=== PATIENT | male | born 1980 | race Caucasian/White ===

== ENCOUNTER 2022-10-05 15:06 | Emergency (ER) | payer BC, SELFPAY ==
[2022-10-05 15:09] VITALS: BP 141/101; PULSE 104; RESP 17; TEMP 36.3; O2SAT 99; BMI 30.4
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
[2022-10-05] MEDS: LORazepam 1 MG Tablet PO (15:47)
[2022-10-05 16:28] LABS: Absolute Lymphocyte Count 1.39 X10^3/uL (0.83-4.51); Absolute Neutrophil Count 4.6 X10^3/uL (2.0-7.7); Basophil# 0.03 X10^3/uL; Basophil% 0.5 % (0-1); Eosinophil# 0.07 X10^3/uL; Eosinophils% 1.1 % (0-5); Hematocrit 44.4 % (40-54); Lymphocyte # 1.39 X10^3/ul (0.83-4.51); Lymphocyte % 21.3 % (19-41); Mean Corpuscular Hgb 31.4 pg (27.0-32.0); Mean Corpuscular Volume 87.2 fL (80-94); Mean Platelet Vol. 9.2 fl (6.2-12.0); Monocyte# 0.44 X10^3/uL; Monocyte% 6.7 % (0-10); NRBC Flagged by Analyzer 0 % (0-5); Neutrophil # 4.59 X10^3/uL (2.7-7.7); Neutrophil % 70.1 % (47-70); Platelet Count 222 K/mm3 (150-450); RBC Distribution Width SD 38.5 fl (35.1-43.9); Red Blood Count 5.09 M/mm3 (4.6-6.2); White Blood Count 6.5 K/mm3 (4.4-11.0)
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
[2022-10-05 16:35] LABS: Anion Gap 5 (5-15); BUN 6 mg/dL (7-18); BUN/Creat Ratio 5.9 RATIO (10-20); Calcium,Total 9.5 mg/dL (8.5-10.1); Chloride 106 mmol/L (98-107); Creatinine, Serum 1.01 mg/dL (0.70-1.30); EST Glomerular Filtration Rate 85 mL/min (>60); Est Glom Filt Rate - Afr Amer 103 mL/min (>60); Estimated Creatinine Clearance 105.48 ml/min; Glucose 107 mg/dL (74-106); Potassium 3.6 mmol/L (3.5-5.1); Sodium Level 137 mmol/L (136-145)
[2022-10-05 16:59] LABS: Alcohol, Blood (Medical)-Serum < 3.0 mg/dL
[2022-10-05 17:00] LABS: Amphetamine Urine VISTA NEGATIVE (<1000 ng/mL); Barbiturate Urine VISTA NEGATIVE (< 200 ng/mL); Benzodiazepine Urine VISTA NEGATIVE (< 200 ng/mL); Cocaine Urine VISTA NEGATIVE (< 300 ng/mL); Ecstacy Urine VISTA NEGATIVE (< 500 ng/mL); Methadone Urine VISTA NEGATIVE (< 300 ng/mL); PCP Urine VISTA NEGATIVE (< 25 ng/mL); THC Urine VISTA NEGATIVE (< 50 ng/mL); Vista UDS pH Range 5
[2022-10-05] MEDS: Pantoprazole Sodium 20 MG Tablet PO (17:11)
[2022-10-05] MEDS: hydrOXYzine PAM 25 MG Capsule 50 MG PO (17:11)
[2022-10-05 17:12] LABS: Valproic Acid (Depakene) Level 21 ug/mL (50-100)
--- NOTE | 2022-10-05 18:54 | CASEMGMT ---
Addendum entered by Jill Garza 10/05/22 19:32: Patient was accepted at [facility] with [facility] [employer] Carito Marte/ MD Madison, room Coin, N2N [id number] SW updated MD Soto of acceptance as well as loading unit operator powder charging who coordinated transportation, ETA 3 HRS. SW met with patient and updated him regarding admission to [facility] as well as transportation ETA of 3 hrs. Patient voiced understanding and has no questions or concerns. SW remains available if needs arise. Plan: [facility]. BERTHA Cameron Original Note: SW Note SW contacted [facility] to inquire about bed availability, DARRIUS informed beds are available. DARRIUS contacted [facility] to inquire about beds, DARRIUS informed beds are available. DARRIUS sent referrals to [facility] and [facility]. Admissions staff with [facility] contacted DARRIUS with clarifying questions and requesting EKG. SW informed MD Soto EKG is needed, to order. Plan: referrals pending at [facility] and [facility] BERTHA Cameron
--- NOTE | 2022-10-05 19:00 | NURSING ---
[facility] CALLED STATING THAT THEY WILL TAKE THE PT AND ARE REQUESTING THAT I SEND THE PINK SLIP AND THEY WILL CALL WITH MORE DETAILS.
[2022-10-05 20:00] VITALS: BP 121/67; PULSE 97; RESP 17; O2SAT 96
--- NOTE | 2022-10-05 21:36 | ED.RN ---
Report given to Lisa MAR at [facility].
[2022-10-05 21:47] VITALS: BP 145/97; PULSE 94; RESP 19; O2SAT 97
== END 2022-10-05 22:46 | disposition short-term general hospital (02) ==
PROVIDERS: Emergency Provider Student in an Organized Health Care Education/Training Program; PCP Internal Medicine; Visit Provider Student in an Organized Health Care Education/Training Program
DX: R45.851 Suicidal ideations (principal); F32.A Depression, unspecified; F41.9 Anxiety disorder, unspecified
CPT/HCPCS: 80048; 80164; 80307; 82077; 85025; 87811; 99285

== ENCOUNTER 2025-01-31 12:43 | Observation (INO) | payer OTHER, SELFPAY ==
[2025-01-31] VITALS (8 sets, daily range): BP systolic 140–170; BP diastolic 68–115; PULSE 110–125; RESP 12–22; TEMP 36.1–37.3; O2SAT 95–100; BMI 29.5; BMI 29.2
[2025-01-31 13:02] LABS: Hematocrit 50.6 % (40-54); Hemoglobin 18.7 g/dL (13.0-16.5); Immature Granulocytes Count 0.090 X10^3/uL (0.0-0.0); Mean Corp Hgb Conc 37.0 g/dL (32-36); Mean Corpuscular Volume 88.2 fL (80-94); Mean Platelet Vol. 8.3 fl (6.2-12.0); NRBC Flagged by Analyzer 0 % (0-5); Platelet Count 319 K/mm3 (150-450); RBC Distribution Width CV 13.1 % (11.6-14.6); RBC Distribution Width SD 42.3 fl (35.1-43.9); Red Blood Count 5.74 M/mm3 (4.6-6.2); White Blood Count 13.6 K/mm3 (4.4-11.0)
--- NOTE | 2025-01-31 13:10 | EDS_ITS ---
HPI History of Present Illness Chief Complaint: ETOH Intox Narrative Narrative: Patient 44-year-old male past medical history anxiety, depression, hypertension, GERD who presents to the emergency department for alcohol detox. Patient states that he needs assistance and get help with alcohol. He states that he has gone through detox in the past has never had seizures. He states that he drinks approximately 4 beat boxes daily and states that this is wine. Patient has no other complaints at this point time states his last drink was around 5 AM. [facility] Medical History (Updated 01/31/25 @ 14:[address] Yossi Amaya, ) Hypertension GERD (gastroesophageal reflux disease) Depression Anxiety Home Medications ?Medication ?Instructions ?Recorded ?Last Taken ?Type allopurinol 300 mg tablet 300 mg PO DAILY 10/05/22 Unk nown History amlodipine 5 mg tablet 5 mg PO DAILY 10/05/22 Unkno wn History omeprazole 20 mg capsule,delayed 20 mg PO BID 10/05/22 Unknown History release albuterol sulfate 90 mcg/actuation 2 puff inhalation Q 6H PRN PRN 01/31/25 Unknown History aerosol inhaler wheezing fluoxetine 20 mg capsule 20 mg PO DAILY 01/31/25 Unkn own History lamotrigine 100 mg tablet 100 mg PO DAILY 01/31/25 Unk nown History losartan 50 mg tablet 50 mg PO DAILY 01/31/25 Unkn own History trazodone 50 mg tablet 50 mg PO QHS PRN PRN insomni a 01/31/25 Unknown History Allergy/AdvReac Type Severity Reaction Status Date / Time No Known Allergies Allergy Verified 01/31/25 12:44 Social History Smoking Status: Never smoker ROS ROS ED ROS Narrative Constitutional: Denies fevers, chills, headaches Eyes: Denies double vision change in vision Cardiovascular: Denies chest pain Abdomen: Denies nausea vomit diarrhea Neurological: Denies numbness, weakness, tingling Musculoskeletal: Denies back pain Skin: Denies rashes or lesions EXAM Physical Exam Narrative Exam Narrative: General: Patient lying in bed rest comfortably did not appear to be in acute distress Head: Atraumatic, normocephalic Eyes: PERRL bilaterally, EOMI bilateral, no conjunctival injection noted Neck: Soft, supple, trachea midline Cardiovascular: Patient tachycardic with a regular rhythm Respiratory: Clear to auscultation bilaterally Abdomen: Soft, nondistended, nontender to palpation Extremities: +5/5 strength noted in the bilateral upper and lower extremities, radial pulses +2/4 in the bilateral extremities, no pedal edema exam Neurological: Patient follow commands knew that he was at [facility] year is 2024 Skin: Warm, dry, intact Const Vital Signs: 01/31/25 12:44 01/31/25 13:12 01/31/25 13:44 Temperature 97 F L Temperature Source Temporal Pulse Rate 125 H 112 H 110 H Respiratory Rate 14 12 14 Blood Pressure 140/115 H 154/98 H 145/71 H Blood Pressure Mean 123 116 95 Blood Pressure Source Monitor Blood Pressure Position Semi-Fowlers Blood Pressure Location Right Arm Pulse Ox 97 98 98 Oxygen Delivery Method Room Air Room Air Room Air 01/31/25 14:22 Temperature 98.7 F Temperature Source Pulse Rate 119 H Respiratory Rate 22 H Blood Pressure 157/110 H Blood Pressure Mean 125 Blood Pressure Source Blood Pressure Position Blood Pressure Location Pulse Ox 100 Oxygen Delivery Method MDM MDM MDM Narrative Medical decision making narrative: Patient is a 44-year-old male who presents to the emergency department with a chief complaint of wanting alcohol detox. Patient will be medically cleared and discussed case with hospitalist for admission. Patient placed on CIWA protocol Patient CBC reviewed showed a white blood count of 13,000, hemoglobin 18.7, plate count of 319. Patient sodium normal 136, potassium normal at 3.4, creatinine normal at 1.04. Patient's drug screen presumptive positive for cannabis, alcohol level 95. Patient feeling anxious he was given 1 mg of oral Ativan. At this point time will discuss case with hospitalist for admission for alcohol detox. Discussed case with hospitalist Dr. Piper who accept the patient for admission. Patient notified is agreeable spinal cord concerns answered. Lab Data Labs: Laboratory Results - last 24 hr 01/31/25 01/31/25 12:53 14:02 WBC 13.6 H RBC 5.74 Hgb 18.7 H* Hct 50.6 MCV 88.2 MCH 32.6 H MCHC 37.0 H RDW Std Deviation 42.3 RDW Coeff of Anson 13.1 Plt Count 319 MPV 8.3 Immature Gran % (Auto) 0.700 Neut % (Auto) 70.7 H Lymph % (Auto) 18.7 L Montour % (Auto) 9.3 Eos % (Auto) 0.2 Baso % (Auto) 0.4 Absolute Neuts (auto) 9.6 H Absolute Lymphs (auto) 2.53 Nucleated RBC % 0 Sodium 136 Potassium 3.4 Chloride 96 L Carbon Dioxide 21.5 Anion Gap 19 H BUN 9 Creatinine 1.04 Estim Creat Clear Calc 111.05 Est GFR (MDRD) Non-Af 90 BUN/Creatinine Ratio 8.3 L Glucose 103 H Calcium 9.5 Urine Opiates Screen NEGATIVE U Buprenorphine Qual NEGATIVE Ur Oxycodone Screen NEGATIVE Urine Methadone Screen NEGATIVE Urine Fentanyl Screen NEGATIVE Ur Barbiturates Screen NEGATIVE Ur Phencyclidine Scrn NEGATIVE Ur Amphetamines Screen NEGATIVE U Benzodiazepines Scrn NEGATIVE Urine Cocaine Screen NEGATIVE U Cannabinoids Screen PRESUMPTIVE POSITIVE Ethyl Alcohol 95.1 H Discharge Plan Triage Chief Complaint: ETOH Intox ED Provider: Yossi Amaya Dx/Rx/DC Orders Clinical Impression: Alcohol abuse, Anxiety, Depression, Hypertension Prescriptions: No Action amlodipine 5 mg Tablet 5 mg PO DAILY omeprazole 20 mg Capsule,Delayed Release(Dr/Ec) 20 mg PO BID allopurinol 300 mg Tablet 300 mg PO DAILY losartan 50 mg tablet 50 mg PO DAILY albuterol sulfate 90 mcg/actuation HFA aerosol inhaler 2 puff inhalation Q6H PRN PRN (Reason: wheezing) fluoxetine 20 mg capsule 20 mg PO DAILY lamotrigine 100 mg tablet 100 mg PO DAILY trazodone 50 mg tablet 50 mg PO QHS PRN PRN (Reason: insomnia) Primary Care Provider: Yandel Figueroa Referrals: Octavia Bolden MD [Med Staff - Distribution District Supervisor] - Print Language: Indonesian Disposition Disposition: Acute Care Hospital [facility]
--- OUTSIDE RECORDS SUMMARY | 2025-01-31 13:40 | XMS RPT_ITS | CCD ---
Author Organization [facility] Inform ion Partnership [facility] Care Team Providers Care Social Scientist Name Role Phone Jaquelin Nayak MD Primary Care Provider Tom Soto Attending Unavailable Jaquelin Nayak Primary Care Unavailable Yuan MANN, Jaquelin Primary Care Provider [phone] Jaquelin Nayak MD Primary Care Provider [phone] Unavailable Primary Care Provider Unavailabl e Stentz PA-C, Yandel Primary Care Provider Stentz PA-C, Yandel Primary Care Provider MARVEL DUBOSE Attending Unavailab le BULLOCKMARVEL ANDERSON Consulting Unavailab le MARVEL DUBOSE Admitting Unavailab le STENTZ, YANDEL Primary Care Unavailable STENTZ, YANDEL Attending Unavailable STENTZ, YANDEL Attending Unavailable STENTZ, YANDEL Primary Care Unavailable Older NUCLEAR WEAPONS CUSTODIAN.ETHYLENE OXIDE PANELBOARD OPERATOR, Celsa Unavailable Stentz PA-C, Yandel Primary Care Provider STENTZ, YANDEL Primary Care Unavailable ARIEL PETTY Attending Unavailable Medications Current Medications Medication Drug Class(es) Dates Sig (Normalized) Sig (Original) allopurinol 300 mg oral tablet (13 sources) Xanthine Oxidase Inhibitor Start: 05-14-2021 End: 11-12-2024 take 1 tablet by mouth once daily allopurinol (ZYLOPRIM) 300 mg tablet Indications: Idiopathic chronic gout of multiple sites without tophus Take 1 tablet by mouth once daily. 90 tablet 3 10/26/2022 Active Comment on above: Take 1 tablet by john th once daily. amLODIPine 5 mg oral tablet (11 sources) Dihydropyridine Calcium Channel Vahe Start: 10-26-2022 End: 11-02-2023 take 1 tablet by mouth once daily amLODIPine (NORVASC) 5 mg tablet Indications: Primary hypertension Take 1 tablet by mouth once daily. 90 tablet 3 11/02/2023 Active Start: 10-05-2022 take 5 mg by mouth once daily Amlodipine Active 5 MG PO DAILY October 05, 2022 12:00am Start: 10-20-2021 take 1 tablet by john th once daily amLODIPine (NORVASC) 5 mg tablet Indications: Primary hypertension Take 1 tablet by mouth once daily. 90 tablet 3 10/20/2021 Active Comment on above: Take 1 tablet by john th once daily. ARIPiprazole 10 mg oral tablet (3 sources) Atypical Antipsychotic Start: 05-21-20 take 1 tablet by mouth in the morning ARIPiprazole (Abilify) 10 mg tablet Take 1 tablet (10 mg) by mouth early in the morning.. 05/21/2024 Active Start: 10-05-2022 take 1 tablet by john th once daily Aripiprazole (Abilify) 10 mg Tablet Active 10 MG PO DAILY October 05, 2022 12:00am Start: 03-13-2021 take 1 tablet by john th once daily ARIPiprazole (ABILIFY) 5 mg tablet Take 5 mg by mouth once daily. 0 03/13/2021 Active Comment on above: Take 5 mg by mouth o nce daily. blood pressure test kit-large kit (2 sources) Start: 4 blood pressure test kit-large kit Indications: Primary hypertension Check BP daily. 1 each 05/30/2024 Active buPROPion hydrochloride 100 mg oral tablet (1 source) Aminoketone Start: 3 take 1 tablet by mouth once daily Bupropion Hcl (Wellbutrin) 100 mg Tablet Active 100 MG PO DAILY October 05, 2022 12:00am busPIRone hydrochloride 15 mg oral tablet (2 sources) Start: 4 take 1 tablet by mouth twice daily busPIRone (Buspar) 15 mg tablet Take 1 tablet (15 mg) by mouth 2 times a day. 05/21/2024 Active Start: 09-29-2021 take 1 tablet by john th three times daily busPIRone (BUSPAR) 15 mg tablet Take 1 tablet by mouth three times daily. 90 tablet 3 09/29/2021 Active Comment on above: Take 1 tablet by john th three times daily. doxepin 3 mg oral tablet (1 source) Tricyclic Antidepressant Start: 08-26-19 End: 11-13-19 take 1 tablet by mouth once daily doxepin 3 mg tablet Indications: Insomnia due to other mental disorder Take 1 tablet (3 mg) by mouth once daily. 30 tablet 1 08/26/2024 11/12/2024 Discontinued (Med List Cleanup) FLUoxetine 20 mg oral capsule (4 sources) Serotonin Reuptake Inhibitor Start: 11-20-19 End: 03-04-20 FLUoxetine (PROZAC) 20 mg capsule Take 20 mg by mouth. 11/23/2024 2025 Active lamoTRIgine 100 mg oral tablet (6 sources) Mood Stabilizer, Anti-epileptic Agent Start: 10-23-19 End: 12-23-19 take 1 tablet by mouth once daily lamoTRIgine (LAMICTAL) 100 MG tablet Take 1 (one) tablet (100 mg total) by mouth daily . 30 tablet 11/22/2024 12/22/2024 Active Start: 08-26-2024 End: 11-12-2024 lamoTRIgine (LaMICtal) 25 mg tablet Indications: Anxiety , Depression, unspecified depression type Take 25mg daily for 7 days, then increase to 50mg daily. 60 tablet 1 08/26/2024 11/12/2024 Discontinued (Med List Cleanup) losartan potassium 50 mg oral tablet (8 sources) Angiotensin 2 Receptor Vahe Start: 05-30-2024 End: 11-12-2025 losartan (COZAAR) 50 mg tablet Take 50 mg by mouth. 11/12/2024 11/12/2025 Active meloxicam 15 mg oral tablet (4 sources) Nonsteroidal Anti-inflammatory Drug Start: 05-18-2023 take 1 tablet by mouth once daily meloxicam (MOBIC) 15 mg tablet Take 1 tablet by mouth once daily. 30 tablet 1 05/18/2023 Active Comment on above: Take 1 tablet by john th once daily. metoprolol tartrate 25 mg oral tablet (10 sources) beta-Adrenergic Vahe Start: 10-26-2022 End: 10-29-2023 take 0.5 tablet by mouth twice daily metoprolol tartrate, short acting, (LOPRESSOR) 25 mg tablet Take 0.5 tablets by mouth twice daily. 90 tablet 3 10/28/2022 Active Comment on above: Take 0.5 tablets by mouth twice daily. multivitamin tablet (9 sources) Start: 10-26-2022 take 1 tablet by mouth once daily multivitamin tablet Take 1 tablet by mouth once daily. 10/26/2022 Active Start: 10-26-2022 take 1 tablet by [facility] once daily multivitamin tablet Take 1 tablet by mouth once daily. 0 10/26/2022 Active Comment on above: Take 1 tablet by john once daily. ofloxacin 3 mg/ml otic solution (1 source) Quinolone Antimicrobial Start: 01-12-20 End: 01-19-20 ofloxacin (FLOXIN) 0.3 % otic solution Use 10 drops in the left ear once daily for 7 days. 5 mL 01/11/2025 01/18/2025 Active omeprazole 20 mg delayed release oral capsule (15 sources) Proton Pump Inhibitor Start: 12-17-19 End: 05-11-20 take 1 capsule by mouth twice daily before mealtime omeprazole (PRILOSEC) 20 mg capsule Take 1 capsule by mouth two times a day. 1/2 hr before meal. 180 capsule 1 11/02/2023 Active Comment on above: Take [address] [facility] twice daily. 1/2 hr before meal. Take [address] [facility] two times a day. 1/2 hr before meal. pantoprazole 20 mg delayed release oral tablet (4 sources) Proton Pump Inhibitor Start: 11-20-19 End: 12-23-19 take 1 tablet by mouth twice daily pantoprazole (PROTONIX) 20 MG tablet Take 1 (one) tablet (20 mg total) by mouth 2 (two) times a day . 60 tablet 11/22/2024 12/22/2024 Active Start: 11-18-2024 End: 11-19-2024 take 20 mg by mouth once daily 20 mg, Oral, Daily, Fir st dose (after last modification) on 11/18/24 at 2220, DO NOT CRUSH OR CHEW. traZODone hydrochloride 50 mg oral tablet (4 sources) Serotonin Reuptake Inhibitor Start: 11-18-2024 End: 12-22-2024 take 1 tablet by mouth once daily as needed for sleep traZODone (DESYREL) 50 MG tablet Take 1 (one) tablet (50 mg total) by mouth nightly as needed for sleep . 30 tablet 11/22/2024 12/22/2024 Active Start: 04-23-2024 traZODone (Chuy yrel) 100 mg tablet Take 1 tablet (100 mg) by mouth as needed at bedtime. 04/23/2024 Active divalproex sodium 125 mg delayed release oral capsule (20 sources) Mood Stabilizer, Anti-epileptic Agent Start: 10-26-2022 take 1 capsule by mouth twice daily divalproex sprinkle (DEPAKOTE SPRINKLES) 125 mg capsule Take 1 capsule by mouth twice daily. 10/26/2022 Active Start: 10-05-2022 take 1 tablet by john th three times daily Divalproex (Depakote) 125 mg Tablet,Delayed Release (Dr/Ec) Active 125 MG PO THREE TIMES A DAY October 05, 2022 12:00am take 1 tablet by john th once daily divalproex DR (DEPAKOTE) 250 mg EC tablet Take 250 mg by mouth once daily. Active take 1 tablet by john th once daily divalproex DR (DEPAKOTE) 500 mg EC tablet Take 500 mg by mouth once daily. Active Comment on above: Take 1 capsule by [facility] twice daily. Take 250 mg by mouth once daily. Take 500 mg by mouth once daily. Completed/Discontinued Medications Medication Drug Class(es) Dates Sig (Normalized) Sig (Original) acetaminophen 325 mg oral tablet (1 source) Start: 11-18-2024 End: 11-22-2024 take 1 tablet by mouth every four hours as needed for pain 650 mg, Oral, Every 4 hours PRN, mild pain, Starting on 11/18/24 at 2355 [id number] actuat albuterol 0.09 mg/actuat metered dose inhaler (1 source) beta2-Adrenergic Agonist End: 11-22-2024 take 2 puff(s) by inhalation every six hours as needed for wheezing albuterol 90 mcg/actuation inhaler Inhale 2 (two) puffs every 6 (six) hours as needed for wheezing . 11/22/2024 Discontinued (Stop Taking at Discharge) aluminum hydroxide 40 mg/ml / magnesium hydroxide 40 mg/ml / simethicone 4 mg/ml oral suspension (1 source) Start: 11-18-2024 End: 11-22-2024 take 30 mL by mouth every four hours as needed 30 mL, Oral, Every 4 hours PRN, indigestion, Starting on Mon11/18/24 at 2355 2 ml benztropine mesylate 1 mg/ml injection (1 source) Anticholinergic, Antihistamine Start: 11-18-2024 End: 11-22-2024 inject 2 mg by intramuscular injection every twenty-four hours as needed 2 mg, Intramuscular, Once as needed, acute dystonia, Starting on Mon11/18/24 at 2355, For 1 dose, [] and notify the physician. Haloperidol (1 source) Typical Antipsychotic Start: 11-18-2024 End: 11-22-2024 take 1 tablet by mouth every four hours as needed haloperidoL (HALDOL) tablet 5 mg hydrOXYzine hydrochloride 50 mg oral tablet (4 sources) Antihistamine Start: 11-19-2024 End: 11-22-2024 take 1 tablet by mouth every six hours as needed for anxiety 50 mg, Oral, Every 6 hours PRN, anxiety, Starting on Mon11/19/24 at 0016 Start: 05-30-2024 End: 06-09-2024 take 1 tablet by mouth four times daily hydrOXYzine HCL (Atarax) 10 mg tablet Indications: Anxiety Take 1 tablet (10 mg) by mouth 4 times a day for 10 days. 40 tablet 05/30/2024 06/09/2024 Active Start: 12-17-2021 hydrOXYzine HC l (ATARAX) 25 mg tablet Take 1-2 tablets at bedtime as needed for anxiety 90 tablet 2 12/17/2021 Active Start: 10-20-2021 End: 12-15-2021 hydrOXYzine HCl (ATARAX) 25 mg tablet Take 1-2 tablets at bedtime as needed for anxiety 90 tablet 2 10/20/2021 12/15/2021 Discontinued Comment on above: Take 1-2 tablets at bedtime as needed for anxiety magnesium hydroxide 80 mg/ml oral suspension (1 source) Start: 2024 End: 2024 take 2400 mg by mouth once daily as needed for constipation 2,400 mg (30 mL), Oral, Daily PRN, constipation, constipation, Starting on Mon11/18/24 at 2355 OLANZapine (ZyPREXA) injection 5 mg (1 source) Start: 2024 End: 2024 inject 5 mg by intramuscular injection every four hours as needed 5 mg, Intramuscular, Every 4 hours PRN, agitation, SECOND LINE agent for agitation, Starting on Mon11/18/24 at 2354, May give 30 minutes after first line agent if needed for agitation management. Contact provider if additional agitation management is necessary. Do not give IM olanzapine within 2 hours of IM lorazepam. Maximum 30 mg of IM olanzapine total per 24 hours. May cause QT interval prolongation. If not already reconstituted, reconstitute 10 mg vial with 2.1 mL sterile water inj. Final concentration = 5 mg/mL. FOR IM USE ONLY. Use within 1 hr. QUEtiapine 50 mg oral tablet (4 sources) Atypical Antipsychotic Start: 2022 End: 2022 take 1 tablet by mouth once daily at bedtime QUEtiapine (SEROQUEL) 50 mg tablet Take 1 tablet by mouth daily at bedtime. 0 10/26/2022 05/03/2023 Discontinued Comment on above: Take 1 tablet by john th daily at bedtime. sertraline 100 mg oral tablet (1 source) Serotonin Reuptake Inhibitor Start: 2021 sertraline (ZOLOFT) 100 mg tablet 2 tablets once daily 60 tablet 4 10/20/2021 Active Comment on above: 2 tablets once daily sildenafil 50 mg oral tablet (4 sources) Phosphodiesterase 5 Inhibitor Start: 2022 End: 2022 sildenafil (VIAGRA) 50 mg tablet Please take 1 to 2 pills as needed an hour before activity. 30 tablet 0 10/26/2022 05/03/2023 Discontinued Comment on above: Please take 1 to 2 p ills as needed an hour before activity. Problems Active Problems Problem Classification Problem Date Documented Date Episodic/Chronic Alcohol-related disorders (2 sources) Alcohol abuse; Translations: [Alcohol abuse, uncomplicated] Onset: 11-18-2024 11-18-2024 Chronic Alcohol-related disorders (3 sources) Alcohol intoxication; Translations: [Alcohol use, unspecified with intoxication, uncomplicated] Onset: 11-18-2024 11-18-2024 Episodic Anxiety disorders (17 sources) Anxiety state; Translations: [Generalized anxiety disorder] Onset: 05-30-2024 04-27-2018 Chronic Esophageal disorders (17 sources) Gastroesophageal reflux disease; Translations: [Gastro-esophageal reflux disease without esophagitis] Onset: 12-05-2011 07-26-2021 Chronic Essential hypertension (17 sources) Essential hypertension; Translations: [Essential (primary) hypertension] Onset: 10-20-2021 10-20-2021 Chronic Gout and other crystal arthropathies (13 sources) Gout; Translations: [Gout, unspecified] Onset: 05-25-2013 05-25-2013 Chronic Miscellaneous mental health disorders (3 sources) Insomnia disorder related to another mental disorder; Translations: [Insomnia due to other mental disorder] Onset: 05-30-2024 05-30-2024 Chronic Mood disorders (20 sources) Depressive disorder; Translations: [Depressive disorder] Onset: 05-30-2024 Resolved: 11-19-2024 07-26-2021 Chronic Mood disorders (2 sources) Mood disorders; Translations: [Depression, unspecified] Onset: 05-30-2024 Nutritional deficiencies (1 source) Vitamin D deficiency; Translations: [Vitamin D deficiency, unspecified] Onset: 09-05-2024 09-05-2024 Chronic Other connective tissue disease (1 source) Dupuytren contracture of right palm; Translations: [Palmar fascial fibromatosis [Dupuytren]] Episodic Other connective tissue disease (1 source) Dupuytren's disease of palm; Translations: [Palmar fascial fibromatosis [Dupuytren]] 02-28-2023 Episodic Other connective tissue disease (1 source) Pain in right hand; Translations: [Pain in right hand] 05-18-2023 Episodic Other connective tissue disease (1 source) Dupuytren's contracture; Translations: [Palmar fascial fibromatosis [Dupuytren]] 06-14-2023 Episodic Other ear and sense organ disorders (1 source) Acute otitis externa of left ear; Translations: [Unspecified acute noninfective otitis externa, left ear] 01-11-2025 Episodic Other ear and sense organ disorders (1 source) Unspecified acute noninfective otitis externa, left ear; Translations: [Acute otitis externa of left ear, unspecified type] Onset: 01-11-2025 Episodic Other eye disorders (10 sources) Bilateral vitreous floaters; Translations: [Other vitreous opacities, bilateral] Onset: 07-05-2019 07-05-2019 Chronic Other non-traumatic joint disorders (1 source) Arthropathy; Translations: [Other specified joint disorders, unspecified joint] 05-11-2023 Episodic Residual codes; unclassified (1 source) Pain; Translations: [Pain, unspecified] 12-29-2022 Episodic Suicide and intentional self-inflicted injury (1 source) Suicidal ideations; Translations: [Suicidal ideations] Onset: 10-31-2022 Episodic Past or Other Problems Problem Classification Problem Date Documented Da te Episodic/Chronic Blindness and vision defects (10 sources) Amblyopia of right eye; Translations: [Unspecified amblyopia, right eye] Onset: 10-04-2019 10-04-2019 Episodic Diseases of mouth; excluding dental (3 sources) Aphthous ulcer of mouth; Translations: [Recurrent oral aphthae] Resolved: 01-20-2015 01-20-2015 Episodic Inflammation; infection of eye (except that caused by tuberculosis or sexually transmitteddisease) (10 sources) Internal hordeolum of left upper eyelid; Translations: [Hordeolum internum left upper eyelid] Onset: 07-05-2019 07-05-2019 Episodic Other gastrointestinal disorders (3 sources) Heartburn; Translations: [Heartburn] Resolved: 01-20-2015 01-20-2015 Episodic Other nutritional; endocrine; and metabolic disorders (10 sources) Hyperuricemia; Translations: [Hyperuricemia without signs of inflammatory arthritis and tophaceous disease] Onset: 12-05-2011 12-05-2011 Episodic Unclassified (2 sources) Onset: 05-30-2024 Resolved: 11-12-2024 05-30-2024 Results Test Name Value Interpretation Reference Range Facility Mattie 01-11-2025 [facility] [place] ([facility] ) -------- COREY MORRISON ([id number]) 1980 M Date Time Provider Department 01/11/25 8:15 AM ARIEL PETTY [facility] During your visit today, we recorded the following information about you: Temperature Pulse Respiration Blood pressure 97 degrees 98/minute 16/minute 124/72 Weight 103.4 kg Ariel Petty, MARIA DE JESUS 01/11/2025 8:36 AM Signed [facility] Subjective Corey Morrison is a 44 year old male. Patient presents with: Ear Pain: left x this am HPI Left Otalgia: - Onset: Noticed pain during the night when waking to use the bathroom. - No recent URI symptoms: Denies cough, rhinorrhea, or fever. - No recent swimming. - Suspects possible trauma from using a jose to remove ear hair. - Denies otorrhea; fiancee applied ear drops this morning. - Questions if well water could be a contributing factor. PAST MEDICAL HISTORY Diagnosis Date Amblyopia of right eye patching as a child Anxiety state, unspecified Depressive disorder, not elsewhere classified Diaphragmatic hernia without mention of obstruction or gangrene Encounter for long-term (current) use of medications 05/25/2013 Esophagitis, unspecified Heartburn Hyperlipidemia 03/05/2015 Oral aphthae yael with stress, Abreva helps, lately worse Umbilical hernia PAST SURGICAL HISTORY Procedure Laterality Date EGD TRANSORAL BIOPSY SINGLE/MULTIPLE 10/27/11 ALLERGIES Patient has no known allergies. MEDICATIONS FLUoxetine (PROZAC) 20 mg capsule Take 20 mg by mouth. losartan (COZAAR) 50 mg tablet Take 50 mg by mouth. omeprazole (PRILOSEC) 20 mg capsule Take 1 capsule by mouth two times a day. 1/2 hr before meal. allopurinol (ZYLOPRIM) 300 mg tablet Take 1 tablet by mouth once daily. ofloxacin (FLOXIN) 0.3 % otic solution Use 10 drops in the left ear once daily for 7 days. amLODIPine (NORVASC) 5 mg tablet Take 1 tablet by mouth once daily. (Patient not taking: Reported on 01/11/2025) meloxicam (MOBIC) 15 mg tablet Take 1 tablet by mouth once daily. (Patient not taking: Reported on 01/11/2025) divalproex DR (DEPAKOTE) 250 mg EC tablet Take 250 mg by mouth once daily. (Patient not taking: Reported on 01/11/2025) divalproex DR (DEPAKOTE) 500 mg EC tablet Take 500 mg by mouth once daily. (Patient not taking: Reported on 01/11/2025) metoprolol tartrate, short acting, (LOPRESSOR) 25 mg tablet Take 0.5 tablets by mouth twice daily. (Patient not taking: Reported on 01/11/2025) divalproex sprinkle (DEPAKOTE SPRINKLES) 125 mg capsule Take 1 capsule by mouth twice daily. multivitamin tablet Take 1 tablet by mouth once daily. FAMILY HISTORY Problem Relation Age of Onset Hypertension Mother Smoker, HTN,, excess Mt Dew Diabetes Mother Psychiatry Mother Depression/Anxiety Colon Cancer Mother COPD Mother Diabetes Father Psychiatry Father Depression/Anxiety Psychiatry Sister bi-polar Social History Tobacco Use Smoking status: Never Smokeless tobacco: Never Vaping Use Vaping status: Never Used Substance Use Topics Alcohol use: No Drug use: No Review of Systems Constitutional: (-) fever Ears/Nose/Mouth/Throat: (+) left ear pain, (-) ear drainage, (-) rhinorrhea Respiratory: (-) cough Objective BP 124/72 Pulse 98 Temp 36.1 ?C (97 ?F) Resp 16 Wt 103.4 kg (227 lb 15.3 oz) SpO2 96% BMI 30.08 kg/m? Physical Exam Vitals reviewed. Constitutional: General: He is not in acute distress. Appearance: Normal appearance. He is not toxic-appearing. HENT: Right Ear: Tympanic membrane and ear canal normal. Left Ear: Tympanic membrane normal. Swelling and tenderness present. Tympanic membrane is not erythematous. Mouth/Throat: Mouth: Mucous membranes are moist. Cardiovascular: Rate and Rhythm: Normal rate and regular rhythm. Pulmonary: Effort: Pulmonary effort is normal. Breath sounds: Normal breath sounds. Skin: General: Skin is warm and dry. Neurological: Mental Status: He is alert. General: No acute distress. HEENT: Left ear canal erythematous and edematous, tympanic membrane normal. Resp: Clear to auscultation bilaterally. {1. Acute otitis externa of left ear, unspecified type (H60.502) - Onset today; no recent illness or swimming. Possible irritation from ear hair trimming. - Examination reveals erythema and edema of the left ear canal; tympanic membrane intact. - Prescribed antibiotic ear drops; sent prescription to [facility] pharmacy. and Recording using [employer] software for draft documentation of the visit was discussed with the patient/authorized patient accounting representative; all questions welcomed and answered. Patient/authorized patient accounting representative agreed to proceed Differential Diagnoses - otitis externa is more likely for the following reason(s): suggested by HANDP - otitis media is less likely for the following reason(s): HANDP not suggestive Disposition (more content not included)... Normal [facility] Lipid 1996 panelon Cholesterol [Mass/Vol] 201 mg/dL High 100 - 199 mg/dL [facility] Cholesterol in HDL [Mass/Vol] 50 mg/dL 40 - 59 mg/dL [facility] Cholesterol in LDL [Mass/Vol] 114 mg/dL 10 - 130 mg/dL [facility] Comment on above: National Cholesterol Education Program Guidelines: LDL Cholesterol Optimal: <100 mg/dL Near Optimal/above Optimal: 100-129 mg/dL Borderline High: 130-159 mg/dL High: 160-189 mg/dL Very High: greater than or equal to 190 mg/dL Cholesterol non HDL [Mass/Vol] 151 mg/dL [facility] Comment on above: National Cholesterol Education Program Guidelines: NON HDL Cholesterol Desirable: <130 mg/dL Borderline High: 130-159 mg/dL High: 160-189 mg/dL Very High: > or = 190 mg/dL Cholesterol.total/Cho lesterol in HDL [Mass ratio] 4 {ratio} ratio [facility] Comment on above: Males Cholesterol/HD L Ratio: Average risk: 5.0 1/2 average risk: 3.4 2 x average risk: 9.6 Interpretation and review of laboratory results Abnormal [facility] Triglyceride [Mass/Vol] 184 mg/dL High 30 - 150 mg/dL [facility] No Panel Informationon 11-19 [facility] TSH DL <= 0.005 mIU/L Qnon 0 11-19-2024 Interpretation and review of laboratory results Normal [facility] TSH Qn 0.53 m[IU]/L [facility] URINALYSISon 11-19-2024 BACTERIA, URINE None Seen Normal None Seen [facility] Comment on above: Order Comment: Micro scopic examination is performed on all urinalysis samples and only positive findings are reported. The test for blood on the chemical analytic portion of urinalysis may also be positive due to hemoglobinuria and myoglobinuria and if red blood cells are present they are quantified by microscopic examination. Performed By: #### [id number] #### LAB [address] [address] Arnold Bishop M.D. [id number] BILIRUBIN, URINE Negative Normal Negative [facility] Comment on above: Order Comment: Micro scopic examination is performed on all urinalysis samples and only positive findings are reported. The test for blood on the chemical analytic portion of urinalysis may also be positive due to hemoglobinuria and myoglobinuria and if red blood cells are present they are quantified by microscopic examination. Performed By: #### [id number] #### LAB [address] [address] Arnold Bishop M.D. [id number] BLOOD, URINE Small Abnormal Negative [facility] Comment on above: Order Comment: Micro scopic examination is performed on all urinalysis samples and only positive findings are reported. The test for blood on the chemical analytic portion of urinalysis may also be positive due to hemoglobinuria and myoglobinuria and if red blood cells are present they are quantified by microscopic examination. Performed By: #### [id number] #### LAB [address] [address] Arnold Bishop M.D. [id number] Clarity (U) Clear Normal Clear [facility] [facility] Comment on above: Order Comment: Micro scopic examination is performed on all urinalysis samples and only positive findings are reported. The test for blood on the chemical analytic portion of urinalysis may also be positive due to hemoglobinuria and myoglobinuria and if red blood cells are present they are quantified by microscopic examination. Performed By: #### 4 6625 #### LAB [address] [address] Arnold Bishop M.D. [id number] Color (U) Colorless Normal Colorless, Yellow [facility] Comment on above: Order Comment: Micro scopic examination is performed on all urinalysis samples and only positive findings are reported. The test for blood on the chemical analytic portion of urinalysis may also be positive due to hemoglobinuria and myoglobinuria and if red blood cells are present they are quantified by microscopic examination. Performed By: #### 4 6625 #### LAB [address] [address] Arnold Bishop M.D. [id number] Glucose Ql (U) Negative Normal Negative [facility] Comment on above: Order Comment: Micro scopic examination is performed on all urinalysis samples and only positive findings are reported. The test for blood on the chemical analytic portion of urinalysis may also be positive due to hemoglobinuria and myoglobinuria and if red blood cells are present they are quantified by microscopic examination. Performed By: #### 4 6625 #### LAB [address] [place] [address] Arnold Bishop M.D. [id number] Ketones Ql (U) Negative Normal Negative [facility] Comment on above: Order Comment: Micro scopic examination is performed on all urinalysis samples and only positive findings are reported. The test for blood on the chemical analytic portion of urinalysis may also be positive due to hemoglobinuria and myoglobinuria and if red blood cells are present they are quantified by microscopic examination. Performed By: #### 4 6625 #### LAB [address] [place] [address] Arnold Bishop M.D. [id number] Leukocyte esterase Test strip Ql (U) Negative Normal Negative [facility] Comment on above: Order Comment: Micro scopic examination is performed on all urinalysis samples and only positive findings are reported. The test for blood on the chemical analytic portion of urinalysis may also be positive due to hemoglobinuria and myoglobinuria and if red blood cells are present they are quantified by microscopic examination. Performed By: #### 4 6625 #### LAB [address] [address] Arnold Bishop M.D. [id number] NITRITE, URINE Negative Normal [facility] Comment on above: Order Comment: Micro scopic examination is performed on all urinalysis samples and only positive findings are reported. The test for blood on the chemical analytic portion of urinalysis may also be positive due to hemoglobinuria and myoglobinuria and if red blood cells are present they are quantified by microscopic examination. Performed By: #### 4 6625 #### LAB [address] [id number] Arnold Bishop M.D. [id number] pH (U) 7.0 [pH] Normal 5.0-7.0 [facility] Comment on above: Order Comment: Micro scopic examination is performed on all urinalysis samples and only positive findings are reported. The test for blood on the chemical analytic portion of urinalysis may also be positive due to hemoglobinuria and myoglobinuria and if red blood cells are present they are quantified by microscopic examination. Performed By: #### 4 6625 #### LAB [address] [place] [address] Arnold Bishop M.D. [id number] PROTEIN, URINE Negative Normal Negative [facility] Comment on above: Order Comment: Micro scopic examination is performed on all urinalysis samples and only positive findings are reported. The test for blood on the chemical analytic portion of urinalysis may also be positive due to hemoglobinuria and myoglobinuria and if red blood cells are present they are quantified by microscopic examination. Performed By: #### 4 6625 #### LAB [address] [address] Arnold Bishop M.D. [id number] Specific gravity (U) [Rel density] 1.006 Normal 1.005-1.025 [facility] Comment on above: Order Comment: Micro scopic examination is performed on all urinalysis samples and only positive findings are reported. The test for blood on the chemical analytic portion of urinalysis may also be positive due to hemoglobinuria and myoglobinuria and if red blood cells are present they are quantified by microscopic examination. Performed By: #### 4 6625 #### LAB [address] [address] Arnold Bishop M.D. [id number] UROBILINOGEN, URINE <2.0 Normal <2.0 [facility] Comment on above: Order Comment: Micro scopic examination is performed on all urinalysis samples and only positive findings are reported. The test for blood on the chemical analytic portion of urinalysis may also be positive due to hemoglobinuria and myoglobinuria and if red blood cells are present they are quantified by microscopic examination. Performed By: #### 4 6625 #### LAB [address] [place], [place] [address] Arnold Bishop M.D. [id number] UrinalysisOrdered By: Tory Díaz on 11-19-2024 Bacteria Auto Ql (U) None Seen None Se en /hpf [facility] Bilirubin Ql (U) Negative Negative [facility] th Clarity Refractometry automated (U) Clear Clear [facility] Color (U) Colorless Colorless, Yellow [facility] Glucose Auto test strip (U) [Mass/Vol] Negative Negative mg/dL [facility] Hemoglobin Auto test strip Ql (U) Small Abnormal Negative [facility] Interpretation and review of laboratory results Abnormal [facility] Ketones (U) [Mass/Vol] Negative Negative mg/dL [facility] Leukocyte esterase Auto test strip Ql (U) Negative Negative [facility] Nitrite Auto test strip Ql (U) Negative Negative [facility] pH (U) 7 [pH] 5.0 - 7.0 [facility] Protein (U) [Mass/Vol] Negative Negative mg/dL [facility] Specific gravity (U) [Rel density] 1.006 1.005 - 1.025 [facility] Urobilinogen (U) [Mass/Vol] mg/dL NINF - 2.0 mg/dL [facility] Microscopic examinat ion is performed on all urinalysis samples and only positive findings are reported. The test for blood on the chemical analytic portion of urinalysis may also be positive due to hemoglobinuria and myoglobinuria and if red blood cells are present they are quantified by microscopic examination. [facility] ALCOHOL, MEDICALon 5 ALCOHOL MEDICAL 39.8 mg/dL High <10.0 [facility] Comment on above: Performed By: #### 4 5033 #### LAB [address] [place], [place] [address] Arnold Bishop M.D. [id number] ALCOHOL MEDICAL 172.0 mg/dL High <10.0 [facility] Comment on above: Performed By: #### 4 5033 #### [facility] LAB [address] [place], [place] [address] Arnold Bishop M.D. [id number] Alcohol Levelon 11-18-2024 Ethanol [Mass/Vol] 39.8 mg/dL High NINF - 10 .0 mg/dL [facility] Alcohol, Medicalon Ethanol [Mass/Vol] 172 mg/dL High NINF - 10 .0 mg/dL [facility] CBC Auto Differentialon 10-30 Basophils (Bld) [#/Vol] 0.04 10*3/uL [facility] Basophils/100 WBC (Bld) 0.6 % [facility] Eosinophils (Bld) [#/Vol] 0.05 10*3/uL [facility] Eosinophils/100 WBC (Bld) 0.7 % [facility] Erythrocyte distribution width (RBC) [Entitic vol] 12.8 % 11.6 - 14.8 % [facility] Hematocrit (Bld) [Volume fraction] 45.9 % 41.0 - 53.0 % [facility] Hemoglobin (Bld) [Mass/Vol] 16.2 g/dL 13.5 - 17.5 g/dL [facility] Immature granulocytes (Bld) [#/Vol] 0.06 10*3/uL [facility] Immature granulocytes/100 WBC (Bld) 0.9 % [facility] Comment on above: The IG parameter is the percentage of metamyelocytes, myelocytes and promyelocytes. An immature granulocyte count (IG) of 1% or more suggests the possibility of infection, an IG count of 3% is very likely related to an infection. Interpretation and review of laboratory results Abnormal [facility] Lymphocytes (Bld) [#/Vol] 1.74 10*3/uL [facility] Lymphocytes/100 WBC (Bld) 25.3 % [facility] MCH (RBC) [Entitic mass] 32.5 pg 26.0 - 34.0 pg [facility] MCHC (RBC) [Mass/Vol] 35.3 g/dL 31.0 - 37.0 g/dL [facility] MCV (RBC) [Entitic vol] 92 fL 80.0 - 100.0 fL [facility] Monocytes (Bld) [#/Vol] 0.34 10*3/uL [facility] Monocytes/100 WBC (Bld) 4.9 % [facility] Neutrophils (Bld) [#/Vol] 4.65 10*3/uL [facility] Neutrophils/100 WBC (Bld) 67.6 % [facility] Nucleated RBC (Bld) [#/Vol] 0 10*3/uL [facility] Nucleated RBC/100 WBC (Bld) [Ratio] 0 % [facility] Platelet mean volume (Bld) [Entitic vol] 9 fL Low 9.4 - 12.4 fL [facility] Platelets (Bld) [#/Vol] 209 10*3/uL [facility] RBC (Bld) [#/Vol] 4.99 10*6/uL [facility] WBC (Bld) [#/Vol] 6.88 10*3/uL [facility] CBC WITH AUTO DIFFERENTIALon 11-18-2024 AUTO NRBC 0.0 % [place] Comment on above: Performed By: #### L [id number] #### LAB [address] [place] [address] Arnold Bishop M.D. [id number] AUTO NRBC ABS COUNT 0.00 K/mcL Normal 0.00-0.00 [facility] Comment on above: Performed By: #### L [id number] #### LAB [address] [place] [address] Arnold Bishop M.D. [id number] BASOPHILS ABSOLUTE COUNT 0.04 K/mcL Normal 0.00-0.30 [facility] Comment on above: Performed By: #### L [id number] #### LAB [address] [place] [address] Arnold Bishop M.D. [id number] Basophils/100 WBC (Bld) 0.6 % Normal [facility] Comment on above: Performed By: #### L [id number] #### LAB [address] [place] [address] Arnold Bishop M.D. [id number] Eosinophils (Bld) [#/Vol] 0.05 10*3/uL Normal 0.00-0.50 [facility] Comment on above: Performed By: #### L [id number] #### LAB [address] [place], [place] [id number] Arnold Bishop M.D. [id number] Eosinophils/100 WBC (Bld) 0.7 % Normal [facility] Comment on above: Performed By: #### L [id number] #### LAB [address] [address] Arnold Bishop M.D. [id number] Erythrocyte distribution width (RBC) [Ratio] 12.8 % Normal 11.6-14.8 [facility] Comment on above: Performed By: #### L [id number] #### LAB [address] [address] Arnold Bishop M.D. [id number] Hematocrit (Bld) [Volume fraction] 45.9 % Normal 41.0-53.0 [facility] Comment on above: Performed By: #### L [id number] #### LAB [address] [address] Arnold Bishop M.D. [id number] Hemoglobin (Bld) [Mass/Vol] 16.2 g/dL Normal 13.5-17.5 [facility] Comment on above: Performed By: #### L [id number] #### LAB [address] [address] Arnold Bishop M.D. [id number] IG ABSOLUTE 0.06 K/mcL Normal 0.00-0.30 [facility] Comment on above: Performed By: #### L [id number] #### LAB [address] [address] Arnold Bishop M.D. [id number] IG PERCENT 0.90 % Normal [facility] Comment on above: Result Comment: The IG parameter is the percentage of metamyelocytes, myelocytes and promyelocytes. An immature granulocyte count (IG) of 1% or more suggests the possibility of infection, an IG count of 3% is very likely related to an infection. Performed By: #### L [id number] #### LAB [address] [address] Arnold Bishop M.D. [id number] Lymphocytes (Bld) [#/Vol] 1.74 10*3/uL Normal 0.90-4.00 [facility] Comment on above: Performed By: #### L [id number] #### LAB [address] [address] Arnold Bishop M.D. [id number] Lymphocytes/100 WBC (Bld) 25.3 % Normal [facility] Comment on above: Performed By: #### L [id number] #### LAB [address] [address] Arnold Bishop M.D. [id number] MCH (RBC) [Entitic mass] 32.5 pg Normal 26.0-34.0 [facility] Comment on above: Performed By: #### L [id number] #### LAB [address] [address] Arnold Bishop M.D. [id number] MCV (RBC) [Entitic vol] 92.0 fL Normal 80.0-100.0 [facility] Comment on above: Performed By: #### L [id number] #### LAB [address] [place] [address] Arnold Bishop M.D. [id number] MEAN CORPUSCULAR HEMOGLOBIN CONC 35.3 g/dL Normal 31.0-37.0 [facility] Comment on above: Performed By: #### L [id number] #### LAB [address] [place] [address] Arnold Bishop M.D. [id number] Monocytes (Bld) [#/Vol] 0.34 10*3/uL Normal 0.30-0.90 [facility] Comment on above: Performed By: #### L [id number] #### LAB [address] [place] [address] Arnold Bishop M.D. [id number] Monocytes/100 WBC (Bld) 4.9 % Normal [facility] Comment on above: Performed By: #### L [id number] #### LAB [address] [place] [address] Arnold Bishop M.D. [id number] NEUTROPHILS ABSOLUTE COUNT 4.65 K/mcL Normal 1.70-7.00 [facility] Comment on above: Performed By: #### L [id number] #### [facility] LAB [address] [address] Arnold Bishop M.D. [id number] Neutrophils/100 WBC (Bld) 67.6 % Normal [facility] Comment on above: Performed By: #### L [id number] #### [facility] LAB [address] [address] Arnold Bishop M.D. [id number] Platelet mean volume (Bld) [Entitic vol] 9.0 fL Low 9.4-12.4 [facility] Comment on above: Performed By: #### L [id number] #### [facility] LAB [address] [address] Arnold Bishop M.D. [id number] Platelets (Bld) [#/Vol] 209 10*3/uL Normal 150-400 [facility] Comment on above: Performed By: #### L [id number] #### [facility] LAB [address] [address] Arnold Bishop M.D. [id number] RBC (Bld) [#/Vol] 4.99 10*6/uL Normal 4.50-5.90 [facility] Comment on above: Performed By: #### L [id number] #### [facility] LAB [address] [address] Arnold Bishop M.D. [id number] WBC (Bld) [#/Vol] 6.88 10*3/uL Normal 4.50-11.00 [facility] Comment on above: Performed By: #### L [id number] #### [facility] LAB [address] [address] Arnold Bishop M.D. [id number] COMPREHENSIVE METABOLIC PANE Ismael 11-18-2024 Albumin [Mass/Vol] 4.7 g/dL Normal 3.2-5.2 [facility] Comment on above: Order Comment: [facility] has implemented the eGFR calculation approach that does not have a coefficient for race that conforms to the NKF-ASN Task Force Recommendations. Performed By: #### 4 6126 #### LAB [address] [address] Arnold Bishop M.D. [id number] ALP [Catalytic activity/Vol] 92 U/L Normal 40-150 [facility] Comment on above: Order Comment: [facility] has implemented the eGFR calculation approach that does not have a coefficient for race that conforms to the NKF-ASN Task Force Recommendations. Performed By: #### 4 6126 #### LAB [address] [address] Arnold Bishop M.D. [id number] ALT [Catalytic activity/Vol] 52 U/L High 0-50 U/L [facility] Comment on above: Order Comment: [facility] has implemented the eGFR calculation approach that does not have a coefficient for race that conforms to the NKF-ASN Task Force Recommendations. Performed By: #### 4 6126 #### LAB [address] [address] Arnold Bishop M.D. [id number] Anion gap [Moles/Vol] 18 mmol/L Normal 10-20 [facility] Comment on above: Order Comment: [facility] has implemented the eGFR calculation approach that does not have a coefficient for race that conforms to the NKF-ASN Task Force Recommendations. Performed By: #### 4 6126 #### LAB [address] [address] Arnold Bishop M.D. [id number] AST [Catalytic activity/Vol] 30 U/L Normal 0-50 U/L [facility] Comment on above: Order Comment: [facility] has implemented the eGFR calculation approach that does not have a coefficient for race that conforms to the NKF-ASN Task Force Recommendations. Performed By: #### 4 6126 #### LAB [address] [address] Arnold Bishop M.D. [id number] Bilirubin [Mass/Vol] 0.4 mg/dL Normal 0.0-1.3 [facility] Comment on above: Order Comment: [facility] has implemented the eGFR calculation approach that does not have a coefficient for race that conforms to the NKF-ASN Task Force Recommendations. Performed By: #### 4 6126 #### LAB [address] [address] Arnold Bishop M.D. [id number] Calcium [Mass/Vol] 9.3 mg/dL Normal 8.4-10.2 [facility] Comment on above: Order Comment: [facility] has implemented the eGFR calculation approach that does not have a coefficient for race that conforms to the NKF-ASN Task Force Recommendations. Performed By: #### 4 6126 #### LAB [address] [address] Arnold Bishop M.D. [id number] Chloride [Moles/Vol] 104 mmol/L Normal 98-108 [facility] Comment on above: Order Comment: [facility] has implemented the eGFR calculation approach that does not have a coefficient for race that conforms to the NKF-ASN Task Force Recommendations. Performed By: #### 4 6126 #### LAB [address] [address] Arnold Bishop M.D. [id number] Creatinine [Mass/Vol] 1.02 mg/dL Normal 0.50-1.30 [facility] Comment on above: Order Comment: [facility] has implemented the eGFR calculation approach that does not have a coefficient for race that conforms to the NKF-ASN Task Force Recommendations. Performed By: #### 4 6133 #### LAB [address] [address] Arnold Bishop M.D. [id number] EGFR 92 mL/min/1.73 m2 Normal >=60 [facility] Comment on above: Order Comment: [facility] has implemented the eGFR calculation approach that does not have a coefficient for race that conforms to the NKF-ASN Task Force Recommendations. Result Comment: Nehal mated GFR was calculated using the 2020 CKD-EPI creatinine equation. Performed By: #### 4 6126 #### LAB [address] [address] Arnold Bishop M.D. [id number] Glucose [Mass/Vol] 101 mg/dL High 65-99 [facility] Comment on above: Order Comment: [facility] has implemented the eGFR calculation approach that does not have a coefficient for race that conforms to the NKF-ASN Task Force Recommendations. Performed By: #### 4 6126 #### LAB [address] [address] Arnold Bishop M.D. [id number] HCO3 (Bld) [Moles/Vol] 23 mmol/L Normal 21-32 [facility] Comment on above: Order Comment: [facility] has implemented the eGFR calculation approach that does not have a coefficient for race that conforms to the NKF-ASN Task Force Recommendations. Performed By: #### 4 6126 #### LAB [address] [address] Arnold Bishop M.D. [id number] Potassium [Moles/Vol] 3.8 mmol/L Normal 3.5-5.1 [facility] Comment on above: Order Comment: [facility] has implemented the eGFR calculation approach that does not have a coefficient for race that conforms to the NKF-ASN Task Force Recommendations. Performed By: #### 4 6126 #### LAB [address] [address] Arnold Bishop M.D. [id number] Protein [Mass/Vol] 7.1 g/dL Normal 6.0-8.0 [facility] Comment on above: Order Comment: [facility] has implemented the eGFR calculation approach that does not have a coefficient for race that conforms to the NKF-ASN Task Force Recommendations. Performed By: #### 4 6126 #### LAB [address] [address] Arnold Bishop M.D. [id number] Sodium [Moles/Vol] 141 mmol/L Normal 135-145 [facility] Comment on above: Order Comment: [facility] has implemented the eGFR calculation approach that does not have a coefficient for race that conforms to the NKF-ASN Task Force Recommendations. Performed By: #### 4 6126 #### LAB [address] [place], [place] [address] Arnold Bishop M.D. [id number] Urea nitrogen [Mass/Vol] 10 mg/dL Normal 8-25 [facility] Comment on above: Order Comment: [facility] has implemented the eGFR calculation approach that does not have a coefficient for race that conforms to the NKF-ASN Task Force Recommendations. Performed By: #### 4 6126 #### LAB [address] [place], [place] [address] Arnold Bishop M.D. [id number] Urea nitrogen/Creatinine [Mass ratio] 9.8 mg/mg Low 10.0-20.0 [facility] Comment on above: Order Comment: [facility] has implemented the eGFR calculation approach that does not have a coefficient for race that conforms to the NKF-ASN Task Force Recommendations. Performed By: #### 4 6126 #### LAB [address] [place], [place] [address] Arnold Bishop M.D. [id number] Comprehensive metabolic 2000 panelon 11-18-2024 Albumin [Mass/Vol] 4.7 g/dL 3.2 - 5.2 g/dL [facility] ALP [Catalytic activity/Vol] 92 U/L 40 - 150 U/L [facility] ALT [Catalytic activity/Vol] 52 U/L High 0 - 50 U/L [facility] Anion gap [Moles/Vol] 18 mmol/L 10 - 2 0 mmol/L [facility] AST [Catalytic activity/Vol] 30 U/L 0 - 50 U/L [facility] Bilirubin [Mass/Vol] 0.4 mg/dL 0.0 - 1 .3 mg/dL [facility] Calcium [Mass/Vol] 9.3 mg/dL 8.4 - 10. 2 mg/dL [facility] Chloride [Moles/Vol] 104 mmol/L 98 - 10 8 mmol/L [facility] Creatinine [Mass/Vol] 1.02 mg/dL 0.50 - 1.30 mg/dL [facility] GFR/1.73 sq M.predicted CKD-EPI (S/P/Bld) [Vol rate/Area] 92 - PINF [facility] Comment on above: Estimated GFR was ca lculated using the 2020 CKD-EPI creatinine equation. Glucose [Mass/Vol] 101 mg/dL High 65 - 99 mg/dL [facility] HCO3 [Moles/Vol] 23 mmol/L 21 - 32 mmol/L [facility] Potassium [Moles/Vol] 3.8 mmol/L 3.5 - 5.1 mmol/L [facility] Protein [Mass/Vol] 7.1 g/dL 6.0 - 8.0 g/dL [facility] Sodium [Moles/Vol] 141 mmol/L 135 - 145 mmol/L [facility] Urea nitrogen [Mass/Vol] 10 mg/dL 8 - 25 mg/dL [facility] Urea nitrogen/Creatinine [Mass ratio] 9.8 mg/mg Low 10.0 - 20.0 [facility] has implemented the eGFR calculation approach that does not have a coefficient for race that conforms to the NKF-ASN Task Force Recommendations. [facility] DRUGS OF ABUSE SCREEN, URINE on 11-18-2024 AMPHETAMINE SCREEN, URINE Not detected Normal None Detected [facility] Comment on above: Order Comment: Scree n results should be used for treatment purposes only.Specimen will be kept for 2 weeks, if the sample is adequate. Confirmation testing can be initiated by calling the lab within 2 weeks. Result Comment: Urin e Amphetamine Cutoff: < 1000 ng/mL = None Detected Performed By: #### 4 6965 #### LAB [address] [address] Arnold Bishop M.D. [id number] BARBITURATE SCREEN URINE Not detected Normal None Detected [facility] Comment on above: Order Comment: Scree n results should be used for treatment purposes only.Specimen will be kept for 2 weeks, if the sample is adequate. Confirmation testing can be initiated by calling the lab within 2 weeks. Result Comment: Urin e Barbiturates Cutoff: < 200 ng/mL = None Detected Performed By: #### 4 6965 #### LAB [address] [address] Arnold Bishop M.D. [id number] BENZODIAZEPINE SCREEN, URINE Not detected Normal None Detected [facility] Comment on above: Order Comment: Scree n results should be used for treatment purposes only.Specimen will be kept for 2 weeks, if the sample is adequate. Confirmation testing can be initiated by calling the lab within 2 weeks. Result Comment: Urin e Benzodiazepine Cutoff: < 200 ng/mL = None Detected Performed By: #### 4 6965 ####[facility] LAB [address] [address] Arnold Bishop M.D. [id number] BUPRENORPHINE, URINE Not detected Normal None Detected [facility] Comment on above: Order Comment: Scree n results should be used for treatment purposes only.Specimen will be kept for 2 weeks, if the sample is adequate. Confirmation testing can be initiated by calling the lab within 2 weeks. Result Comment: Urin e Buprenorphine Cutoff: < 5 ng/mL = None Detected Performed By: #### 4 6965 ####[facility] LAB [address] [address] Arnold Bishop M.D. [id number] CANNABINOID SCREEN URINE Positive Abnormal None Detected [facility] Comment on above: Order Comment: Scree n results should be used for treatment purposes only.Specimen will be kept for 2 weeks, if the sample is adequate. Confirmation testing can be initiated by calling the lab within 2 weeks. Result Comment: Urin e Cannabinoids Cutoff: < 50 ng/mL = None Detected Performed By: #### 4 6965 ####[facility] [address] [address] Arnold Bishop M.D. [id number] COCAINE, SCREEN URINE Not detected Normal None Detected [facility] Comment on above: Order Comment: Scree n results should be used for treatment purposes only.Specimen will be kept for 2 weeks, if the sample is adequate. Confirmation testing can be initiated by calling the lab within 2 weeks. Result Comment: Urin e Cocaine Cutoff: < 300 ng/mL = None Detected Performed By: #### 4 6965 ####[facility] [address] [address] Arnold Bishop M.D. [id number] FENTANYL, URINE Not detected Normal None Detected [facility] Comment on above: Order Comment: Scree n results should be used for treatment purposes only.Specimen will be kept for 2 weeks, if the sample is adequate. Confirmation testing can be initiated by calling the lab within 2 weeks. Result Comment: Urin e Fentanyl Cutoff: < 1 ng/mL = None Detected Performed By: #### 4 6965 ####[facility] [address] [address] Arnold Bishop M.D. [id number] METHADONE SCREEN, URINE Not detected Normal None Detected [facility] Comment on above: Order Comment: Scree n results should be used for treatment purposes only.Specimen will be kept for 2 weeks, if the sample is adequate. Confirmation testing can be initiated by calling the lab within 2 weeks. Result Comment: Urin e Methadone Cutoff: < 300 ng/mL = None Detected Performed By: #### 4 6965 ####[facility] [address] [address] Arnold Bishop M.D. [id number] OPIATE SCREEN URINE Not detected Normal None Detected [facility] Comment on above: Order Comment: Scree n results should be used for treatment purposes only.Specimen will be kept for 2 weeks, if the sample is adequate. Confirmation testing can be initiated by calling the lab within 2 weeks. Result Comment: Urin e Opiates Cutoff: < 300 ng/mL = None Detected Performed By: #### 4 6965 ####[facility] [address] [address] Arnold Bsihop M.D. [id number] OXYCODONE SCREEN, URINE Not detected Normal None Detected [facility] Comment on above: Order Comment: Scree n results should be used for treatment purposes only.Specimen will be kept for 2 weeks, if the sample is adequate. Confirmation testing can be initiated by calling the lab within 2 weeks. Result Comment: Urin e Oxycodone Cutoff: < 100 ng/mL = None Detected Performed By: #### 4 6965 ####[facility] [address] [address] Arnold Bishop M.D. [id number] Drugs of Abuse Screen, Urine Ordered By: Estelle Brown on 11-18-2024 Amphetamines Ql (U) Not detected None Detected [facility] Comment on above: Urine Amphetamine Cu toff: < 1000 ng/mL = None Detected Barbiturates Screen Ql (U) Not detected None Detected [facility] Comment on above: Urine Barbiturates C utoff: < 200 ng/mL = None Detected Benzodiazepines Ql (U) Not detected None Detected [facility] Comment on above: Urine Benzodiazepine Cutoff: < 200 ng/mL = None Detected Buprenorphine Ql (U) Not detected None Detected [facility] Comment on above: Urine Buprenorphine Cutoff: < 5 ng/mL = None Detected Cannabinoids Screen Ql (U) Positive Abnormal None Detected [facility] Comment on above: Urine Cannabinoids C utoff: < 50 ng/mL = None Detected Cocaine Ql (U) Not detected None Detected [facility] Comment on above: Urine Cocaine Cutoff : < 300 ng/mL = None Detected fentaNYL+Norfentanyl Screen Ql (U) Not detected None Detected [facility] Comment on above: Urine Fentanyl Cutof f: < 1 ng/mL = None Detected Interpretation and review of laboratory results Abnormal [facility] Methadone Screen Ql (U) Not detected None Detected [facility] Comment on above: Urine Methadone Cuto ff: < 300 ng/mL = None Detected Opiates Screen Ql (U) Not detected None Detected [facility] Comment on above: Urine Opiates Cutoff : < 300 ng/mL = None Detected oxyCODONE Ql (U) Not detected None Detected [facility] Comment on above: Urine Oxycodone Cuto ff: < 100 ng/mL = None Detected Screen results shoul d be used for treatment purposes only. Specimen will be kept for 2 weeks, if the sample is adequate. Confirmation testing can be initiated by calling the lab within [address] [facility] ED Prov Noteon 11-18-2024 ED Prov Note [facility] - Emergency Medicine Attending Note: NAME: Corey Morrison 44 y.o. CSN: [id number] PCP: Yandel Hinojosa PA-C History: Chief Complaint: Alcohol Intoxication and Suicidal HPI: The history was obtained from the patient and friend. Corey is a 44 y.o. male who presents with a chief complaint of Alcohol Intoxication and Suicidal. Alcohol Intoxication 44-year-old male, presenting today for evaluation after he made some suicidal threats at work. Patient does admit to drinking today. Reportedly, at 1 point he left work to get more alcohol to drink. Upon arrival, patient is denying that he is having thoughts of hurting himself. The patient is unfortunately not very forthcoming or very cooperative. He is relatively withdrawn. ROS: Review of Systems Unable to perform ROS: Psychiatric disorder Positives and pertinent negatives as per HPI. All other systems were reviewed and are negative. Physical Exam: Patient Vitals for the past 24 hrs: BP Temp Temp src Pulse Resp SpO2 11/19/24 1634 (!) 164/99 -- -- 89 15 96 % 11/19/24 1139 (!) 164/101 98.4 degrees F (36.9 degrees C) Oral 95 14 97 % 11/19/24 0740 (!) 159/98 97.9 degrees F (36.6 degrees C) Oral (!) 103 14 95 % Physical Exam Constitutional: General: He is not in acute distress. Appearance: He is ill-appearing (Chronically ill-appearing, but in no acute distress.). He is not diaphoretic. HENT: Head: Normocephalic and atraumatic. Right Ear: External ear normal. Left Ear: External ear normal. Eyes: General: No scleral icterus. Neck: Vascular: No JVD. Trachea: No tracheal deviation. Cardiovascular: Rate and Rhythm: Normal rate and regular rhythm. Pulses: Normal pulses. Heart sounds: Normal heart sounds. No murmur heard. No friction rub. No gallop. Pulmonary: Effort: Pulmonary effort is normal. No respiratory distress. Breath sounds: Normal breath sounds. No wheezing or rales. Chest: Chest wall: No tenderness. Abdominal: General: There is no distension. Palpations: Abdomen is soft. There is no mass. Tenderness: There is no abdominal tenderness. There is no rebound. Musculoskeletal: General: No deformity. Skin: General: Skin is warm and dry. Neurological: General: No focal deficit present. Mental Status: He is alert and oriented to person, place, and time. Psychiatric: Behavior: Behavior normal. Thought Content: Thought content includes suicidal ideation. Comments: Remainder of psychiatric examination deferred to behavioral health team. Laboratory & Radiological Imaging (if done): Labs Reviewed DRUGS OF ABUSE SCREEN, URINE - Abnormal; Notable for the following components: Result Value Cannabinoid Screen, Urine Presumptive Positive (*) All other components within normal limits Narrative: Screen results should be used for treatment purposes only. Specimen will be kept for 2 weeks, if the sample is adequate. Confirmation testing can be initiated by calling the lab within 2 weeks. ALCOHOL, MEDICAL - Abnormal; Notable for the following components: Alcohol (Medical) 172.0 (*) All other components within normal limits COMPREHENSIVE METABOLIC PANEL - Abnormal; Notable for the following components: Glucose 101 (*) BUN/Creatinine Ratio 9.8 (*) ALT 52 (*) All other components within normal limits Narrative: [facility] has implemented the eGFR calculation approach that does not have a coefficient for race that conforms to the NKF-ASN Task Force Recommendations. ALCOHOL, MEDICAL - Abnormal; Notable for the following components: Alcohol (Medical) 39.8 (*) All other components within normal limits URINALYSIS - Abnormal; Notable for the following components: Blood, Urine Small (*) All other components within normal limits Narrative: Microscopic examination is performed on all urinalysis samples and only positive findings are reported. The test for blood on the chemical analytic portion of urinalysis may also be positive due to hemoglobinuria and myoglobinuria and if red blood cells are present they are quantified by microscopic examination. LIPID PANEL - Abnormal; Notable for the following components: Cholesterol 201 (*) Triglycerides 184 (*) All other components within normal limits CBC WITH AUTO DIFFERENTIAL - Abnormal; Notable for the following components: MPV 9.0 (*) All other components within normal limits TSH WITH REFLEX FREE T4 - Normal CBC AND DIFFERENTIAL Narrative: The following orders were created for panel order CBC w/ Diff. Procedure Abnormality Status --------- ------ CBC Auto Differential[[id number]] Abnormal Final result Please view results for these tests on the individual orders. No orders to display Procedures: Procedures ED Course / Medical Decision Making: Patient was seen today and evaluated for both medical and psychiatric illnesses. After (more content not included)... Normal [facility] Ethanol [Mass/Vol]on 025 Interpretation and review of laboratory results Abnormal [facility] LIPID PANELon 11-18-2024 Cholesterol [Mass/Vol] 201 mg/dL High 100-199 [facility] Comment on above: Performed By: #### 4 2076 #### LAB [address] [place], [place] [address] Arnold Bishop M.D. [id number] Cholesterol in HDL [Mass/Vol] 50 mg/dL Normal 40-59 [facility] Comment on above: Performed By: #### 4 6087 #### [facility] [address] [place], [place] [address] Arnold Bishop M.D. [id number] Cholesterol.total/Cho lesterol in HDL [Mass ratio] 4.0 {ratio} Normal [facility] Comment on above: Result Comment: Male s Cholesterol/HDL Ratio: Average risk: 5.0 1/2 average risk: 3.4 2 x average risk: 9.6 Performed By: #### 4 6087 #### [facility] [address] [address] Arnold Bishop M.D. [id number] LDL CHOLESTEROL CALCULATED 114 mg/dL Normal 10-130 [facility] Comment on above: Result Comment: [facility] Cholesterol Education Program Guidelines: LDL Cholesterol Optimal: <100 mg/dL Near Optimal/above Optimal: 100-129 mg/dL Borderline High: 130-159 mg/dL High: 160-189 mg/dL Very High: greater than or equal to 190 mg/dL Performed By: #### 4 6087 #### [facility] [address] [address] Arnold Bishop M.D. [id number] NON HDL CHOL 151 mg/dL Normal [facility] Comment on above: Result Comment: [facility] onal Cholesterol Education Program Guidelines: NON HDL Cholesterol Desirable: <130 mg/dL Borderline High: 130-159 mg/dL High: 160-189 mg/dL Very High: > or = 190 mg/dL Performed By: #### 4 6087 #### LAB [address] [place], [place] [address] Arnold Bishop M.D. [id number] Triglyceride [Mass/Vol] 184 mg/dL High 30-150 [facility] Comment on above: Performed By: #### 4 6087 #### [facility] [address] [address] Arnold Bishop M.D. [id number] No Panel Informationon 11-18 Interpretation and review of laboratory results Abnormal [facility] TSH WITH REFLEX FREE T4on TSH Qn 0.53 m[IU]/L Normal 0.27-4.20 [facility] Comment on above: Performed By: #### 4 6612 #### LAB [address] [place], [place] [address] Arnold Bishop M.D. [id number] CBC (H/H, RBC, INDICES, WBC, PLT)on 08-28-2024 HEMATOCRIT Normal [facility] Comment on above: Performed By: #### 1 7306, 64239, 7600, 97280, 18482, 1759 #### [facility] [address] [place] [address] [place] , [address] [place] [address] Animal Sitter: Jona Kaufman MD HEMOGLOBIN Normal [facility] Comment on above: Performed By: #### 1 7306, 59362, 7600, 84391, 39595, 1759 #### [facility] [place] [address] [place] [address] Animal Sitter: Jona Kaufman MD [facility] Normal [facility] Comment on above: Performed By: #### 1 7306, 54074, 7600, 58931, 56519, 1759 #### [facility] [place] [address] [place] [address] Animal Sitter: Jona Kaufman MD [facility] Normal [facility] Comment on above: Performed By: #### 1 7306, 97446, 7600, 95914, 08399, 1759 #### [facility] [place] [address] [place] [address] Animal Sitter: Jona Kaufman MD MCV Normal [facility] Comment on above: Performed By: #### 1 7306, 01025, 7600, 32185, 54200, 1759 #### [facility] [place] [address] [place] [address] Animal Sitter: Jona Kaufman MD MPV Normal [facility] Comment on above: Performed By: #### 1 7306, 21964, 7600, 17967, 20093, 1759 #### [facility] of [address], [address] [place] [address] Animal Sitter: Jona Kaufman MD PLATELET COUNT Normal [facility] Comment on above: Performed By: #### 1 7306, 64142, 7600, 61474, 05693, 1759 #### [facility] of [address], [address] [place] [address] Animal Sitter: Jona Kaufman MD RDW Normal [facility] Comment on above: Performed By: #### 1 7306, 54437, 7600, 69602, 13506, 175 #### [facility] of [place] [address] Animal Sitter: Jona Kaufman MD RED BLOOD CELL COUNT [facility] Comment on above: Performed By: #### 1 7306, 88271, 7600, 87357, 22558, 175 #### [facility] [place] [address] Animal Sitter: Jona Kaufman MD WHITE BLOOD CELL COUNT Normal [facility] Comment on above: Performed By: #### 1 7306, 60734, 7600, 55305, 64132, 175 #### [facility] [place] [address] Animal Sitter: Jona Kaufman MD COMPREHENSIVE METABOLIC PANE L W/ANION GAPon 08-28-2024 Albumin [Mass/Vol] 4.3 g/dL Normal 3.6-5.1 [facility] Comment on above: Performed By: #### 1 7306, 55169, 7600, 71437, 30698, 1759 #### [facility] [place] [address] Animal Sitter: Jona Kaufman MD ALP [Catalytic activity/Vol] 74 U/L Normal 36-130 [facility] Comment on above: Performed By: #### 1 7306, 05869, 7600, 44788, 99984, 1759 #### [facility] of [place] [address] Animal Sitter: Jona Kaufman MD ALT [Catalytic activity/Vol] 21 U/L Normal 9-46 [facility] Comment on above: Performed By: #### 1 7306, 23927, 7600, 55896, , 175 #### [facility] [place] [address] Animal Sitter: Jona Kaufman MD AST [Catalytic activity/Vol] 16 U/L Normal 10-40 [facility] Comment on above: Performed By: #### 1 7306, 43195, 7600, 00682, , 175 #### [facility] of [place] [address] Animal Sitter: Jona Kaufman MD Bilirubin [Mass/Vol] 0.8 mg/dL Normal 0.2-1.2 [facility] Comment on above: Performed By: #### 1 7306, 25366, 7600, 46182, , 175 #### [facility] [place] [address] Animal Sitter: Jona Kaufman MD Calcium [Mass/Vol] 9.3 mg/dL Normal 8.6-10.3 [facility] Comment on above: Performed By: #### 1 7306, 17252, 7600, 06692, , 175 #### [facility] [place] [address] Animal Sitter: Jona Kaufman MD Chloride [Moles/Vol] 104 mmol/L Normal 98-110 [facility] Comment on above: Performed By: #### 1 7306, 44485, 7600, 25840, , 175 #### [facility] [place] [address] Animal Sitter: Jona Kaufman MD CO2 [Moles/Vol] 27 mmol/L Normal 20-32 [facility] Comment on above: Performed By: #### 1 7306, 81707, 7600, 18208, , 175 #### [facility] [place] [address] Animal Sitter: Jona Kaufman MD Creatinine [Mass/Vol] 1.06 mg/dL Normal 0.60-1.[address] [facility] Comment on above: Performed By: #### 1 7306, 84805, 7600, 88708, , 175 #### [facility] [address], [address] [place] [address] Animal Sitter: Jona Kaufman MD ELECTROLYTE BALANCE 8 mmol/L (calc) Normal 7-17 [facility] Comment on above: Performed By: #### 1 7306, 33564, 7600, 22368, , 175 #### [facility] [place] [address] Animal Sitter: Jona Kaufman MD GFR/1.73 sq M.predicted among non-blacks MDRD (S/P/Bld) [Vol rate/Area] 88 mL/min/{1.73_m2} Normal > OR = 60 [facility] Comment on above: Performed By: #### 1 7306, 70533, 7600, 39956, , 175 #### [facility] [place] [address] Animal Sitter: Jona Kaufman MD Glucose [Mass/Vol] 99 mg/dL Normal 65-99 [facility] Comment on above: Result Comment: Fasting reference interval Performed By: #### 1 7306, 22965, 7600, 95896, , 175 #### [facility] [place] [address] Animal Sitter: Jona Kaufman MD Potassium [Moles/Vol] 4.4 mmol/L Normal 3.5-5.[address] [facility] Comment on above: Performed By: #### 1 7306, 12365, 7600, 16738, , 175 #### [facility] of [address], [address] [place] [address] Animal Sitter: Jona Kaufman MD Protein [Mass/Vol] 6.8 g/dL Normal 6.1-8.1 [facility] Comment on above: Performed By: #### 1 7306, 14877, 7600, 57177, 41077, 1759 #### [facility] of [address], [address] [place] [address] Animal Sitter: Jona Kaufman MD Sodium [Moles/Vol] 139 mmol/L Normal 135-146 [facility] Comment on above: Performed By: #### 1 7306, 58637, 7600, 91752, 54914, 1759 #### [facility] of [address], [address] [place] [address] Animal Sitter: Jona Kaufman MD Urea nitrogen [Mass/Vol] 9 mg/dL Normal 7-25 [facility] Comment on above: Performed By: #### 1 7306, 65097, 7600, 57463, 57238, 1759 #### [facility] of [address], [address] [place] [address] Animal Sitter: Jona Kaufman MD HEMOGLOBIN A1c WITH eAGon eAG (mg/dL) Normal [facility] Comment on above: Performed By: #### 1 7306, 96788, 7600, 77098, 54382, 1759 #### [facility] of [address], [address] [place] [address] Animal Sitter: Jona Kaufman MD eAG (mmol/L) Normal [facility] Comment on above: Performed By: #### 1 7306, 39766, 7600, 16410, 52700, 1759 #### [facility] [place] [address] Animal Sitter: Jona Kaufman MD HEMOGLOBIN A1c Normal [facility] Comment on above: Performed By: #### 1 7306, 35921, 7600, 00018, 33382, 1759 #### [facility] of [address], [address] [place], [place] [id number] Animal Sitter: Jona Kaufman MD LIPID PANEL, [facility] 08-01 Cholesterol [Mass/Vol] 153 mg/dL Normal <200 [facility] Comment on above: Order Comment: FASTI NG:YES FASTING: YES Performed By: #### 1 7306, 07871, 7600, 47512, 00009, 1759 #### [facility] [address], [address] [place] [address] Animal Sitter: Jona Kaufman MD Cholesterol in HDL [Mass/Vol] 40 mg/dL Normal > OR = 40 [facility] Comment on above: Order Comment: FASTI NG:YES FASTING: YES Performed By: #### 1 7306, 54112, 7600, 26152, 44658, 1759 #### [facility] [address], [address] [place] [address] Animal Sitter: Jona Kaufman MD Cholesterol in LDL [Mass/Vol] 92 mg/dL Normal [facility] Comment on above: Order Comment: FASTI NG:YES FASTING: YES Result Comment: Refe rence range: <100 Desirable range <100 mg/dL for primary prevention; <70 mg/dL for patients with CHD or diabetic patients with > or = 2 CHD risk factors. LDL-C is now calculated using the Julio C-Diego calculation, which is a validated novel method providing better accuracy than the Friedewald equation in the estimation of LDL-C. Julio C ASH et al. OPAL. 2013;310(19): 7077-0712 (http://education.[employer]/faq/EPL560) Performed By: #### 1 7306, 64794, 7600, 64470, 99603, 1759 #### [facility] [address], [address] [place], [place] [address] Animal Sitter: Jona Kaufman MD Cholesterol.total/Cho lesterol in HDL [Mass ratio] 3.8 {ratio} Normal <5.0 [facility] Comment on above: Order Comment: FASTI NG:YES FASTING: YES Performed By: #### 1 7306, 45936, 7600, 62452, , 175 #### [facility] [address], [address] [place] [address] Animal Sitter: Jona Kaufman MD NON HDL CHOLESTEROL 113 mg/dL (calc) Normal <130 [facility] Comment on above: Order Comment: FASTI NG:YES FASTING: YES Result Comment: For patients with diabetes plus 1 major ASCVD risk factor, treating to a non-HDL-C goal of <100 mg/dL (LDL-C of <70 mg/dL) is considered a therapeutic option. Performed By: #### 1 7306, 92388, 7600, 21138, , 175 #### [facility] [place] [address] Animal Sitter: Jona Kaufman MD Triglyceride [Mass/Vol] 112 mg/dL Normal <150 [facility] Comment on above: Order Comment: FASTI NG:YES FASTING: YES Performed By: #### 1 7306, 84868, 7600, 79339, , 175 #### [facility] [address], [address] [place] [address] Animal Sitter: Jona Kaufman MD TSH W/REFLEX TO FT4on 2024 TSH W/REFLEX TO FT4 Normal [facility] Comment on above: Performed By: #### 1 7306, 28120, 7600, 46607, , 175 #### [facility] [place] [address] Animal Sitter: Jona Kaufman MD VITAMIN D,25-OH,TOTAL,IAon 0 08-28-2024 VITAMIN D,25-OH,TOTAL,IA Normal [facility] Comment on above: Performed By: #### 1 7306, 70465, 7600, 46549, , 175 #### [facility] [address], [address] [place] [address] Animal Sitter: Jona Kaufman MD XR Toes - right 3 Viewson IMPRESSION: Degenera 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 Underlay Stitcher: BETTY Transcribe Date/Time: May 16 2023 9:54A Dictated by : ENRIQUETA REYNOLDS MD This examination was interpreted and the report reviewed and electronically signed by: ENRIQUETA REYNOLDS MD on May 16 2023 9:57AM [facility] DIVISION OF RADIOLOGY * * *Final Report* * * DATE OF EXAM: May 11 2023 4:48PM WOX 5269 - XR TOE 3V AP/LAT/OBL RT / PROCEDURE REASON: Joint mass * * * * Physician Interpretation * * * * EXAM TITLE: XR TOE 3V AP/LAT/OBL RT EXAM DATE/TIME: 05/11/2023 4:48 PM COMPARISON: None CLINICAL INDICATION/HISTORY: Joint mass. TECHNIQUE: AP, lateral and oblique views of the first digit of the right foot are presented. FINDINGS: No acute fractures or subluxations are noted. There is first metatarsophalangeal joint space narrowing, with associated osteophyte formation. No abnormal new bone formation or destruction. The mineralization of the bones is normal. There is no significant soft tissue swelling. DIVISION OF RADIOLOGY Provider, [facility] - 05/16/2023 * * *Final Report* * * DATE OF EXAM: May 11 2023 4:48PM WOX 5269 - XR TOE 3V AP/LAT/OBL RT / PROCEDURE REASON: Joint mass * * * * Physician Interpretation * * * * EXAM TITLE: XR TOE 3V AP/LAT/OBL RT EXAM DATE/TIME: 05/11/2023 4:48 PM COMPARISON: None CLINICAL INDICATION/HISTORY: Joint mass. TECHNIQUE: AP, lateral and oblique views of the first digit of the right foot are presented. FINDINGS: No acute fractures or subluxations are noted. There is first metatarsophalangeal joint space narrowing, with associated osteophyte formation. No abnormal new bone formation or destruction. The mineralization of the bones is normal. There is no significant soft tissue swelling. IMPRESSION IMPRESSION: Degenera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 Underlay Stitcher: BETTY Transcribe Date/Time: May 16 2023 9:54A Dictated by : ENRIQUETA REYNOLDS MD This examination was interpreted and the report reviewed and electronically signed by: ENRIQUETA REYNOLDS MD on May 16 2023 9:57AM EST [facility] XR Toes - right 3 ViewsOrder ed By: [facility] Provider on 05-16-2023 [facility] XR Toes - right 3 Viewson Radiology Study observation (narrative) [facility] XR HAND GENERAL 3V PA/LAT/OB L RIGHTon 12-29-2022 [facility] Absolute lymphocyte countOrd ered By: Dr. Soto on 10-05-2022 Lymphocytes Auto (Unsp spec) [#/Vol] 1.39 10*3/uL 0.83-4.51 [facility] Alcohol, Blood (Medical)-Ser umon 10-05-2022 SERUM ETOH < 3.0 Normal [facility] Comment on above: Result Comment: The serum:whole blood ethanol ratio is approximately 1.14 and varies slightly with hematocrit. Medical Alcohol reference interval and critical value in non-tolerant individuals; 50 - 100 Impairment 100 Intoxication 100 - 250 Severe Poisoning 250 - 400 Deep/possible fatal coma Performed By: #### L 505.5000, L501.9100, L500.2500, L100.0100 #### [facility] [address] [place], [address] Basic Metabolic Profile (BMP )on 10-05-2022 BUN/CRE 5.9 RATIO Low 10-20 [facility] Comment on above: Performed By: #### L 505.5000, L501.9100, L500.2500, L100.0100 #### [facility] [address] [place], [address] CA,Total 9.5 mg/dL Normal 8.5-10.1 [facility] Comment on above: Performed By: #### L 505.5000, L501.9100, L500.2500, L100.0100 #### [facility] [address] [place], [address] Chloride [Moles/Vol] 106 mmol/L Normal 98-107 [facility] Comment on above: Performed By: #### L 505.5000, L501.9100, L500.2500, L100.0100 #### [facility] [address] [place], [address] CO2 [Moles/Vol] 26.0 mmol/L Normal 21.0-32.0 [facility] Comment on above: Performed By: #### L 505.5000, L501.9100, L500.2500, L100.0100 #### [facility] [address] [place], [address] Creatinine [Mass/Vol] 1.01 mg/dL Normal 0.70-1.30 [facility] Comment on above: Result Comment: The validity of the calculated GFR GFRAA in patients over 70 years has not been determined. Clinical correlation is essential. Performed By: #### L 505.5000, L501.9100, L500.2500, L100.0100 #### [facility] [address] [place], [address] ECRCL 105.48 ml/min Normal [facility] Comment on above: Performed By: #### L 505.5000, L501.9100, L500.2500, L100.0100 #### [facility] [address] [place], [address] EST GFR - AA 103 mL/min Normal >60 [facility] Comment on above: Result Comment: Afri can Singaporean GFR Calc Performed By: #### L 505.5000, L501.9100, L500.2500, L100.0100 #### [facility] [address] [place], [address] GAP 5 Normal 5-15 [facility] Comment on above: Performed By: #### L 505.5000, L501.9100, L500.2500, L100.0100 #### [facility] [address] [place], [address] GFR/1.73 sq M.predicted among non-blacks MDRD (S/P/Bld) [Vol rate/Area] 85 mL/min/{1.73_m2} Normal >60 [facility] Comment on above: Result Comment: Non- GFR Calc Performed By: #### L 505.5000, L501.9100, L500.2500, L100.0100 #### [facility] [address] [place], [address] Glucose [Mass/Vol] 107 mg/dL High 74-106 [facility] Comment on above: Result Comment: Fast ing Glucose result from 100 to 125 mg/dL suggests IMPAIRED HOMEOSTASIS per A.D.A. criteria. Performed By: #### L 505.5000, L501.9100, L500.2500, L100.0100 #### [facility] [address] [place], [address] Potassium [Moles/Vol] 3.6 mmol/L Normal 3.5-5.1 [facility] Comment on above: Performed By: #### L 505.5000, L501.9100, L500.2500, L100.0100 #### [facility] [address] [place], [address] Sodium [Moles/Vol] 137 mmol/L Normal 136-145 [facility] Comment on above: Performed By: #### L 505.5000, L501.9100, L500.2500, L100.0100 #### [facility] [address] [place], [address] Urea nitrogen [Mass/Vol] 6 mg/dL Low 7-18 [facility] Comment on above: Performed By: #### L 505.5000, L501.9100, L500.2500, L100.0100 #### [facility] [address] [place], [address] Basophil percentageOrdered B y: Dr. Soto on 10-05-2022 Basophils/100 WBC (Bld) 0.5 % 0-1 [facility] Chloride [Moles/Vol] 106 mmol/L 98-107 [facility] Eosinophils/100 WBC (Bld) 1.1 % 0-5 [facility] Glucose [Mass/Vol] 107 mg/dL 74-106 [facility] Comment on above: Fasting Glucose resu lt from 100 to 125 mg/dL suggests IMPAIRED HOMEOSTASIS per A.D.A. criteria. Neutrophils (Bld) [#/Vol] 4.6 10*3/uL 2.0-7.7 [facility] Neutrophils/100 WBC (Bld) 70.1 % 47-70 [facility] Potassium [Moles/Vol] 3.6 mmol/L 3.5-5.1 [facility] Sodium [Moles/Vol] 137 mmol/L 136-145 [facility] WBC (Bld) [#/Vol] 6.5 10*3/uL 4.4-11.0 [facility] Blood erythrocytes count (nu mber/volume)Ordered By: Dr. Soto on 10-05-2022 RBC (Bld) [#/Vol] 5.09 10*6/uL 4.6-6.2 [facility] Blood hemoglobin measurement (mass/volume)Ordered By: Dr. Soto on 10-05-2022 Hemoglobin (Bld) [Mass/Vol] 16.0 g/dL 13.0-16.5 [facility] Blood lymphocytes/100 leukoc ytesOrdered By: Dr. Soto on 10-05-2022 Lymphocytes/100 WBC (Bld) 21.3 % 19-41 [facility] Blood monocytes/100 leukocyt esOrdered By: Dr. Soto on 10-05-2022 Monocytes/100 WBC (Bld) 6.7 % 0-10 [facility] Blood platelet mean volumeOr dered By: Dr. Soto on 10-05-2022 Platelet mean volume (Bld) [Entitic vol] 9.2 fL 6.2-12.0 [facility] CBC W/Diff, Automatedon Absolute Lymph 1.39 X10 3/uL Normal 0.83-4.51 [facility] Comment on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 01-11-2025 08:23-0400 SaO2% (BldA) [Mass fraction] 96 % Krislyn Aberegg PA Work Phone: [facility] 01-11-2025 08:23-0400 Systolic blood pressure 124 mm[Hg] Krislyn Aberegg PA Work Phone: [facility] 11-22-2024 07:35-0400 Body temperature 98.71 [degF] Marvel Miller MD Work Phone: [facility] 11-22-2024 07:35-0400 Diastolic blood pressure 88 mm[Hg] Marvel Miller MD Work Phone: [facility] 11-22-2024 07:35-0400 Heart rate 105 /min Marvel Miller MD Work Phone: [facility] 11-22-2024 07:35-0400 Respiratory rate 12 /min Marvel Miller MD Work Phone: [facility] 11-22-2024 07:35-0400 SaO2% (BldA) [Mass fraction] 95 % Marvel Miller MD Work Phone: [facility] 11-22-2024 07:35-0400 Systolic blood pressure 125 mm[Hg] Marvel Miller MD Work Phone: [facility] 11-19-2024 00:45-0400 Body height 185.4 cm Marvel Miller MD Work Phone: [facility] 11-19-2024 00:45-0400 Body mass index (BMI) [Ratio] 29.84 kg/m2 Marvel Miller MD Work Phone: [facility] 11-19-2024 00:45-0400 Body weight 102.6 kg Marvel Miller MD Work Phone: [facility] 11-12-2024 07:36-0400 Body height 186.7 cm Yandel Stentz PA-C Work Phone: [facility] 11-12-2024 07:36-0400 Body mass index (BMI) [Ratio] 30.97 kg/m2 Yandel Stentz PA-C Work Phone: [facility] 11-12-2024 07:36-0400 Body weight 107.96 kg Yandel Stentz PA-C Work Phone: [facility] 11-12-2024 07:36-0400 Diastolic blood pressure 80 mm[Hg] Yandel Stentz PA-C Work Phone: [facility] 11-12-2024 07:36-0400 Heart rate 94 /min Yandel Stentz PA-C Work Phone: [facility] 11-12-2024 07:36-0400 SaO2% (BldA) [Mass fraction] 95 % Yandel Stentz PA-C Work Phone: [facility] 11-12-2024 07:36-0400 Systolic blood pressure 128 mm[Hg] Yandel Stentz PA-C Work Phone: [facility] 05-30-2024 15:24-0400 Body height 186.7 cm Yandel Stentz PA-C Work Phone: [facility] 05-30-2024 15:24-0400 Body mass index (BMI) [Ratio] 30.97 kg/m2 Yandel Stentz PA-C Work Phone: [facility] 05-30-2024 15:24-0400 Body weight 107.96 kg Yandel Stentz PA-C Work Phone: [facility] 05-30-2024 15:24-0400 Diastolic blood pressure 112 mm[Hg] Yandel Stentz PA-C Work Phone: [facility] 05-30-2024 15:24-0400 Heart rate 93 /min Yandel Stentz PA-C Work Phone: [facility] 05-30-2024 15:24-0400 SaO2% (BldA) [Mass fraction] 96 % Yandel Stentz PA-C Work Phone: [facility] 05-30-2024 15:24-0400 Systolic blood pressure 153 mm[Hg] Yandel Stentz PA-C Work Phone: [facility] 11-02-2023 09:29-0400 Body weight 100.7 kg Celsa Older NUCLEAR WEAPONS CUSTODIAN.ETHYLENE OXIDE PANELBOARD OPERATOR Work Phone: [facility] 11-02-2023 09:29-0400 Diastolic blood pressure 90 mm[Hg] Celsa Older NUCLEAR WEAPONS CUSTODIAN.ETHYLENE OXIDE PANELBOARD OPERATOR Work Phone: [facility] 11-02-2023 09:29-0400 Heart rate 84 /min Celsa Older NUCLEAR WEAPONS CUSTODIAN.ETHYLENE OXIDE PANELBOARD OPERATOR Work Phone: [facility] 11-02-2023 09:29-0400 Respiratory rate 16 /min Celsa Older NUCLEAR WEAPONS CUSTODIAN.ETHYLENE OXIDE PANELBOARD OPERATOR Work Phone: [facility] 11-02-2023 09:29-0400 SaO2% (BldA) [Mass fraction] 99 % Celsa Older NUCLEAR WEAPONS CUSTODIAN.ETHYLENE OXIDE PANELBOARD OPERATOR Work Phone: [facility] 11-02-2023 09:29-0400 Systolic blood pressure 160 mm[Hg] Celsa Older NUCLEAR WEAPONS CUSTODIAN.ETHYLENE OXIDE PANELBOARD OPERATOR Work Phone: [facility] 12-29-2022 10:15-0400 Body height 185.4 cm Suha Camargo DO Work Phone: [facility] 12-29-2022 10:15-0400 Body weight 104.78 kg Suha Camargo Work Phone: [facility] 10-05-2022 21:47-0500 Diastolic blood pressure 97 mm[Hg] [facility] 10-05-2022 21:47-0500 Heart rate 94 /min [facility] 10-05-2022 21:47-0500 Respiratory rate 19 /min [facility] 10-05-2022 21:47-0500 SaO2% (BldA) [Mass fraction] 97 % [facility] 10-05-2022 21:47-0500 Systolic blood pressure 145 mm[Hg] [facility] 10-05-2022 15:09-0500 Body height 185.42 cm [facility] 10-05-2022 15:09-0500 Body mass index (BMI) [Ratio] 30.4 kg/m2 [facility] 10-05-2022 15:09-0500 Body temperature 97.3 [degF] [facility] 10-05-2022 15:09-0500 Body weight 104.77 kg [facility] Encounters Encounter Date Encounter Type Care Provider Facility Start: 01-11-2025 End: 01-11-2025 Patient encounter procedure Ariel PRETTY Work Phone: [facility] Comment on above: Acute otitis externa of left ear, unspecified type (Primary Dx) Start: 01-11-2025 End: 01-11-2025 ambulatory YANDEL HINOJOSA Facility:[facility] Start: 11-18-2024 End: 11-22-2024 Evaluation and management of inpatient Vern Garibay MD Work Phone: [facility] Start: 11-12-2024 End: 11-12-2024 Office outpatient visit 25 minutes Yandel Hinojosa PA-C Work Phone: [facility] Comment on above: Anxiety; Depression, unspecified depression type; Primary hypertension; Gastroesophageal reflux disease without esophagitis Start: 11-12-2024 End: 11-12-[address] [facility] Start: 05-30-2024 End: 05-30-2024 Office outpatient new 30 minutes Yandel Henry PACliff Work Phone: [facility] Comment on above: Primary hypertension (Primary Dx); Anxiety; Depression, unspecified depression type; Chronic gout without tophus, unspecified cause, unspecified site; Gastroesophageal reflux disease without esophagitis; Insomnia due to other mental disorder Start: 05-30-2024 End: 05-30-[address] [facility] Start: 11-23-2023 ambulatory Celsa LiuETHYLENE OXIDE PANELBOARD OPERATOR Work Phone: [facility] [place] Comment on above: Cancellation Start: 11-02-2023 End: 11-02-2023 Patient encounter procedure Celsa Bellamy APRN.ETHYLENE OXIDE PANELBOARD OPERATOR Work Phone: [facility] Comment on above: Depressive disorder (Primary Dx); Anxiety state; Primary hypertension; Gastroesophageal reflux disease without esophagitis Start: 05-18-2023 End: 05-18-2023 Patient encounter procedure Olivier Harvey MD Work Phone: Orthopaedics Comment on above: Pain of right hand ( Primary Dx); Dupuytren's contracture Start: 05-11-2023 End: 05-11-2023 Subsequent hospital visit by physician Esther [facility] [place] Work Phone: Radiology Comment on above: Joint mass [M25.80] Start: 02-02-2023 End: 02-02-2023 Patient encounter procedure Olivier Harvey MD Work Phone: Orthopaedics Comment on above: Dupuytren's disease of palm (Primary Dx) Start: 12-29-2022 End: 12-29-2022 Patient encounter procedure Suha Camargo DO Work Phone: Orthopaedics Comment on above: Dupuytren's contract ure of right hand Start: 12-29-2022 End: 12-29-2022 Subsequent hospital visit by physician Esther [facility] [place] Powell Work Phone: Radiology Comment on above: Pain [R52] Start: 10-27-2022 Refgage Tamayo Work Phone: [facility] [place] Comment on above: Refill Request Start: 10-05-2022 End: 10-06-2022 Emergency department patient visit Tom Soto Facility:[facility] Start: 10-05-2022 End: 10-05-2022 Emergency department patient visit [facility] Start: 12-15-2021 Refill Celsa Bellamy NUCLEAR WEAPONS CUSTODIAN .ETHYLENE OXIDE PANELBOARD OPERATOR Work Phone: [facility] [place] Comment on above: Refill Request Procedures Date Procedure Procedure Detail Performing Clinician Start: 11-19-2024 Urnls dip stick/tabl et reagent auto microscopy Marvel Miller MD Work Phone: Start: 11-18-2024 Assay of thyroid stimulating hormone tsh Marvel Miller MD Work Phone: Start: 11-18-2024 Blood ethanol measurement Mauriadin Figueroa Mccloud DO Work Phone: Start: 11-18-2024 Lipid panel Marvel Miller MD Work Phone: Start: 11-18-2024 Blood ethanol measurement Vern Garibay MD Work Phone: Start: 11-18-2024 Comprehensive metabo lic panel Vern Garibay MD Work Phone: Start: 11-18-2024 Drug tst prsmv instr mnt chem analyzers pr date Vern Garibay MD Work Phone: Start: 11-18-2024 Lipid 1996 panel - S ezequiel or Plasma Ariel Petty PA Work Phone: Start: 08-27-2024 Lipid 1996 panel - S ezequiel or Plasma Yandel Hinojosa PACliff Work Phone: Start: 05-11-2023 Radex toe minimum 2 views Celsa Older NUCLEAR WEAPONS CUSTODIAN.ETHYLENE OXIDE PANELBOARD OPERATOR Work Phone: Start: 12-29-2022 Radex hand minimum 3 views Suha Camargo DO Work Phone: Start: 10-29-2022 Lipid 1996 panel - S ezequiel or Plasma Xr Mob Work Phone: Viral antigen assay Plan of Treatment Date Care Activity Detail Author Start: 01-04-2030 DTaP/Tdap/Td Vaccine s (3 - Td or Tdap) DTaP/Tdap/Td Vaccines (3 - Td or Tdap) [facility] Start: 01-04-2030 Urine microalbumin profile [facility] Start: 11-18-2029 Lipid panel Lipid Screening [facility] Start: 08-27-2029 Lipid panel Lipid Panel [facility] Start: 2028 Zoster Vaccines (1 of 2) Zoste r Vaccines (1 of 2) [facility] Start: 11-19-2027 Diabetes Screening Diabetes Screenin g [facility] Start: 10-30-2027 Lipid 1996 panel - S ezequiel or Plasma Lipid Screening [facility] Start: 10-30-2027 Lipid panel Lipid Screening [facility] Start: 10-30-2027 LIPID SCREEN LIPID SCREEN [facility] Start: 05-11-2026 Diabetes Screening Diabetes Screenin g [facility] Start: 03-31-2025 Influenza vaccination Influenz a Vaccine (Season Ended) [facility] Start: 11-01-2024 Annual PCP Team Wholesale Buyer marcela Disease Visit Annual PCP Team Chronic Disease Visit [facility] Start: 10-03-2024 End: 10-03-2024 Patient encounter procedure 10/03/2024 10:00 AM EST Office Visit [facility] [address] [facility] [address] [place] [id number] Yandel Hinojosa PA-C [address] [facility] [place] [address] [facility] Start: 09-21-2024 LIPID SCREEN LIPID SCREEN [facility] Start: 07-31-2024 Screening for malign ant neoplasm of colon Colorectal Cancer Screening [facility] Comment on above: Postponed from 03/04 (Patient Refused) Start: 05-03-2024 Annual PCP Team Wholesale Buyer marcela Disease Visit Annual PCP Team Chronic Disease Visit [facility] Start: 05-03-2024 Colorectal Cancer Screening Colorectal Cancer Screening [facility] Comment on above: Postponed from 03/04 (Declined at this time) Start: 05-03-2024 Covid-19 Vaccine ( season) Covid-19 Vaccine ( season) [facility] Comment on above: Postponed from 03/31 (Declined at this time) Start: 05-03-2024 Hepatitis B Vaccine (1 of 3 - 19+ 3-dose series) Hepatitis B Vaccine (1 of 3 - 19+ 3-dose series) [facility] Comment on above: Postponed from 03/04 (Declined at this time) Start: 05-03-2024 Hepatitis B Vaccine (1 of 3 - 3-dose series) Hepatitis B Vaccine (1 of 3 - 3-dose series) [facility] Comment on above: Postponed from 03/04 (Declined at this time) Start: 05-03-2024 Screening for malign ant neoplasm of colon Colorectal Cancer Screening [facility] Comment on above: Postponed from 03/04 (Declined at this time) Start: 03-31-2024 COVID-19 Vaccine ( season) COVID-19 Vaccine ( season) [facility] Start: 03-31-2024 Covid-19 Vaccine ( season) Covid-19 Vaccine ( season) [facility] Start: 03-31-2024 COVID-19 Vaccine ( season) COVID-19 Vaccine ( season) [facility] Start: 03-31-2024 Influenza vaccination Influenza Vacc ine (#1) [facility] Start: 10-27-2023 ANNUAL PCP TEAM TUCK POINTER MARCELA DISEASE VISIT ANNUAL PCP TEAM CHRONIC DISEASE VISIT [facility] Start: 10-27-2023 BP CONTROLLED (<130/80) BP CONTROLLE D (<130/80) [facility] Start: 03-31-2023 Influenza vaccination C [facility] Start: 2023 Cologuard (FIT-DNA) Cologuard (FIT-D NA) [facility] Start: 2023 Colonoscopy Colonoscopy [facility] Start: [address] Colonography [facility] Start: 2023 Fecal Occult Blood Fecal Occult Bloo d [facility] Start: 2023 Screening for malign ant neoplasm of colon [facility] Start: 2023 Sigmoidoscopy Sigmoidoscopy [facility] Start: 10-20-2022 ANNUAL PCP TEAM TUCK POINTER MARCELA DISEASE VISIT ANNUAL PCP TEAM CHRONIC DISEASE VISIT [facility] Start: 10-05-2022 Suicide precautions [facility] Start: 03-31-2022 Influenza vaccination INFLUENZA (#1) [facility] Start: 09-11-2021 COVID-19 VACCINE (4 - Booster for Moderna series) COVID-19 VACCINE (4 - Booster for Moderna series) [facility] Start: 09-11-2021 COVID-19 VACCINE (4 - Moderna series) COVID-19 VACCINE (4 - Moderna series) [facility] Start: 1997 Hepatitis B Vaccine (1 of 3 - 19+ 3-dose series) Hepatitis B Vaccine (1 of 3 - 19+ 3-dose series) [facility] Start: 1997 Hepatitis B Vaccines (1 of 3 - 19+ 3-dose series) Hepatitis B Vaccines (1 of 3 - 19+ 3-dose series) [facility] Start: 1996 BP CONTROLLED (<130/80) BP CONTROLLE D (<130/80) [facility] Start: 1996 HEPATITIS C SCREENING HEPATITIS C [facility] Start: 1996 Hepatitis C screening Hepatitis C [facility] Start: 1996 HIV SCREENING HIV SCREENING [facility] Start: 1979 MMR Vaccines (1 of 1 - Standard series) MMR Vaccines (1 of 1 - Standard series) [facility] Start: 1978 HEPATITIS B (1 of 3 - 3-dose series) HEPATITIS B (1 of 3 - 3-dose series) [facility] Start: 1978 HIV screening HIV Screening [facility] Start: 1978 Lipid panel Lipid Panel [facility] Start: 1978 Screening for malign ant neoplasm of colon [facility] Start: 1978 Yearly Adult Physical Yearly Adult P hysical [facility] End: 11-18-2024 12 lead ECG Electrocardiogram, 12-lead ECG Routine Once for 1 Occurrences starting 11/18/2024 until 11/18/2024 [facility] Work Phone: Comment on above: Once for 1 Occurrenc es starting 11/18/2024 until 11/18/2024 [facility] Work Phone: [facility] Immunizations Immunization Date Immunization Notes Care Provider Fa noa 05-03-2023 influenza, injectabl e, quadrivalent, contains preservative Olivier Harvey MD Work Phone: [facility] 05-03-2023 influenza virus vaccine, unspecified formulation Xr [place] Work Phone: [facility] 05-11-2021 influenza, injectabl e, quadrivalent, contains preservative Celsa Older NUCLEAR WEAPONS CUSTODIAN.ETHYLENE OXIDE PANELBOARD OPERATOR Work Phone: [facility] Work Phone: 12-05-2020 COVID-19 vaccine, fu ll dose (MODERNA) Celsa Older NUCLEAR WEAPONS CUSTODIAN.ETHYLENE OXIDE PANELBOARD OPERATOR Work Phone: [facility] 11-07-2020 COVID-19 vaccine, fu ll dose (MODERNA) Celsa Older NUCLEAR WEAPONS CUSTODIAN.ETHYLENE OXIDE PANELBOARD OPERATOR Work Phone: [facility] 05-01-2020 influenza, injectabl e, quadrivalent, preservative free Celsa Older NUCLEAR WEAPONS CUSTODIAN.ETHYLENE OXIDE PANELBOARD OPERATOR Work Phone: [facility] Work Phone: 01-05-2020 tetanus toxoid, redu laure diphtheria toxoid, and acellular pertussis vaccine, adsorbed Celsa Older NUCLEAR WEAPONS CUSTODIAN.ETHYLENE OXIDE PANELBOARD OPERATOR Work Phone: [facility] 05-18-2019 Influenza, injectabl e, Madin Inga Canine Kidney, preservative free, quadrivalent Celsa Older NUCLEAR WEAPONS CUSTODIAN.ETHYLENE OXIDE PANELBOARD OPERATOR Work Phone: [facility] Work Phone: 04-27-2018 influenza, injectabl e, quadrivalent, contains preservative Celsa Older NUCLEAR WEAPONS CUSTODIAN.ETHYLENE OXIDE PANELBOARD OPERATOR Work Phone: [facility] 05-25-2017 influenza, injectabl e, quadrivalent, contains preservative Celsa Older NUCLEAR WEAPONS CUSTODIAN.ETHYLENE OXIDE PANELBOARD OPERATOR Work Phone: [facility] 05-26-2016 influenza, injectabl e, quadrivalent, contains preservative Celsa Older NUCLEAR WEAPONS CUSTODIAN.ETHYLENE OXIDE PANELBOARD OPERATOR Work Phone: [facility] Work Phone: 05-21-2014 influenza, seasonal, injectable Celsa Older NUCLEAR WEAPONS CUSTODIAN.ETHYLENE OXIDE PANELBOARD OPERATOR Work Phone: [facility] Work Phone: 09-01-2011 tetanus toxoid, redu laure diphtheria toxoid, and acellular pertussis vaccine, adsorbed Celsa Older NUCLEAR WEAPONS CUSTODIAN.ETHYLENE OXIDE PANELBOARD OPERATOR Work Phone: [facility] Payers Date Payer Category Payer Managed Care POS (unspecified) [employer] CHOICE POS/POSII/PREMIER CARE/PREMIER CARE PLUS [id number] 2024 Managed Care (Private) [employer] [facility] [id number] 2024 Private Health Insurance [id number] 2023 Private Health Insurance [id number] 2023 Unknown [id number] 2022 Self-pay 2022 Unknown [id number] 2022 Unknown [id number] 2019 Private Health Insurance [facility] CHOICE PLUS [id number] 2019-Present [phone] [address] [place] [address] O [id number] 1980 Unknown [id number] 1980 Unknown [id number] 1980 Unknown [id number] Unknown [id number] Unknown [id number] Social History Date Type Detail Facility Start: 10-26-2022 End: 11-19-2024 Tobacco smoking status RIIS Never smoked tobacco [facility] Start: 10-14-2021 End: 05-18-2023 Alcohol intake Current non-drinker of alcohol (finding) [facility] Start: 1980 Sex Assigned At Not on file [facility] Start: 10-05-2022 Tobacco smoking status RIIS Unknown if ever smoked [facility] Start: 1980 Sex Assigned At Male W [facility] Start: 10-26-2022 End: 11-19-2024 Tobacco use and exposure Smokeless tobacco non-user [facility] Work Phone: Start: 12-29-2022 End: 02-28-2023 History of Social function [facility] Work Phone: Start: 12-29-2022 End: 02-28-2023 Tobacco use panel [facility] Work Phone: National Score (1-100), lower number is lower risk 72 [facility] Work Phone: Start: 05-20-2024 End: 11-12-2024 Exposure to SARS-CoV-2 (event) Not sure [facility] Start: 11-19-2024 Alcoholic beverage intake Current drinker of alcohol (finding) [facility] Has the [employer], gas, oil, or water [employer] threatened to shut off services in your home in past 12Mo No [facility] (I/We) worried whether (my/our) food would run out before (I/we) got money to buy more. Never true [facility] Start: 11-19-2024 Alcohol Comment States hasn't drank in past month or two until today. [facility] Start: 11-19-2024 Gender identity Identifies as male gender (finding) [facility] NEGATED: Highlighted rowStart: NINF History of tobacco use Passive smoker [facility] Functional Status Date Assessment Result Facility 02-02-2015 Are you deaf, or do you have serious difficulty hearing No 02/02/2015 8:31 AM Bryan Coto APRN.ETHYLENE OXIDE PANELBOARD OPERATOR No [facility] Work Phone: 02-02-2015 Are you blind, or do you have serious difficulty seeing, even when wearing glasses No 02/02/2015 8:31 AM Bryan Coto APRN.TOMAS No [facility] 02-02-2015 Do you have serious difficulty walking or climbing stairs No 02/02/2015 8:31 AM Bryan Coto APRN.TOMAS No [facility] 02-02-2015 Do you have difficul ty dressing or bathing No 02/02/2015 8:31 AM EDT Bryan Zavaleta APRN.ETHYLENE OXIDE PANELBOARD OPERATOR No [facility] 02-02-2015 Because of a physica l, mental, or emotional condition, do you have difficulty doing errands alone such as visiting a physician's office or shopping No 02/02/2015 8:31 AM EDT Bryan Zavaleta APRN.TOMAS No [facility] Mental Status Date Assessment Result Facility 02-02-2015 Because of a physica l, mental, or emotional condition, do you have serious difficulty concentrating, remembering, or making decisions No 02/02/2015 8:31 AM EDT Bryan Zavaleta APRN.ETHYLENE OXIDE PANELBOARD OPERATOR No [facility] Clinical Notes 01-20-2015 to 01-11-2025 Ariel Petty PA - 01/11/2025 8:35 AM EDMarvel Jauregui MD - 11/22/2024 12:44 PM Jeevan Rodriguez LPN - 11/22/2024 9:45 AM EDBetina Nguyen - 11/22/2024 9:15 AM EDT Note Date & Type Note Facility 01-11-2025 Note HNO ID: [id number] Author: ARIEL PETTY PA Service: ? Author Type: Physician Financial Services Associate Type: Progress Notes Filed: 01/11/2025 08:36 Note Text: [facility] Subjective Corey Morrison is a 44 year old male. Patient presents with: Ear Pain: left x this am HPI Left Otalgia: - Onset: Noticed pain during the night when waking to use the bathroom. - No recent URI symptoms: Denies cough, rhinorrhea, or fever. - No recent swimming. - Suspects possible trauma from using a jose to remove ear hair. - Denies otorrhea; fiancee applied ear drops this morning. - Questions if well water could be a contributing factor. PAST MEDICAL HISTORY Diagnosis Date Amblyopia of right eye patching as a child Anxiety state, unspecified Depressive disorder, not elsewhere classified Diaphragmatic hernia without mention of obstruction or gangrene Encounter for long-term (current) use of medications 05/25/2013 Esophagitis, unspecified Heartburn Hyperlipidemia 03/05/2015 Oral aphthae yael with stress, Abreva helps, lately worse Umbilical hernia PAST SURGICAL HISTORY Procedure Laterality Date EGD TRANSORAL BIOPSY SINGLE/MULTIPLE 10/27/11 ALLERGIES Patient has no known allergies. MEDICATIONS FLUoxetine (PROZAC) 20 mg capsule Take 20 mg by mouth. losartan (COZAAR) 50 mg tablet Take 50 mg by mouth. omeprazole (PRILOSEC) 20 mg capsule Take 1 capsule by mouth two times a day. 1/2 hr before meal. allopurinol (ZYLOPRIM) 300 mg tablet Take 1 tablet by mouth once daily. ofloxacin (FLOXIN) 0.3 % otic solution Use 10 drops in the left ear once daily for 7 days. amLODIPine (NORVASC) 5 mg tablet Take 1 tablet by mouth once daily. (Patient not taking: Reported on 01/11/2025) meloxicam (MOBIC) 15 mg tablet Take 1 tablet by mouth once daily. (Patient not taking: Reported on 01/11/2025) divalproex DR (DEPAKOTE) 250 mg EC tablet Take 250 mg by mouth once daily. (Patient not taking: Reported on 01/11/2025) divalproex DR (DEPAKOTE) 500 mg EC tablet Take 500 mg by mouth once daily. (Patient not taking: Reported on 01/11/2025) metoprolol tartrate, short acting, (LOPRESSOR) 25 mg tablet Take 0.5 tablets by mouth twice daily. (Patient not taking: Reported on 01/11/2025) divalproex sprinkle (DEPAKOTE SPRINKLES) 125 mg capsule Take 1 capsule by mouth twice daily. multivitamin tablet Take 1 tablet by mouth once daily. FAMILY HISTORY Problem Relation Age of Onset Hypertension Mother Smoker, HTN,, excess Mt Dew Diabetes Mother Psychiatry Mother Depression/Anxiety Colon Cancer Mother COPD Mother Diabetes Father Psychiatry Father Depression/Anxiety Psychiatry Sister bi-polar Social History Tobacco Use Smoking status: Never Smokeless tobacco: Never Vaping Use Vaping status: Never Used Substance Use Topics Alcohol use: No Drug use: No Review of Systems Constitutional: (-) fever Ears/Nose/Mouth/Throat: (+) left ear pain, (-) ear drainage, (-) rhinorrhea Respiratory: (-) cough Objective BP 124/72 Pulse 98 Temp 36.1 ?C (97 ?F) Resp 16 Wt 103.4 kg (227 lb 15.3 oz) SpO2 96% BMI 30.08 kg/m? Physical Exam Vitals reviewed. Constitutional: General: He is not in acute distress. Appearance: Normal appearance. He is not toxic-appearing. HENT: Right Ear: Tympanic membrane and ear canal normal. Left Ear: Tympanic membrane normal. Swelling and tenderness present. Tympanic membrane is not erythematous. Mouth/Throat: Mouth: Mucous membranes are moist. Cardiovascular: Rate and Rhythm: Normal rate and regular rhythm. Pulmonary: Effort: Pulmonary effort is normal. Breath sounds: Normal breath sounds. Skin: General: Skin is warm and dry. Neurological: Mental Status: He is alert. General: No acute distress. HEENT: Left ear canal erythematous and edematous, tympanic membrane normal. Resp: Clear to auscultation bilaterally. {1. Acute otitis externa of left ear, unspecified type (H60.502) - Onset today; no recent illness or swimming. Possible irritation from ear hair trimming. - Examination reveals erythema and edema of the left ear canal; tympanic membrane intact. - Prescribed antibiotic ear drops; sent prescription to [facility] pharmacy. and Recording using [employer] software for draft documentation of the visit was discussed with the patient/authorized patient accounting representative; all questions welcomed and answered. Patient/authorized patient accounting representative agreed to proceed Differential Diagnoses - otitis externa is more likely for the following reason(s): suggested by HANDP - otitis media is less likely for the following reason(s): HANDP not suggestive Disposition The patient was discharged. Procedures [facility] 01-11-2025 History of Present illness Narrative [facility] Subjective Corey Morrison is a 44 year old male. Patient presents with: Ear Pain: left x this am HPI Left Otalgia: - Onset: Noticed pain during the night when waking to use the bathroom. - No recent URI symptoms: Denies cough, rhinorrhea, or fever. - No recent swimming. - Suspects possible trauma from using a jose to remove ear hair. - Denies otorrhea; fianc e applied ear drops this morning. - Questions if well water could be a contributing factor. PAST MEDICAL HISTORY Diagnosis Date Amblyopia of right eye patching as a child Anxiety state, unspecified Depressive disorder, not elsewhere classified Diaphragmatic hernia without mention of obstruction or gangrene Encounter for long-term (current) use of medications 05/25/2013 Esophagitis, unspecified Heartburn Hyperlipidemia 03/05/2015 Oral aphthae yael with stress, Abreva helps, lately worse Umbilical hernia PAST SURGICAL HISTORY Procedure Laterality Date EGD TRANSORAL BIOPSY SINGLE/MULTIPLE 10/27/11 ALLERGIES Patient has no known allergies. MEDICATIONS FLUoxetine (PROZAC) 20 mg capsule Take 20 mg by mouth. losartan (COZAAR) 50 mg tablet Take 50 mg by mouth. omeprazole (PRILOSEC) 20 mg capsule Take 1 capsule by mouth two times a day. 1/2 hr before meal. allopurinol (ZYLOPRIM) 300 mg tablet Take 1 tablet by mouth once daily. ofloxacin (FLOXIN) 0.3 % otic solution Use 10 drops in the left ear once daily for 7 days. amLODIPine (NORVASC) 5 mg tablet Take 1 tablet by mouth once daily. (Patient not taking: Reported on 01/11/2025) meloxicam (MOBIC) 15 mg tablet Take 1 tablet by mouth once daily. (Patient not taking: Reported on 01/11/2025) divalproex DR (DEPAKOTE) 250 mg EC tablet Take 250 mg by mouth once daily. (Patient not taking: Reported on 01/11/2025) divalproex DR (DEPAKOTE) 500 mg EC tablet Take 500 mg by mouth once daily. (Patient not taking: Reported on 01/11/2025) metoprolol tartrate, short acting, (LOPRESSOR) 25 mg tablet Take 0.5 tablets by mouth twice daily. (Patient not taking: Reported on 01/11/2025) divalproex sprinkle (DEPAKOTE SPRINKLES) 125 mg capsule Take 1 capsule by mouth twice daily. multivitamin tablet Take 1 tablet by mouth once daily. FAMILY HISTORY Problem Relation Age of Onset Hypertension Mother Smoker, HTN,, excess Mt Dew Diabetes Mother Psychiatry Mother Depression/Anxiety Colon Cancer Mother COPD Mother Diabetes Father Psychiatry Father Depression/Anxiety Psychiatry Sister bi-polar Social History Tobacco Use Smoking status: Never Smokeless tobacco: Never Vaping Use Vaping status: Never Used Substance Use Topics Alcohol use: No Drug use: No Review of Systems Constitutional: (-) fever Ears/Nose/Mouth/Throat: (+) left ear pain, (-) ear drainage, (-) rhinorrhea Respiratory: (-) cough Objective BP 124/72 Pulse 98 Temp 36.1 C (97 F) Resp 16 Wt 103.4 kg (227 lb 15.3 oz) SpO2 96% BMI 30.08 kg/m Physical Exam Vitals reviewed. Constitutional: General: He is not in acute distress. Appearance: Normal appearance. He is not toxic-appearing. HENT: Right Ear: Tympanic membrane and ear canal normal. Left Ear: Tympanic membrane normal. Swelling and tenderness present. Tympanic membrane is not erythematous. Mouth/Throat: Mouth: Mucous membranes are moist. Cardiovascular: Rate and Rhythm: Normal rate and regular rhythm. Pulmonary: Effort: Pulmonary effort is normal. Breath sounds: Normal breath sounds. Skin: General: Skin is warm and dry. Neurological: Mental Status: He is alert. General: No acute distress. HEENT: Left ear canal erythematous and edematous, tympanic membrane normal. Resp: Clear to auscultation bilaterally. {1. Acute otitis externa of left ear, unspecified type (H60.502) - Onset today; no recent illness or swimming. Possible irritation from ear hair trimming. - Examination reveals erythema and edema of the left ear canal; tympanic membrane intact. - Prescribed antibiotic ear drops; sent prescription to [facility] pharmacy. and Recording using [employer] software for draft documentation of the visit was discussed with the patient/authorized patient accounting representative; all questions welcomed and answered. Patient/authorized patient accounting representative agreed to proceed Differential Diagnoses - otitis externa is more likely for the following reason(s): suggested by H&P - otitis media is less likely for the following reason(s): H&P not suggestive Disposition The patient was discharged. Procedures documented in this encounter [facility] 12-17-2024 Note HNO ID: [id number] Author: ?, ?, ? Service: ? Author Type: ? Type: Progress Notes Filed: 12/17/2024 14:29 Note Text: Spoke to patient, he is no longer a patient of [facility]. Updated PCP [facility] 12-16-2024 Note Patient Outreach ( [facility]) TAMIKOCOREY PATTON ([id number]) 1980 M Date Time Provider Department 12/16/24 JAQUELIN NAYAK During your visit today, we recorded the following information about you: Mari Baird 12/17/2024 2:29 PM Signed Spoke to patient, he is no longer a patient of [facility]. Updated PCP Allergies As of Date: 12/16/2024 (No Known Allergies) Date Reviewed: 11/02/2023 Reviewed by: Devorah Giordano MA - Fully Assessed Reason for Visit: Outpatient Colonoscopy [482] Cmt: Patient is overdue for colorectal cancer screening. (Has never done). Patient will need consult with Catracho Ham CNP prior to colorectal cancer screening. Primary Visit Diagnosis:Screening for colorectal cancer [Z12.11, Z12.12] Prescriptions as of 12/17/2024 - amLODIPine (NORVASC) 5 mg tablet Take 1 tablet by mouth once daily. - omeprazole (PRILOSEC) 20 mg capsule Take 1 capsule by mouth two times a day. 1/2 hr before meal. - meloxicam (MOBIC) 15 mg tablet Take 1 tablet by mouth once daily. - divalproex DR (DEPAKOTE) 250 mg EC tablet Take 250 mg by mouth once daily. - divalproex DR (DEPAKOTE) 500 mg EC tablet Take 500 mg by mouth once daily. - metoprolol tartrate, short acting, (LOPRESSOR) 25 mg tablet Take 0.5 tablets by mouth twice daily. - allopurinol (ZYLOPRIM) 300 mg tablet Take 1 tablet by mouth once daily. - divalproex sprinkle (DEPAKOTE SPRINKLES) 125 mg capsule Take 1 capsule by mouth twice daily. - multivitamin tablet Take 1 tablet by mouth once daily. Problem List As Of Date 12/16/2024 Noted Resolved Depressive disorder [F32.A] Anxiety state [F41.1] Heartburn [R12] 01/20/2015 Oral aphthae [K12.0] 01/20/2015 GERD (gastroesophageal reflux disease) [K21.9] 12/05/2011 Hyperuricemia [E79.0] 12/05/2011 Gout [M10.9] 05/25/2013 Hordeolum internum of left upper eyelid [H00.02*07/05/2019 Vitreous floaters of both eyes [H43.393] 07/05/2019 Amblyopia, right eye [H53.001] 10/04/2019 Primary hypertension [I10] 10/20/2021 Encounter Status:Closed by MARI BAIRD on 12/17/24 [facility] 11-22-2024 Note Inpatient Psychiatry Discharge Summary Patient Name: Corey Morrison MR #: [id number] : 1980 Admit Date: 536708 Discharge Date/Time: 11/22/2024 1:09 PM Clinical Summary Reason for Hospitalization: For safety and stabilization Discharge Diagnoses and Associated Hospital Course: * Severe recurrent major depression without psychotic features (HCC) Assessment & Plan Corey Morrison, a 44-year-old male, presents with acute exacerbation of psychiatric symptoms, including alcohol intoxication and suicidal ideation, necessitating inpatient admission for safety and stabilization. His clinical presentation is complicated by a history of psychiatric hospitalization, recent alcohol use disorder, and significant psychosocial stressors, including his mother's critical illness, his sister's homelessness and substance abuse, and financial strain. Despite Mr. Morrison's denial of current suicidal ideation, collateral reports from his environmental department manager and juno amato indicate recurrent suicidal statements and behaviors, such as self-hitting, consistent with increased risk for self-harm. His current treatment regimen, including Lamictal, managed by his primary care physician, and monthly therapy, may require reassessment for efficacy and adherence. Given these factors, hospitalization is necessary to mitigate self-harm risk and to provide a comprehensive evaluation and adjustment of his treatment plan. Physical examination Lab testing as appropriate Precautions -suicide PRN medications for agitation Collateral history from family/friends/providers Request/review prior records developmental services worker assessment/linkage/care coordination Group participation/[place] Supportive psychotherapy/structured supportive care Continue Lamotrigine 100 mg by mouth daily for now Start Fluoxetine 20 mg by mouth daily Aftercare planning once stable Reason for Admission: Corey Morrison, a 44-year-old male, was admitted to the inpatient psychiatric unit due to safety concerns associated with an increased risk of self-harm. He was brought to the [facility] by his environmental department manager following an incident involving alcohol intoxication and verbalized suicidal ideation at work. History and Hospital Course: Upon admission, Mr. Morrison presented with labile mood, flat affect, and tangential speech. He admitted to alcohol consumption both before and during work hours, citing several significant stressors including his mother's critical health status, his sister's homelessness and substance abuse, and financial strain due to supporting his juno amato and her children. Collateral information from his environmental department manager and juno amato indicated a history of psychiatric hospitalization for suicidal ideation post-divorce and recent increased anxiety and suicidal statements at work. During his hospitalization, Mr. Morrison became more cooperative and engaged in his treatment plan. He expressed a strong motivation to improve his life and abstain from alcohol, acknowledging its negative impact on his life. He actively participated in group therapy sessions and individual therapy, focusing on coping skills, motivation, and goal setting. His mood stabilized, and his thought processes became logical and goal-directed. He reported significant improvement in sleep quality with the use of Hydroxyzine and Trazodone. Mr. Morrison's juno e, Braeden, provided strong support and expressed her commitment to his recovery, which served as a protective factor. He denied any suicidal ideation, intentions, or plans, and showed no signs of agitation or substance withdrawal during his stay. Discharge Diagnosis: Major Depressive Disorder, recurrent, severe, without psychotic features Alcohol Use Disorder, moderate Psychosocial Stressors: family health issues, financial strain, relational stress Discharge Plan: Mr. Morrison has shown significant improvement and is ready for discharge with the following plan: Psychiatric Follow-Up: Continue outpatient psychiatric care with regular follow-up appointments. Therapy: Engage in individual and group therapy sessions focusing on coping skills, motivation, and goal setting. Substance Use Counseling: Participate in counseling to maintain sobriety and address alcohol use disorder. Robotics Specialist: Involve social service liaison to address financial concerns and explore available support resources. Support System: Continue to involve his juno amato in his recovery process as a critical support system. Instructions to Patient: Abstain from alcohol and follow the prescribed medication regimen. Attend all scheduled therapy and counseling sessions. Utilize coping strategies learned during hospitalization. Contact emergency services or the crisis hotline if experiencing any thoughts of self-harm or suicidal ideation. Consults placed Procedures Emergency Department consult to Psych - Robotics Specialist [facility] (more content not included)... [facility] 11-22-2024 Hospital course Narrative Inpatient Psychiatry Discharge Summary Patient Name: Corey Morrison MR #: [id number] : 1980 Admit Date: [id number] Discharge Date/Time: 11/22/2024 1:09 PM Clinical Summary Reason for Hospitalization: For safety and stabilization Discharge Diagnoses and Associated Hospital Course: * Severe recurrent major depression without psychotic features (HCC) Assessment & Plan Corey Morrison, a 44-year-old male, presents with acute exacerbation of psychiatric symptoms, including alcohol intoxication and suicidal ideation, necessitating inpatient admission for safety and stabilization. His clinical presentation is complicated by a history of psychiatric hospitalization, recent alcohol use disorder, and significant psychosocial stressors, including his mother's critical illness, his sister's homelessness and substance abuse, and financial strain. Despite Mr. Morrison's denial of current suicidal ideation, collateral reports from his environmental department manager and juno amato indicate recurrent suicidal statements and behaviors, such as self-hitting, consistent with increased risk for self-harm. His current treatment regimen, including Lamictal, managed by his primary care physician, and monthly therapy, may require reassessment for efficacy and adherence. Given these factors, hospitalization is necessary to mitigate self-harm risk and to provide a comprehensive evaluation and adjustment of his treatment plan. Physical examination Lab testing as appropriate Precautions -suicide PRN medications for agitation Collateral history from family/friends/providers Request/review prior records developmental services worker assessment/linkage/care coordination [facility] participation/[facility] Supportive psychotherapy/structured supportive care Continue Lamotrigine 100 mg by mouth daily for now Start Fluoxetine 20 mg by mouth daily Aftercare planning once stable Reason for Admission: Corey Morrison, a 44-year-old male, was admitted to the inpatient psychiatric unit due to safety concerns associated with an increased risk of self-harm. He was brought to the [facility] ER by his environmental department manager following an incident involving alcohol intoxication and verbalized suicidal ideation at work. History and Hospital Course: Upon admission, Mr. Morrison presented with labile mood, flat affect, and tangential speech. He admitted to alcohol consumption both before and during work hours, citing several significant stressors including his mother's critical health status, his sister's homelessness and substance abuse, and financial strain due to supporting his juno amato and her children. Collateral information from his environmental department manager and juno amato indicated a history of psychiatric hospitalization for suicidal ideation post-divorce and recent increased anxiety and suicidal statements at work. During his hospitalization, Mr. Morrison became more cooperative and engaged in his treatment plan. He expressed a strong motivation to improve his life and abstain from alcohol, acknowledging its negative impact on his life. He actively participated in group therapy sessions and individual therapy, focusing on coping skills, motivation, and goal setting. His mood stabilized, and his thought processes became logical and goal-directed. He reported significant improvement in sleep quality with the use of Hydroxyzine and Trazodone. Mr. Morrison's juno amato, Braeden, provided strong support and expressed her commitment to his recovery, which served as a protective factor. He denied any suicidal ideation, intentions, or plans, and showed no signs of agitation or substance withdrawal during his stay. Discharge Diagnosis: Major Depressive Disorder, recurrent, severe, without psychotic features Alcohol Use Disorder, moderate Psychosocial Stressors: family health issues, financial strain, relational stress Discharge Plan: Mr. Morrison has shown significant improvement and is ready for discharge with the following plan: Psychiatric Follow-Up: Continue outpatient psychiatric care with regular follow-up appointments. Therapy: Engage in individual and group therapy sessions focusing on coping skills, motivation, and goal setting. Substance Use Counseling: Participate in counseling to maintain sobriety and address alcohol use disorder. Robotics Specialist: Involve social service liaison to address financial concerns and explore available support resources. Support System: Continue to involve his juno amato in his recovery process as a critical support system. Instructions to Patient: Abstain from alcohol and follow the prescribed medication regimen. Attend all scheduled therapy and counseling sessions. Utilize coping strategies learned during hospitalization. Contact emergency services or the crisis hotline if experiencing any thoughts of self-harm or suicidal ideation. Consults placed Procedures Emergency Department consult to Psych - Robotics Specialist Inpatient Consult to Substance Use Navigator Inpatient consult to Hospitalist Allergies Patient has no known allergies. Procedures performed No orders of the defined types were placed in this encounter. Other tests No orders of the defined types were placed in this encounter. Studies pending at discharge None Laboratory Results: Results from last 7 days Lab Units 11/18/24 1526 SODIUM mmol/L 141 POTASSIUM mmol/L 3.8 CHLORIDE mmol/L 104 BUN mg/dL 10 CREATININE mg/dL 1.02 ALT U/L 52* AST U/L 30 ALK PHOS U/L 92 TOTAL PROTEIN g/dL 7.1 GLUCOSE mg/dL 101* CALCIUM mg/dL 9.3 Results from last 7 days Lab Units 11/18/24 1526 WBC K/mcL 6.88 HGB g/dL 16.2 HCT % 45.9 PLT K/mcL 209 Lab Results Component Value Date CHOL 201 (H) 11/18/2024 HDL 50 11/18/2024 LDLCALC 114 11/18/2024 TRIG 184 (H) 11/18/2024 No results found for: HGBA1C Lab Results Component Value Date TSH 0.53 11/18/2024 Review of Systems: Constitutional:No fever, no weight loss Eyes:No diplopia ENT:No sinus drainage CV:No chest pain. No ankle swelling Resp:No dyspnea. No wheezing GI:No abdominal pain.No abdominal distention :No dysuria Neuro:No headache Integumentary:No skin rash MuscSkel:No arthralgias Endo:No polyuria Heme/lymphatic:No apparent lymphadenopathy Allergic/Immunologic:No hives Mental Status Evaluation: General Appearance & Behavior: age appropriate, pleasant, cooperative, good eye contact Grooming & Hygiene: neat and clean Psychomotor Activity: no psychomotor abnormalities or muscle atrophy noted Gait & Station stable gait and ability to rise from bed/chair without assistance Speech: normal rate, rhythym, volume, and spontaneity Flow of Thought: linear and goal directed Thought Associations: Intact Content of Thought: No evidence of suicidal ideations/homicidal ideations/psychosis Mood: much better Affect: euthymic Insight: fair Judgment: fair Orientation: alert and oriented to person, place, time, and circumstances Memory: intact recent and remote Attention: intact Concentration: intact Language: fluent Fund of Knowledge: estimated average intelligence Discharge Information PRINCIPAL DIAGNOSIS at Discharge: Severe recurrent major depression without psychotic features (HCC) Discharge Medications: Medication List START taking these medications FLUoxetine 20 MG capsule Commonly known as: PROZAC Take 1 (one) capsule (20 mg total) by mouth daily Start: 11/23/24. Start taking on: November 23, 2024 pantoprazole 20 MG tablet Commonly known as: PROTONIX Take 1 (one) tablet (20 mg total) by mouth 2 (two) times a day . traZODone 50 MG tablet Commonly known as: DESYREL Take 1 (one) tablet (50 mg total) by mouth nightly as needed for sleep . CONTINUE taking these medications lamoTRIgine 100 MG tablet Commonly known as: LAMICTAL Take 1 (one) tablet (100 mg total) by mouth daily . losartan 50 MG tablet Commonly known as: COZAAR Take 1 (one) tablet (50 mg total) by mouth daily . STOP taking these medications albuterol 90 mcg/actuation inhaler omeprazole 20 MG capsule Commonly known as: PRILOSEC Where to Get Your Medications These medications were sent to [id number] - [place], [place] - [address] [facility] [address] [facility] [id number] FLUoxetine 20 MG capsule lamoTRIgine 100 MG tablet losartan 50 MG tablet pantoprazole 20 MG tablet traZODone 50 MG tablet This patient is not being discharged on an antipsychotic. Tobacco cessation medication not indicated; Patient is only a someday tobacco user or doesn't use currently. Disposition: Home Follow Up: [facility] [address] Go on 11/28/2024 Appt: 11/28/24 at 10:00 am with Emmanuel Merida, Psychiatric [employer] PANELBOARD OPERATOR, for medication management *Autumn Carrera [employer] PANELBOARD OPERATOR is on maternity leave* PLEASE CALL TO RESCHEDULE IF UNABLE TO MAKE APPT Marvel Dubose MD [address] [facility] [phone] Schedule an appointment as soon as possible for a visit If symptoms worsen Discharge Diet: Resume home diet Additional Information: n/a Provider(s): Primary Care: Yandel Hinojosa PA-C Address: [address] [place] [address] / [facility] [address] To contact Marvel Miller MD or high school admissions representative physician, call [phone] (Kinta) for 24 hour/7 day for emergencies related to inpatient stay or to obtain results of studies pending at discharge. Patient instructions, including activity, were given to the patient/family at discharge. Please see the After Visit Summary in the medical record for details. Time spent on discharge: > 30 minutes Completed by: Marvel Miller MD on 11/22/24, 4:00 PM documented in this encounter [facility] 11-22-2024 History of Present illness Narrative 0715 Pt in his room at start of shift. 0735 Vitals obtained by nursing students; all WNL. 0848 Pt received scheduled AM meds; mouth check completed. Pt describes mood as really good; I get to go home today. Pt denies having any depression or anxiety this morning; denies having any thoughts to harm self or others. Pt reports sleep and appetite are good. Denies having any other concerns. 0920 Pt attending group. 1125 Pt eating lunch in the dining room. 1309 AVS reviewed with patient and patient signed AVS. Patient verbalized understanding of discharge instructions, medications, and follow-up appointments. Patient denies any suicidal thoughts. Copy of AVS given to patient. Goal Group [id number] Pt found sitting in lounge reading. He is dressed casually in his own clothing, neat and clean. His affect is calm and pleasant. They report they slept like a log and laughs reporting he feels well rested. Pt goal from yesterday was I completed all of my groups Was the goal met was A word to describe how they are feeling today is great because I'm hopefully going home today The Pt goal for today is go home The steps and behaviors they will take to accomplish goal: work on myself, make sure to take my mediation, complete my groups The Pt feel this goal is important to them because I want to be a better person Life Skills Discussion offered on how we are always working on wellness and the importance of recognizing the hardships worked through in the past to help motivate through future hardships. Pt then completes Work in Progress worksheet as follows: Something I'm working on: my mental health, my career, my family A step to take towards this: being here and accepting help Something I'm Learning about myself: I'm actually worth something. Hardships do not define me as a person Something I have achieved: having a custom built house, awards from work, my family Something I like about myself: I'm a caring person and I'm skilled Something I am learning to accept: Life is not going to be perfect Something that makes me smile: braeden!! Dogs, step-kids, race cars, [employer], mowing the lawn, [employer] Discussed with patients the benefits of giving credit to self for hard work in the past and current things they are working on to motivate towards future successes. Dr. Bullock to discharge patient home today. Follow-up with [facility] - [facility] faxed. Safety Plan already completed. He denies any SI, HI, psychosis, or further discharge needs. Coworker to provide transport to a safe environment. Case closed. 1957 Patient is friendly and upbeat. Patient denies any depression or anxiety. Patient's affect is full. Patient's eye contact is good. Patient denies any suicidal ideations. Patient denies any pain. Patient given a snack and drink 2044 Patient is socially appropriate reading in dining area. 2129 Patient given Trazodone 50 mg per patient request 224 Patient resting quietly in bed, eyes closed, respirations normal 0058 Patient resting quietly in bed, eyes closed, respirations normal 0310 Patient resting quietly in bed, eyes closed, respirations normal 0520 Patient resting quietly in bed, eyes closed, respirations normal 0630 Patient slept 7.75 hrs uninterrupted Recreation [id number] Pt found ambulatory in hallway, dressed casually, with bright and pleasant affect. Pt escorted to b3 for group. Pt participated in playing the game Say Anything involving patients to answer questions with their own opinions and thoughts with no wrong answers to silly questions. Peers judged answers and shared thoughts if they agreed or disagreed. Pts demonstrated basic addition of small numbers to keep track of points. Pt participated with much laughter and socialization with peers. Pt returned to [facility] without incident. 1355: Pt transferred to unit B room 3331. Pt escorted by ISABELA Hayes. Pt cooperative with transfer. Report received. 1515: Pt attending group. 1615: Pt eating dinner in room. Calm and controlled. 1830: Pt resting in bed with eyes closed. Respirations even and unlabored. 1300 Pt in agreement to attend AKILA group with Cristina to learn about community resources. Psychiatry Progress Note Patient Name: Corey Morrison Admit Date: 4200904 MR #: [id number] : 1980 Perpetual Assessment Corey Morrison is a 44 y.o. male is admitted for inpatient psychiatric care due to increased risk of self-harm, exacerbated by alcohol intoxication and significant psychosocial stressors, including familial issues and financial strain. Collateral reports indicate recurrent suicidal statements, necessitating hospitalization for safety, stabilization, and reassessment of his treatment regimen Diagnosis & Plan/Recommendations PRINCIPAL DIAGNOSIS: Severe recurrent major depression without psychotic features (HCC) * Severe recurrent major depression without psychotic features (HCC) Assessment & Plan Corey Morrison, a 44-year-old male, presents with acute exacerbation of psychiatric symptoms, including alcohol intoxication and suicidal ideation, necessitating inpatient admission for safety and stabilization. His clinical presentation is complicated by a history of psychiatric hospitalization, recent alcohol use disorder, and significant psychosocial stressors, including his mother's critical illness, his sister's homelessness and substance abuse, and financial strain. Despite Mr. Morrison's denial of current suicidal ideation, collateral reports from his environmental department manager and juno amato indicate recurrent suicidal statements and behaviors, such as self-hitting, consistent with increased risk for self-harm. His current treatment regimen, including Lamictal, managed by his primary care physician, and monthly therapy, may require reassessment for efficacy and adherence. Given these factors, hospitalization is necessary to mitigate self-harm risk and to provide a comprehensive evaluation and adjustment of his treatment plan. Physical examination Lab testing as appropriate Precautions -suicide PRN medications for agitation Collateral history from family/friends/providers Request/review prior records developmental services worker assessment/linkage/care coordination [facility] Supportive psychotherapy/structured supportive care Continue Lamotrigine 100 mg by mouth daily for now Start Fluoxetine 20 mg by mouth daily Aftercare planning once stable Comorbid issues impacting my care plan include substance use. Following for suicidal behavior Interval History: Today, I met with Mr. Morrison in his hospital room. He was awake and alert, presenting no signs of distress or response to internal stimuli. Throughout our interaction, Mr. Morrison was pleasant and polite, eagerly sharing his personal notes on his plans and improvements. He articulated a strong recognition of the negative impact of alcohol on his life and expressed a firm resolve to abstain from alcohol permanently. Mr. Morrison reported feeling better and described his hospitalization as a positive experience. He conveyed motivation to organize his life and strengthen his relationship with his girlfriend, who visited yesterday. In a follow-up conversation with the patient's manager social responsibility, it was noted that his girlfriend observed improvements in Mr. Morrison and expressed her support for his recovery. She agreed with the medical team's judgment, emphasizing this as a critical opportunity for Mr. Morrison to make lasting changes. She is committed to supporting him, stating that this is his last chance to fix things. Mr. Morrison denied experiencing any suicidal ideations, intentions, or plans, and also denied any thoughts of harming himself or others. He has not shown signs of agitation or substance withdrawal. He has been actively participating in group therapy sessions and socializing with others, expressing a desire to spend more time with family post-discharge. Objectively, Mr. Morrison appeared calm and cooperative, with a stable mood. His thought processes were logical and goal-directed, and he demonstrated good insight and judgment. He reported improved sleep quality, having slept more than 10 hours with the aid of Hydroxyzine and Trazodone. In summary, Mr. Morrison continues to show improvement in mood stability and motivation for recovery. His insight into the consequences of alcohol use is strong, and he remains committed to abstinence. The supportive relationship with his girlfriend may serve as a protective factor in his ongoing recovery. He is engaging well in treatment and therapeutic activities. The plan is to continue his current psychiatric medications, encourage ongoing participation in group and individual therapy focusing on coping skills, motivation, and goal setting, and monitor his mood and engagement in therapeutic activities. We will prepare a comprehensive outpatient follow-up plan, including substance use counseling and continued therapy, and discuss potential discharge plans with Mr. Morrison and his support system, taking into account his girlfriend s input. Review of Systems: Constitutional:No fever, no weight loss Eyes:No diplopia ENT:No sinus drainage CV:No chest pain. No ankle swelling Resp:No dyspnea. No wheezing GI:No abdominal pain.No abdominal distention :No dysuria Neuro:No headache Integumentary:No skin rash MuscSkel:No arthralgias Endo:No polyuria Heme/lymphatic:No apparent lymphadenopathy Allergic/Immunologic:No hives Physical Examination: Vital Signs: BP (!) 143/93 Pulse 97 Temp 98.1 F (36.7 C) (Oral) Resp 16 Ht 6' 1 Wt 102.6 kg (226 lb 3.2 oz) SpO2 97% BMI 29.84 kg/m Mental Status Evaluation: General Appearance & Behavior: age appropiate Grooming & Hygiene: street clothes Psychomotor Activity: no psychomotor abnormalities or muscle atrophy noted Gait & Station gait and station not observed as patient laying in bed Speech: hyperverbal Flow of Thought: linear and goal directed Thought Associations: Intact Content of Thought: Preoccupations Mood: better Affect: brighter Insight: improved Judgment: improved Orientation: alert and oriented to person, place, time, and circumstances Memory: intact recent and remote Attention: intact Concentration: intact Language: fluent Fund of Knowledge: estimated average intelligence Laboratory and Additional Data Reviewed: Laboratory 11/21/24 12:51 PM Medications 11/21/24 12:51 PM Treatment options and alternatives reviewed with patient. Risks, benefits, side effects of all psychiatric medications discussed with patient and informed consent obtained. All questions were answered. Marvel Miller MD 11/21/2024 12:51 PM Goal Group [id number] Pt found ambulatory in his doorway. He is dressed casually, neat and clean. His affect is calm and pleasant. They report they slept good and denies any issues. Pt goal from yesterday was have fun and meet people Was the goal met we played a fun game together A word to describe how they are feeling today is great because I finally got some good sleep The Pt goal for today is go to all of my sessions The steps and behaviors they will take to accomplish goal: give up alcohol, get finances in order, spend more time with family, and D. Find a hobby The Pt feel this goal is important to them because I need to be better for my family Pt participated in I Can... worksheet. Discussed the importance of focusing on the positives and the things one can do during stress/crisis rather than dwelling on negativity and focusing on the things one cannot do. Pt was encouraged to explore things to can think, supports , places to go for help, recreation/relaxation, things to do for mind, body and spirit. Pt identifies positive thinking thinking and goal setting, I can call the crisis helplines, I can go to my therapist's office, chilling outside or in the garage, I can go to the gym, stretching and deep breathing, I can talk with my family, friends and co-workers, for my mind I can practice positive thoughts, deep breathing, I can express myself with music and I can continue going to tenriism. For those who love me I can stop drinking and take care of myself Met with patient for daily rounds. Reports he slept well and is feeling better than ever today. Reports his visit with andrew went well and we're ready to get out and conquer the world. Informed him myself or doctor will make contact with Braeden to see how she thinks patient is doing. We reviewed follow-up appts and he was appreciative. developmental services worker to follow. 10:30: Called andrew Pa, to ask how visit went. She reports it went well and she is seeing improvement. When I discussed potential discharge of Monday, she thinks this will upset patient, but is in agreement with whatever the doctor thinks. She does think he is safe to come home whenever the physician sees fit to discharge him. Updated her on follow-up appts and recommendations. She states this is the last chance for us. He fixes things, or he doesn't, but I will support him this last time as best as I can. developmental services worker to follow. 13:30: Discussed with physician. If no issues overnight, patient to discharge home tomorrow. Updated patient who was elated at this news. A coworker will transport him home. developmental services worker to follow. 0730 Patient care taken over from government program manager. Patient sitting in the dining room eating breakfast. 0810 Pt dressed appropriately in street clothes. Patient is alert and oriented x 3. Affect is flat, pt maintains good eye contact. Speech is appropriate. Pt is able to perform ADLs independently. Pt reports denies depression and anxiety. Pt denies any SI/HI/AH/VH and agrees to come to staff if any of these occur. Pt denies any thoughts of self harm. Pt denies pain. Patient reports they slept fair and has good appetite. Patient has been clam, cooperative, appropriate, so far this shift. No medications noted in mouth upon medication administration. 0910 Patient is calm and composed in his room. Patient denies needs at this time. 1020 Patient in conference room in group. 1135 Patient sitting in the dining room, eating lunch with peers. 1325 Patient calm and composed, sitting in room. 1355 Patient moved over to B unit, from C unit. 1929 Release of information (GILDARDO ) signed for mom Diamond Morrison , placed on chart r n made aware 1929- Client sitting in lounge watching television with peers. Introduced self to client. Client dressed casually in [employer] jumpsuit. Client appears clean with no body odor noted. Client makes appropriate eye contact and responds appropriately in conversation. Client is social with peers and spends time outside of room. Client is independent with ADLs and has a good appetite. Client interacts appropriately with staff and peers. Client denies any further needs at this time. Client left sitting in lounge with peers. 1999- Client at nurse's station asking for snack. Snack and drink given and client is thankful. 2046- Knocked on client's door. Client awake and laying in bed. Identified client by name, , and wristband. Administered medication as per physician order. Client tolerated medication with a cup of water. No medication noted upon inspection of oral cavity. Client denies anxiety and depression. Client denies SI/AVH/SIB and hesitates, but denies HI. Client verbalizes ability to keep self safe on the unit and tell staff if that changes. Client states he gets to work early in the morning so he's an early riser and goes to bed early, that's why he's in bed so soon. Client states that he had trouble sleeping yesterday and had trazodone but felt that made him too tired and groggy so he will hold off on taking it tonight unless he absolutely needs to. Client denies any further needs at this time. Client left resting comfortably with adequate linen. 2100- Client resting comfortably with deep and even respirations. 2200- Client resting comfortably with deep and even respirations. 0000- Client resting comfortably with deep and even respirations. 0200- Client resting comfortably with deep and even respirations. 0400- Client resting comfortably with deep and even respirations. 0600- Client resting comfortably with deep and even respirations. Leisure Education: Pt was provided the worksheet called 'The Leisure Link' to complete. Pt went through a list of leisure activities and responding to each of the activities if it is something that is of interest to him, can he afford this and what is needed before beginning this activity (place, cost, equipment, people that will share this interest). Each group participant selected 3 out to share and we discussed possible barriers they might have & ways to overcome those barriers, discussed resources within the community to engage in selected activity. Pt voiced finances are a barrier for him and we discussed activities that are free or low cost. Pt shares he enjoys going to [place] and buying antiques, auto racing, and volunteering at [employer] with Thanksgiving meals. Psychiatry Progress Note Patient Name: Corey Morrison Admit Date: 4200904 MR #: [id number] : 1980 Perpetual Assessment Corey Morrison is a 44 y.o. male is admitted for inpatient psychiatric care due to increased risk of self-harm, exacerbated by alcohol intoxication and significant psychosocial stressors, including familial issues and financial strain. Collateral reports indicate recurrent suicidal statements, necessitating hospitalization for safety, stabilization, and reassessment of his treatment regimen Diagnosis & Plan/Recommendations PRINCIPAL DIAGNOSIS: Severe recurrent major depression without psychotic features (HCC) * Severe recurrent major depression without psychotic features (HCC) Assessment & Plan Corey Morrison, a 44-year-old male, presents with acute exacerbation of psychiatric symptoms, including alcohol intoxication and suicidal ideation, necessitating inpatient admission for safety and stabilization. His clinical presentation is complicated by a history of psychiatric hospitalization, recent alcohol use disorder, and significant psychosocial stressors, including his mother's critical illness, his sister's homelessness and substance abuse, and financial strain. Despite Mr. Morrison's denial of current suicidal ideation, collateral reports from his environmental department manager and juno amato indicate recurrent suicidal statements and behaviors, such as self-hitting, consistent with increased risk for self-harm. His current treatment regimen, including Lamictal, managed by his primary care physician, and monthly therapy, may require reassessment for efficacy and adherence. Given these factors, hospitalization is necessary to mitigate self-harm risk and to provide a comprehensive evaluation and adjustment of his treatment plan. Physical examination Lab testing as appropriate Precautions -suicide PRN medications for agitation Collateral history from family/friends/providers Request/review prior records developmental services worker assessment/linkage/care coordination [facility] Supportive psychotherapy/structured supportive care Continue Lamotrigine 100 mg by mouth daily for now Start Fluoxetine 20 mg by mouth daily Aftercare planning once stable Comorbid issues impacting my care plan include substance use. Following for suicidal behavior Interval History: Mr. Morrison was found lying down on his hospital bed this morning, appearing calm and cooperative. During our conversation, he was pleasant and polite, showing no signs of distress or responding to internal stimuli. He expressed a strong motivation to improve his life and emphasized his desire to abstain from alcohol, acknowledging its negative impact. Mr. Morrison shared a personal insight that even while intoxicated, he recognized he was turning into what he hates the most. He continues to express concern about his financial situation, which remains a significant stressor. His mood appears more stable, and he is actively engaging in treatment, including attending group therapy sessions. He reported sleeping more than 10 hours last night after taking Hydroxyzine and Trazodone, which suggests an improvement in sleep quality. His thought process is logical and goal-directed, and he demonstrates good insight and judgment regarding his condition and the consequences of alcohol use. The plan is to continue his current psychiatric medications, encourage ongoing participation in group and individual therapy focusing on coping skills, motivation, and goal setting, and monitor his mood and engagement in therapeutic activities. Addressing his financial concerns in therapy, potentially involving social service liaison for additional support, will be important. A comprehensive outpatient follow-up plan, including substance use counseling and continued therapy, will be arranged for discharge. Review of Systems: Constitutional:No fever, no weight loss Eyes:No diplopia ENT:No sinus drainage CV:No chest pain. No ankle swelling Resp:No dyspnea. No wheezing GI:No abdominal pain.No abdominal distention :No dysuria Neuro:No headache Integumentary:No skin rash MuscSkel:No arthralgias Endo:No polyuria Heme/lymphatic:No apparent lymphadenopathy Allergic/Immunologic:No hives Physical Examination: Vital Signs: BP (!) 164/91 Pulse 96 Temp 98.5 F (36.9 C) (Oral) Resp 16 Ht 6' 1 Wt 102.6 kg (226 lb 3.2 oz) SpO2 95% BMI 29.84 kg/m Mental Status Evaluation: General Appearance & Behavior: age appropiate Grooming & Hygiene: street clothes Psychomotor Activity: no psychomotor abnormalities or muscle atrophy noted Gait & Station gait and station not observed as patient laying in bed Speech: hyperverbal Flow of Thought: linear and goal directed Thought Associations: Intact Content of Thought: Preoccupations Mood: anxious Affect: restricted Insight: limited Judgment: limited Orientation: alert and oriented to person, place, time, and circumstances Memory: intact recent and remote Attention: intact Concentration: intact Language: fluent Fund of Knowledge: estimated average intelligence Laboratory and Additional Data Reviewed: Laboratory 11/20/24 2:54 PM Medications 11/20/24 2:54 PM Treatment options and alternatives reviewed with patient. Risks, benefits, side effects of all psychiatric medications discussed with patient and informed consent obtained. All questions were answered. Marvel Miller MD 11/20/2024 2:45 PM Exercise: Pt participated in riding the stationary bike and engaged in playing ping pone with peer. He appeared motivated and was cordial towards his peers. Discussed the benefits that exercise has. Met with patient for daily rounds. He reports he slept much better last night. He continues to minimize his overall reasons for admission, his drinking, and his high risk factors. Reports feeling safe and much better. We reviewed and signed initial tx plan as created by Dr. Bullock but patient did express some disappointment regarding [facility]. Update due: 11/22/24. He reports fiance plans to visit [facility]. I did discuss FMLA with patient who did not know what that was. Educated him on purpose of FMLA and encouraged him to call his HR department to inquire. Also explained all follow-up options. He requests at this time to stick with [facility] for all psychiatric management. Called [facility] and follow-up appt set for: 11/28/24 at 10:00 am with Emmanuel Merida CNP, for med management as Autumn Deandre MARIN is on maternity leave currently. Noted in [facility]S. developmental services worker to follow. Goal Group: Pt shares his goal from yesterday was met because I had fun and met people. We played a fun game. Pt feeling great because I finally got some good sleep. His goal for today is to go to all of my sessions. Steps include give up alcohol, get finances in order, spend more time with my family, find a hobby. Goal is important I need to be better for my family. Life Skills: Facilitated a group discussion using the cards from the deck called Managing a Mental Illness. Explored coping skills which include medication management, benefits of exercise, relation between food & mood, healing andrews of journaling/poetry, marixa & spirituality, community resources, personal support, motivational strategies, dealing with the frustrations of a mental illness, & working through problem solving scenerios. Pt shared freely and was very talkative. He was receptive to feedback. He voiced continued worries/anxiety about finances though motivated to stop his drinking. 0730: 0820: VS obtained. Pt is alert and oriented awake in bed. Calm and cooperative. Maintains good eye contact. Full affect. Pt is dressed in street clothes. Pt denies SI/HI/AH/VH. Pt agrees to use coping skills and alert staff if SI/HI occurs. No delusions observed. Pt rates anxiety and depression both very little today. Pt states he slept well and has a good appetite. Pt received scheduled medication and took without difficulty. No medication noted upon oral cavity inspection. Pt verbalizes name and use of medications. Encouraged pt to express needs to staff. 1030: Pt attending group. 1120: Pt eating lunch in dining room. Calm and controlled. 1315: Pt attending group. 1430: Pt resting in bed with eyes closed. Respirations even and unlabored. 1530: Pt attending group. 1615: Pt eating dinner in dining room with peers. Calm and controlled. 1715: Pt visiting with fiance in dining room. Socially appropriate. 1830: Pt walking in hallway. Calm and controlled. Denies any needs at this time. 1930: Pt resting quietly in bed with even and unlabored respirations. 2200: Pt resting in bed with eyes closed. Pt responds to name being said lightly. Pt casual, pleasant, controlled, cooperative, and makes appropriate eye contact. Let pt know that fiance called and pt asks for phone to call back. Pt states I've been sleeping great!. 2240: Pt asked about changing visitor to [facility] since other person has not yet visited. Pt states she will visit tomorrow. Pt unsure if will be able to fall back asleep. Pt agreeable to try medications that took the night before. PRN Atarax and PRN Trazodone administered. Mouth check complete. Pt reports mood as good today. Pt denies SI/HI and verbalizes understanding and intent to come to staff if these occur. Pt rates anxiety 3/10 and depression 2/10. Pt asks about getting scheduled medication for GERD. Protonix ordered for daily and pt states takes BID. Messaged high school admissions representative hospitalist and received order to make BID. Pt thankful. Medication given. Pt denies pain and further needs after interaction. 2330: Pt resting quietly in bed with even and unlabored respirations. 0630: Pt continues to rest quietly in bed with even and unlabored respirations. Pt has slept approx 9 hours interrupted. [id number] Recreation Therapy: PT ended call and brought self to group without prompting. Pt dressed appropriately in street clothes, neat and clean. Affect bright(overly at times) but pleasant. BEH controlled and cooperative, but pressured with speech at times, sharing about stressors in his life but lacking insight into the need to set boundaries with others in regards to money that he gives and the time that he gives of self. PT and peers were educated to the focus and purpose of group and to new leisure skill of dice and board game Sequence Dice, to work on focus/concentration, decision making, strategy/problem solving, acceptance, frustration tolerance and positive leisure skills. Focus for activity appropriate. PT caught onto game in timely manner, able to play independently with average play choices made, and accepting of the outcomes. Pt able to use strategy at times. 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 Patient Substance Abuse Treatment History: Denies Significant Childhood Events (Positive and Negative Events): Denies ABUSE: Abuse Child/Adult/Neglect Issues: Denies CURRENT STRESSORS: Current Stressors Current Stressors: Illness of parent, Family conflict, Conflict with boss STRENGTHS AND LIMITATIONS: Strengths and Limitations Patient Strengths: Basic self-care skills, Employment, Family/friends, Financial stability, Housing, Intellectual abilities, Insight, Mental health services, Motivation to change, Physical health, Resourcefulness Patient Limitations: Low self esteem, No/Few hobbies or interests SUPPORT SYSTEMS: Support Systems Support Systems: Partner, Family, Co-workers Collateral Contacts: andrew Pa Name and Contact of Collateral Provider: andrew Pa, # on FS PATIENT GOALS FOR TREATMENT: Patient stated goals for treatment are: elimination of SI CLINICAL SUMMARY: Patient (Pt) brought in by coworker and environmental department manager due to showing up to work intoxicated and expressing SI. Per collateral, Pt has mentioned wanting to kill self numerous times over last several weeks. Primary stressors is his mother is in hospital and potentially won't make it, sister is an addict and homeless and he tries to help her financially. He lives with andrew and her two teenage children, is 1x year ago. Was hospitalized at that time for hanging attempt. Outpt with PCP & counselor at [facility]. See H&P for further information. Met with the patient in his room after breakfast. Patient is calm and composed laying in bed with eyes closed. Patient appears to be well groomed. Patient reports anxiety level of 3/10 mostly due to being here and depression 3/10. Patient reports utilizing coping mechanisms of listening to music and finding things to work on in his shop. Patient does not report audio, visual, or tactile hallucinations. Patient denies thoughts of harming self for others. Patient states appetite is fair; states he is hungry but the food isn't that great. Patient states sleep is fair but that it is the same way when he's at home. Patient reports goal for today is to work with doctors to get medications figured out so he can get better. Interaction ends when patient closes eyes and goes back to sleep. Cosigned by Annelise Nickerson RN at 11/19/2024 11:07 AM EDT Problem: Falls, Risk of Goal: Absence of falls Outcome: Met Goal: Absence of physical injury Outcome: Met Problem: Actual or potential alteration in health Goal: Absence of healthcare acquired conditions Outcome: Met Goal: Knowledge of Enviroment Outcome: Met Problem: Health Maintenance - Impaired Goal: Nutrition intake to meet estimated needs Outcome: Met Problem: Mood - Altered Goal: Mood stable Outcome: Met Problem: Violence, Self/Other-Directed, Risk of Goal: Absence of violence Outcome: Met Goal: Absence of self-harm Outcome: Met Problem: Actual or potential alteration in health Goal: Knowledge of Interdisciplinary Plan of Care Outcome: Partially Met Problem: Health Maintenance - Impaired Goal: Improvement or maintenance of mental/physical health, relationships, and responsibilities Outcome: Partially Met Goal: Able to sleep without medication for appropriate length of time Outcome: Partially Met Problem: Mood - Altered Goal: Knowledge of medication management Outcome: Partially Met Problem: Self-esteem - Low Goal: Improved self-esteem Outcome: Partially Met Problem: Thought Process - Altered Goal: Demonstration of organized thought processes Outcome: Partially Met Problem: Transition Readiness Goal: Able to safely transition to next level of care Outcome: Partially Met Goal: Knowledge of care transition plan Outcome: Partially Met Goal: Knowledge of medication management Outcome: Partially Met Goal: Knowledge of need for follow-up care Outcome: Partially Met Goal: Participation in care planning Outcome: Partially Met Behavioral Health Pre Admission Screening Tool Date: 11/18/2024 Time: 11:15 PM Patient Name: Corey Morrison Date of : 1980 Sex: Male Involuntary signed by ED provider 11/18/24 Prescreener Caller Information: Cassie Hartman Referral Source: [facility] Central Diagnosis: MDD Presenting Problem/Chief Complaint: suicidal Medical Status: Stable Functional Status: Independent Medication Compliant: Yes Insurance Information/Precertification Completed: Yes Case Reveiwed With: Other Other Physician: Dr. Bullock Accepted for Admission: Yes Admitting Physician: Other Other Admitting Physician: Dr. Bullock Number For RN To RN Communication: [phone] Risk Factors Recent Psychological Experiences: Loss (Comment), Divorce, Conflict (Comment) (Pt.'s mother is in a usp,sister is homeless,stress with fiance) Current Suicidal Ideation: Yes Describe Current Suicidal Ideation : Pt. voicing suicidal thoughts at work but denies in the ER Previous Suicidal Ideation: Yes Describe Previous Suicidal Ideation: per friend,pt. voicing suicidal thoughts over family conflict and loss Current Suicide Attempt: No Previous Suicide Attempt: Yes Describe Previous Suicide Attempt: per andrew,pt. attempted to hang self after divorce of his first Current Self Harm Behavior: Yes Describe Current Self Harm Behaviors: drank alcohol at work, then drove to the store from work and purchased more beat boxes of alcohol Previous Self Harm Behavior: Yes Describe Previous Self Harm: tried to hang self Current Plans to Harm Another: No Previous Plans to Harm Another: No History of Attempts to Harm Another: No Access to Weapons: No Violent Episode: No Previous Violent Episode: Information not available Family History of Suicide: Yes Describe Family History of Suicide : sister from a drug overdose Family History of Mental Illness: Yes Describe Family History of Mental Illness: sisters have mental illness Family History of Substance Abuse: Yes Describe Family History of Substance Abuse Text: father was an alcoholic,sister a drug addict Elopement: No risk Methods to Calm Down: Quiet time in room Restraint Risk Factors: None Suicidal ideation and threats. Collateral reports concerns. Past admissions. documented in this encounter [facility] 11-21-2024 Plan of care note Problem: Falls, Risk of Goal: Absence of falls Outcome: Met Goal: Absence of physical injury Outcome: Met Problem: Violence, Self/Other-Directed, Risk of Goal: Absence of violence Outcome: Met Goal: Absence of self-harm Outcome: Met Problem: Actual or potential alteration in health Goal: Knowledge of Interdisciplinary Plan of Care Outcome: Partially Met Problem: Health Maintenance - Impaired Goal: Improvement or maintenance of mental/physical health, relationships, and responsibilities Outcome: Partially Met Goal: Able to sleep without medication for appropriate length of time Outcome: Partially Met Problem: Mood - Altered Goal: Mood stable Outcome: Partially Met Goal: Knowledge of medication management Outcome: Partially Met Problem: Self-esteem - Low Goal: Improved self-esteem Outcome: Partially Met Problem: Thought Process - Altered Goal: Demonstration of organized thought processes Outcome: Partially Met Problem: Transition Readiness Goal: Able to safely transition to next level of care Outcome: Partially Met Goal: Knowledge of care transition plan Outcome: Partially Met Goal: Knowledge of medication management Outcome: Partially Met Goal: Knowledge of need for follow-up care Outcome: Partially Met Goal: Participation in care planning Outcome: Partially Met [facility] 11-21-2024 Note Psychiatry Progress Note Patient Name: Corey Morrison Admit Date: [id number] MR #: [id number] : 1980 Perpetual Assessment Corey Morrison is a 44 y.o. male is admitted for inpatient psychiatric care due to increased risk of self-harm, exacerbated by alcohol intoxication and significant psychosocial stressors, including familial issues and financial strain. Collateral reports indicate recurrent suicidal statements, necessitating hospitalization for safety, stabilization, and reassessment of his treatment regimen Diagnosis & Plan/Recommendations PRINCIPAL DIAGNOSIS: Severe recurrent major depression without psychotic features (HCC) * Severe recurrent major depression without psychotic features (HCC) Assessment & Plan Corey Morrison, a 44-year-old male, presents with acute exacerbation of psychiatric symptoms, including alcohol intoxication and suicidal ideation, necessitating inpatient admission for safety and stabilization. His clinical presentation is complicated by a history of psychiatric hospitalization, recent alcohol use disorder, and significant psychosocial stressors, including his mother's critical illness, his sister's homelessness and substance abuse, and financial strain. Despite Mr. Morrison's denial of current suicidal ideation, collateral reports from his environmental department manager and juno amato indicate recurrent suicidal statements and behaviors, such as self-hitting, consistent with increased risk for self-harm. His current treatment regimen, including Lamictal, managed by his primary care physician, and monthly therapy, may require reassessment for efficacy and adherence. Given these factors, hospitalization is necessary to mitigate self-harm risk and to provide a comprehensive evaluation and adjustment of his treatment plan. Physical examination Lab testing as appropriate Precautions -suicide PRN medications for agitation Collateral history from family/friends/providers Request/review prior records developmental services worker assessment/linkage/care coordination [facility] Supportive psychotherapy/structured supportive care Continue Lamotrigine 100 mg by mouth daily for now Start Fluoxetine 20 mg by mouth daily Aftercare planning once stable Comorbid issues impacting my care plan include substance use. Following for suicidal behavior Interval History: Today, I met with Mr. Morrison in his hospital room. He was awake and alert, presenting no signs of distress or response to internal stimuli. Throughout our interaction, Mr. Morrison was pleasant and polite, eagerly sharing his personal notes on his plans and improvements. He articulated a strong recognition of the negative impact of alcohol on his life and expressed a firm resolve to abstain from alcohol permanently. Mr. Morrison reported feeling better and described his hospitalization as a positive experience. He conveyed motivation to organize his life and strengthen his relationship with his girlfriend, who visited yesterday. In a follow-up conversation with the patient's manager social responsibility, it was noted that his girlfriend observed improvements in Mr. Morrison and expressed her support for his recovery. She agreed with the medical team's judgment, emphasizing this as a critical opportunity for Mr. Morrison to make lasting changes. She is committed to supporting him, stating that this is his last chance to fix things. Mr. Morrison denied experiencing any suicidal ideations, intentions, or plans, and also denied any thoughts of harming himself or others. He has not shown signs of agitation or substance withdrawal. He has been actively participating in group therapy sessions and socializing with others, expressing a desire to spend more time with family post-discharge. Objectively, Mr. Morrison appeared calm and cooperative, with a stable mood. His thought processes were logical and goal-directed, and he demonstrated good insight and judgment. He reported improved sleep quality, having slept more than 10 hours with the aid of Hydroxyzine and Trazodone. In summary, Mr. Morrison continues to show improvement in mood stability and motivation for recovery. His insight into the consequences of alcohol use is strong, and he remains committed to abstinence. The supportive relationship with his girlfriend may serve as a protective factor in his ongoing recovery. He is engaging well in treatment and therapeutic activities. The plan is to continue his current psychiatric medications, encourage ongoing participation in group and individual therapy focusing on coping skills, motivation, and goal setting, and monitor his mood and engagement in therapeutic activities. We will prepare a comprehensive outpatient follow-up plan, including substance use counseling and continued therapy, and discuss potential discharge plans with Mr. Morrison and his support system, taking into account his girlfriend's input. Re (more content not included)... [facility] 11-20-2024 Plan of care note Problem: Falls, Risk of Goal: Absence of falls Outcome: Met Goal: Absence of physical injury Outcome: Met Problem: Violence, Self/Other-Directed, Risk of Goal: Absence of violence Outcome: Met Goal: Absence of self-harm Outcome: Met Problem: Actual or potential alteration in health Goal: Knowledge of Interdisciplinary Plan of Care Outcome: Partially Met Problem: Health Maintenance - Impaired Goal: Improvement or maintenance of mental/physical health, relationships, and responsibilities Outcome: Partially Met Goal: Able to sleep without medication for appropriate length of time Outcome: Partially Met Problem: Mood - Altered Goal: Mood stable Outcome: Partially Met Goal: Knowledge of medication management Outcome: Partially Met Problem: Self-esteem - Low Goal: Improved self-esteem Outcome: Partially Met Problem: Thought Process - Altered Goal: Demonstration of organized thought processes Outcome: Partially Met Problem: Transition Readiness Goal: Able to safely transition to next level of care Outcome: Partially Met Goal: Knowledge of care transition plan Outcome: Partially Met Goal: Knowledge of medication management Outcome: Partially Met Goal: Knowledge of need for follow-up care Outcome: Partially Met Goal: Participation in care planning Outcome: Partially Met Problem: Actual or potential alteration in health Goal: Knowledge of Enviroment Outcome: Completed Problem: Health Maintenance - Impaired Goal: Nutrition intake to meet estimated needs Outcome: Completed [facility] 11-20-2024 Plan of care note Problem: Falls, Risk of Goal: Absence of falls Outcome: Met Goal: Absence of physical injury Outcome: Met Problem: Actual or potential alteration in health Goal: Knowledge of Enviroment Outcome: Met Problem: Violence, Self/Other-Directed, Risk of Goal: Absence of violence Outcome: Met Goal: Absence of self-harm Outcome: Met Problem: Actual or potential alteration in health Goal: Knowledge of Interdisciplinary Plan of Care Outcome: Partially Met Problem: Health Maintenance - Impaired Goal: Improvement or maintenance of mental/physical health, relationships, and responsibilities Outcome: Partially Met Goal: Able to sleep without medication for appropriate length of time Outcome: Partially Met Goal: Nutrition intake to meet estimated needs Outcome: Partially Met Problem: Mood - Altered Goal: Mood stable Outcome: Partially Met Goal: Knowledge of medication management Outcome: Partially Met Problem: Self-esteem - Low Goal: Improved self-esteem Outcome: Partially Met Problem: Thought Process - Altered Goal: Demonstration of organized thought processes Outcome: Partially Met Problem: Transition Readiness Goal: Able to safely transition to next level of care Outcome: Partially Met Goal: Knowledge of care transition plan Outcome: Partially Met Goal: Knowledge of medication management Outcome: Partially Met Goal: Knowledge of need for follow-up care Outcome: Partially Met Goal: Participation in care planning Outcome: Partially Met [facility] 11-20-2024 Note Psychiatry Progress Note Patient Name: Corey Morrison Admit Date: 4200904 MR #: [id number] : 1980 Perpetual Assessment Corey Morrison is a 44 y.o. male is admitted for inpatient psychiatric care due to increased risk of self-harm, exacerbated by alcohol intoxication and significant psychosocial stressors, including familial issues and financial strain. Collateral reports indicate recurrent suicidal statements, necessitating hospitalization for safety, stabilization, and reassessment of his treatment regimen Diagnosis & Plan/Recommendations PRINCIPAL DIAGNOSIS: Severe recurrent major depression without psychotic features (HCC) * Severe recurrent major depression without psychotic features ([facility]) Assessment & Plan Corey Morrison, a 44-year-old male, presents with acute exacerbation of psychiatric symptoms, including alcohol intoxication and suicidal ideation, necessitating inpatient admission for safety and stabilization. His clinical presentation is complicated by a history of psychiatric hospitalization, recent alcohol use disorder, and significant psychosocial stressors, including his mother's critical illness, his sister's homelessness and substance abuse, and financial strain. Despite Mr. Morrison's denial of current suicidal ideation, collateral reports from his environmental department manager and juno amato indicate recurrent suicidal statements and behaviors, such as self-hitting, consistent with increased risk for self-harm. His current treatment regimen, including Lamictal, managed by his primary care physician, and monthly therapy, may require reassessment for efficacy and adherence. Given these factors, hospitalization is necessary to mitigate self-harm risk and to provide a comprehensive evaluation and adjustment of his treatment plan. Physical examination Lab testing as appropriate Precautions -suicide PRN medications for agitation Collateral history from family/friends/providers Request/review prior records developmental services worker assessment/linkage/care coordination [facility] Supportive psychotherapy/structured supportive care Continue Lamotrigine 100 mg by mouth daily for now Start Fluoxetine 20 mg by mouth daily Aftercare planning once stable Comorbid issues impacting my care plan include substance use. Following for suicidal behavior Interval History: Mr. Morrison was found lying down on his hospital bed this morning, appearing calm and cooperative. During our conversation, he was pleasant and polite, showing no signs of distress or responding to internal stimuli. He expressed a strong motivation to improve his life and emphasized his desire to abstain from alcohol, acknowledging its negative impact. Mr. Morrison shared a personal insight that even while intoxicated, he recognized he was turning into what he hates the most. He continues to express concern about his financial situation, which remains a significant stressor. His mood appears more stable, and he is actively engaging in treatment, including attending group therapy sessions. He reported sleeping more than 10 hours last night after taking Hydroxyzine and Trazodone, which suggests an improvement in sleep quality. His thought process is logical and goal-directed, and he demonstrates good insight and judgment regarding his condition and the consequences of alcohol use. The plan is to continue his current psychiatric medications, encourage ongoing participation in group and individual therapy focusing on coping skills, motivation, and goal setting, and monitor his mood and engagement in therapeutic activities. Addressing his financial concerns in therapy, potentially involving social service liaison for additional support, will be important. A comprehensive outpatient follow-up plan, including substance use counseling and continued therapy, will be arranged for discharge. Review of Systems: Constitutional:No fever, no weight loss Eyes:No diplopia ENT:No sinus drainage CV:No chest pain. No ankle swelling Resp:No dyspnea. No wheezing GI:No abdominal pain.No abdominal distention :No dysuria Neuro:No headache Integumentary:No skin rash MuscSkel:No arthralgias Endo:No polyuria Heme/lymphatic:No apparent lymphadenopathy Allergic/Immunologic:No hives Physical Examination: Vital Signs: BP (!) 164/91 Pulse 96 Temp 98.5 degrees F (36.9 degrees C) (Oral) Resp 16 Ht 6' 1 Wt 102.6 kg (226 lb 3.2 oz) SpO2 95% BMI 29.84 kg/m Mental Status Evaluation: General Appearance & Behavior: age appropiate Grooming & Hygiene: street clothes Psychomotor Activity: no psychomotor abnormalities or muscle atrophy noted Gait & Station gait and station not observed as patient laying in bed Speech: hyperverbal Flow of Thought: linear and goal directed Thought Associations: Intact Content of Thought: Preoccupations Mood: anxious Affect: restricted Insight: limi (more content not included)... [facility] 11-20-2024 Plan of care note Problem: Falls, Risk of Goal: Absence of falls Outcome: Met Goal: Absence of physical injury Outcome: Met Problem: Actual or potential alteration in health Goal: Absence of healthcare acquired conditions Outcome: Met Problem: Thought Process - Altered Goal: Demonstration of organized thought processes Outcome: Met Problem: Violence, Self/Other-Directed, Risk of Goal: Absence of violence Outcome: Met Goal: Absence of self-harm Outcome: Met Problem: Actual or potential alteration in health Goal: Knowledge of Interdisciplinary Plan of Care Outcome: Partially Met Goal: Knowledge of Enviroment Outcome: Partially Met Problem: Health Maintenance - Impaired Goal: Improvement or maintenance of mental/physical health, relationships, and responsibilities Outcome: Partially Met Goal: Able to sleep without medication for appropriate length of time Outcome: Partially Met Goal: Nutrition intake to meet estimated needs Outcome: Partially Met Problem: Mood - Altered Goal: Mood stable Outcome: Partially Met Goal: Knowledge of medication management Outcome: Partially Met Problem: Self-esteem - Low Goal: Improved self-esteem Outcome: Partially Met Problem: Transition Readiness Goal: Able to safely transition to next level of care Outcome: Partially Met Goal: Knowledge of care transition plan Outcome: Partially Met Goal: Knowledge of medication management Outcome: Partially Met Goal: Knowledge of need for follow-up care Outcome: Partially Met Goal: Participation in care planning Outcome: Partially Met [facility] 11-19-2024 Evaluation + Plan note Associated Problem(s): Severe recurrent major depression without psychotic features (HCC) Corey Morrison, a 44-year-old male, presents with acute exacerbation of psychiatric symptoms, including alcohol intoxication and suicidal ideation, necessitating inpatient admission for safety and stabilization. His clinical presentation is complicated by a history of psychiatric hospitalization, recent alcohol use disorder, and significant psychosocial stressors, including his mother's critical illness, his sister's homelessness and substance abuse, and financial strain. Despite Mr. Morrison's denial of current suicidal ideation, collateral reports from his environmental department manager and juno amato indicate recurrent suicidal statements and behaviors, such as self-hitting, consistent with increased risk for self-harm. His current treatment regimen, including Lamictal, managed by his primary care physician, and monthly therapy, may require reassessment for efficacy and adherence. Given these factors, hospitalization is necessary to mitigate self-harm risk and to provide a comprehensive evaluation and adjustment of his treatment plan. Physical examination Lab testing as appropriate Precautions -suicide PRN medications for agitation Collateral history from family/friends/providers Request/review prior records developmental services worker assessment/linkage/care coordination Group participation/[facility] Supportive psychotherapy/structured supportive care Continue Lamotrigine 100 mg by mouth daily for now Start Fluoxetine 20 mg by mouth daily Aftercare planning once stable [facility] 11-19-2024 Plan of care note Behavioral Health Initial Treatment Plan Date: 11/19/2024 Time: 8:18 PM Patient Name: Corey Morrison Date of : 1980 Sex: Male Admit Date/Time: 11/18/2024 2:29 PM Patient Active Problem List Diagnosis Date Noted Severe recurrent major depression without psychotic features ([facility]) 11/19/2024 Alcohol abuse 11/18/2024 Unspecified mood (affective) disorder ([facility]) 11/18/2024 Diagnosis [place] I: Major Depression, Rec [place] II: Deferred [place] III: Patient Active Problem List Diagnosis Date Noted Severe recurrent major depression without psychotic features ([facility])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 vision, double vision ENT: Denies nasal congestion, sore throat Neurological: Denies headache, photophobia, weakness, numbness CVS: Denies chest pain or palpitations Respiratory: Denies dyspnea or cough Musculoskeletal: Denies joint pain or muscle aches GI: Denies nausea, vomiting, constipation, or diarrhea : Denies urinary urgency, frequency, or burning Integumentary: Denies itching or rash Endocrine: Denies heat/cold intolerance or weight loss/weight gain Physical Examination: Vital Signs: BP (!) 164/99 Pulse 89 Temp 98.4 F (36.9 C) (Oral) Resp 15 Ht 6' 1 Wt 102.6 kg (226 lb 3.2 oz) SpO2 96% BMI 29.84 kg/m Mental Status Evaluation: General Appearance & Behavior: age appropiate Grooming & Hygiene: street clothes Psychomotor Activity: no psychomotor abnormalities or muscle atrophy noted Gait & Station gait and station not observed as patient laying in bed Speech: soft spoken Flow of Thought: concrete Thought Associations: Intact Content of Thought: Preoccupations Mood: okay Affect: restricted Insight: limited Judgment: limited Orientation: alert and oriented to person, place, time, and circumstances Memory: intact recent and remote Attention: intact Concentration: intact Language: fluent Fund of Knowledge: estimated average intelligence Laboratory and Additional Data Reviewed: Laboratory 11/19/24 8:33 PM Radiology 11/19/24 8:33 PM Cardiology 11/19/24 8:33 PM Medications 11/19/24 8:33 PM Transcriptions 11/19/24 8:33 PM Treatment options and alternatives reviewed with patient. Risks, benefits, side effects of all psychiatric medications discussed with patient and informed consent obtained. All questions were answered. Marvel Miller MD 11/19/2024 8:33 PM [1] Social History Socioeconomic History Marital status: Single Tobacco Use Smoking status: Never Passive exposure: Never Smokeless tobacco: Never Vaping Use Vaping status: Never Used Substance and Sexual Activity Alcohol use: Yes Comment: States hasn't drank in past month or two until today. Drug use: Not Currently Comment: cbd gummies weekends thc gummies Sexual activity: Yes Partners: Female control/protection: None Social Drivers of Health Food Insecurity: No Food Insecurity (11/19/2024) Hunger Vital Sign Worried About Running Out of Food in the Last Year: Never true Ran Out of Food in the Last Year: Never true Transportation Needs: No Transportation Needs (11/19/2024) PRAPARE - Transportation Lack of Transportation (Medical): No Lack of Transportation (Non-Medical): No Housing Stability: Low Risk (11/19/2024) Housing Stability Vital Sign Unable to Pay for Housing in the Last Year: No Number of Times Moved in the Last Year: 0 Homeless in the Last Year: No documented in this encounter [facility] 11-19-2024 Plan of care note Problem: Falls, Risk of Goal: Absence of falls Outcome: Met Goal: Absence of physical injury Outcome: Met Problem: Actual or potential alteration in health Goal: Absence of healthcare acquired conditions Outcome: Met Goal: Knowledge of Enviroment Outcome: Met Problem: Health Maintenance - Impaired Goal: Nutrition intake to meet estimated needs Outcome: Met Problem: Violence, Self/Other-Directed, Risk of Goal: Absence of violence Outcome: Met Goal: Absence of self-harm Outcome: Met Problem: Actual or potential alteration in health Goal: Knowledge of Interdisciplinary Plan of Care Outcome: Partially Met Problem: Health Maintenance - Impaired Goal: Improvement or maintenance of mental/physical health, relationships, and responsibilities Outcome: Partially Met Goal: Able to sleep without medication for appropriate length of time Outcome: Partially Met Problem: Mood - Altered Goal: Mood stable Outcome: Partially Met Goal: Knowledge of medication management Outcome: Partially Met Problem: Self-esteem - Low Goal: Improved self-esteem Outcome: Partially Met Problem: Thought Process - Altered Goal: Demonstration of organized thought processes Outcome: Partially Met Problem: Transition Readiness Goal: Knowledge of medication management Outcome: Partially Met Goal: Knowledge of need for follow-up care Outcome: Partially Met Goal: Participation in care planning Outcome: Partially Met Problem: Transition Readiness Goal: Able to safely transition to next level of care Outcome: Not Addressed Goal: Knowledge of care transition plan Outcome: Not Addressed [facility] 11-19-2024 Consult note Associated Order (s): IP CONSULT TO HOSPITALIST [facility] CONSULTATION NOTE Patient Name: Corey Morrison : 1980 MR #: [id number] Admit Date: 11/18/2024 Physicians: Yandel Hinojosa PA-C (Family); No ref. provider found (Referring) Corey Morrison is a 44 y.o. male patient of Yandel Hinojosa PA-C with history of depression, HTN, ETOH abuse, GERD presented on 11/18/2024 with suicidal ideation. [facility] consulted by Marvel Dubose, * for medical managment. Suicidal ideation Alcohol abuse with intoxication Recurrent major depression To be managed by attending Only reports occasional ETOH use HTN Oontinue with losartan GERD Prilosec Denies being a smoker and denies illegal drugs Will sign off this case Chief Complaint Psychiatric disorder History of Present Illness The history was obtained from the patient and friend. Corey is a 44 y.o. male who presents with a chief complaint of Alcohol Intoxication and Suicidal. Past Medical History History reviewed. No pertinent past medical history. Past Surgical History History reviewed. No pertinent surgical history. Family History Family History Problem Relation Age of Onset Cancer Mother Cancer Father Diabetes Paternal Grandmother Social History Tobacco Use History[1] Social History Substance and Sexual Activity Alcohol Use Yes Comment: States hasn't drank in past month or two until today. Social History Substance and Sexual Activity Drug Use Not Currently Comment: cbd gummies weekends thc gummies Allergy Information I have reviewed the patient's allergies. Patient has no known allergies. Home Medications Home medications were reviewed. Review Of Systems All relevant systems have been reviewed and are negative except as noted in HPI or below Physical Examination BP (!) 164/101 Pulse 95 Temp 98.4 F (36.9 C) (Oral) Resp 14 Ht 6' 1 Wt 102.6 kg (226 lb 3.2 oz) SpO2 97% BMI 29.84 kg/m Physical Examination General Appearance: alert; well appearing; in no acute distress HEENT: Head- normocephalic; Eyes- EOMI, sclera anicteric; Throat- mucous membranes moist Cardiovascular: regular rate and rhythm; normal S1, S2; no murmurs, rubs, clicks or gallops; peripheral edema absent Respiratory: lungs clear to auscultation; without wheezes, rales or rhonchi; on room air Abdomen: soft, non-tender, non-distended Neurological: oriented x 3; normal speech; no focal findings or movement disorder noted Cranial Nerves: II: visual brown full. III, IV, : extraocular range intact. V: sensation intact. VII: facial symmetric with 5/5 strength. VIII: hearing intact to voice and finger rub. IX, X: palate elevates symmetrically. XI: shrugs shoulders 5/5 strength bilaterally. XII: tongue protrudes in midline. Sensation -grossly symmetrical. Motor strength 5/5 all over. DTR 2+ in the UE and LE bilaterally. Musculoskeletal: no significant deformity or tenderness to palpation Skin: normal coloration Psych: normal mood and affect [1] Social History Tobacco Use Smoking Status Never Passive exposure: Never Smokeless Tobacco Never Cosigned by Alejo Pascual MD at 11/20/2024 9:59 AM EDT [employer] Work Phone: 11-19-2024 Note [facility] CONSULTATION NOT E Patient Name: Corey Morrison : 1980 MR #: [id number] Admit Date: 11/18/2024 Physicians: Yandel Hinojosa PA-C (Family); No ref. provider found (Referring) Corey Morrison is a 44 y.o. male patient of Yandel Hinojosa PA-C with history of depression, HTN, ETOH abuse, GERD presented on 11/18/2024 with suicidal ideation. [facility] consulted by Marvel Dubose, * for medical managment. Suicidal ideation Alcohol abuse with intoxication Recurrent major depression To be managed by attending Only reports occasional ETOH use HTN Oontinue with losartan GERD Prilosec Denies being a smoker and denies illegal drugs Will sign off this case Chief Complaint Psychiatric disorder History of Present Illness The history was obtained from the patient and friend. Corey is a 44 y.o. male who presents with a chief complaint of Alcohol Intoxication and Suicidal. Past Medical History History reviewed. No pertinent past medical history. Past Surgical History History reviewed. No pertinent surgical history. Family History Family History Problem Relation Age of Onset Cancer Mother Cancer Father Diabetes Paternal Grandmother Social History Tobacco Use History[1] Social History Substance and Sexual Activity Alcohol Use Yes Comment: States hasn't drank in past month or two until today. Social History Substance and Sexual Activity Drug Use Not Currently Comment: cbd gummies weekends thc gummies Allergy Information I have reviewed the patient's allergies. Patient has no known allergies. Home Medications Home medications were reviewed. Review Of Systems All relevant systems have been reviewed and are negative except as noted in HPI or below Physical Examination BP (!) 164/101 Pulse 95 Temp 98.4 degrees F (36.9 degrees C) (Oral) Resp 14 Ht 6' 1 Wt 102.6 kg (226 lb 3.2 oz) SpO2 97% BMI 29.84 kg/m Physical Examination General Appearance: alert; well appearing; in no acute distress HEENT: Head- normocephalic; Eyes- EOMI, sclera anicteric; Throat- mucous membranes moist Cardiovascular: regular rate and rhythm; normal S1, S2; no murmurs, rubs, clicks or gallops; peripheral edema absent Respiratory: lungs clear to auscultation; without wheezes, rales or rhonchi; on room air Abdomen: soft, non-tender, non-distended Neurological: oriented x 3; normal speech; no focal findings or movement disorder noted Cranial Nerves: II: visual brown full. III, IV, : extraocular range intact. V: sensation intact. VII: facial symmetric with 5/5 strength. VIII: hearing intact to voice and finger rub. IX, X: palate elevates symmetrically. XI: shrugs shoulders 5/5 strength bilaterally. XII: tongue protrudes in midline. Sensation -grossly symmetrical. Motor strength 5/5 all over. DTR 2+ in the UE and LE bilaterally. Musculoskeletal: no significant deformity or tenderness to palpation Skin: normal coloration Psych: normal mood and affect [1] Social History Tobacco Use Smoking Status Never Passive exposure: Never Smokeless Tobacco Never AUTHENTICATED BY LUPILLO WHITT, ON 11/19/2024 12:10:09 [facility] 11-19-2024 Consult note Associated Order (s): IP CONSULT TO HOSPITALIST [facility] CONSULTATION NOTE Patient Name: Corey Morrison : 1980 MR #: [id number] Admit Date: 11/18/2024 Physicians: Yandel Hinojosa PA-C (Family); No ref. provider found (Referring) Corey Morrison is a 44 y.o. male patient of Yandel Hinojosa PA-C with history of depression, HTN, ETOH abuse, GERD presented on 11/18/2024 with suicidal ideation. [facility] consulted by Marvel Dubose, * for medical managment. Suicidal ideation Alcohol abuse with intoxication Recurrent major depression To be managed by attending Only reports occasional ETOH use HTN Oontinue with losartan GERD Prilosec Denies being a smoker and denies illegal drugs Will sign off this case Chief Complaint Psychiatric disorder History of Present Illness The history was obtained from the patient and friend. Corey is a 44 y.o. male who presents with a chief complaint of Alcohol Intoxication and Suicidal. Past Medical History History reviewed. No pertinent past medical history. Past Surgical History History reviewed. No pertinent surgical history. Family History Family History Problem Relation Age of Onset Cancer Mother Cancer Father Diabetes Paternal Grandmother Social History Tobacco Use History[1] Social History Substance and Sexual Activity Alcohol Use Yes Comment: States hasn't drank in past month or two until today. Social History Substance and Sexual Activity Drug Use Not Currently Comment: cbd gummies weekends thc gummies Allergy Information I have reviewed the patient's allergies. Patient has no known allergies. Home Medications Home medications were reviewed. Review Of Systems All relevant systems have been reviewed and are negative except as noted in HPI or below Physical Examination BP (!) 164/101 Pulse 95 Temp 98.4 F (36.9 C) (Oral) Resp 14 Ht 6' 1 Wt 102.6 kg (226 lb 3.2 oz) SpO2 97% BMI 29.84 kg/m Physical Examination General Appearance: alert; well appearing; in no acute distress HEENT: Head- normocephalic; Eyes- EOMI, sclera anicteric; Throat- mucous membranes moist Cardiovascular: regular rate and rhythm; normal S1, S2; no murmurs, rubs, clicks or gallops; peripheral edema absent Respiratory: lungs clear to auscultation; without wheezes, rales or rhonchi; on room air Abdomen: soft, non-tender, non-distended Neurological: oriented x 3; normal speech; no focal findings or movement disorder noted Cranial Nerves: II: visual brown full. III, IV, : extraocular range intact. V: sensation intact. VII: facial symmetric with 5/5 strength. VIII: hearing intact to voice and finger rub. IX, X: palate elevates symmetrically. XI: shrugs shoulders 5/5 strength bilaterally. XII: tongue protrudes in midline. Sensation -grossly symmetrical. Motor strength 5/5 all over. DTR 2+ in the UE and LE bilaterally. Musculoskeletal: no significant deformity or tenderness to palpation Skin: normal coloration Psych: normal mood and affect [1] Social History Tobacco Use Smoking Status Never Passive exposure: Never Smokeless Tobacco Never Cosigned by Alejo Pascual MD at 11/20/2024 9:59 AM EDT Associated Order(s): IP CONSULT TO SUBSTANCE ABUSE NAVIGATOR Addiction Medicine Consult Note (Substance Use Navigator) Patient Name: Corey Morrison Admit Date: 11/18/24 : 76 Physicians: (Family); Yandel Hinojosa PA-C (referring) Vern Garibay MD Addiction Medicine was consulted to provide treatment services to the patient Reason for Consult: Linkage to outpatient treatment Linkage to inpatient residential treatment Linkage to follow up treatment Linkage to wrap around services Assessment and Plan: Spoke to patient in ER room # 29 about drugs of choice, frequency, duration and patient said I've done some of the marijuana edibles and I drink alcohol sometimes. I've only tried edibles and its not regular use. I drink alcohol but I don't believe I have a problem. I don't even drink that often and when I do I drink these things called beat boxes because I can't stand the taste of alcohol and they have more of a fruity taste. 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 Patient was asked about prior CATY treatment and said no, I have never had CATY treatment. Patient was asked if he wanted CATY treatment currently and patient said no, I am not interested in treatment and I feel most of my issues are mental. Patient was asked about his current living situation and said I live in a house with my fichandler and her 3 kids. Patient was asked about historical or current legal involvement and said I have no legal issues. Patient was asked about current stressors that are contributing to substance use and said just a lot of things going on at once man. Money and financial issues are a big part of my problem right now but I got myself into this situation. Patient was asked about current support system and said my main support system is my andrew Augustin. Presenting Problems:CATY Alcohol, Marijuana Patient reports use of following substances: Alcohol and Marijuana IV use: No Patient reports following triggers for recurrent use: stress and financial instability Patient reports following legal issues: no current legal issues Current living situation: in a house, with significant other and children Other social factors: Patient reports consistent employment , Patient reports stable home environment , Patient reports consistent financial stress , and Patient reports HX of past trauma Plan: At this time there is no plan due to patient refusing CATY treatment. Patient refused all addiction medicine recovery services Recovery support services provided: No Patient referred to the following clinical and support services: Not applicable Resources (If any): Patient was given my work contact information for support and guidance if needing CATY treatment in the future. Disposition: Patient refused linkage to follow up treatment Length of Session: - : I personally spent 30 minutes on this encounter today. 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 chart friend ,andrew Patient Support System: family, friends Current Living Arrangements: Pt. lives with his andrew Pa and her two teen age children Type of Residence: Private residence Name and Contact of Collateral Provider: Audrey Carrasquillo, and andrew Jeffrey,[phone] LEGAL STATUS Medical Hold Date Signed 11/18/24 Time Signed 345p Completed By ED Provider DIAGNOSIS/ACTIVE PROBLEM LIST Medical Problems Hospital Problem List Codes Alcohol abuse ICD-10-CM: F10.10 ICD-9-CM: 305.00 Unspecified mood (affective) disorder (HCC) ICD-10-CM: F39 ICD-9-CM: 296.90 CHIEF COMPLAINT/HISTORY OF PRESENT ILLNESS Chief Complaint/History Present Illness Chief Complaint: [facility] for alcohol intoxication and voicing suicidal thoughts Current Symptoms: Anxiety, Depression, Substance abuse, Suicidal Problems Related to: Economic, Primary support History of Present Illness: Pt. 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 He reportedly admitted to drinking alcohol prior to coming to work and leaving work to buy more alcohol today. Stating to his manger he wanted to kill himself. The pt. was seen via: telehealth . Upon assessment, the patient was sitting up in the bed dressed in a blue gown. His mood was labile,flat affect and poor eye contact. Speech was tangential at times with appropriate rate and rhythm. Pt. was cooperative during the assessment and at times made anxious remarks that he was okay and ready to leave and go home. Pt. Reports multiple stressors in his life causing him to drink. He reports his mother is in the hospital and does not have much linger to live,He reports he has a sister who is a drug addict and is homeless. Pt. Tries to help her out financially when he can,and he has a fiance with two teen age children that needs things. Pt. Feels like he does not make enough money. He admits to drinking alcohol today at work but would not provide a pattern off alcohol use. He reports not drinking alcohol until a year ago . He stated he never drank because his father was an alcoholic and his other sister from a drug overdose. Pt. Reports he began to drink alcohol and use gummies because his fiance said a little would be fine. Pt. Reports he thinks it helps with his anxiety. He reports a psychiatric history ,was hospitalized one time over a year ago because of a divorce with his first . He could not recall the hospital somewhere near [place]. He reports he does see a therapist monthly named, Autumn Soto. Pt. manages his medication with his Primary Care Physician. Pt. reports he takes Lamictal but was unable to provide details. Pt. Denies suicidal or homicidal thoughts or plans ever. Pt. was asked about the suicide statements he made at work but he denies it ,and stated he does not recall ever making suicidal statements. Pt. was asked about prior hospitalizations and he admits to being sad and was hospitalized ,but gave no details. . Pt. denies audio or visual hallucinations and does not appear to be attending to internal stimuli. Pt. denies a change in sleep or eating patterns. Pt. Commented,I just want to go home. Collateral: Pt. Gave verbal permission to speak with his manger and his fiance. This clinician spoke to his manger Audrey by phone. She reports once she stepped out of the room,pt, began to hit himself in the head. and the nurse was notified. She reports knowing the pt. for over two years and the pt. 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 She reports pt.was from his first when he met his fiance over a year ago. She reports that was the first time he tried alcohol and began to use gummies . She stated he told her all of his life he never used and substances because his family were addicts. Pt. was hospitalized last year over stress about his mother going into a usp and his sister being homeless and on drugs.She reports back then she encouraged him to go to the hospital because he was making suicidal statements back then that he wanted to . She said once he return to work he was much better for a time. She reports now he is getting anxious again and she does not know if he is taking his medication. She states now for the past several weeks he has been making suicidal statements of wanting to end his life while he is at work. . She states today she did not know he had been drinking ,but again made suicidal statements at work and texted her from the gas station when he left work to get more alcohol. She reports when he came back he was a mess. They encouraged him to come to the hospital. She reports the intermodal owner operator truck driver is his best friend, is concerned for his safety. She reports his fiance also had talked to him about breaking up if he does not stop drinking. Audrey thinks he may have a drinking problem now as well.She reports he talks about feeling hopeless over his relationships and his mother and sister. He told her he does not know if the therapy is helping anymore. Spoke with fiance by phone Braeden reports she did not know pt. had been drinking again and that he was not to drink anymore or she would leave him She said he us stressed out about his mother and now his sister who has been asking him for money to stay at hotels because she is homeless. She reports pt. had told her he had a psychiatric history and tried to hang himself after his him. . She reports she does not know what is true because she did not know him until later,after he was . She supports him getting the help he needs because he can't come home if he is drinking. PAST PSYCHIATRIC HISTORY Past Psychiatric History Previous Psychiatric Diagnosis: Major Depressive disorder Previous Psychiatric Medications: Anti-depressants, Anti-psychotics Previous Psychiatric Hospitalizations: [facility] Current Psychiatric Medications: see medical chart,per pt. Lamictal ALCOHOL/DRUG ABUSE HISTORY Alcohol/Drug Abuse History Current Alcohol Use (Frequency): Frequent Amount of Alcohol Consumed: multiple drinks per week Pattern of Alcohol Use: Episodic binge Date Last Used: 11/18/24 Withdrawal Symptoms/History of Withdrawal: no Current Drug Use: Yes Drug Type: cannibus,gummies Frequency of Drug Use: daily History/Current Alcohol/Drug Treatment: none MENTAL STATUS EVALUATION Mental Status Evaluation General Appearance: Equal to stated age Orientation: Oriented to person, place, and time Level of Consciousness: Alert, Restless Mood/Affect: Anxious, Depressed, Hopelessness, Irritable Behavior: Agitated, Cooperative, Guarded, Defensive Remote Memory: WDL Language and Speech Content: Circumstantial/tangential Preoccupations: External stressors, Internal stressors, Suicide Impulse Control: Shows poor frustration tolerance, Seeks immediate gratification of urges Insight: Partial awareness Judgment: Poor PATIENT STRENGTHS Patient Strengths Patient Strengths: Employment, Basic self-care skills, Family/friends, Housing, Mental health services, Motivation to change, Spiritual beliefs RISK ASSESSMENT Risk Factors Recent Psychological Experiences: Loss (Comment), Divorce, Conflict (Comment) (Pt.'s mother is in a usp,sister is homeless,stress with fiance) Current Suicidal Ideation: Yes Describe Current Suicidal Ideation : Pt. voicing suicidal thoughts at work but denies in the ER Previous Suicidal Ideation: Yes Describe Previous Suicidal Ideation: per friend,pt. voicing suicidal thoughts over family conflict and loss Current Suicide Attempt: No Previous Suicide Attempt: Yes Describe Previous Suicide Attempt: per andrew,pt. attempted to hang self after divorce of his first Current Self Harm Behavior: Yes Describe Current Self Harm Behaviors: drank alcohol at work, then drove to the store from work and purchased more beat boxes of alcohol Previous Self Harm Behavior: Yes Describe Previous Self Harm: tried to hang self Current Plans to Harm Another: No Previous Plans to Harm Another: No History of Attempts to Harm Another: No Access to Weapons: No Violent Episode: No Previous Violent Episode: Information not available Family History of Suicide: Yes Describe Family History of Suicide : sister from a drug overdose Family History of Mental Illness: Yes Describe Family History of Mental Illness: sisters have mental illness Family History of Substance Abuse: Yes Describe Family History of Substance Abuse Text: father was an alcoholic,sister a drug addict Elopement: No risk Methods to Calm Down: Quiet time in room Restraint Risk Factors: None PROTECTIVE FACTORS Protective Factors Family and Community Support (Connectedness): Yes Ongoing Medical and Mental Health Services (Community Support): Yes Skills In Problem Solving and Conflict Resolution (Coping Skills): Yes Cultural and Bahai Beliefs: Yes Access to Weapons: No TREATMENT RECOMMENDATIONS AND CLINICAL SUMMARY Treatment Recommendations and Clinical Summary Current Recommendations: Psychiatric hospitalization, Hold over for reassessment The ptAlexa Morrison will most likely need psychiatric admission once sober . RATIONALE/PLAN FOR TREATMENT: The pt. Corey Morrison is a 44 year old male presenting to the ER for alcohol intoxication while at work and making suicidal statements to end his life. The pt. Corey Morrison has the following static risk factors for suicidal ideation ,history of mood,anxiety or psychosis and history of psychiatric hospitalizations for depression/attempt,making suicidal statements while sober and intoxicated per his employer, The pt. Corey Morrison has the following dynamic risk factors for suicidal ideation, Social stressors from family, limited support,substance abuse,denies making suicidal statements or past attempts, Corey Morrison has the following protective factors, out pt. linkage ,limited access to lethal means,no access to guns,employer support,fiance support,health insurance and employment Collateral At this time Collateral from Employer and fiance are concerned for for pt. Safety. The most influential risk factors is Corey Morrison care appears to be voicing suicidal threats, admission for recent suicidal threats/attempts related to loss,acute or anticipated alcohol or drug use and decompensated mental health Corey Risk factors would best be modified by in pt. hospitalization for crises stabilization at this time taking into consideration all of the available information. 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 Father was an alcoholic. 2 sisters - one is from drug OD and the other struggles with addiction and is homeless and Pt tries to help her LIVING ARRANGEMENTS: Living Arrangements Current Living Arrangements: Pt. lives with his andrew Pa and her two teen age children EDUCATION: Education Highest Level of Education : High school Learning Difficulties/Known Educational Disabilities: None reported EMPLOYMENT: Employment Current Employment: Full-time Employer: [employer] Source Of Income: Employed Are There Any Financial Concerns?: No Desire For Vocational or Eduational Training?: No SERVICE: Service Service: No LEGAL HISTORY: Legal History Legal History: None FAITH/SPIRITUAL BELIEFS: Islam/Spiritual Beliefs Islam/Spiritual Beliefs: No ETHNIC/RACE: Ethnic/Race Ethnic/Race: FAMILY HISTORY: Family History Family Psychiatric History: Yes Family Psychiatric History: Sisters - mental illness, dx unknown Family History Of Substance Abuse: Yes Family History of Substance Abuse: Dad - alcoholic, both sisters - addiction PATIENT HISTORY: Patient History Patient Psychiatric History: 1 prior admission, outpt with PCP and therapist at [facility]. Unsure of med compliance. Hx of SI. 1 prior attempt via hanging Patient Psychiatric Treatment: See above ^ Patient Substance Abuse History: THC +, drinking alcohol for past year Brief Intervention Done: No Why Brief Intervention Not Done?: (Does not qualify) Patient Substance Abuse Treatment History: Denies Significant Childhood Events (Positive and Negative Events): Denies ABUSE: Abuse Child/Adult/Neglect Issues: Denies CURRENT STRESSORS: Current Stressors Current Stressors: Illness of parent, Family conflict, Conflict with boss STRENGTHS AND LIMITATIONS: Strengths and Limitations Patient Strengths: Basic self-care skills, Employment, Family/friends, Financial stability, Housing, Intellectual abilities, Insight, Mental health services, Motivation to change, Physical health, Resourcefulness Patient Limitations: Low self esteem, No/Few hobbies or interests SUPPORT SYSTEMS: Support Systems Support Systems: Partner, Family, Co-workers Collateral Contacts: andrew Pa Name and Contact of Collateral Provider: andrew Pa, # on FS PATIENT GOALS FOR TREATMENT: Patient stated goals for treatment are: elimination of SI CLINICAL SUMMARY: Patient (Pt) brought in by coworker and environmental department manager due to showing up to work intoxicated and expressing SI. Per collateral, Pt has mentioned wanting to kill self numerous times over last several weeks. Primary stressors is his mother is in hospital and potentially won't make it, sister is an addict and homeless and he tries to help her financially. He lives with andrew and her two teenage children, is 1x year ago. Was hospitalized at that time for hanging attempt. Outpt with PCP & counselor at [facility]. See H&P for further information. [facility] 11-19-2024 Progress note Formatting of t his note might be different from the original. Met with the patient in his room after breakfast. Patient is calm and composed laying in bed with eyes closed. Patient appears to be well groomed. Patient reports anxiety level of 3/10 mostly due to being here and depression 3/10. Patient reports utilizing coping mechanisms of listening to music and finding things to work on in his shop. Patient does not report audio, visual, or tactile hallucinations. Patient denies thoughts of harming self for others. Patient states appetite is fair; states he is hungry but the food isn't that great. Patient states sleep is fair but that it is the same way when he's at home. Patient reports goal for today is to work with doctors to get medications figured out so he can get better. Interaction ends when patient closes eyes and goes back to sleep. Cosigned by Annelise Nickerson RN at 11/19/2024 11:07 AM EDT [facility] 11-19-2024 Hospital Discharge instructions Anup Angie BERTHA Benavides - 11/19/2024 8:08 AM EDT Images from the original note were not included. CRISIS HOTLINE: [phone] [facility]: [phone] [facility]: [phone] If you would like to obtain records from this hospitalization, please go to the second floor of the hospital in medical records and registration, and request records from your dates of admission. Phone number for medical records is: [phone]. Financial Department for [facility]: [phone] For questions about local resources near you, please dial 2-- If you are wanting to find any local social resources or supports please call and check out the following places: -[facility] -[place] etotnTheFormTool [facility] -[facility] -Dial 08-31- and ask about local community events for the day [employer] [facility]: [phone] [employer] [facility]: [phone] National Hotlines: National Suicide Prevention Hotline Call: Rape, Abuse and Incest National Network: 564.214.2701 Veterans Crisis Hotline: 999.274.8154 press 1 Veterans Crisis Text Line: Text 084190 National Domestic Violence Hotline: 356.745.8398 National Domestic Violence Text Line: Text Keyword START to 9032 National AKILA HelpLine can be reached at: , Monday through Monday, 10 a.m. - 10 p.m., ET. National Youth Crisis Hotline: 965.123.7314 Maternal Mental Health Hotline: Addiction Hotline: 790.770.5019 Local/State Hotlines & Helplines: [facility] [employer] Crisis Helpline: 867.402.7421 [facility] [employer] Warmline (Non-Crisis Supportive Talk Line): 974.677.9144 [facility] Domestic Violence Assisted Hotline: 982.777.2825 [facility] Adult Protective Services Reporting Line: 289.188.7912 [facility] Child Abuse & Neglect Hotline: 837.103.8397 [facility] Suicide Prevention Coalition: 182.514.4853 [facility] NetCare Crisis Link: 984.770.2878 [facility] Youth Psychiatric Crisis Line: 396.974.3268 [facility] Crisis Now Hotline: 616.239.5261 [facility] Crisis Hotline: 106.973.7018 [facility] Crisis & Information Hotline for [place]: 969.468.7919 [facility], [place], [place], [place], [facility] Crisis Hotline: 564.609.5949 Community Counseling Crisis Hotline of [facility] (Business Hour Line): 581.537.8989 Community Counseling Crisis Hotline of [facility] (After Business Hours, Holidays, & Weekend Line): 286.424.7429 HelpLine Crisis Line of [place], [place], [place], [facility], [place], [facility], [place] & [facility]: Call or text helpline to 417219 [facility], & [facility] Crisis Hotline: 249.214.3673 [facility] Crisis Hotline: [facility], [place], [facility] Crisis Hotline: [facility] Crisis Hotline: [place], [place], [place], [place], [facility], [place] and [facility] Crisis Hotline: [facility] Crisis Hotline: 743.827.9448 Crisis Hotline of [place] [facility]: [phone] Crisis Hotline of [facility]: 964.296.9861 [place] Crisis Text Line: Text Keyword 4HOPE to 171 921 Sexual Assault Response Network of [facility] 24-Hour Rape Helpline: 171.129.4821 [place] Sexual Violence Helpline: 149.797.6111 [place] CareLine: 667.619.8847 [facility] Helpline/Admissions Line: 745.259.7835 [employer]: [phone] [place] Medicaid Consumer Hotline: 919.129.5045 [place] Department of Disabilities: Behavioral Healthcare Providers [facility]: [address] [place] [address] Offers early crisis intervention services for those age 12 and up. MONDAY 8:30 AM - 6:00 PM If Possible, Bring with You: 1. Valid ID 2. Medicaid or Insurance Card 3. Proof of Income This will make the process easier and assure you access to the maximum amount of benefits. MONDAY 8:30 AM - 6:00 PM MONDAY 8:30 AM - 6:00 PM MONDAY 8:30 AM - 6:00 PM MONDAY 8:30 AM - 6:00 PM [facility] at [address] [place] [address] Offers intake assessments during the following days and times to establish mental health services. First come, first serve basis. MONDAY 9:30 AM - 12:30 PM If Possible, Bring with You: 1. Valid ID 2. Medicaid or Insurance Card 3. Proof of Income This will make the process easier and assure you access to the maximum amount of benefits. MONDAY 9:30 AM - 12:30 PM MONDAY 11:30 AM - 2:30 PM MONDAY 9:30 AM - 12:30 PM MONDAY 9:30 AM - 12:30 PM [facility] Open [facility] Youth [place]: [address] [place] [address] / [phone] Adult [place]: [address] [place] [address] / [phone] Offers intake assessments during the following days and times to establish mental health services. First come, first serve basis. MONDAY 9:30 AM - 11:30 AM How Open Access Works: 1. Pack your ID, insurance information, W2 or recent pay stub, and any custody paperwork if applicable. You can also get a head start on your paperwork by scanning the code below. 2. Come to our office during specified hours and visit the front office medical assistant. 3. During your visit, you'll meet with a licensed guide and complete your assessment. This may feel more like an interview than a counseling session, but it's an important part of making sure that you get all the right services at the right time to support you. 4. Together, you and the clinician will determine what is the next best step for you in your recovery journey. 5. Before you leave, you'll meet with our enrollment staff to set up your next appointment(s). MONDAY 2:30 PM - 3:30 PM MONDAY 9:30 AM - 11:30 AM MONDAY 2:30 PM - 3:30 PM MONDAY 9:30 AM - 11:30 AM documented in this encounter [facility] 11-19-2024 Plan of care note Problem: Falls, Risk of Goal: Absence of falls Outcome: Met Goal: Absence of physical injury Outcome: Met Problem: Actual or potential alteration in health Goal: Absence of healthcare acquired conditions Outcome: Met Goal: Knowledge of Enviroment Outcome: Met Problem: Health Maintenance - Impaired Goal: Nutrition intake to meet estimated needs Outcome: Met Problem: Mood - Altered Goal: Mood stable Outcome: Met Problem: Violence, Self/Other-Directed, Risk of Goal: Absence of violence Outcome: Met Goal: Absence of self-harm Outcome: Met Problem: Actual or potential alteration in health Goal: Knowledge of Interdisciplinary Plan of Care Outcome: Partially Met Problem: Health Maintenance - Impaired Goal: Improvement or maintenance of mental/physical health, relationships, and responsibilities Outcome: Partially Met Goal: Able to sleep without medication for appropriate length of time Outcome: Partially Met Problem: Mood - Altered Goal: Knowledge of medication management Outcome: Partially Met Problem: Self-esteem - Low Goal: Improved self-esteem Outcome: Partially Met Problem: Thought Process - Altered Goal: Demonstration of organized thought processes Outcome: Partially Met Problem: Transition Readiness Goal: Able to safely transition to next level of care Outcome: Partially Met Goal: Knowledge of care transition plan Outcome: Partially Met Goal: Knowledge of medication management Outcome: Partially Met Goal: Knowledge of need for follow-up care Outcome: Partially Met Goal: Participation in care planning Outcome: Partially Met [facility] 11-18-2024 Plan of care note Behavioral Health Pre Admission Screening Tool Date: 11/18/2024 Time: 11:15 PM Patient Name: Corey Morrison Date of : 1980 Sex: Male Involuntary signed by ED provider 11/18/24 Prescreener Caller Information: Cassie Hartman Referral Source: [facility] Diagnosis: MDD Presenting Problem/Chief Complaint: suicidal Medical Status: Stable Functional Status: Independent Medication Compliant: Yes Insurance Information/Precertification Completed: Yes Case Reveiwed With: Other Other Physician: Dr. Bullock Accepted for Admission: Yes Admitting Physician: Other Other Admitting Physician: Dr. Bullock Number For RN To RN Communication: [phone] Risk Factors Recent Psychological Experiences: Loss (Comment), Divorce, Conflict (Comment) (Pt.'s mother is in a usp,sister is homeless,stress with fiance) Current Suicidal Ideation: Yes Describe Current Suicidal Ideation : Pt. voicing suicidal thoughts at work but denies in the ER Previous Suicidal Ideation: Yes Describe Previous Suicidal Ideation: per friend,pt. voicing suicidal thoughts over family conflict and loss Current Suicide Attempt: No Previous Suicide Attempt: Yes Describe Previous Suicide Attempt: per andrew,pt. attempted to hang self after divorce of his first Current Self Harm Behavior: Yes Describe Current Self Harm Behaviors: drank alcohol at work, then drove to the store from work and purchased more beat boxes of alcohol Previous Self Harm Behavior: Yes Describe Previous Self Harm: tried to hang self Current Plans to Harm Another: No Previous Plans to Harm Another: No History of Attempts to Harm Another: No Access to Weapons: No Violent Episode: No Previous Violent Episode: Information not available Family History of Suicide: Yes Describe Family History of Suicide : sister from a drug overdose Family History of Mental Illness: Yes Describe Family History of Mental Illness: sisters have mental illness Family History of Substance Abuse: Yes Describe Family History of Substance Abuse Text: father was an alcoholic,sister a drug addict Elopement: No risk Methods to Calm Down: Quiet time in room Restraint Risk Factors: None Suicidal ideation and threats. Collateral reports concerns. Past admissions. [facility] 11-18-2024 Emergency department Note Rounding: ABCs intact, no c/o. ACTIVITY: Pt resting quietly on cart; patent airway. Spontaneous breathing w/ regular respirations. NEEDS/CONCERNS- none voiced, SAFETY: cart in low position, call light within reach. Pt remains in blue gown with continuous video/sitter monitoring in place for pt safety. No HI/SI attempts, nonviolent at present. [facility] 11-18-2024 Emergency department Note Rounding: ABCs intact, no c/o. ACTIVITY: Pt resting quietly on cart; patent airway. Spontaneous breathing w/ regular respirations. NEEDS/CONCERNS- none voiced, SAFETY: cart in low position, call light within reach. Pt remains in blue gown with continuous video/sitter monitoring in place for pt safety. No HI/SI attempts, nonviolent at present. Rounding: ABCs intact, no c/o. ACTIVITY: Pt resting quietly on cart; patent airway. Spontaneous breathing w/ regular respirations. NEEDS/CONCERNS- none voiced, SAFETY: cart in low position, call light within reach. Pt remains in blue gown with continuous video/sitter monitoring in place for pt safety. No HI/SI attempts, nonviolent at present. PSS spoke with pt. Via telehealth Pt. continues to deny suicidal thoughts or plans. He reports he does not recall saying anything and he just wants to go home Pt. Is unable to make a plan to keep himself safe at this time. Case discussed with Dr. Bullock for admission Spoke to RN with update Rounding: ABCs intact, no c/o. ACTIVITY: Pt resting quietly on cart; patent airway. Spontaneous breathing w/ regular respirations. NEEDS/CONCERNS- none voiced, SAFETY: cart in low position, call light within reach. Pt remains in blue gown with continuous video/sitter monitoring in place for pt safety. No HI/SI attempts, nonviolent at present. Rounding: ABCs intact, no c/o. ACTIVITY: Pt resting quietly on cart; patent airway. Spontaneous breathing w/ regular respirations. NEEDS/CONCERNS- none voiced, SAFETY: cart in low position, call light within reach. Pt remains in blue gown with continuous video/sitter monitoring in place for pt safety. No HI/SI attempts, nonviolent at present. PT came out to use the phone, this PSA asked pt to go back to room due to ISABEAL Garza on phone about another pt. Pt cooperative. Pt brought in by environmental department manager for intoxication and SI ideation. Pt admits to drinking beat boxes before work and leaving work to buy more beat boxes. Finisher Accordion at bedside states he sat in my chair today and stated he wanted to kill himself. [facility] - Emergency Medicine Attending Note: NAME: Corey Morrison 44 y.o. CSN: [id number] PCP: Yandel Hinojosa PA-C History: Chief Complaint: Alcohol Intoxication and Suicidal HPI: The history was obtained from the patient and friend. Corey is a 44 y.o. male who presents with a chief complaint of Alcohol Intoxication and Suicidal. Alcohol Intoxication 44-year-old male, presenting today for evaluation after he made some suicidal threats at work. Patient does admit to drinking today. Reportedly, at 1 point he left work to get more alcohol to drink. Upon arrival, patient is denying that he is having thoughts of hurting himself. The patient is unfortunately not very forthcoming or very cooperative. He is relatively withdrawn. ROS: Review of Systems Unable to perform ROS: Psychiatric disorder Positives and pertinent negatives as per HPI. All other systems were reviewed and are negative. Physical Exam: Patient Vitals for the past 24 hrs: BP Temp Temp src Pulse Resp SpO2 11/19/24 1634 (!) 164/99 -- -- 89 15 96 % 11/19/24 1139 (!) 164/101 98.4 F (36.9 C) Oral 95 14 97 % 11/19/24 0740 (!) 159/98 97.9 F (36.6 C) Oral (!) 103 14 95 % Physical Exam Constitutional: General: He is not in acute distress. Appearance: He is ill-appearing (Chronically ill-appearing, but in no acute distress.). He is not diaphoretic. HENT: Head: Normocephalic and atraumatic. Right Ear: External ear normal. Left Ear: External ear normal. Eyes: General: No scleral icterus. Neck: Vascular: No JVD. Trachea: No tracheal deviation. Cardiovascular: Rate and Rhythm: Normal rate and regular rhythm. Pulses: Normal pulses. Heart sounds: Normal heart sounds. No murmur heard. No friction rub. No gallop. Pulmonary: Effort: Pulmonary effort is normal. No respiratory distress. Breath sounds: Normal breath sounds. No wheezing or rales. Chest: Chest wall: No tenderness. Abdominal: General: There is no distension. Palpations: Abdomen is soft. There is no mass. Tenderness: There is no abdominal tenderness. There is no rebound. Musculoskeletal: General: No deformity. Skin: General: Skin is warm and dry. Neurological: General: No focal deficit present. Mental Status: He is alert and oriented to person, place, and time. Psychiatric: Behavior: Behavior normal. Thought Content: Thought content includes suicidal ideation. Comments: Remainder of psychiatric examination deferred to behavioral health team. Laboratory & Radiological Imaging (if done): Labs Reviewed DRUGS OF ABUSE SCREEN, URINE - Abnormal; Notable for the following components: Result Value Cannabinoid Screen, Urine Presumptive Positive (*) All other components within normal limits Narrative: Screen results should be used for treatment purposes only. Specimen will be kept for 2 weeks, if the sample is adequate. Confirmation testing can be initiated by calling the lab within 2 weeks. ALCOHOL, MEDICAL - Abnormal; Notable for the following components: Alcohol (Medical) 172.0 (*) All other components within normal limits COMPREHENSIVE METABOLIC PANEL - Abnormal; Notable for the following components: Glucose 101 (*) BUN/Creatinine Ratio 9.8 (*) ALT 52 (*) All other components within normal limits Narrative: [facility] has implemented the eGFR calculation approach that does not have a coefficient for race that conforms to the NKF-ASN Task Force Recommendations. ALCOHOL, MEDICAL - Abnormal; Notable for the following components: Alcohol (Medical) 39.8 (*) All other components within normal limits URINALYSIS - Abnormal; Notable for the following components: Blood, Urine Small (*) All other components within normal limits Narrative: Microscopic examination is performed on all urinalysis samples and only positive findings are reported. The test for blood on the chemical analytic portion of urinalysis may also be positive due to hemoglobinuria and myoglobinuria and if red blood cells are present they are quantified by microscopic examination. LIPID PANEL - Abnormal; Notable for the following components: Cholesterol 201 (*) Triglycerides 184 (*) All other components within normal limits CBC WITH AUTO DIFFERENTIAL - Abnormal; Notable for the following components: MPV 9.0 (*) All other components within normal limits TSH WITH REFLEX FREE T4 - Normal CBC AND DIFFERENTIAL Narrative: The following orders were created for panel order CBC w/ Diff. Procedure Abnormality Status --------- ------ CBC Auto Differential[[id number]] Abnormal Final result Please view results for these tests on the individual orders. No orders to display Procedures: Procedures ED Course / Medical Decision Making: Patient was seen today and evaluated for both medical and psychiatric illnesses. After evaluating this patient, it is my conclusion that the patient is cleared medically and that today's concern will be appropriately managed from a psychosocial perspective. Yoli was the manager social responsibility with whom I discussed this case and he/she also evaluated the patient. Please see their note. The patient will be admitted to the Mental Health Unit. We discussed the results of the work up in the emergency department. I provided verbal discharge instructions regarding the emergency department diagnosis. Prognosis, expected clinical course, and return precautions were reviewed. I answered her questions and re-iterated the importance of returning to the emergency department immediately for any new or worsening symptoms. The patient expressed understanding of the instructions and reported that all of her questions had been answered. Coding Elements: Medical Decision Making Clinical Impression: 1. Severe episode of recurrent major depressive disorder, without psychotic features (HCC) 2. Alcoholic intoxication without complication (HCC) Disposition: hospitalize to Mental Health Unit - medically cleared for admission New Prescriptions This print group is not available in inpatient encounters. Please contact a electronic imaging system operator. Vern Garibay M.D. Attending Physician [facility] 11/20/2024 Portions of this note may have been dictated utilizing voice recognition software. Unfortunately this leads to occasional typographical errors. If questions arise please do not hesitate to contact my office for clarification. Data from EMR: PMHx: History reviewed. No pertinent past medical history. PMSx: History reviewed. No pertinent surgical history. FAM. Hx: Family History Problem Relation Age of Onset Cancer Mother Cancer Father Diabetes Paternal Grandmother SOC. Hx: Social History [1] MEDs: Previous Medications Medication Sig albuterol 90 mcg/actuation inhaler Inhale 2 (two) puffs every 6 (six) hours as needed for wheezing . lamoTRIgine (LAMICTAL) 100 MG tablet Take 1 (one) tablet (100 mg total) by mouth daily . losartan (COZAAR) 50 MG tablet Take 1 (one) tablet (50 mg total) by mouth daily . omeprazole (PRILOSEC) 20 MG capsule Take 1 (one) capsule (20 mg total) by mouth 2 (two) times a day . ALL: Allergies[2] ED MIPS (if empty, not applicable): ED Scoring Tools from EMR (if empty, no data entered): (Please note that portions of this note have been completed with a voice recognition software. Efforts were made to correct any errors, but occasionally words are mis-transcribed.) [1] Social History Socioeconomic History Marital status: Single Tobacco Use Smoking status: Never Passive exposure: Never Smokeless tobacco: Never Vaping Use Vaping status: Never Used Substance and Sexual Activity Alcohol use: Yes Comment: States hasn't drank in past month or two until today. Drug use: Not Currently Comment: cbd gummies weekends thc gummies Sexual activity: Yes Partners: Female control/protection: None Social Drivers of Health Food Insecurity: No Food Insecurity (11/19/2024) Hunger Vital Sign Worried About Running Out of Food in the Last Year: Never true Ran Out of Food in the Last Year: Never true Transportation Needs: No Transportation Needs (11/19/2024) PRAPARE - Transportation Lack of Transportation (Medical): No Lack of Transportation (Non-Medical): No Housing Stability: Low Risk (11/19/2024) Housing Stability Vital Sign Unable to Pay for Housing in the Last Year: No Number of Times Moved in the Last Year: 0 Homeless in the Last Year: No [2] No Known Allergies Vern Garibay MD 11/20/24 0719 documented in this encounter [facility] 11-18-2024 Emergency department Note Rounding: ABCs intact, no c/o. ACTIVITY: Pt resting quietly on cart; patent airway. Spontaneous breathing w/ regular respirations. NEEDS/CONCERNS- none voiced, SAFETY: cart in low position, call light within reach. Pt remains in blue gown with continuous video/sitter monitoring in place for pt safety. No HI/SI attempts, nonviolent at present. [facility] 11-18-2024 Emergency department Note PSS spoke with pt. Via telehealth Pt. continues to deny suicidal thoughts or plans. He reports he does not recall saying anything and he just wants to go home Pt. Is unable to make a plan to keep himself safe at this time. Case discussed with Dr. Bullock for admission Spoke to RN with update [facility] 11-18-2024 Emergency department Note Rounding: ABCs intact, no c/o. ACTIVITY: Pt resting quietly on cart; patent airway. Spontaneous breathing w/ regular respirations. NEEDS/CONCERNS- none voiced, SAFETY: cart in low position, call light within reach. Pt remains in blue gown with continuous video/sitter monitoring in place for pt safety. No HI/SI attempts, nonviolent at present. [facility] 11-18-2024 Emergency department Note Rounding: ABCs intact, no c/o. ACTIVITY: Pt resting quietly on cart; patent airway. Spontaneous breathing w/ regular respirations. NEEDS/CONCERNS- none voiced, SAFETY: cart in low position, call light within reach. Pt remains in blue gown with continuous video/sitter monitoring in place for pt safety. No HI/SI attempts, nonviolent at present. [facility] 11-18-2024 Emergency department Note PT came out to use the phone, this PSA asked pt to go back to room due to ISABELA Garza on phone about another pt. Pt cooperative. [facility] 11-18-2024 Consult note Associated Order (s): IP CONSULT TO SUBSTANCE ABUSE NAVIGATOR Addiction Medicine Consult Note (Substance Use Navigator) Patient Name: Corey Morrison Admit Date: 11/18/24 : 76 Physicians: (Family); Yandel Hinojosa PA-C (referring) Vern Garibay MD Addiction Medicine was consulted to provide treatment services to the patient Reason for Consult: Linkage to outpatient treatment Linkage to inpatient residential treatment Linkage to follow up treatment Linkage to wrap around services Assessment and Plan: Spoke to patient in ER room # 29 about drugs of choice, frequency, duration and patient said I've done some of the marijuana edibles and I drink alcohol sometimes. I've only tried edibles and its not regular use. I drink alcohol but I don't believe I have a problem. I don't even drink that often and when I do I drink these things called beat boxes because I can't stand the taste of alcohol and they have more of a fruity taste. 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 Patient was asked about prior CATY treatment and said no, I have never had CATY treatment. Patient was asked if he wanted CATY treatment currently and patient said no, I am not interested in treatment and I feel most of my issues are mental. Patient was asked about his current living situation and said I live in a house with my andrew and her 3 kids. Patient was asked about historical or current legal involvement and said I have no legal issues. Patient was asked about current stressors that are contributing to substance use and said just a lot of things going on at once man. Money and financial issues are a big part of my problem right now but I got myself into this situation. Patient was asked about current support system and said my main support system is my andrew Augustin. Presenting Problems:CATY Alcohol, Marijuana Patient reports use of following substances: Alcohol and Marijuana IV use: No Patient reports following triggers for recurrent use: stress and financial instability Patient reports following legal issues: no current legal issues Current living situation: in a house, with significant other and children Other social factors: Patient reports consistent employment , Patient reports stable home environment , Patient reports consistent financial stress , and Patient reports HX of past trauma Plan: At this time there is no plan due to patient refusing CATY treatment. Patient refused all addiction medicine recovery services Recovery support services provided: No Patient referred to the following clinical and support services: Not applicable Resources (If any): Patient was given my work contact information for support and guidance if needing CATY treatment in the future. Disposition: Patient refused linkage to follow up treatment Length of Session: - : I personally spent 30 minutes on this encounter today. Fabricio Rees Addiction Medicine Substance Use Navigator Note was not shared with patient: 42 CFR Part 2 Regulations [facility] 11-18-2024 Consult note Associated Order (s): ED CONSULT TO PSYCH - COLLECTION SPECIALIST ED Trim Machine Adjuster Behavioral Health Initial Assessment Date: 11/18/2024 Time: 5:51 PM Patient Name: Corey Morrison Date of : 1980 Sex: Male Admit Date/Time: 11/18/2024 2:29 PM GENERAL INFORMATION General Information Logistics Solution Manager Needs: Not needed Information Provided By: Pt. chart friend ,fiance Patient Support System: family, friends Current Living Arrangements: Pt. lives with his andrew Pa and her two teen age children Type of Residence: Private residence Name and Contact of Collateral Provider: Audrey Carrasquillo, and andrew Jeffrey,[phone] LEGAL STATUS Medical Hold Date Signed 11/18/24 Time Signed 345p Completed By ED Provider DIAGNOSIS/ACTIVE PROBLEM LIST Medical Problems Hospital Problem List Codes Alcohol abuse ICD-10-CM: F10.10 ICD-9-CM: 305.00 Unspecified mood (affective) disorder (HCC) ICD-10-CM: F39 ICD-9-CM: 296.90 CHIEF COMPLAINT/HISTORY OF PRESENT ILLNESS Chief Complaint/History Present Illness Chief Complaint: [facility] alcohol intoxication and voicing suicidal thoughts Current Symptoms: Anxiety, Depression, Substance abuse, Suicidal Problems Related to: Economic, Primary support History of Present Illness: Pt. 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 He reportedly admitted to drinking alcohol prior to coming to work and leaving work to buy more alcohol today. Stating to his manger he wanted to kill himself. The pt. was seen via: telehealth . Upon assessment, the patient was sitting up in the bed dressed in a blue gown. His mood was labile,flat affect and poor eye contact. Speech was tangential at times with appropriate rate and rhythm. Pt. was cooperative during the assessment and at times made anxious remarks that he was okay and ready to leave and go home. Pt. Reports multiple stressors in his life causing him to drink. He reports his mother is in the hospital and does not have much linger to live,He reports he has a sister who is a drug addict and is homeless. Pt. Tries to help her out financially when he can,and he has a fiance with two teen age children that needs things. Pt. Feels like he does not make enough money. He admits to drinking alcohol today at work but would not provide a pattern off alcohol use. He reports not drinking alcohol until a year ago . He stated he never drank because his father was an alcoholic and his other sister from a drug overdose. Pt. Reports he began to drink alcohol and use gummies because his fiance said a little would be fine. Pt. Reports he thinks it helps with his anxiety. He reports a psychiatric history ,was hospitalized one time over a year ago because of a divorce with his first . He could not recall the hospital somewhere near [place]. He reports he does see a therapist monthly named, Autumn Soto. Pt. manages his medication with his Primary Care Physician. Pt. reports he takes Lamictal but was unable to provide details. Pt. Denies suicidal or homicidal thoughts or plans ever. Pt. was asked about the suicide statements he made at work but he denies it ,and stated he does not recall ever making suicidal statements. Pt. was asked about prior hospitalizations and he admits to being sad and was hospitalized ,but gave no details. . Pt. denies audio or visual hallucinations and does not appear to be attending to internal stimuli. Pt. denies a change in sleep or eating patterns. Pt. Commented,I just want to go home. Collateral: Pt. Gave verbal permission to speak with his manger and his fiance. This clinician spoke to his manger Audrey by phone. She reports once she stepped out of the room,pt, began to hit himself in the head. and the nurse was notified. She reports knowing the pt. for over two years and the pt. 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 She reports pt.was from his first when he met his fiance over a year ago. She reports that was the first time he tried alcohol and began to use gummies . She stated he told her all of his life he never used and substances because his family were addicts. Pt. was hospitalized last year over stress about his mother going into a usp and his sister being homeless and on drugs.She reports back then she encouraged him to go to the hospital because he was making suicidal statements back then that he wanted to . She said once he return to work he was much better for a time. She reports now he is getting anxious again and she does not know if he is taking his medication. She states now for the past several weeks he has been making suicidal statements of wanting to end his life while he is at work. . She states today she did not know he had been drinking ,but again made suicidal statements at work and texted her from the gas station when he left work to get more alcohol. She reports when he came back he was a mess. They encouraged him to come to the hospital. She reports the intermodal owner operator truck driver is his best friend, is concerned for his safety. She reports his fiance also had talked to him about breaking up if he does not stop drinking. Audrey thinks he may have a drinking problem now as well.She reports he talks about feeling hopeless over his relationships and his mother and sister. He told her he does not know if the therapy is helping anymore. Spoke with andrew by phone Braeden reports she did not know pt. had been drinking again and that he was not to drink anymore or she would leave him She said he us stressed out about his mother and now his sister who has been asking him for money to stay at hotels because she is homeless. She reports pt. had told her he had a psychiatric history and tried to hang himself after his him. . She reports she does not know what is true because she did not know him until later,after he was . She supports him getting the help he needs because he can't come home if he is drinking. PAST PSYCHIATRIC HISTORY Past Psychiatric History Previous Psychiatric Diagnosis: Major Depressive disorder Previous Psychiatric Medications: Anti-depressants, Anti-psychotics Previous Psychiatric Hospitalizations: [facility] in [facility] Current Psychiatric Medications: see medical chart,per pt. Lamictal ALCOHOL/DRUG ABUSE HISTORY Alcohol/Drug Abuse History Current Alcohol Use (Frequency): Frequent Amount of Alcohol Consumed: multiple drinks per week Pattern of Alcohol Use: Episodic binge Date Last Used: 11/18/24 Withdrawal Symptoms/History of Withdrawal: no Current Drug Use: Yes Drug Type: cannibus,gummies Frequency of Drug Use: daily History/Current Alcohol/Drug Treatment: none MENTAL STATUS EVALUATION Mental Status Evaluation General Appearance: Equal to stated age Orientation: Oriented to person, place, and time Level of Consciousness: Alert, Restless Mood/Affect: Anxious, Depressed, Hopelessness, Irritable Behavior: Agitated, Cooperative, Guarded, Defensive Remote Memory: WDL Language and Speech Content: Circumstantial/tangential Preoccupations: External stressors, Internal stressors, Suicide Impulse Control: Shows poor frustration tolerance, Seeks immediate gratification of urges Insight: Partial awareness Judgment: Poor PATIENT STRENGTHS Patient Strengths Patient Strengths: Employment, Basic self-care skills, Family/friends, Housing, Mental health services, Motivation to change, Spiritual beliefs RISK ASSESSMENT Risk Factors Recent Psychological Experiences: Loss (Comment), Divorce, Conflict (Comment) (Pt.'s mother is in a usp,sister is homeless,stress with fichandler) Current Suicidal Ideation: Yes Describe Current Suicidal Ideation : Pt. voicing suicidal thoughts at work but denies in the ER Previous Suicidal Ideation: Yes Describe Previous Suicidal Ideation: per friend,pt. voicing suicidal thoughts over family conflict and loss Current Suicide Attempt: No Previous Suicide Attempt: Yes Describe Previous Suicide Attempt: per fichandler,pt. attempted to hang self after divorce of his first Current Self Harm Behavior: Yes Describe Current Self Harm Behaviors: drank alcohol at work, then drove to the store from work and purchased more beat boxes of alcohol Previous Self Harm Behavior: Yes Describe Previous Self Harm: tried to hang self Current Plans to Harm Another: No Previous Plans to Harm Another: No History of Attempts to Harm Another: No Access to Weapons: No Violent Episode: No Previous Violent Episode: Information not available Family History of Suicide: Yes Describe Family History of Suicide : sister from a drug overdose Family History of Mental Illness: Yes Describe Family History of Mental Illness: sisters have mental illness Family History of Substance Abuse: Yes Describe Family History of Substance Abuse Text: father was an alcoholic,sister a drug addict Elopement: No risk Methods to Calm Down: Quiet time in room Restraint Risk Factors: None PROTECTIVE FACTORS Protective Factors Family and Community Support (Connectedness): Yes Ongoing Medical and Mental Health Services (Community Support): Yes Skills In Problem Solving and Conflict Resolution (Coping Skills): Yes Cultural and Bahai Beliefs: Yes Access to Weapons: No TREATMENT RECOMMENDATIONS AND CLINICAL SUMMARY Treatment Recommendations and Clinical Summary Current Recommendations: Psychiatric hospitalization, Hold over for reassessment The pt. Corey Morrison will most likely need psychiatric admission once sober . RATIONALE/PLAN FOR TREATMENT: The pt. Corey Morrison is a 44 year old male presenting to the ER for alcohol intoxication while at work and making suicidal statements to end his life. The pt. Corey Morrison has the following static risk factors for suicidal ideation ,history of mood,anxiety or psychosis and history of psychiatric hospitalizations for depression/attempt,making suicidal statements while sober and intoxicated per his employer, The pt. Corey Morrison has the following dynamic risk factors for suicidal ideation, Social stressors from family, limited support,substance abuse,denies making suicidal statements or past attempts, Corey Morrison has the following protective factors, out pt. linkage ,limited access to lethal means,no access to guns,employer support,fiance support,health insurance and employment Collateral At this time Collateral from Employer and fiance are concerned for for pt. Safety. The most influential risk factors is Corey Morrison care appears to be voicing suicidal threats, admission for recent suicidal threats/attempts related to loss,acute or anticipated alcohol or drug use and decompensated mental health Corey Risk factors would best be modified by in pt. hospitalization for crises stabilization at this time taking into consideration all of the available information. [facility] 11-18-2024 Emergency department Triage note Pt brought in by environmental department manager for intoxication and SI ideation. Pt admits to drinking beat boxes before work and leaving work to buy more beat boxes. Finisher Accordion at bedside states he sat in my chair today and stated he wanted to kill himself. [facility] 11-18-2024 Physician Emergency department Note [facility] - Emergency Medicine Attending Note: NAME: Corey Morrison 44 y.o. CSN: [id number] PCP: Yandel Hinojosa PA-C History: Chief Complaint: Alcohol Intoxication and Suicidal HPI: The history was obtained from the patient and friend. Corey is a 44 y.o. male who presents with a chief complaint of Alcohol Intoxication and Suicidal. Alcohol Intoxication 44-year-old male, presenting today for evaluation after he made some suicidal threats at work. Patient does admit to drinking today. Reportedly, at 1 point he left work to get more alcohol to drink. Upon arrival, patient is denying that he is having thoughts of hurting himself. The patient is unfortunately not very forthcoming or very cooperative. He is relatively withdrawn. ROS: Review of Systems Unable to perform ROS: Psychiatric disorder Positives and pertinent negatives as per HPI. All other systems were reviewed and are negative. Physical Exam: Patient Vitals for the past 24 hrs: BP Temp Temp src Pulse Resp SpO2 11/19/24 1634 (!) 164/99 -- -- 89 15 96 % 11/19/24 1139 (!) 164/101 98.4 F (36.9 C) Oral 95 14 97 % 11/19/24 0740 (!) 159/98 97.9 F (36.6 C) Oral (!) 103 14 95 % Physical Exam Constitutional: General: He is not in acute distress. Appearance: He is ill-appearing (Chronically ill-appearing, but in no acute distress.). He is not diaphoretic. HENT: Head: Normocephalic and atraumatic. Right Ear: External ear normal. Left Ear: External ear normal. Eyes: General: No scleral icterus. Neck: Vascular: No JVD. Trachea: No tracheal deviation. Cardiovascular: Rate and Rhythm: Normal rate and regular rhythm. Pulses: Normal pulses. Heart sounds: Normal heart sounds. No murmur heard. No friction rub. No gallop. Pulmonary: Effort: Pulmonary effort is normal. No respiratory distress. Breath sounds: Normal breath sounds. No wheezing or rales. Chest: Chest wall: No tenderness. Abdominal: General: There is no distension. Palpations: Abdomen is soft. There is no mass. Tenderness: There is no abdominal tenderness. There is no rebound. Musculoskeletal: General: No deformity. Skin: General: Skin is warm and dry. Neurological: General: No focal deficit present. Mental Status: He is alert and oriented to person, place, and time. Psychiatric: Behavior: Behavior normal. Thought Content: Thought content includes suicidal ideation. Comments: Remainder of psychiatric examination deferred to behavioral health team. Laboratory & Radiological Imaging (if done): Labs Reviewed DRUGS OF ABUSE SCREEN, URINE - Abnormal; Notable for the following components: Result Value Cannabinoid Screen, Urine Presumptive Positive (*) All other components within normal limits Narrative: Screen results should be used for treatment purposes only. Specimen will be kept for 2 weeks, if the sample is adequate. Confirmation testing can be initiated by calling the lab within 2 weeks. ALCOHOL, MEDICAL - Abnormal; Notable for the following components: Alcohol (Medical) 172.0 (*) All other components within normal limits COMPREHENSIVE METABOLIC PANEL - Abnormal; Notable for the following components: Glucose 101 (*) BUN/Creatinine Ratio 9.8 (*) ALT 52 (*) All other components within normal limits Narrative: [facility] has implemented the eGFR calculation approach that does not have a coefficient for race that conforms to the NKF-ASN Task Force Recommendations. ALCOHOL, MEDICAL - Abnormal; Notable for the following components: Alcohol (Medical) 39.8 (*) All other components within normal limits URINALYSIS - Abnormal; Notable for the following components: Blood, Urine Small (*) All other components within normal limits Narrative: Microscopic examination is performed on all urinalysis samples and only positive findings are reported. The test for blood on the chemical analytic portion of urinalysis may also be positive due to hemoglobinuria and myoglobinuria and if red blood cells are present they are quantified by microscopic examination. LIPID PANEL - Abnormal; Notable for the following components: Cholesterol 201 (*) Triglycerides 184 (*) All other components within normal limits CBC WITH AUTO DIFFERENTIAL - Abnormal; Notable for the following components: MPV 9.0 (*) All other components within normal limits TSH WITH REFLEX FREE T4 - Normal CBC AND DIFFERENTIAL Narrative: The following orders were created for panel order CBC w/ Diff. Procedure Abnormality Status --------- ------ CBC Auto Differential[[id number]] Abnormal Final result Please view results for these tests on the individual orders. No orders to display Procedures: Procedures ED Course / Medical Decision Making: Patient was seen today and evaluated for both medical and psychiatric illnesses. After evaluating this patient, it is my conclusion that the patient is cleared medically and that today's concern will be appropriately managed from a psychosocial perspective. Yoli was the manager social responsibility with whom I discussed this case and he/she also evaluated the patient. Please see their note. The patient will be admitted to the Mental Health Unit. We discussed the results of the work up in the emergency department. I provided verbal discharge instructions regarding the emergency department diagnosis. Prognosis, expected clinical course, and return precautions were reviewed. I answered her questions and re-iterated the importance of returning to the emergency department immediately for any new or worsening symptoms. The patient expressed understanding of the instructions and reported that all of her questions had been answered. Coding Elements: Medical Decision Making Clinical Impression: 1. Severe episode of recurrent major depressive disorder, without psychotic features (HCC) 2. Alcoholic intoxication without complication (HCC) Disposition: hospitalize to Mental Health Unit - medically cleared for admission New Prescriptions This print group is not available in inpatient encounters. Please contact a electronic imaging system operator. Vern Garibay M.D. Attending Physician [facility] 11/20/2024 Portions of this note may have been dictated utilizing voice recognition software. Unfortunately this leads to occasional typographical errors. If questions arise please do not hesitate to contact my office for clarification. Data from EMR: PMHx: History reviewed. No pertinent past medical history. PMSx: History reviewed. No pertinent surgical history. FAM. Hx: Family History Problem Relation Age of Onset Cancer Mother Cancer Father Diabetes Paternal Grandmother SOC. Hx: Social History [1] MEDs: Previous Medications Medication Sig albuterol 90 mcg/actuation inhaler Inhale 2 (two) puffs every 6 (six) hours as needed for wheezing . lamoTRIgine (LAMICTAL) 100 MG tablet Take 1 (one) tablet (100 mg total) by mouth daily . losartan (COZAAR) 50 MG tablet Take 1 (one) tablet (50 mg total) by mouth daily . omeprazole (PRILOSEC) 20 MG capsule Take 1 (one) capsule (20 mg total) by mouth 2 (two) times a day . ALL: Allergies[2] ED MIPS (if empty, not applicable): ED Scoring Tools from EMR (if empty, no data entered): (Please note that portions of this note have been completed with a voice recognition software. Efforts were made to correct any errors, but occasionally words are mis-transcribed.) [1] Social History Socioeconomic History Marital status: Single Tobacco Use Smoking status: Never Passive exposure: Never Smokeless tobacco: Never Vaping Use Vaping status: Never Used Substance and Sexual Activity Alcohol use: Yes Comment: States hasn't drank in past month or two until today. Drug use: Not Currently Comment: cbd gummies weekends thc gummies Sexual activity: Yes Partners: Female control/protection: None Social Drivers of Health Food Insecurity: No Food Insecurity (11/19/2024) Hunger Vital Sign Worried About Running Out of Food in the Last Year: Never true Ran Out of Food in the Last Year: Never true Transportation Needs: No Transportation Needs (11/19/2024) PRAPARE - Transportation Lack of Transportation (Medical): No Lack of Transportation (Non-Medical): No Housing Stability: Low Risk (11/19/2024) Housing Stability Vital Sign Unable to Pay for Housing in the Last Year: No Number of Times Moved in the Last Year: 0 Homeless in the Last Year: No [2] No Known Allergies Vern Garibay MD 11/20/24 0719 [facility] Work Phone: 11-12-2024 History of Present illness Narrative Subjective Patient ID: Corey Morrison is a 44 y.o. male who presents for pt here for 3 month med check (Pt has a lump on the ride side of neck possible lymph node ). HPI ANXIETY/DEPRESSION: Sees therapist Andrea, has tried many medications for this in the past. Very significant anxiety/depression daily. Current med is lamictal 100mg daily, somewhat helpful. INSOMNIA: Trazodone/doxepin/hydroxyzine not effective. HTN: BP 128/80. Compliant with losartan, no SE. Denies symptoms currently. GERD: Stable on omeprazole. GOUT: Has not had an attack for over a decade. Tart woodson juice. Review of Systems Constitutional: Negative. Respiratory: Negative. Cardiovascular: Negative. Gastrointestinal: Negative. Objective BP 128/80 Pulse 94 Ht 1.867 m (6' 1.5) Wt 108 kg (238 lb) SpO2 95% BMI 30.97 kg/m Physical Exam Constitutional: General: He is not in acute distress. Appearance: Normal appearance. He is not ill-appearing. HENT: Head: Normocephalic and atraumatic. Eyes: Extraocular Movements: Extraocular movements intact. Conjunctiva/sclera: Conjunctivae normal. Cardiovascular: Rate and Rhythm: Normal rate. Pulmonary: Effort: Pulmonary effort is normal. Abdominal: General: There is no distension. Musculoskeletal: General: Normal range of motion. Cervical back: Normal range of motion. Skin: General: Skin is warm and dry. Neurological: General: No focal deficit present. Mental Status: He is alert and oriented to person, place, and time. Psychiatric: Mood and Affect: Mood normal. Behavior: Behavior normal. Thought Content: Thought content normal. Judgment: Judgment normal. Assessment/Plan Lengthy discussion on strategies for improving mental health. No medication changes today. Follow up 3 months or sooner prn. documented in this encounter [facility] Work Phone: 05-30-2024 History of Present illness Narrative Subjective Patient ID: Corey Morrison is a 44 y.o. male who presents for pt here to [facility] (Pt having issues with anxiety and BP ). HPI ANXIETY/DEPRESSION: Sees therapist Andrea, has tried many medications for this in the past. Getting panic attacks multiple times weekly. INSOMNIA: Trazodone currently per his therapist. Trazodone not effective. HTN: BP pretty elevated in office today 153/112. Used to be medicated. Used to drink a lot of energy drinks daily. Quit about a week. GERD: Stable on omeprazole. GOUT: Has not had an attack for over a decade. Review of Systems Constitutional: Negative. Respiratory: Negative. Cardiovascular: Negative. Gastrointestinal: Negative. Objective BP (!) 153/112 Pulse 93 Ht 1.867 m (6' 1.5) Wt 108 kg (238 lb) SpO2 96% BMI 30.97 kg/m Physical Exam Constitutional: General: He is not in acute distress. Appearance: Normal appearance. He is not ill-appearing. HENT: Head: Normocephalic and atraumatic. Eyes: Extraocular Movements: Extraocular movements intact. Conjunctiva/sclera: Conjunctivae normal. Cardiovascular: Rate and Rhythm: Normal rate and regular rhythm. Heart sounds: Normal heart sounds. No murmur heard. Pulmonary: Effort: Pulmonary effort is normal. Breath sounds: Normal breath sounds. No wheezing. Abdominal: General: There is no distension. Musculoskeletal: General: Normal range of motion. Cervical back: Normal range of motion. Skin: General: Skin is warm and dry. Neurological: General: No focal deficit present. Mental Status: He is alert and oriented to person, place, and time. Psychiatric: Mood and Affect: Mood normal. Behavior: Behavior normal. Thought Content: Thought content normal. Judgment: Judgment normal. Assessment/Plan Kit for Genesight given. Rx hydroxyzine prn panic attacks. Rx losartan and BP cuff. Follow up 3 months and will get labs then. documented in this encounter [facility] Work Phone: 05-30-2024 Instructions Yandel Hinojosa PA-C - 05/30/2024 3:15 PM EDT Look into Volteran gel (get generic) for MSK pain. documented in this encounter [facility] Work Phone: 12-21-2023 Telephone encounter Note Patient has been given [facility] phone number and encouraged to to call and speak with them. [facility] 12-21-2023 Miscellaneous Notes Patient has been given [facility] phone number and encouraged to to call and speak with them. See if the patient will consider meeting with financial counselors here Stella Ly APRN.[employer] PANELBOARD OPERATOR documented in this encounter [facility] 11-24-2023 Telephone encounter Note See if the patient will consider meeting with financial counselors here Stella Ly APRN.TOMAS [facility] Work Phone: 11-02-2023 Instructions Celsa Bellamy APRN.TOMAS - 11/02/2023 10:33 AM EDT - Contact office or [id number] after-hours promptly should condition worsen or any new symptoms appear. - Counseling Center [facility] and after hours crisis line documented in this encounter [facility] 11-02-2023 History of Present illness Narrative CC: Patient presents with: Recheck: 6 month follow up HPI Corey Morrison is a 43 year old male who presents today for routine follow up but is very upset and stressed in appointment. Insurance has changed at work and no longer able to see psychiatry or afford his depakote for the past month. 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 States he psychiatrist Patricia Carrera has been trying to get in touch with him. Started drinking large amounts of alcohol and marijuana edibles over the last few months. Has a large amount of rage, anxiety, and is having difficulty sleeping at night. Denies any thoughts of harming himself or others. GERD: Controlled with PPI twice a day but not taking until heartburn is severe because of cost. Has tried 40mg in the past once a day but did not work. HTN: Mr. Morrison indicates that he is feeling well and denies any symptoms referable to elevated blood pressure. Specifically denies headache, chest pain, palpitations, dyspnea, and peripheral edema. Also no longer taking his medications due to cost. Last 3 Encounter BP Readings: Date: BP: 11/02/2023 160/90 05/03/2023 122/82 10/26/2022 122/70 REVIEW OF SYSTEMS See HPI PAST MEDICAL HISTORY Diagnosis Date Amblyopia of right eye patching as a child Anxiety state, unspecified Depressive disorder, not elsewhere classified Diaphragmatic hernia without mention of obstruction or gangrene Encounter for long-term (current) use of medications 05/25/2013 Esophagitis, unspecified Heartburn Hyperlipidemia 03/05/2015 Oral aphthae yael with stress, Abreva helps, lately worse Umbilical hernia PAST SURGICAL HISTORY Procedure Laterality Date EGD TRANSORAL BIOPSY SINGLE/MULTIPLE 10/27/11 ALLERGIES Patient has no known allergies. MEDICATIONS amLODIPine (NORVASC) 5 mg tablet Take 1 tablet by mouth once daily. omeprazole (PRILOSEC) 20 mg capsule Take 1 capsule by mouth two times a day. 1/2 hr before meal. meloxicam (MOBIC) 15 mg tablet Take 1 tablet by mouth once daily. divalproex DR (DEPAKOTE) 250 mg EC tablet Take 250 mg by mouth once daily. divalproex DR (DEPAKOTE) 500 mg EC tablet Take 500 mg by mouth once daily. metoprolol tartrate, short acting, (LOPRESSOR) 25 mg tablet Take 0.5 tablets by mouth twice daily. allopurinol (ZYLOPRIM) 300 mg tablet Take 1 tablet by mouth once daily. divalproex sprinkle (DEPAKOTE SPRINKLES) 125 mg capsule Take 1 capsule by mouth twice daily. multivitamin tablet Take 1 tablet by mouth once daily. FAMILY HISTORY Problem Relation Age of Onset Hypertension Mother Smoker, HTN,, excess Mt Dew Diabetes Mother Psychiatry Mother Depression/Anxiety Colon Cancer Mother COPD Mother Diabetes Father Psychiatry Father Depression/Anxiety Psychiatry Sister bi-polar Social History Tobacco Use Smoking status: Never Smokeless tobacco: Never Vaping Use Vaping Use: Never used Substance Use Topics Alcohol use: No Drug use: No PHYSICAL EXAM BP 160/90 Pulse 84 Resp 16 Wt 100.7 kg (222 lb) SpO2 99% BMI 29.29 kg/m Appearance: well dressed well groomed, cooperative, and pleasant Behavior: good eye contact and agitated and tense Speech: fluent and coherent Mood: angry Affect: very tense with forced smiles Perceptions: none Thought process: goal directed Thought Content: preoccupations with insurance change and unable to afford costs of treatment Intelligence level: normal Insight: good Judgment: fair Lungs: Lungs clear to auscultation. No wheezing, rhonchi, rales. Heart: RRR without murmur, gallop, or rubs. No ectopy ASSESSMENT/PLAN: 1. 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 - spoke with Patricia Carrera, she is going to continue to contact patient and trying to work out a decreased rate for him. States she will decide on new treatment not requiring lab monitoring once she speaks with him. Patient called with no answer so message sent via [employer] explaining to call Patricia back to set up times for decreased rate - Reviewed concept of neurochemical imbalance wth depression/anxiety, treatment options and benefits of counseling in combination with medication. Also reviewed benefits of sleep hygeine, diet and exercise - Instructed patient to contact office or [id number] after-hours promptly should condition worsen or any new symptoms appear. - [facility] and after hours crisis line 2. Anxiety state - ICD9: 300.00, ICD10: F41.1 As above 3. Primary hypertension - ICD9: 401.9, ICD10: I10 - Uncontrolled - restarting amlodipine (went through good rx with patient to identify affordable options for him) - follow up in 2-4 weeks - Recommend home blood pressure monitoring, to bring results to next visit - Encouraged sodium restriction, DASH or Mediterranean diet - Recommend regular aerobic exercise - AMLODIPINE 5 MG TABLET 4. Gastroesophageal reflux disease without esophagitis - ICD9: 530.81, ICD10: K21.9 - Uncontrolled - restarting omeprazole (went through good rx with patient to identify affordable options for him) - follow up in 2-4 weeks - Discussed lifestyle modifications including losing weight, limiting caffeine, no meals three hours before sleep, and head of bed elevation Prescription instructions reviewed with patient as applicable. Potential red flag symptoms discussed with the patient. Reviewed appropriate action plan to take if red flag symptoms occur. Patient agreeable to treatment plan Celsa Bellamy APRN.CNP documented in this encounter [facility] 05-18-2023 History of Present illness Narrative Olivier Harvey MD Department of Orthopaedics Orthopaedics [address] [place] [address] Dept: [phone] Dept May 18, 2023 CHIEF COMPLAINT: Follow Up of the Right Hand and 15 weks post visit Dupuytren's contracture right hand HPI Patient here for follow up dupuytrens contracture right hand. Patient states he feels the pain is getting worse. 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 He is also has a cyst on his right index finger he would like evaluated. Taking no med's for the pain. ASSESSMENT: M79.641 Pain of right hand (primary encounter diagnosis) M72.0 Dupuytren's contracture PLAN: We discussed some of these issues with his hand again. Again, I do not believe the early Dupuytren's is giving him much trouble. He has just in general having some more pain and stiffness in his hands from being a crane mechanic. Working to try an anti-inflammatory just to see if we get things settled a bit. No intervention for his palmar fasciitis yet. OBJECTIVE: Mr. Corey Morrison is a pleasant 43 year old in no apparent distress. Gen:There were no vitals taken for this visit. nl development, non obese, no deformities ENT: Normocephalic, normal hearing, moist mucosa CV: Pulses:Radial= 2+ and symmetric, capillary refill < 2 secs, no peripheral edema/varicosities Skin: no rash, bruising or lesions. Good turgor. Psych: cooperative and appropriate, alert and oriented x 3, good mood and affect. Musculoskeletal: Minor changes again noted in the palm. Some mild tenderness with some nodularity but no A1 jennifer tenderness. Mild stiffness and some of the joints overall without any obvious synovitis. Imaging: Deferred Supporting Subjective Information Below: Past Surgical History: PAST SURGICAL HISTORY Procedure Laterality Date EGD TRANSORAL BIOPSY SINGLE/MULTIPLE 10/27/11 Medications: Current Outpatient Medications Medication Sig omeprazole (PRILOSEC) 20 mg capsule Take 1 capsule by mouth two times a day. 1/2 hr before meal. dival[address] (DEPAKOTE) 250 mg EC tablet Take 250 mg by mouth once daily. divalproex DR (DEPAKOTE) 500 mg EC tablet Take 500 mg by mouth once daily. metoprolol tartrate, short acting, (LOPRESSOR) 25 mg tablet Take 0.5 tablets by mouth twice daily. allopurinol (ZYLOPRIM) 300 mg tablet Take 1 tablet by mouth once daily. amLODIPine (NORVASC) 5 mg tablet Take 1 tablet by mouth once daily. divalproex sprinkle (DEPAKOTE SPRINKLES) 125 mg capsule Take 1 capsule by mouth twice daily. multivitamin tablet Take 1 tablet by mouth once daily. No current facility-administered medications for this visit. Allergies: Patient has no known allergies. ROS: General (negative for fatigue, malaise, weight loss/gain) HEENT (negative for headache, earache, recent vision changes, sinus pain, sore throat) Respiratory (no recent shortness of breath, hemoptysis) CV (negative for chest tightness, palpitations) Musculoskeletal (see HPI) Psych (no depression, anxiety) Olivier Harvey MD documented in this encounter [facility] 02-28-2023 History of Present illness Narrative Olivier Harvey MD Department of Orthopaedics Orthopaed[facility] [address] [facility] [address] Dept: [phone] Dept February 02, 2023 CHIEF COMPLAINT: Consult of the Right Hand (Dupuytren contracture) HPI Patient was seen recently for some Dupuytren's changes in the hands that he was worried about. Really denies any pain but sometimes his hands can be sore as he is a crane mechanic, [id number]. He is mostly concerned about losing the use of his hands. ASSESSMENT: M72.0 Dupuytren's disease of palm (primary encounter diagnosis) PLAN: Patient has very minor and early signs of Dupuytren's. We had a lengthy discussion and I provided him with some information about the natural course and potential treatment options down the line. There is no indications for any intervention at this time. Mr. Corey Morrison was advised as to contrast therapies and/or to take analgesics/anti-inflammatories as needed and all contraindications were reviewed. OBJECTIVE: Mr. Corey Morrison is a pleasant 42 year old in no apparent distress. Gen:There were no vitals taken for this visit. nl development, non obese, no deformities ENT: Normocephalic, normal hearing, moist mucosa CV: Pulses:Radial= 2+ and symmetric, capillary refill < 2 secs, no peripheral edema/varicosities Skin: no rash, bruising or lesions. Good turgor. Psych: cooperative and appropriate, alert and oriented x 3, good mood and affect. Musculoskeletal: In the right hand, he has just some very minor changes, nodularity in the palm without any contractures Supporting Subjective Information Below: Past Surgical History: PAST SURGICAL HISTORY Procedure Laterality Date EGD TRANSORAL BIOPSY SINGLE/MULTIPLE 10/27/11 Medications: Current Outpatient Medications Medication Sig divalproex DR (DEPAKOTE) 250 mg EC tablet Take 250 mg by mouth once daily. divalproex DR (DEPAKOTE) 500 mg EC tablet Take 500 mg by mouth once daily. metoprolol tartrate, short acting, (LOPRESSOR) 25 mg tablet Take 0.5 tablets by mouth twice daily. allopurinol (ZYLOPRIM) 300 mg tablet Take 1 tablet by mouth once daily. omeprazole (PRILOSEC) 20 mg capsule Take 1 capsule by mouth twice daily. 1/2 hr before meal. amLODIPine (NORVASC) 5 mg tablet Take 1 tablet by mouth once daily. divalproex sprinkle (DEPAKOTE SPRINKLES) 125 mg capsule Take 1 capsule by mouth twice daily. multivitamin tablet Take 1 tablet by mouth once daily. QUEtiapine (SEROQUEL) 50 mg tablet Take 1 tablet by mouth daily at bedtime. sildenafil (VIAGRA) 50 mg tablet Please take 1 to 2 pills as needed an hour before activity. (Patient not taking: Reported on 12/29/2022) No current facility-administered medications for this visit. Allergies: Patient has no known allergies. ROS: General (negative for fatigue, malaise, weight loss/gain) HEENT (negative for headache, earache, recent vision changes, sinus pain, sore throat) Respiratory (no recent shortness of breath, hemoptysis) CV (negative for chest tightness, palpitations) Musculoskeletal (see HPI) Psych (no depression, anxiety) Olivier Harvey MD documented in this encounter [facility] 12-29-2022 History of Present illness Narrative Reason for Visit/Chief Complaint Corey Morrison is a 42 year old male who presents today for a new evaluation of following complaint: Patient presents with: Right Hand - New History of Present Illness: PAIN EVALUATION No data found in the last 1 encounters. HPI: Corey Morrison is a 42 year old male presenting today with Dupuytren's contracture right hand. Referred by Dr Nayak. Pain history is noted as above. Patient states he the first nodule started about 2 years ago. He has 2 other nodules that started about 4-5 months ago. Denies any pain today but his hand can be sore at times. Patient is fearful he is going to loose mobility in his hand. 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 Taking no med's for the pain. Previous Treatments: Ice: No Heat: No Brace: No NSAIDs: No Injections: No Surgeries: No Physical Therapy: No Review of Systems: Patient did not have, and does not currently have, any weight loss, malaise, fever, chills, headache, chest pain, chest pressure, palpitations, cough, shortness of breath, orthopnea, paroxsymal nocturnal dyspnea, nausea, vomiting, diarrhea, constipation, melena, hematochezia, urinary difficulties, prolonged bleeding, easily bruising, heat or cold intolerance, new onset joint pain or swelling, new onset extremity weakness or numbness, new onset auditory or visual disturbances, lightheadedness, dizziness, partial loss of consciousness or full loss of consciousness. Current Outpatient Medications on File Prior to Visit Medication Sig metoprolol tartrate, short acting, (LOPRESSOR) 25 mg tablet Take 0.5 tablets by mouth twice daily. allopurinol (ZYLOPRIM) 300 mg tablet Take 1 tablet by mouth once daily. omeprazole (PRILOSEC) 20 mg capsule Take 1 capsule by mouth twice daily. 1/2 hr before meal. amLODIPine (NORVASC) 5 mg tablet Take 1 tablet by mouth once daily. divalproex sprinkle (DEPAKOTE SPRINKLES) 125 mg capsule Take 1 capsule by mouth twice daily. multivitamin tablet Take 1 tablet by mouth once daily. QUEtiapine (SEROQUEL) 50 mg tablet Take 1 tablet by mouth daily at bedtime. sildenafil (VIAGRA) 50 mg tablet Please take 1 to 2 pills as needed an hour before activity. No current facility-administered medications on file prior to visit. ALLERGIES No Known Allergies Physical Exam: Vitals: Ht 6' 1 (1.85m) Wt 231 lb (104.8kg) BMI 30.48 kg/(m^2). Psych: Avoidant personality General Appearance: Well appearing, alert, in no acute distress, well-hydrated, well nourished.. Skin: Skin color, texture, turgor normal, no suspicious rashes or lesions. Peripheral Pulses: Normal. Neurologic: Gait normal. Reflexes normal and symmetric. Sensation grossly intact.. Lymph Nodes: No cervical lymphadenopathy, No supraclavicular lymphadenopathy, No axillary lymphadenopathy., and No inguinal lymphadenopathy.. Respiratory: No recent pulmonary infection, hemoptysis, chronic cough, or shortness of breath at rest Rheumatologic: Joint deformities: Right ring finger palpable nodules Right Hand Exam Right hand exam is normal. Tenderness The patient is experiencing no tenderness. Range of Motion The patient has normal right wrist ROM. Wrist Extension: normal Flexion: normal Pronation: normal Supination: normal Muscle Strength The patient has normal right wrist strength. Tests Phalen s Sign: negative Tinel's sign (median nerve):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 hand Reason Comments Recheck 6 month follow up Specialty Diagnoses / Procedures Referred By Natacha t Referred To Contact Internal Medicine / INTERNAL MEDICINE Diagnoses 6 month follow up Procedures 4C EST Self Older, Celsa, ROLAND.ETHYLENE OXIDE PANELBOARD OPERATOR [address] [place] [address] Referral ID Status Reason Start Date Expiration Date Visits Re quested Visits Authorized [id number] Closed 11/02/2023 07/30/2024 1 1 Reason Comments pt here to est care Pt having issues wit h anxiety and BP Specialty Diagnoses / Procedures Referred By Natacha t Referred To Contact Primary Care Procedures Follow Up In Primary Care - Established Yandel Hinojosa PA-C [address] [facility] [place], [address] [address] Phone: tel: fax: Referral ID Status Reason Start Date Expiration Date V isits Requested Visits Authorized [id number] Authorized 05/30/2024 05/30/2025 1 1 Reason Comments pt here for 3 month med check Pt has a l ump on the ride side of neck possible lymph node Reason Comments Alcohol Intoxication Suicidal Specialty Diagnoses / Procedures Referred By Natacha t Referred To Contact Diagnoses Alcoholic intoxication without complication (HCC) Severe episode of recurrent major depressive disorder, without psychotic features (HCC) Unspecified mood (affective) disorder Referral ID Status Reason Start Date Expiration Date Visits Re quested Visits Authorized [id number] 1 1 Reason Comments Ear Pain left x this am Care Teams (unrecognized sec tion and content) Social Scientist Relationship Specialty Start Date End Date Jaquelin Nayak MD [address] [place] [address] PCP - General Internal Medicine 06/17/16 Team Status: Active Member Role Status Dates Dr. Jaquelin Nayak MD Primary Care Provider Active Team Status: Inactive Member Role Status Dates Dr. Tom Soto DO Emergency Provider Active Dr. Jaquelin Nayak MD Primary Care Provider Active Social Scientist Relationship Specialty Start Date End Date Jaquelin Nayak MD [address] [place] [address] PCP - General Internal Medicine 06/17/16 Social Scientist Relationship Specialty Start Date End Date Jaquelin Nayak MD [address] [place] [address] PCP - General Internal Medicine 06/17/16 Social Scientist Relationship Specialty Start Date End Date Jaquelin Nayak MD [address] [place] [address] PCP - General Internal Medicine 06/17/16 Social Scientist Relationship Specialty Start Date End Date Jaquelin Nayak MD [address] [place] [address] PCP - General Internal Medicine 06/17/16 Social Scientist Relationship Specialty Start Date End Date Jaquelin Nayak MD [address] [place] [address] PCP - General Internal Medicine 06/17/16 Social Scientist Relationship Specialty Start Date End Date Jaquelin Nayak MD [address] [place] [address] PCP - General Internal Medicine 06/17/16 Social Scientist Relationship Specialty Start Date End Date Jaquelin Nayak MD [address] [place], [place] [id number] PCP - General Internal Medicine 06/17/16 Social Scientist Relationship Specialty Start Date End Date Jaquelin Nayak MD [address] [place], [place] [address] PCP - General Internal Medicine 06/17/16 Social Scientist Relationship Specialty Start Date End Date Yandel Hinojosa PA-C [address] [facility], [facility] [address] [place] [address] PCP - General Family Medicine 10/07/24 Social Scientist Relationship Specialty Start Date End Date Yandel Hinojosa PA-C [address] [facility] [address] [place] [id number] PCP - General Family Medicine 11/18/24 Social Scientist Relationship Specialty Start Date End Date Yandel Hinojosa PA-C [address] [facility], [address] [place] [address] PCP - General Family Medicine 12/17/24 Celsa Bellamy APRN.ETHYLENE OXIDE PANELBOARD OPERATOR [address] [place], [place] [address] Hadoop Application Developer Internal Medicine 07/07/24 Goals (unrecognized section and content) Goals may be documented in a n alternate section Scheduled Active and Recently Administ ered Medications (unrecognized section and content) Medication Order 11/20/2024 11/21/2024 11/22/2024 FLUoxetine (PROZAC) capsule 20 mg 20 mg, Oral, Daily, First dose on Mon11/19/24 at 1700 0822 (Given - Provider: Agustina Suarez RN) 0810 (Given - Provider: Amelia Casey LPN) 0848 (Given - Provider: Jeevan Santos LPN) lamoTRIgine (LAMICTAL) tablet 100 mg 100 mg, Oral, Daily, First dose on Mon11/19/24 at 1700 0821 (Given - Provider: Agustina Suarez RN) 0810 (Given - Provider: Amelia Casey LPN) 0848 (Given - Provider: Jeevan Santos LPN) losartan (COZAAR) tablet 50 mg 50 mg, Oral, Daily, First dose on Mon11/19/24 at 1245 0822 (Given - Provider: Agustina Suarez RN) 0810 (Given - Provider: Amelia Casey LPN) 0848 (Given - Provider: Jeevan Santos LPN) pantoprazole (PROTONIX) EC tablet 20 mg 20 mg, Oral, 2 times daily, First dose (after last modification) on Mon11/19/24 at 2345, DO NOT CRUSH OR CHEW. 0822 (Given - Provider: Agustina Suarez RN)7 (Given - Provider: Yoli Gil RN) 0810 (Given - Provider: Amelia Casey LPN)2129 (Given - Provider: Kriss Su, ISABELA) 0848 (Given - Provider: Jeevan Santos LPN) PRN Medication Order 11/20/2024 11/21/2024 11/22/2024 acetaminophen (TYLENOL) tablet 650 mg 650 mg, Oral, Every 4 hours PRN, mild pain, Starting on Mon11/18/24 at 2355 aluminum-magnesium hydroxide-simethicone (MAALOX PLUS) 200-200-20 mg/5 mL suspension 30 mL 30 mL, Oral, Every 4 hours PRN, indigestion, Starting on Mon11/18/24 at 2355 benztropine (COGENTIN) injection 2 mg 2 mg, Intramuscular, Once as needed, acute dystonia, Starting on Mon11/18/24 at 2355, For 1 dose, [] and notify the physician. haloperidoL (HALDOL) tablet 5 mg(Linked Group 1) 5 mg, Oral, Every 4 hours PRN, agitation, ORAL FIRST LINE agent for agitation, Starting on Mon11/18/24 at 2353, If oral route is available, use oral first line agent. Use linked IM agent (IF ordered) if oral route unavailable. If additional agitation medication is necessary within 30 minutes (prior to second line agent-IF ordered), contact provider. May cause QT interval prolongation. haloperidol lactate (HALDOL) injection 5 mg(Linked Group 1) 5 mg, Intramuscular, Every 4 hours PRN, agitation, alternate IM FIRST LINE agent for agitation, Starting on Mon11/18/24 at 2353, If oral route is available, use oral first line agent. Use linked IM agent (IF ordered) if oral route unavailable. If additional agitation medication is necessary within 30 minutes (prior to second line agent-IF ordered), contact provider. May cause QT interval prolongation. hydrOXYzine (ATARAX) tablet 50 mg 50 mg, Oral, Every 6 hours PRN, anxiety, Starting on Mon11/19/24 at 0016 magnesium hydroxide (MOM) 400 mg/5 mL suspension 2,400 mg 2,400 mg (30 mL), Oral, Daily PRN, constipation, constipation, Starting on Mon11/18/24 at 2355 OLANZapine (ZyPREXA) injection 5 mg 5 mg, Intramuscular, Every 4 hours PRN, agitation, SECOND LINE agent for agitation, Starting on Mon11/18/24 at 2354, May give 30 minutes after first line agent if needed for agitation management. Contact provider if additional agitation management is necessary. Do not give IM olanzapine within 2 hours of IM lorazepam. Maximum 30 mg of IM olanzapine total per 24 hours. May cause QT interval prolongation. If not already reconstituted, reconstitute 10 mg vial with 2.1 mL sterile water inj. Final concentration = 5 mg/mL. FOR IM USE ONLY. Use within 1 hr. traZODone (DESYREL) tablet 50 mg 50 mg, Oral, Nightly PRN, sleep, Starting on Mon11/18/24 at 2355, May repeat once after 30 minutes if still awake. 2130 (Given - Provider: Kriss Su RN) Linked Groups Order Group 1: haloperidoL (HALDOL) tablet 5 mgJump to med 5 mg, Oral, Every 4 hours PRN, agitation, ORAL FIRST LINE agent for agitation, Starting on Mon11/18/24 at 2353, If oral route is available, use oral first line agent. Use linked IM agent (IF ordered) if oral route unavailable. If additional agitation medication is necessary within 30 minutes (prior to second line agent- IF ordered), contact provider. May cause QT interval prolongation. Or haloperidol lactate (HALDOL) injection 5 mgJump to med 5 mg, Intramuscular, Every 4 hours PRN, agitation, alternate IM FIRST LINE agent for agitation, Starting on Mon11/18/24 at 2353, If oral route is available, use oral first line agent. Use linked IM agent (IF ordered) if oral route unavailable. If additional agitation medication is necessary within 30 minutes (prior to second line agent-IF ordered), contact provider. May cause QT interval prolongation. FOR RECORDS PERTAINING TO PATIENTS WHO ARE OR HAVE BEEN ENROLLED IN A CHEMICAL DEPENDENCY/SUBSTANCEABUSE PROGRAM, SOME INFORMATION MAY BE OMITTED. This clinical summary was aggregated from multiple sources. Caution should be exercised in using it in the provision of clinical care. This summary normalizes information from multiple sources, and as a consequence, information in this document may materially change the coding, format and clinical context of patient data. In addition, data may be omitted in some cases. CLINICAL DECISIONS SHOULD BE BASED ON THE PRIMARY CLINICAL RECORDS. [employer] provides no warranty or guarantee of the accuracy or completeness of information in this document.
[2025-01-31 13:57] LABS: Alcohol, Blood (Medical)-Serum 95.1 mg/dL (<=10.0); Anion Gap 19 (5-15); BUN 9 mg/dL (4-19); BUN/Creat Ratio 8.3 RATIO (10-20); Calcium,Total 9.5 mg/dL (7.6-11.0); Carbon Dioxide 21.5 mmol/L (21.0-32.0); Chloride 96 mmol/L (98-108); Estimated Creatinine Clearance 111.05 ml/min (50-250); Glucose 103 mg/dL (70-99); Potassium 3.4 mmol/L (3.3-5.1)
[2025-01-31 14:29] LABS: Barbiturate Urine NEGATIVE (< 200 ng/mL); Benzodiazepine Urine NEGATIVE (< 200 ng/mL); PCP Urine NEGATIVE (< 25 ng/mL); THC Urine PRESUMPTIVE POSITIVE (< 50 ng/mL)
--- NOTE | 2025-01-31 14:47 | HP.PCM.HOS_ITS ---
HPI - General General Date of Admission: 01/31/25 Date of Service: 01/31/25 Chief Complaint: Alcohol detox HPI Narrative YOSSI MORRISON, is a 44 M who presented to [facility] ED on 01/31/2025 with alcohol withdrawal and desire for detox. Medical history significant for severe anxiety/depression with suicidal ideation, hypertension, GERD and gout. Per [facility] records, patient was hospitalized at [facility] in late October for inpatient psychiatry for suicidal ideation. Per that discharge summary, patient has prior history of psychiatric hospitalization, alcohol use disorder and significant psychosocial stressors including his mother's critical illness, sister's homelessness and substance abuse and financial strain. Patient did well there and was able to be discharged home after a 4-day hospitalization. He presents today with alcohol withdrawal symptoms and desire for detox. States he has been drinking approximately 4 beat boxes daily which have similar alcohol content to wine. Vitals in the ED notable for hypertension to the 150s over 110s systolic and tachycardia to the 110s. He was given a dose of IV Ativan with some improvement in withdrawal symptoms. Hospitalist was then contacted for admission. I saw the patient at bedside in the ED, family member was present. Patient was sitting comfortably at the edge of the bed but had facial flushing noted and mild tremors noted. Stated that he felt anxious currently but is improved after the dose of Ativan. He denies any other acute pain or discomfort. Will be admitted for further management. [facility] Medical History (Updated 01/31/25 @ 15:[address] Tavon Eric, DO) Hypertension GERD (gastroesophageal reflux disease) Depression Anxiety Home Medications ?Medication ?Instructions ?Recorded ?Last Taken ?Type allopurinol 300 mg tablet 300 mg PO DAILY 10/05/22 Unk nown History amlodipine 5 mg tablet 5 mg PO DAILY 10/05/22 Unkno wn History omeprazole 20 mg capsule,delayed 20 mg PO BID 10/05/22 Unknown History release albuterol sulfate 90 mcg/actuation 2 puff inhalation Q 6H PRN PRN 01/31/25 Unknown History aerosol inhaler wheezing fluoxetine 20 mg capsule 20 mg PO DAILY 01/31/25 Unkn own History lamotrigine 100 mg tablet 100 mg PO DAILY 01/31/25 Unk nown History losartan 50 mg tablet 50 mg PO DAILY 01/31/25 Unkn own History trazodone 50 mg tablet 50 mg PO QHS PRN PRN insomni a 01/31/25 Unknown History Allergy/AdvReac Type Severity Reaction Status Date / Time No Known Allergies Allergy Verified 01/31/25 12:44 Social History Smoking Status: Never smoker ROS Constitutional Constitutional: Denies chills, fatigue, fever(s) or weakness Eyes Eyes: Denies change in vision Cardiovascular Cardiovascular: Denies chest pain Respiratory/Chest Respiratory/Chest: Denies shortness of breath at rest Gastrointestinal Gastrointestinal: Reports nausea; Denies abdominal pain, constipation, diarrhea or vomiting Genitourinary Genitourinary: Denies dysuria Neurologic Neurologic: Denies dizziness, focal weakness or headache(s) Psychiatric Psychiatric: Reports anxiety Vital Signs Vital Signs Vital Signs: 01/31/25 12:44 01/31/25 13:12 01/31/25 13:44 Temperature 97 F L Temperature Source Temporal Pulse Rate 125 H 112 H 110 H Respiratory Rate 14 12 14 Blood Pressure 140/115 H 154/98 H 145/71 H Blood Pressure Mean 123 116 95 Blood Pressure Source Monitor Blood Pressure Position Semi-Fowlers Blood Pressure Location Right Arm Pulse Ox 97 98 98 Oxygen Delivery Method Room Air Room Air Room Air 01/31/25 14:22 Temperature 98.7 F Temperature Source Pulse Rate 119 H Respiratory Rate 22 H Blood Pressure 157/110 H Blood Pressure Mean 125 Blood Pressure Source Blood Pressure Position Blood Pressure Location Pulse Ox 100 Oxygen Delivery Method Weight Weight: 101.3 kg Body Mass Index (BMI) 29.5 Physical Exam Const alert, oriented x3 and average body habitus Constitutional Narrative: Middle-age male, facial flushing noted, anxious appearing, otherwise sitting up at the edge of the bed fairly comfortably, answering questions appropriately, in no acute distress. General Appearance: cooperative HEENT normocephalic, head/scalp atraumatic, hearing grossly normal bilaterally, nasal mucous membranes and turbinates normal and moist oral mucous membranes Eyes PERRL, EOMs intact bilaterally and conjunctivae normal Neck full ROM Chest inspection of chest normal Resp normal respiratory effort, normal air movement, no use of accessory muscles and clear to auscultation bilaterally Cardio no murmurs and peripheral pulses 2+ throughout Cardio Narrative: Tachycardic, regular rhythm.` GI normal to inspection, nondistended, normoactive bowel sounds, soft to palpation, non-tender and non-distended Back/Spine normal ROM Extremity normal to inspection, full ROM and no pedal edema Skin no rashes or lesions noted Psych mental status grossly normal Mood & Affect: anxious Results Lab / Micro Data 01/31/25 12:53 01/31/25 12:53 Labs: Laboratory Results - last 24 hr 01/31/25 12:53: WBC 13.6 H, RBC 5.74, Hgb 18.7 H*, Hct 50.6, MCV 88.2, MCH 32.6 H, MCHC 37.0 H, RDW Std Deviation 42.3, RDW Coeff of [place] 13.1, Plt Count 319, MPV 8.3, Immature Gran % (Auto) 0.700, Neut % (Auto) 70.7 H, Lymph % (Auto) 18.7 L, Harris % (Auto) 9.3, Eos % (Auto) 0.2, Baso % (Auto) 0.4, Absolute Neuts (auto) 9.6 H, Absolute Lymphs (auto) 2.53, Nucleated RBC % 0, Sodium 136, Potassium 3.4, Chloride 96 L, Carbon Dioxide 21.5, Anion Gap 19 H, BUN 9, Creatinine 1.04, Estim Creat Clear Calc 111.05, Est GFR (MDRD) Non-Af 90, BUN/Creatinine Ratio 8.3 L, Glucose 103 H, Calcium 9.5, Ethyl Alcohol 95.1 H 01/31/25 14:02: Urine Opiates Screen NEGATIVE, U Buprenorphine Qual NEGATIVE, Ur Oxycodone Screen NEGATIVE, Urine Methadone Screen NEGATIVE, Urine Fentanyl Screen NEGATIVE, Ur Barbiturates Screen NEGATIVE, Ur Phencyclidine Scrn NEGATIVE, Ur Amphetamines Screen NEGATIVE, U Benzodiazepines Scrn NEGATIVE, Urine Cocaine Screen NEGATIVE, U Cannabinoids Screen PRESUMPTIVE POSITIVE Assessment & Plan Assessment/Plan (1) Alcohol abuse: (2) Desire for detoxification: PLAN: Plan Patient is a 44-year-old male who presented to [facility] ED on 01/31/2025 with alcohol withdrawal and desire for detox. 1. Alcohol abuse with withdrawal and desire for detox ? Admit under inpatient status to [facility]. Case management consulted. Alcohol level 95 on admit. Recently hospitalized for inpatient psych as below but denies prior hospitalizations for alcohol detox specifically. Hypertensive and tachycardic with moderate symptoms noted on admit. Will treat with phenobarbital taper and other as needed medications per alcohol withdrawal order set. Appreciate case management recommendations. 2. Severe anxiety/depression with history of suicidal ideation and psychiatric hospitalizations ? Hospitalized at [facility] in October for severe depression with suicidal ideation. Did well during that hospitalization per discharge summary from [facility], was discharged home after 4-day hospital stay. Continue home fluoxetine and lamotrigine. 3. Mild leukocytosis and erythrocytosis ?WBC count 13, hemoglobin 18.7 on admit. No prior baseline available. Patient reports being a non-smoker. Likely due to some degree of dehydration. Given IV fluid bolus on admit. Follow-up a.m. CBC. Chronic medical conditions: ? Hypertension: Continue home amlodipine and losartan. ? History of gout: Continue home allopurinol. ? GERD: Continue home PPI. DVT prophylaxis: Lovenox CODE STATUS: Full code, unverified Expected disposition: TBD Total clinical time spent by myself addressing the patient's medical issues, reviewing all the data, and collaborating with patient's care team: 55 minutes. Charges/Coding Visit Charges Inpatient E&M: 55629 Init Hosp L2
--- OUTSIDE RECORDS SUMMARY | 2025-01-31 15:45 | XMS RPT_ITS | CCD ---
Author Organization [facility] Inform ion Partnership [facility] Care Team Providers Care Centerless Grinder Name Role Phone Jaquelin Nayak MD Primary Care Provider Tom Soto Attending Unavailable Jaquelin Nayak Primary Care Unavailable Yuan MANN, Jaquelin Primary Care Provider Jaquelin Nayak MD Primary Care Provider [phone] Unavailable Primary Care Provider Unavailabl e Stentz PA-C, Yandel Primary Care Provider Stentz PA-C, Yandel Primary Care Provider MARVEL DUBOSE Attending Unavailab le BULLOCKMARVEL ANDERSON Consulting Unavailab le MARVEL DUBOSE Admitting Unavailab le STENTZ, YANDEL Primary Care Unavailable STENTZ, YANDEL Attending Unavailable STENTZ, YANDEL Attending Unavailable STENTZ, YANDEL Primary Care Unavailable 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 once daily multivitamin tablet Take 1 [...] Comment on above: Take 1 capsule by [facility] twice daily. 1/2 hr before meal. Take 1 capsule by [facility] two times a day. 1/2 hr before [...] on above: Take 1 capsule by [facility] twice daily. Take 250 mg by mouth once daily. Take 500 mg by mouth once daily. Completed/Discontinued Medications Medication Drug Class(es) Dates Sig (Normalized) Sig (Original) acetaminophen 325 mg oral tablet (1 source) Start: 11-18-2024 End: 11-22-2024 take 1 tablet by mouth every four hours as needed for pain 650 mg, Oral, Every 4 hours PRN, mild pain, Starting on 11/18/24 at 2355 [id number] 200 actuat albuterol 0.09 mg/actuat metered dose [...] Value Interpretation Reference Range Facility Mattie 01-11-2025 [facility] Office Visit (UCWSTR ) -------- COREY MORRISON ([id number]) 1980 M Date Time Provider Department 01/11/25 8:15 AM ARIEL PETTY [facility] During your visit today, we recorded [...] Prescribed antibiotic ear drops; sent prescription to [facility] pharmacy. and Recording using [employer] software for draft documentation of the visit was discussed with the patient/authorized field marketing representative; all questions welcomed and answered. Patient/authorized field marketing representative agreed to proceed Differential Diagnoses - otitis externa is more likely for the following reason(s): suggested by HANDP - otitis media is less likely for the following reason(s): HANDP not suggestive Disposition (more content not included)... Normal [facility] Lipid 1996 panelon Cholesterol [Mass/Vol] 201 mg/dL High 100 - 199 mg/dL [facility] Cholesterol in HDL [Mass/Vol] 50 mg/dL 40 - 59 mg/dL [facility] Cholesterol in LDL [Mass/Vol] 114 mg/dL 10 - 130 mg/dL [facility] Comment on above: National Cholesterol Education Program Guidelines: LDL Cholesterol Optimal: <100 mg/dL Near Optimal/above Optimal: 100-129 mg/dL Borderline High: 130-159 mg/dL High: 160-189 mg/dL Very High: greater than or equal to 190 mg/dL Cholesterol non HDL [Mass/Vol] 151 mg/dL [facility] Comment on above: National Cholesterol Education Program Guidelines: NON HDL Cholesterol Desirable: <130 mg/dL Borderline High: 130-159 mg/dL High: 160-189 mg/dL Very High: > or = 190 mg/dL Cholesterol.total/Cho lesterol in HDL [Mass ratio] 4 {ratio} ratio [facility] Comment on above: Males Cholesterol/HD L Ratio: Average risk: 5.0 1/2 average risk: 3.4 2 x average risk: 9.6 Interpretation and review of laboratory results Abnormal [facility] Triglyceride [Mass/Vol] 184 mg/dL High 30 - 150 mg/dL [facility] No Panel Informationon 11-19 [facility] TSH DL <= 0.005 mIU/L Qnon 0 11-19-2024 Interpretation and review of laboratory results Normal [facility] TSH Qn 0.53 m[IU]/L [facility] URINALYSISon 11-19-2024 BACTERIA, URINE None Seen Normal None Seen [facility] Comment on above: Order Comment: Micro scopic examination is performed on all urinalysis samples and only positive findings are reported. The test for blood on the chemical analytic portion of urinalysis may also be positive due to hemoglobinuria and myoglobinuria and if red blood cells are present they are quantified by microscopic examination. Performed By: #### 4 [id number] #### LAB [address] [address] Arnold Bishop M.D. [id number] BILIRUBIN, URINE Negative Normal Negative [facility] Comment on above: Order Comment: Micro scopic examination is performed on all urinalysis samples and only positive findings are reported. The test for blood on the chemical analytic portion of urinalysis may also be positive due to hemoglobinuria and myoglobinuria and if red blood cells are present they are quantified by microscopic examination. Performed By: #### 4 [id number] #### LAB [address] [address] Arnold Bishop M.D. [id number] BLOOD, URINE Small Abnormal Negative [facility] Comment on above: Order Comment: Micro scopic examination is performed on all urinalysis samples and only positive findings are reported. The test for blood on the chemical analytic portion of urinalysis may also be positive due to hemoglobinuria and myoglobinuria and if red blood cells are present they are quantified by microscopic examination. Performed By: #### 4 [id number] #### LAB [address] [address] Arnold Bishop M.D. [id number] Clarity (U) Clear Normal Clear [facility] Comment on above: Order Comment: Micro scopic examination is performed on all urinalysis samples and only positive findings are reported. The test for blood on the chemical analytic portion of urinalysis may also be positive due to hemoglobinuria and myoglobinuria and if red blood cells are present they are quantified by microscopic examination. Performed By: #### 4 [id number] #### LAB [address] [address] Arnold Bishop M.D. [id number] Color (U) Colorless Normal Colorless, Yellow [facility] Comment on above: Order Comment: Micro scopic examination is performed on all urinalysis samples and only positive findings are reported. The test for blood on the chemical analytic portion of urinalysis may also be positive due to hemoglobinuria and myoglobinuria and if red blood cells are present they are quantified by microscopic examination. Performed By: #### 4 [id number] #### LAB [address] [address] Arnold Bishop M.D. [id number] Glucose Ql (U) Negative Normal Negative [facility] Comment on above: Order Comment: Micro scopic examination is performed on all urinalysis samples and only positive findings are reported. The test for blood on the chemical analytic portion of urinalysis may also be positive due to hemoglobinuria and myoglobinuria and if red blood cells are present they are quantified by microscopic examination. Performed By: #### 4 [id number] #### LAB [address] [place] [address] Arnold Bishop M.D. [id number] Ketones Ql (U) Negative Normal Negative [facility] Comment on above: Order Comment: Micro scopic examination is performed on all urinalysis samples and only positive findings are reported. The test for blood on the chemical analytic portion of urinalysis may also be positive due to hemoglobinuria and myoglobinuria and if red blood cells are present they are quantified by microscopic examination. Performed By: #### 4 [id number] #### LAB [address] [place] [address] Arnold Bishop M.D. [id number] Leukocyte esterase Test strip Ql (U) Negative Normal Negative [facility] Comment on above: Order Comment: Micro scopic examination is performed on all urinalysis samples and only positive findings are reported. The test for blood on the chemical analytic portion of urinalysis may also be positive due to hemoglobinuria and myoglobinuria and if red blood cells are present they are quantified by microscopic examination. Performed By: #### 4 6625 #### LAB [address] [address] Arnold Bishop M.D. [id number] NITRITE, URINE Negative Normal [facility] Comment on above: Order Comment: Micro scopic examination is performed on all urinalysis samples and only positive findings are reported. The test for blood on the chemical analytic portion of urinalysis may also be positive due to hemoglobinuria and myoglobinuria and if red blood cells are present they are quantified by microscopic examination. Performed By: #### 4 6625 #### LAB [address] [id number] Arnold Bishop M.D. [id number] pH (U) 7.0 [pH] Normal 5.0-7.0 [facility] Comment on above: Order Comment: Micro scopic examination is performed on all urinalysis samples and only positive findings are reported. The test for blood on the chemical analytic portion of urinalysis may also be positive due to hemoglobinuria and myoglobinuria and if red blood cells are present they are quantified by microscopic examination. Performed By: #### 4 6625 #### LAB [address] [place] [address] Arnold Bishop M.D. [id number] PROTEIN, URINE Negative Normal Negative [facility] Comment on above: Order Comment: Micro scopic examination is performed on all urinalysis samples and only positive findings are reported. The test for blood on the chemical analytic portion of urinalysis may also be positive due to hemoglobinuria and myoglobinuria and if red blood cells are present they are quantified by microscopic examination. Performed By: #### 4 6625 #### LAB [address] [address] Arnold Bishop M.D. [id number] Specific gravity (U) [Rel density] 1.006 Normal 1.005-1.025 [facility] Comment on above: Order Comment: Micro scopic examination is performed on all urinalysis samples and only positive findings are reported. The test for blood on the chemical analytic portion of urinalysis may also be positive due to hemoglobinuria and myoglobinuria and if red blood cells are present they are quantified by microscopic examination. Performed By: #### 4 6625 #### LAB [address] [address] Arnold Bishop M.D. [id number] UROBILINOGEN, URINE <2.0 Normal <2.0 [facility] Comment on above: Order Comment: Micro scopic examination is performed on all urinalysis samples and only positive findings are reported. The test for blood on the chemical analytic portion of urinalysis may also be positive due to hemoglobinuria and myoglobinuria and if red blood cells are present they are quantified by microscopic examination. Performed By: #### 4 6625 #### LAB [address] [place], [place] [address] Arnold Bishop M.D. [id number] UrinalysisOrdered By: Tory Díaz on 11-19-2024 Bacteria Auto Ql (U) None Seen None Se en /hpf [facility] Bilirubin Ql (U) Negative Negative [facility] th Clarity Refractometry automated (U) Clear Clear [facility] Color (U) Colorless Colorless, Yellow [facility] Glucose Auto test strip (U) [Mass/Vol] Negative Negative mg/dL [facility] Hemoglobin Auto test strip Ql (U) Small Abnormal Negative [facility] Interpretation and review of laboratory results Abnormal [facility] Ketones (U) [Mass/Vol] Negative Negative mg/dL [facility] Leukocyte esterase Auto test strip Ql (U) Negative Negative [facility] Nitrite Auto test strip Ql (U) Negative Negative [facility] pH (U) 7 [pH] 5.0 - 7.0 [facility] Protein (U) [Mass/Vol] Negative Negative mg/dL [facility] Specific gravity (U) [Rel density] 1.006 1.005 - 1.025 [facility] Urobilinogen (U) [Mass/Vol] mg/dL NINF - 2.0 mg/dL [facility] Microscopic examinat ion is performed on all urinalysis samples and only positive findings are reported. The test for blood on the chemical analytic portion of urinalysis may also be positive due to hemoglobinuria and myoglobinuria and if red blood cells are present they are quantified by microscopic examination. [facility] ALCOHOL, MEDICALon 5 ALCOHOL MEDICAL 39.8 mg/dL High <10.0 [facility] Comment on above: Performed By: #### 4 [id number] #### LAB [address] [place], [place] [address] Arnold Bishop M.D. [id number] ALCOHOL MEDICAL 172.0 mg/dL High <10.0 [facility] Comment on above: Performed By: #### 4 5033 #### [facility] LAB [address] [place], [place] [address] Arnold Bishop M.D. [id number] Alcohol Levelon 11-18-2024 Ethanol [Mass/Vol] 39.8 mg/dL High NINF - 10 .0 mg/dL [facility] Alcohol, Medicalon Ethanol [Mass/Vol] 172 mg/dL High NINF - 10 .0 mg/dL [facility] CBC Auto Differentialon 10-30 Basophils (Bld) [#/Vol] 0.04 10*3/uL [facility] Basophils/100 WBC (Bld) 0.6 % [facility] Eosinophils (Bld) [#/Vol] 0.05 10*3/uL [facility] Eosinophils/100 WBC (Bld) 0.7 % [facility] Erythrocyte distribution width (RBC) [Entitic vol] 12.8 % 11.6 - 14.8 % [facility] Hematocrit (Bld) [Volume fraction] 45.9 % 41.0 - 53.0 % [facility] Hemoglobin (Bld) [Mass/Vol] 16.2 g/dL 13.5 - 17.5 g/dL [facility] Immature granulocytes (Bld) [#/Vol] 0.06 10*3/uL [facility] Immature granulocytes/100 WBC (Bld) 0.9 % [facility] Comment on above: The IG parameter is the percentage of metamyelocytes, myelocytes and promyelocytes. An immature granulocyte count (IG) of 1% or more suggests the possibility of infection, an IG count of 3% is very likely related to an infection. Interpretation and review of laboratory results Abnormal [facility] Lymphocytes (Bld) [#/Vol] 1.74 10*3/uL [facility] Lymphocytes/100 WBC (Bld) 25.3 % [facility] MCH (RBC) [Entitic mass] 32.5 pg 26.0 - 34.0 pg [facility] MCHC (RBC) [Mass/Vol] 35.3 g/dL 31.0 - 37.0 g/dL [facility] MCV (RBC) [Entitic vol] 92 fL 80.0 - 100.0 fL [facility] Monocytes (Bld) [#/Vol] 0.34 10*3/uL [facility] Monocytes/100 WBC (Bld) 4.9 % [facility] Neutrophils (Bld) [#/Vol] 4.65 10*3/uL [facility] Neutrophils/100 WBC (Bld) 67.6 % [facility] Nucleated RBC (Bld) [#/Vol] 0 10*3/uL [facility] Nucleated RBC/100 WBC (Bld) [Ratio] 0 % [facility] Platelet mean volume (Bld) [Entitic vol] 9 fL Low 9.4 - 12.4 fL [facility] Platelets (Bld) [#/Vol] 209 10*3/uL [facility] RBC (Bld) [#/Vol] 4.99 10*6/uL [facility] WBC (Bld) [#/Vol] 6.88 10*3/uL [facility] CBC WITH AUTO DIFFERENTIALon 11-18-2024 AUTO NRBC 0.0 % [facility] Comment on above: Performed By: #### L [id number] #### LAB [address] [place] [address] Arnold Bishop M.D. [id number] AUTO NRBC ABS COUNT 0.00 K/mcL Normal 0.00-0.00 [facility] Comment on above: Performed By: #### L [id number] #### LAB [address] [place] [address] Arnold Bishop M.D. [id number] BASOPHILS ABSOLUTE COUNT 0.04 K/mcL Normal 0.00-0.30 [facility] Comment on above: Performed By: #### L [id number] #### LAB [address] [place] [address] Arnold Bishop M.D. [id number] Basophils/100 WBC (Bld) 0.6 % Normal [facility] Comment on above: Performed By: #### L [id number] #### LAB [address] [place] [address] Arnold Bishop M.D. [id number] Eosinophils (Bld) [#/Vol] 0.05 10*3/uL Normal 0.00-0.50 [facility] Comment on above: Performed By: #### L [id number] #### LAB [address] [place], [place] [address] Arnold Bishop M.D. [id number] Eosinophils/100 WBC (Bld) 0.7 % Normal [facility] Comment on above: Performed By: #### L [id number] #### LAB [address] [address] Arnold Bishop M.D. [id number] Erythrocyte distribution width (RBC) [Ratio] 12.8 % Normal 11.6-14.8 [facility] Comment on above: Performed By: #### L [id number] #### LAB [address] [address] Arnold Bishop M.D. [id number] Hematocrit (Bld) [Volume fraction] 45.9 % Normal 41.0-53.0 [facility] Comment on above: Performed By: #### L [id number] #### LAB [address] [address] Arnold Bishop M.D. [id number] Hemoglobin (Bld) [Mass/Vol] 16.2 g/dL Normal 13.5-17.5 [facility] Comment on above: Performed By: #### L [id number] #### LAB [address] [address] Arnold Bishop M.D. [id number] IG ABSOLUTE 0.06 K/mcL Normal 0.00-0.30 [facility] Comment on above: Performed By: #### L [id number] #### LAB [address] [address] Arnold Bishop M.D. [id number] IG PERCENT 0.90 % Normal [facility] Comment on above: Result Comment: The IG parameter is the percentage of metamyelocytes, myelocytes and promyelocytes. An immature granulocyte count (IG) of 1% or more suggests the possibility of infection, an IG count of 3% is very likely related to an infection. Performed By: #### L [id number] #### LAB [address] [address] Arnold Bishop M.D. [id number] Lymphocytes (Bld) [#/Vol] 1.74 10*3/uL Normal 0.90-4.00 [facility] Comment on above: Performed By: #### L [id number] #### LAB [address] [address] Arnold Bishop M.D. [id number] Lymphocytes/100 WBC (Bld) 25.3 % Normal [facility] Comment on above: Performed By: #### L [id number] #### LAB [address] [address] Arnold Bishop M.D. [id number] MCH (RBC) [Entitic mass] 32.5 pg Normal 26.0-34.0 [facility] Comment on above: Performed By: #### L [id number] #### LAB [address] [address] Arnold Bishop M.D. [id number] MCV (RBC) [Entitic vol] 92.0 fL Normal 80.0-100.0 [facility] Comment on above: Performed By: #### L [id number] #### LAB [address] [place] [address] Arnold Bishop M.D. [id number] MEAN CORPUSCULAR HEMOGLOBIN CONC 35.3 g/dL Normal 31.0-37.0 [facility] Comment on above: Performed By: #### L [id number] #### LAB [address] [place] [address] Arnold Bishop M.D. [id number] Monocytes (Bld) [#/Vol] 0.34 10*3/uL Normal 0.30-0.90 [facility] Comment on above: Performed By: #### L [id number] #### LAB [address] [place] [address] Arnold Bishop M.D. [id number] Monocytes/100 WBC (Bld) 4.9 % Normal [facility] Comment on above: Performed By: #### L [id number] #### LAB [address] [place] [address] Arnold Bishop M.D. [id number] NEUTROPHILS ABSOLUTE COUNT 4.65 K/mcL Normal 1.70-7.00 [facility] Comment on above: Performed By: #### L [id number] #### [facility] LAB [address] [address] Arnold Bishop M.D. [id number] Neutrophils/100 WBC (Bld) 67.6 % Normal [facility] Comment on above: Performed By: #### L [id number] #### [facility] LAB [address] [address] Arnold Bishop M.D. [id number] Platelet mean volume (Bld) [Entitic vol] 9.0 fL Low 9.4-12.4 [facility] Comment on above: Performed By: #### L [id number] #### [facility] LAB [address] [address] Arnold Bishop M.D. [id number] Platelets (Bld) [#/Vol] 209 10*3/uL Normal 150-400 [facility] Comment on above: Performed By: #### L [id number] #### [facility] LAB [address] [address] Arnold Bishop M.D. [id number] RBC (Bld) [#/Vol] 4.99 10*6/uL Normal 4.50-5.90 [facility] Comment on above: Performed By: #### L [id number] #### [facility] LAB [address] [address] Arnold Bishop M.D. [id number] WBC (Bld) [#/Vol] 6.88 10*3/uL Normal 4.50-11.00 [facility] Comment on above: Performed By: #### L [id number] #### [facility] LAB [address] [address] Arnold Bishop M.D. [id number] COMPREHENSIVE METABOLIC PANE Ismael 11-18-2024 Albumin [Mass/Vol] 4.7 g/dL Normal 3.2-5.2 [facility] Comment on above: Order Comment: [facility] has implemented the eGFR calculation approach that does not have a coefficient for race that conforms to the NKF-ASN Task Force Recommendations. Performed By: #### 4 [id number] #### LAB [address] [address] Arnold Bishop M.D. [id number] ALP [Catalytic activity/Vol] 92 U/L Normal 40-150 [facility] Comment on above: Order Comment: [facility] has implemented the eGFR calculation approach that does not have a coefficient for race that conforms to the NKF-ASN Task Force Recommendations. Performed By: #### 4 6126 #### LAB [address] [address] Arnold Bishop M.D. [id number] ALT [Catalytic activity/Vol] 52 U/L High 0-50 U/L [facility] Comment on above: Order Comment: [facility] has implemented the eGFR calculation approach that does not have a coefficient for race that conforms to the NKF-ASN Task Force Recommendations. Performed By: #### 4 6126 #### LAB [address] [address] Arnold Bishop M.D. [id number] Anion gap [Moles/Vol] 18 mmol/L Normal 10-20 [facility] Comment on above: Order Comment: [facility] has implemented the eGFR calculation approach that does not have a coefficient for race that conforms to the NKF-ASN Task Force Recommendations. Performed By: #### 4 6126 #### LAB [address] [address] Arnold Bishop M.D. [id number] AST [Catalytic activity/Vol] 30 U/L Normal 0-50 U/L [facility] Comment on above: Order Comment: [facility] has implemented the eGFR calculation approach that does not have a coefficient for race that conforms to the NKF-ASN Task Force Recommendations. Performed By: #### 4 6126 #### LAB [address] [address] Arnold Bishop M.D. [id number] Bilirubin [Mass/Vol] 0.4 mg/dL Normal 0.0-1.3 [facility] Comment on above: Order Comment: [facility] has implemented the eGFR calculation approach that does not have a coefficient for race that conforms to the NKF-ASN Task Force Recommendations. Performed By: #### 4 6126 #### LAB [address] [address] Arnold Bishop M.D. [id number] Calcium [Mass/Vol] 9.3 mg/dL Normal 8.4-10.2 [facility] Comment on above: Order Comment: [facility] has implemented the eGFR calculation approach that does not have a coefficient for race that conforms to the NKF-ASN Task Force Recommendations. Performed By: #### 4 6126 #### LAB [address] [address] Arnold Bishop M.D. [id number] Chloride [Moles/Vol] 104 mmol/L Normal 98-108 [facility] Comment on above: Order Comment: [facility] has implemented the eGFR calculation approach that does not have a coefficient for race that conforms to the NKF-ASN Task Force Recommendations. Performed By: #### 4 [id number] #### LAB [address] [address] Arnold Bishop M.D. [id number] Creatinine [Mass/Vol] 1.02 mg/dL Normal 0.50-1.30 [facility] Comment on above: Order Comment: [facility] [place] has implemented the eGFR calculation approach that does not have a coefficient for race that conforms to the NKF-ASN Task Force Recommendations. Performed By: #### 4 6188 #### LAB [address] [place] [address] Arnold Bishop M.D. [id number] EGFR 92 mL/min/1.73 m2 Normal >=60 [facility] Comment on above: Order Comment: [facility] [place] has implemented the eGFR calculation approach that does not have a coefficient for race that conforms to the NKF-ASN Task Force Recommendations. Result Comment: Nehal mated GFR was calculated using the 2020 CKD-EPI creatinine equation. Performed By: #### 4 6126 #### LAB [address] [address] Arnold Bishop M.D. [id number] Glucose [Mass/Vol] 101 mg/dL High 65-99 [facility] Comment on above: Order Comment: [facility] has implemented the eGFR calculation approach that does not have a coefficient for race that conforms to the NKF-ASN Task Force Recommendations. Performed By: #### 4 6126 #### LAB [address] [address] Arnold Bishop M.D. [id number] HCO3 (Bld) [Moles/Vol] 23 mmol/L Normal 21-32 [facility] Comment on above: Order Comment: [facility] has implemented the eGFR calculation approach that does not have a coefficient for race that conforms to the NKF-ASN Task Force Recommendations. Performed By: #### 4 6126 #### LAB [address] [address] Arnold Bishop M.D. [id number] Potassium [Moles/Vol] 3.8 mmol/L Normal 3.5-5.1 [facility] Comment on above: Order Comment: [facility] [place] has implemented the eGFR calculation approach that does not have a coefficient for race that conforms to the NKF-ASN Task Force Recommendations. Performed By: #### 4 6126 #### LAB [address] [address] Arnold Bishop M.D. [id number] Protein [Mass/Vol] 7.1 g/dL Normal 6.0-8.0 [facility] Comment on above: Order Comment: [facility] has implemented the eGFR calculation approach that does not have a coefficient for race that conforms to the NKF-ASN Task Force Recommendations. Performed By: #### 4 6126 #### LAB [address] [address] Arnold Bishop M.D. [id number] Sodium [Moles/Vol] 141 mmol/L Normal 135-145 [facility] Comment on above: Order Comment: [facility] has implemented the eGFR calculation approach that does not have a coefficient for race that conforms to the NKF-ASN Task Force Recommendations. Performed By: #### 4 6126 #### LAB [address] [place], [place] [address] Arnold Bishop M.D. [id number] Urea nitrogen [Mass/Vol] 10 mg/dL Normal 8-25 [facility] Comment on above: Order Comment: [facility] has implemented the eGFR calculation approach that does not have a coefficient for race that conforms to the NKF-ASN Task Force Recommendations. Performed By: #### 4 6126 #### LAB [address] [place], [place] [address] Arnold Bishop M.D. [id number] Urea nitrogen/Creatinine [Mass ratio] 9.8 mg/mg Low 10.0-20.0 [facility] Comment on above: Order Comment: [facility] has implemented the eGFR calculation approach that does not have a coefficient for race that conforms to the NKF-ASN Task Force Recommendations. Performed By: #### 4 6126 #### LAB [address] [place], [place] [address] Arnold Bishop M.D. [id number] Comprehensive metabolic 2000 panelon 11-18-2024 Albumin [Mass/Vol] 4.7 g/dL 3.2 - 5.2 g/dL [facility] ALP [Catalytic activity/Vol] 92 U/L 40 - 150 U/L [facility] ALT [Catalytic activity/Vol] 52 U/L High 0 - 50 U/L [facility] Anion gap [Moles/Vol] 18 mmol/L 10 - 2 0 mmol/L [facility] AST [Catalytic activity/Vol] 30 U/L 0 - 50 U/L [facility] Bilirubin [Mass/Vol] 0.4 mg/dL 0.0 - 1 .3 mg/dL [facility] Calcium [Mass/Vol] 9.3 mg/dL 8.4 - 10. 2 mg/dL [facility] Chloride [Moles/Vol] 104 mmol/L 98 - 10 8 mmol/L [facility] Creatinine [Mass/Vol] 1.02 mg/dL 0.50 - 1.30 mg/dL [facility] GFR/1.73 sq M.predicted CKD-EPI (S/P/Bld) [Vol rate/Area] 92 - PINF [facility] Comment on above: Estimated GFR was ca lculated using the 2020 CKD-EPI creatinine equation. Glucose [Mass/Vol] 101 mg/dL High 65 - 99 mg/dL [facility] HCO3 [Moles/Vol] 23 mmol/L 21 - 32 mmol/L [facility] Potassium [Moles/Vol] 3.8 mmol/L 3.5 - 5.1 mmol/L [facility] Protein [Mass/Vol] 7.1 g/dL 6.0 - 8.0 g/dL [facility] Sodium [Moles/Vol] 141 mmol/L 135 - 145 mmol/L [facility] Urea nitrogen [Mass/Vol] 10 mg/dL 8 - 25 mg/dL [facility] Urea nitrogen/Creatinine [Mass ratio] 9.8 mg/mg Low 10.0 - 20.0 [facility] has implemented the eGFR calculation approach that does not have a coefficient for race that conforms to the NKF-ASN Task Force Recommendations. [facility] DRUGS OF ABUSE SCREEN, URINE on 11-18-2024 AMPHETAMINE SCREEN, URINE Not detected Normal None Detected [facility] Comment on above: Order Comment: Scree n results should be used for treatment purposes only.Specimen will be kept for 2 weeks, if the sample is adequate. Confirmation testing can be initiated by calling the lab within 2 weeks. Result Comment: Urin e Amphetamine Cutoff: < 1000 ng/mL = None Detected Performed By: #### 4 6965 #### LAB [address] [address] Arnold Bishop M.D. [id number] BARBITURATE SCREEN URINE Not detected Normal None Detected [facility] Comment on above: Order Comment: Scree n results should be used for treatment purposes only.Specimen will be kept for 2 weeks, if the sample is adequate. Confirmation testing can be initiated by calling the lab within 2 weeks. Result Comment: Urin e Barbiturates Cutoff: < 200 ng/mL = None Detected Performed By: #### 4 6965 #### LAB [address] [address] Arnold Bishop M.D. [id number] BENZODIAZEPINE SCREEN, URINE Not detected Normal None Detected [facility] Comment on above: Order Comment: Scree n results should be used for treatment purposes only.Specimen will be kept for 2 weeks, if the sample is adequate. Confirmation testing can be initiated by calling the lab within 2 weeks. Result Comment: Urin e Benzodiazepine Cutoff: < 200 ng/mL = None Detected Performed By: #### 4 6965 ####[facility] [address] [address] Arnold Bishop M.D. [id number] BUPRENORPHINE, URINE Not detected Normal None Detected [facility] Comment on above: Order Comment: Scree n results should be used for treatment purposes only.Specimen will be kept for 2 weeks, if the sample is adequate. Confirmation testing can be initiated by calling the lab within 2 weeks. Result Comment: Urin e Buprenorphine Cutoff: < 5 ng/mL = None Detected Performed By: #### 4 6965 ####[facility] [address] [address] Arnold Bishop M.D. [id number] CANNABINOID SCREEN URINE Positive Abnormal None Detected [facility] Comment on above: Order Comment: Scree n results should be used for treatment purposes only.Specimen will be kept for 2 weeks, if the sample is adequate. Confirmation testing can be initiated by calling the lab within 2 weeks. Result Comment: Urin e Cannabinoids Cutoff: < 50 ng/mL = None Detected Performed By: #### 4 6965 ####[facility] [address] [address] Arnold Bishop M.D. [id number] COCAINE, SCREEN URINE Not detected Normal None Detected [facility] Comment on above: Order Comment: Scree n results should be used for treatment purposes only.Specimen will be kept for 2 weeks, if the sample is adequate. Confirmation testing can be initiated by calling the lab within 2 weeks. Result Comment: Urin e Cocaine Cutoff: < 300 ng/mL = None Detected Performed By: #### 4 6965 ####[facility] [address] [address] Arnold Bishop M.D. [id number] FENTANYL, URINE Not detected Normal None Detected [facility] Comment on above: Order Comment: Scree n results should be used for treatment purposes only.Specimen will be kept for 2 weeks, if the sample is adequate. Confirmation testing can be initiated by calling the lab within 2 weeks. Result Comment: Urin e Fentanyl Cutoff: < 1 ng/mL = None Detected Performed By: #### 4 6965 ####[facility] [address] [address] Arnold Bishop M.D. [id number] METHADONE SCREEN, URINE Not detected Normal None Detected [facility] Comment on above: Order Comment: Scree n results should be used for treatment purposes only.Specimen will be kept for 2 weeks, if the sample is adequate. Confirmation testing can be initiated by calling the lab within 2 weeks. Result Comment: Urin e Methadone Cutoff: < 300 ng/mL = None Detected Performed By: #### 4 6965 ####[facility] [address] [address] Arnold Bishop M.D. [id number] OPIATE SCREEN URINE Not detected Normal None Detected [facility] Comment on above: Order Comment: Scree n results should be used for treatment purposes only.Specimen will be kept for 2 weeks, if the sample is adequate. Confirmation testing can be initiated by calling the lab within 2 weeks. Result Comment: Urin e Opiates Cutoff: < 300 ng/mL = None Detected Performed By: #### 4 6965 ####[facility] [address] [address] Arnold Bishop M.D. [id number] OXYCODONE SCREEN, URINE Not detected Normal None Detected [facility] Comment on above: Order Comment: Scree n results should be used for treatment purposes only.Specimen will be kept for 2 weeks, if the sample is adequate. Confirmation testing can be initiated by calling the lab within 2 weeks. Result Comment: Urin e Oxycodone Cutoff: < 100 ng/mL = None Detected Performed By: #### 4 6965 ####[facility] [address] [address] Arnold Bishop M.D. [id number] Drugs of Abuse Screen, Urine Ordered By: Estelle Brown on 11-18-2024 Amphetamines Ql (U) Not detected None Detected [facility] Comment on above: Urine Amphetamine Cu toff: < 1000 ng/mL = None Detected Barbiturates Screen Ql (U) Not detected None Detected [facility] Comment on above: Urine Barbiturates C utoff: < 200 ng/mL = None Detected Benzodiazepines Ql (U) Not detected None Detected [facility] Comment on above: Urine Benzodiazepine Cutoff: < 200 ng/mL = None Detected Buprenorphine Ql (U) Not detected None Detected [facility] Comment on above: Urine Buprenorphine Cutoff: < 5 ng/mL = None Detected Cannabinoids Screen Ql (U) Positive Abnormal None Detected [facility] Comment on above: Urine Cannabinoids C utoff: < 50 ng/mL = None Detected Cocaine Ql (U) Not detected None Detected [facility] Comment on above: Urine Cocaine Cutoff : < 300 ng/mL = None Detected fentaNYL+Norfentanyl Screen Ql (U) Not detected None Detected [facility] Comment on above: Urine Fentanyl Cutof f: < 1 ng/mL = None Detected Interpretation and review of laboratory results Abnormal [facility] Methadone Screen Ql (U) Not detected None Detected [facility] Comment on above: Urine Methadone Cuto ff: < 300 ng/mL = None Detected Opiates Screen Ql (U) Not detected None Detected [facility] Comment on above: Urine Opiates Cutoff : < 300 ng/mL = None Detected oxyCODONE Ql (U) Not detected None Detected [facility] Comment on above: Urine Oxycodone Cuto ff: < 100 ng/mL = None Detected Screen results shoul d be used for treatment purposes only. Specimen will be kept for 2 weeks, if the sample is adequate. Confirmation testing can be initiated by calling the lab within 2 weeks. [facility] ED Prov Noteon 11-18-2024 ED Prov Note [facility] - Emergency Medicine Attending Note: NAME: Corey Morrison 44 y.o. CSN: [id number] PCP: Yandel Hinojosa PA-C History: Chief Complaint: [...] All other components within normal limits Narrative: [facility] has implemented the eGFR calculation [...] Procedure Abnormality Status --------- ------ CBC Auto Differential[[id number]] Abnormal Final result Please view results for these tests on the individual orders. No orders to display Procedures: Procedures ED Course / Medical Decision Making: Patient was seen today and evaluated for both medical and psychiatric illnesses. After (more content not included)... Normal [facility] Ethanol [Mass/Vol]on 025 Interpretation and review of laboratory results Abnormal [facility] LIPID PANELon 11-18-2024 Cholesterol [Mass/Vol] 201 mg/dL High 100-199 [facility] Comment on above: Performed By: #### 4 1857 #### LAB [address] [place], [place] [address] Arnold Bishop M.D. [id number] Cholesterol in HDL [Mass/Vol] 50 mg/dL Normal 40-59 [facility] Comment on above: Performed By: #### 4 6087 #### [facility] [address] [place], [place] [address] Arnold Bishop M.D. [id number] Cholesterol.total/Cho lesterol in HDL [Mass ratio] 4.0 {ratio} Normal [facility] Comment on above: Result Comment: Male s Cholesterol/HDL Ratio: Average risk: 5.0 1/2 average risk: 3.4 2 x average risk: 9.6 Performed By: #### 4 6087 #### [facility] [address] [place] [address] Arnold Bishop M.D. [id number] LDL CHOLESTEROL CALCULATED 114 mg/dL Normal 10-130 [facility] Comment on above: Result Comment: [facility] on[facility] Cholesterol Education Program Guidelines: LDL Cholesterol Optimal: <100 mg/dL Near Optimal/above Optimal: 100-129 mg/dL Borderline High: 130-159 mg/dL High: 160-189 mg/dL Very High: greater than or equal to 190 mg/dL Performed By: #### 4 6087 #### [facility] [address] [place] [address] Arnold Bishop M.D. [id number] NON HDL CHOL 151 mg/dL Normal [facility] Comment on above: Result Comment: [facility] onal Cholesterol Education Program Guidelines: NON HDL Cholesterol Desirable: <130 mg/dL Borderline High: 130-159 mg/dL High: 160-189 mg/dL Very High: > or = 190 mg/dL Performed By: #### 4 6087 #### LAB [address] [place], [place] [address] Arnold Bishop M.D. [id number] Triglyceride [Mass/Vol] 184 mg/dL High 30-150 [facility] Comment on above: Performed By: #### 4 6087 #### [facility] [address] [place] [address] Arnold Bishop M.D. [id number] No Panel Informationon 11-18 Interpretation and review of laboratory results Abnormal [facility] TSH WITH REFLEX FREE T4on TSH Qn 0.53 m[IU]/L Normal 0.27-4.20 [facility] Comment on above: Performed By: #### 4 6612 #### LAB [address] [place], [place] [address] Arnold Bishop M.D. [id number] CBC (H/H, RBC, INDICES, WBC, PLT)on 08-28-2024 HEMATOCRIT Normal [facility] Comment on above: Performed By: #### 1 7306, 75280, 7600, 52946, 81749, 1759 #### [facility] of [place] [address] [address] , [address] [place] [address] Health Lead: Jona Kaufman MD HEMOGLOBIN Normal [facility] Comment on above: Performed By: #### 1 7306, 86249, 7600, 46644, 82837, 1759 #### [facility] [place] [address] [address] [place] [address] Health Lead: Jona Kaufman MD [facility] Normal [facility] Comment on above: Performed By: #### 1 7306, 10477, 7600, 92036, 52818, 1759 #### [facility] of [place] [address] [place] [address] Health Lead: Jona Kaufman MD [facility] Normal [facility] Comment on above: Performed By: #### 1 7306, 13085, 7600, 35968, 01438, 1759 #### [facility] of [place] [address] [place] [address] Health Lead: Jona Kaufman MD MCV Normal [facility] Comment on above: Performed By: #### 1 7306, 61107, 7600, 20631, 71254, 1759 #### [facility] of [place] [address] [place] [address] Health Lead: Jona Kaufman MD MPV Normal [facility] Comment on above: Performed By: #### 1 7306, 54363, 7600, 67081, 05348, 1759 #### [facility] of [address], [address] [place] [address] Health Lead: Jona Kaufman MD PLATELET COUNT Normal [facility] Comment on above: Performed By: #### 1 7306, 93076, 7600, 32585, 73308, 1759 #### [facility] of [address], [address] [place] [address] Health Lead: Jona Kaufman MD RDW Normal [facility] Comment on above: Performed By: #### 1 7306, 49748, 7600, 97410, 98841, 175 #### [facility] of [place] [address] Health Lead: Jona Kaufman MD RED BLOOD CELL COUNT Normal [facility] Comment on above: Performed By: #### 1 7306, 68569, 7600, 85253, 08651, 175 #### [facility] of [place] [address] Health Lead: Jona Kaufman MD WHITE BLOOD CELL COUNT Normal [facility] Comment on above: Performed By: #### 1 7306, 97682, 7600, 08792, 51173, 175 #### [facility] of [place] [address] Health Lead: Jona Kaufman MD COMPREHENSIVE METABOLIC PANE L W/ANION GAPon 08-28-2024 Albumin [Mass/Vol] 4.3 g/dL Normal 3.6-5.1 [facility] Comment on above: Performed By: #### 1 7306, 69265, 7600, 60793, 44954, 1759 #### [facility] of [place] [address] Health Lead: Jona Kaufman MD ALP [Catalytic activity/Vol] 74 U/L Normal 36-130 [facility] Comment on above: Performed By: #### 1 7306, 52388, 7600, 09565, 53190, 1759 #### [facility] of [place] [address] Health Lead: Jona Kaufman MD ALT [Catalytic activity/Vol] 21 U/L Normal 9-46 [facility] Comment on above: Performed By: #### 1 7306, 24732, 7600, 58615, , 175 #### [facility] of [place] [address] Health Lead: Jona Kaufman MD AST [Catalytic activity/Vol] 16 U/L Normal 10-40 [facility] Comment on above: Performed By: #### 1 7306, 73931, 7600, 15583, , 175 #### [facility] of [place] [address] Health Lead: Jona Kaufman MD Bilirubin [Mass/Vol] 0.8 mg/dL Normal 0.2-1.2 [facility] Comment on above: Performed By: #### 1 7306, 88387, 7600, 76670, , 175 #### [facility] of [place] [address] Health Lead: Jona Kaufman MD Calcium [Mass/Vol] 9.3 mg/dL Normal 8.6-10.3 [facility] Comment on above: Performed By: #### 1 7306, 99161, 7600, 53727, , 175 #### [facility] of [place] [address] Health Lead: Jona Kaufman MD Chloride [Moles/Vol] 104 mmol/L Normal 98-110 [facility] Comment on above: Performed By: #### 1 7306, 84979, 7600, 78823, , 175 #### [facility] of [place] [address] Health Lead: Jona Kaufman MD CO2 [Moles/Vol] 27 mmol/L Normal 20-32 [facility] Comment on above: Performed By: #### 1 7306, 38579, 7600, 51760, , 175 #### [facility] [place] [address] Health Lead: Jona Kaufman MD Creatinine [Mass/Vol] 1.06 mg/dL Normal 0.60-1.[address] [facility] Comment on above: Performed By: #### 1 7306, 41510, 7600, 11326, , 175 #### [facility] [address], [address] [place] [address] Health Lead: Jona Kaufman MD ELECTROLYTE BALANCE 8 mmol/L (calc) Normal 7-17 [facility] Comment on above: Performed By: #### 1 7306, 59103, 7600, 14576, , 175 #### [facility] [place] [address] Health Lead: Jona Kaufman MD GFR/1.73 sq M.predicted among non-blacks MDRD (S/P/Bld) [Vol rate/Area] 88 mL/min/{1.73_m2} Normal > OR = 60 [facility] Comment on above: Performed By: #### 1 7306, 95801, 7600, 70166, , 175 #### [facility] [place] [address] Health Lead: Jona Kaufman MD Glucose [Mass/Vol] 99 mg/dL Normal 65-99 [facility] Comment on above: Result Comment: Fasting reference interval Performed By: #### 1 7306, 03557, 7600, 88333, , 175 #### [facility] [place] [address] Health Lead: Jona Kaufman MD Potassium [Moles/Vol] 4.4 mmol/L Normal 3.5-5.[address] [facility] Comment on above: Performed By: #### 1 7306, 36167, 7600, 78719, , 175 #### [facility] of [address], [address] [place] [address] Health Lead: Jona Kaufman MD Protein [Mass/Vol] 6.8 g/dL Normal 6.1-8.1 [facility] Comment on above: Performed By: #### 1 7306, 68192, 7600, 75438, 39367, 1759 #### [facility] of [address], [address] [place] [address] Health Lead: Jona Kaufman MD Sodium [Moles/Vol] 139 mmol/L Normal 135-146 [facility] Comment on above: Performed By: #### 1 7306, 62843, 7600, 08344, 66701, 1759 #### [facility] of [address], [address] [place] [address] Health Lead: Jona Kaufman MD Urea nitrogen [Mass/Vol] 9 mg/dL Normal 7-25 [facility] Comment on above: Performed By: #### 1 7306, 65848, 7600, 12976, 45093, 1759 #### [facility] of [address], [address] [place] [address] Health Lead: Jona Kaufman MD HEMOGLOBIN A1c WITH eAGon eAG (mg/dL) Normal [facility] Comment on above: Performed By: #### 1 7306, 96290, 7600, 71981, 14987, 1759 #### [facility] of [address], [address] [place] [address] Health Lead: Jona Kaufman MD eAG (mmol/L) Normal [facility] Comment on above: Performed By: #### 1 7306, 31208, 7600, 48060, 21478, 1759 #### [facility] of [place] [address] Health Lead: Jona Kaufman MD HEMOGLOBIN A1c Normal [facility] Comment on above: Performed By: #### 1 7306, 19622, 7600, 10144, 56469, 1759 #### [facility] of [address], [address] [place], [place] [id number] Health Lead: Jona Kaufman MD LIPID PANEL, [facility] 08-01 Cholesterol [Mass/Vol] 153 mg/dL Normal <200 [facility] Comment on above: Order Comment: FASTI NG:YES FASTING: YES Performed By: #### 1 7306, 56019, 7600, 57766, 26266, 1759 #### [facility] [address], [address] [place] [address] Health Lead: Jona Kaufman MD Cholesterol in HDL [Mass/Vol] 40 mg/dL Normal > OR = 40 [facility] Comment on above: Order Comment: FASTI NG:YES FASTING: YES Performed By: #### 1 7306, 17064, 7600, 05552, 77658, 1759 #### [facility] [address], [address] [place] [address] Health Lead: Jona Kaufman MD Cholesterol in LDL [Mass/Vol] [...] Julio C ASH et al. OPAL. 2013;310(19): 0835-9773 (http://education.[employer].DBL Acquisition/faq/VIO862) Performed By: #### 1 7306, 23625, 7600, 85414, 67541, 1759 #### [facility] [address], [address] [place], [place] [address] Health Lead: Jona Kaufman MD Cholesterol.total/Cho lesterol in HDL [Mass ratio] 3.8 {ratio} Normal <5.0 [facility] Comment on above: Order Comment: FASTI NG:YES FASTING: YES Performed By: #### 1 7306, 02407, 7600, 86144, , 175 #### [facility] [address], [address] [place] [address] Health Lead: Jona Kaufman MD NON HDL CHOLESTEROL 113 mg/dL (calc) Normal <130 [facility] Comment on above: Order Comment: FASTI NG:YES FASTING: YES Result Comment: For patients with diabetes plus 1 major ASCVD risk factor, treating to a non-HDL-C goal of <100 mg/dL (LDL-C of <70 mg/dL) is considered a therapeutic option. Performed By: #### 1 7306, 20156, 7600, 11293, , 175 #### [facility] [place] [address] Health Lead: Jona Kaufman MD Triglyceride [Mass/Vol] 112 mg/dL Normal <150 [facility] Comment on above: Order Comment: FASTI NG:YES FASTING: YES Performed By: #### 1 7306, 75061, 7600, 50321, , 175 #### [facility] [address], [address] [place] [address] Health Lead: Jona Kaufman MD TSH W/REFLEX TO FT4on 2024 TSH W/REFLEX TO FT4 Normal [facility] Comment on above: Performed By: #### 1 7306, 20956, 7600, 80010, , 175 #### [facility] [place] [address] Health Lead: Jona Kaufman MD VITAMIN D,25-OH,TOTAL,IAon 0 08-28-2024 VITAMIN D,25-OH,TOTAL,IA Normal [facility] Comment on above: Performed By: #### 1 [id number], [id number], 7600, 16369, , 175 #### [facility] [address], [address] [place] [address] Health Lead: Jona Kaufman MD XR Toes - right 3 Viewson IMPRESSION: Degenera 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 Recreation Attendant: BETTY Transcribe Date/Time: May 16 2023 9:54A Dictated by : ENRIQUETA REYNOLDS MD This examination was interpreted and the report reviewed and electronically signed by: ENRIQUETA REYNOLDS MD on May 16 2023 9:57AM [facility] DIVISION OF RADIOLOGY * * *Final Report* [...] soft tissue swelling. DIVISION OF RADIOLOGY Provider, [facility] - 05/16/2023 * * *Final Report* * [...] Degenera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 Recreation Attendant: BETTY Transcribe Date/Time: May 16 2023 9:54A Dictated by : ENRIQUETA REYNOLDS MD This examination was interpreted and the report reviewed and electronically signed by: ENRIQUETA REYNOLDS MD on May 16 2023 9:57AM EST [facility] XR Toes - right 3 ViewsOrder ed By: Ccf Provider on 05-16-2023 [facility] XR Toes - right 3 Viewson Radiology Study observation (narrative) [facility] XR HAND GENERAL 3V PA/LAT/OB L RIGHTon 12-29-2022 [facility] Absolute lymphocyte countOrd ered By: Dr. Soto on 10-05-2022 Lymphocytes Auto (Unsp spec) [#/Vol] 1.39 10*3/uL 0.83-4.51 [facility] Alcohol, Blood (Medical)-Ser umon 10-05-2022 SERUM ETOH < 3.0 Normal [facility] Comment on above: Result Comment: The serum:whole blood ethanol ratio is approximately 1.14 and varies slightly with hematocrit. Medical Alcohol reference interval and critical value in non-tolerant individuals; 50 - 100 Impairment 100 Intoxication 100 - 250 Severe Poisoning 250 - 400 Deep/possible fatal coma Performed By: #### L 505.5000, L501.9100, L500.2500, L100.0100 #### [facility] [address] [place], [address] Basic Metabolic Profile (BMP )on 10-05-2022 BUN/CRE 5.9 RATIO Low 10-20 [facility] Comment on above: Performed By: #### L 505.5000, L501.9100, L500.2500, L100.0100 #### [facility] [address] [place], [address] CA,Total 9.5 mg/dL Normal 8.5-10.1 [facility] Comment on above: Performed By: #### L 505.5000, L501.9100, L500.2500, L100.0100 #### [facility] [address] [place], [address] Chloride [Moles/Vol] 106 mmol/L Normal 98-107 [facility] Comment on above: Performed By: #### L 505.5000, L501.9100, L500.2500, L100.0100 #### [facility] [address] [place], [address] CO2 [Moles/Vol] 26.0 mmol/L Normal 21.0-32.0 [facility] Comment on above: Performed By: #### L 505.5000, L501.9100, L500.2500, L100.0100 #### [facility] [address] [place], [address] Creatinine [Mass/Vol] 1.01 mg/dL Normal 0.70-1.30 [facility] Comment on above: Result Comment: The validity of the calculated GFR GFRAA in patients over 70 years has not been determined. Clinical correlation is essential. Performed By: #### L 505.5000, L501.9100, L500.2500, L100.0100 #### [facility] [address] [place], [address] ECRCL 105.48 ml/min Normal [facility] Comment on above: Performed By: #### L 505.5000, L501.9100, L500.2500, L100.0100 #### [facility] [address] [place], [address] EST GFR - AA 103 mL/min Normal >60 [facility] Comment on above: Result Comment: Afri can Palauan GFR Calc Performed By: #### L 505.5000, L501.9100, L500.2500, L100.0100 #### [facility] [address] [place], [address] GAP 5 Normal 5-15 [facility] Comment on above: Performed By: #### L 505.5000, L501.9100, L500.2500, L100.0100 #### [facility] [address] [place], [address] GFR/1.73 sq M.predicted among non-blacks MDRD (S/P/Bld) [Vol rate/Area] 85 mL/min/{1.73_m2} Normal >60 [facility] Comment on above: Result Comment: Non- GFR Calc Performed By: #### L 505.5000, L501.9100, L500.2500, L100.0100 #### [facility] [address] [place], [address] Glucose [Mass/Vol] 107 mg/dL High 74-106 [facility] Comment on above: Result Comment: Fast ing Glucose result from 100 to 125 mg/dL suggests IMPAIRED HOMEOSTASIS per A.D.A. criteria. Performed By: #### L 505.5000, L501.9100, L500.2500, L100.0100 #### [facility] [address] [place], [address] Potassium [Moles/Vol] 3.6 mmol/L Normal 3.5-5.1 [facility] Comment on above: Performed By: #### L 505.5000, L501.9100, L500.2500, L100.0100 #### [facility] [address] [place], [address] Sodium [Moles/Vol] 137 mmol/L Normal 136-145 [facility] Comment on above: Performed By: #### L 505.5000, L501.9100, L500.2500, L100.0100 #### [facility] [address] [place], [address] Urea nitrogen [Mass/Vol] 6 mg/dL Low 7-18 [facility] Comment on above: Performed By: #### L 505.5000, L501.9100, L500.2500, L100.0100 #### [facility] [address] [place], [address] Basophil percentageOrdered B y: Dr. oSto on 10-05-2022 Basophils/100 WBC (Bld) 0.5 % 0-1 [facility] Chloride [Moles/Vol] 106 mmol/L 98-107 [facility] Eosinophils/100 WBC (Bld) 1.1 % 0-5 [facility] Glucose [Mass/Vol] 107 mg/dL 74-106 [facility] Comment on above: Fasting Glucose resu lt from 100 to 125 mg/dL suggests IMPAIRED HOMEOSTASIS per A.D.A. criteria. Neutrophils (Bld) [#/Vol] 4.6 10*3/uL 2.0-7.7 [facility] Neutrophils/100 WBC (Bld) 70.1 % 47-70 [facility] Potassium [Moles/Vol] 3.6 mmol/L 3.5-5.1 [facility] Sodium [Moles/Vol] 137 mmol/L 136-145 [facility] WBC (Bld) [#/Vol] 6.5 10*3/uL 4.4-11.0 [facility] Blood erythrocytes count (nu mber/volume)Ordered By: Dr. Soto on 10-05-2022 RBC (Bld) [#/Vol] 5.09 10*6/uL 4.6-6.2 [facility] Blood hemoglobin measurement (mass/volume)Ordered By: Dr. Soto on 10-05-2022 Hemoglobin (Bld) [Mass/Vol] 16.0 g/dL 13.0-16.5 [facility] Blood lymphocytes/100 leukoc ytesOrdered By: Dr. Soto on 10-05-2022 Lymphocytes/100 WBC (Bld) 21.3 % 19-41 [facility] Blood monocytes/100 leukocyt esOrdered By: Dr. Soto on 10-05-2022 Monocytes/100 WBC (Bld) 6.7 % 0-10 [facility] Blood platelet mean volumeOr dered By: Dr. Soto on 10-05-2022 Platelet mean volume (Bld) [Entitic vol] 9.2 fL 6.2-12.0 [facility] CBC W/Diff, Automatedon Absolute Lymph 1.39 X10 3/uL Normal 0.83-4.51 [facility] Comment on above: Performed By: #### L 505.5000, L501.9100, L500.2500, L100.0100 #### [facility] [address] [place], [address] Absolute Neut 4.6 X10 3/uL Normal 2.0-7.7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 preservative free, quadrivalent Celsa Older PACKER DENTURE.SERVICE CASHIER Work Phone: [facility] Work Phone: 04-27-2018 influenza, injectabl e, quadrivalent, contains preservative Celsa Older PACKER DENTURE.SERVICE CASHIER Work Phone: [facility] 05-25-2017 influenza, injectabl e, quadrivalent, contains preservative Celsa Older PACKER DENTURE.SERVICE CASHIER Work Phone: [facility] 05-26-2016 influenza, injectabl e, quadrivalent, contains preservative Celsa Older PACKER DENTURE.SERVICE CASHIER Work Phone: [facility] Work Phone: 05-21-2014 influenza, seasonal, injectable Celsa Older PACKER DENTURE.SERVICE CASHIER Work Phone: [facility] Work Phone: 09-01-2011 tetanus toxoid, redu laure diphtheria toxoid, and acellular pertussis vaccine, adsorbed Celsa Older PACKER DENTURE.SERVICE CASHIER Work Phone: [facility] Payers Date Payer Category Payer Managed Care POS (unspecified) [employer] CHOICE POS/POSII/PREMIER CARE/PREMIER CARE PLUS [id number] 2024 Managed Care (Private) [employer] [facility] [id number] 2024 Private Health Insurance [id number] 2023 Private Health Insurance [id number] 2023 Unknown [id number] 2022 Self-pay 2022 Unknown [id number] 2022 Unknown [id number] 2019 Private Health Insurance [facility] CHOICE PLUS [id number] 2019-Present [phone] [address] [place] [address] O [id number] 1978 Unknown [id number] 1978 Unknown [id number] 1978 Unknown [id number] Unknown [id number] Unknown [id number] Social History Date Type Detail Facility Start: 10-26-2022 End: 11-19-2024 Tobacco smoking status KSIS Never smoked tobacco [facility] Start: 10-14-2021 End: 05-18-2023 Alcohol intake Current non-drinker of alcohol (finding) [facility] Start: 1980 Sex Assigned At Not on file [facility] Start: 10-05-2022 Tobacco smoking status KSIS Unknown if ever smoked [facility] Start: 1980 Sex Assigned At Male [facility] Start: 10-26-2022 End: 11-19-2024 Tobacco use and exposure Smokeless tobacco non-user [facility] Work Phone: Start: 12-29-2022 End: 02-28-2023 History of Social function [facility] Work Phone: Start: 12-29-2022 End: 02-28-2023 Tobacco use panel [facility] Work Phone: National Score (1-100), lower number is lower risk 72 [facility] Work Phone: Start: 05-20-2024 End: 11-12-2024 Exposure to SARS-CoV-2 (event) Not sure [facility] Start: 11-19-2024 Alcoholic beverage intake Current drinker of alcohol (finding) [facility] Has the [employer], gas, oil, or water UTILICASE threatened to shut off services in your home in past 12Mo No [facility] (I/We) worried whether (my/our) food would run out before (I/we) got money to buy more. Never true [facility] Start: 11-19-2024 Alcohol Comment States hasn't drank in past month or two until today. [facility] Start: 11-19-2024 Gender identity Identifies as male gender (finding) [facility] NEGATED: Highlighted rowStart: NINF History of tobacco use Passive smoker [facility] Functional Status Date Assessment Result Facility 02-02-2015 Are you deaf, or do you have serious difficulty hearing No 02/02/2015 8:31 AM Bryan Coto APRN.SERVICE CASHIER No [facility] Work Phone: 02-02-2015 Are you blind, or do you have serious difficulty seeing, even when wearing glasses No 02/02/2015 8:31 AM Bryan Coto APRN.TOMSA No [facility] 02-02-2015 Do you have serious difficulty walking or climbing stairs No 02/02/2015 8:31 AM Bryan Coto APRN.TOMAS No [facility] 02-02-2015 Do you have difficul ty dressing or bathing No 02/02/2015 8:31 AM EDT Bryan Zavaleta APRN.SERVICE CASHIER No [facility] 02-02-2015 Because of a physica l, mental, or emotional condition, do you have difficulty doing errands alone such as visiting a physician's office or shopping No 02/02/2015 8:31 AM EDT Bryan Zavaleta APRN.TOMAS No [facility] Mental Status Date Assessment Result Facility 02-02-2015 Because of a physica l, mental, or emotional condition, do you have serious difficulty concentrating, remembering, or making decisions No 02/02/2015 8:31 AM EDT Bryan Zavaleta APRN.SERVICE CASHIER No [facility] Clinical Notes 01-20-2015 to 01-11-2025 Ariel Petty PA - 01/11/2025 8:35 AM EDMarvel Jauregui MD - 11/22/2024 12:44 PM Jeevan Rodriguez LPN - 11/22/2024 9:45 AM EDBetina Nguyen - 11/22/2024 9:15 AM EDT Note Date & Type Note Facility 01-11-2025 Note HNO ID: [id number] Author: ARIEL PETTY PA Service: ? Author Type: Physician Conciliator Type: Progress Notes Filed: 01/11/2025 08:36 Note [...] Prescribed antibiotic ear drops; sent prescription to [facility] pharmacy. and Recording using [employer] software for draft documentation of the visit was discussed with the patient/authorized field marketing representative; all questions welcomed and answered. Patient/authorized field marketing representative agreed to proceed Differential Diagnoses - otitis externa is more likely for the following reason(s): suggested by HANDP - otitis media is less likely for the following reason(s): HANDP not suggestive Disposition The patient was discharged. Procedures [facility] 01-11-2025 History of Present illness Narrative ANDREA [...] Prescribed antibiotic ear drops; sent prescription to [facility] pharmacy. and Recording using [employer] software for draft documentation of the visit was discussed with the patient/authorized field marketing representative; all questions welcomed and answered. Patient/authorized field marketing representative agreed to proceed Differential Diagnoses - otitis externa is more likely for the following reason(s): suggested by H&P - otitis media is less likely for the following reason(s): H&P not suggestive Disposition The patient was discharged. Procedures documented in this encounter [facility] 12-17-2024 Note HNO ID: [id number] Author: ?, ?, ? Service: ? Author Type: ? Type: Progress Notes Filed: 12/17/2024 14:29 Note Text: Spoke to patient, he is no longer a patient of [facility]. Updated PCP [facility] 12-16-2024 Note Patient Outreach ( WSTR) TAMIKOCOREY PATTON ([id number]) 1980 M Date Time Provider Department 12/16/24 JAQUELIN NAYAK During your visit today, we recorded the following information about you: Mari Baird 12/17/2024 2:29 PM Signed Spoke to patient, he is no longer a patient of [facility]. Updated PCP Allergies As of Date: 12/16/2024 [...] Encounter Status:Closed by MARI BAIRD on 12/17/24 [facility] 11-22-2024 Note Inpatient Psychiatry Discharge Summary Patient Name: Corey Morrison MR #: [id number] : 1980 Admit Date: 813243 Discharge Date/Time: 11/22/2024 1:09 PM Clinical Summary [...] current suicidal ideation, collateral reports from his manager transport and juno amato indicate recurrent suicidal statements [...] Collateral history from family/friends/providers Request/review prior records coordinator of library services assessment/linkage/care coordination Group participation/[place] Supportive psychotherapy/structured supportive care Continue Lamotrigine 100 mg by mouth daily for now Start Fluoxetine 20 mg by mouth daily Aftercare planning once stable Reason for Admission: Corey Morrison, a 44-year-old male, was admitted to the inpatient psychiatric unit due to safety concerns associated with an increased risk of self-harm. He was brought to the [place] [facility] by his manager transport following an incident involving alcohol intoxication and [...] and her children. Collateral information from his manager transport and juno amato indicated a history of [...] maintain sobriety and address alcohol use disorder. Bindery Machine Setter/Set Up Operator: Involve social work supervisor to address financial concerns and explore available [...] Procedures Emergency Department consult to Psych - Bindery Machine Setter/Set Up Operator [facility] (more content not included)... [facility] 11-22-2024 Hospital course Narrative Inpatient Psychiatry Discharge Summary Patient Name: Corey Morrison MR #: [id number] : 1980 Admit Date: [id number] Discharge Date/Time: 11/22/2024 1:09 PM Clinical Summary [...] current suicidal ideation, collateral reports from his manager transport and juno amato indicate recurrent suicidal statements [...] Collateral history from family/friends/providers Request/review prior records coordinator of library services assessment/linkage/care coordination [facility] Supportive psychotherapy/structured supportive care Continue Lamotrigine 100 mg by mouth daily for now Start Fluoxetine 20 mg by mouth daily Aftercare planning once stable Reason for Admission: Corey Morrison, a 44-year-old male, was admitted to the inpatient psychiatric unit due to safety concerns associated with an increased risk of self-harm. He was brought to the [place] ER by his manager transport following an incident involving alcohol intoxication and [...] and her children. Collateral information from his manager transport and juno amato indicated a history of [...] maintain sobriety and address alcohol use disorder. Bindery Machine Setter/Set Up Operator: Involve social work supervisor to address financial concerns and explore available [...] Procedures Emergency Department consult to Psych - Bindery Machine Setter/Set Up Operator Inpatient Consult to Substance Use Navigator Inpatient [...] Your Medications These medications were sent to [id number] - [place], [place] - [address] [facility] [address] [facility] [place] [address] FLUoxetine 20 MG capsule lamoTRIgine 100 MG tablet losartan 50 MG tablet pantoprazole 20 MG tablet traZODone 50 MG tablet This patient is not being discharged on an antipsychotic. Tobacco cessation medication not indicated; Patient is only a someday tobacco user or doesn't use currently. Disposition: Home Follow Up: [facility] [place] [address] Go on 11/28/2024 Appt: 11/28/24 at 10:00 am with Emmanuel Merida, Psychiatric SERVICE CASHIER, for medication management *Autumn Carrera SERVICE CASHIER is on maternity leave* PLEASE CALL TO RESCHEDULE IF UNABLE TO MAKE APPT Marvel Dubose MD [address] [facility] [address] Schedule an appointment as soon as possible for a visit If symptoms worsen Discharge Diet: Resume home diet Additional Information: n/a Provider(s): Primary Care: Yandel Hinojosa PA-C Address: [address] [place] [address] / [facility] [address] To contact Marvel Miller MD or acquisition professional physician, call [phone] (Muir) for 24 hour/7 day for emergencies related to inpatient stay or to obtain results of studies pending at discharge. Patient instructions, including activity, were given to the patient/family at discharge. Please see the After Visit Summary in the medical record for details. Time spent on discharge: > 30 minutes Completed by: Marvel Miller MD on 11/22/24, 4:00 PM documented in this encounter [facility] 11-22-2024 History of Present illness Narrative 0715 [...] of AVS given to patient. Goal Group [id number] Pt found sitting in lounge reading. He [...] 0630 Patient slept 7.75 hrs uninterrupted Recreation [id number] Pt found ambulatory in hallway, dressed casually, [...] socialization with peers. Pt returned to [facility] without incident. 1355: Pt transferred to [...] Corey Morrison Admit Date: 4200904 MR #: [id number] : 1980 Perpetual Assessment Corey Morrison is [...] current suicidal ideation, collateral reports from his manager transport and juno amato indicate recurrent suicidal statements [...] Collateral history from family/friends/providers Request/review prior records coordinator of library services assessment/linkage/care coordination [facility] Supportive psychotherapy/structured supportive care Continue Lamotrigine 100 [...] In a follow-up conversation with the patient's social contact worker, it was noted that his girlfriend observed [...] Miller MD 11/21/2024 12:51 PM Goal Group [id number] Pt found ambulatory in his doorway. He [...] music and I can continue going to christianity. For those who love me I can [...] reviewed follow-up appts and he was appreciative. coordinator of library services to follow. 10:30: Called andrew Pa, to [...] last time as best as I can. coordinator of library services to follow. 13:30: Discussed with physician. If no issues overnight, patient to discharge home tomorrow. Updated patient who was elated at this news. A coworker will transport him home. coordinator of library services to follow. 0730 Patient care taken over from intercell connector placer. Patient sitting in the dining room eating [...] self to client. Client dressed casually in [employer] jumpsuit. Client appears clean with no body [...] cost. Pt shares he enjoys going to [employer] and buying antiques, auto racing, and volunteering at [employer] with Thanksgiving meals. Psychiatry Progress Note Patient Name: Corey Morrison Admit Date: 4200904 MR #: [id number] : 1980 Perpetual Assessment Corey Morrison is [...] current suicidal ideation, collateral reports from his manager transport and juno amato indicate recurrent suicidal statements [...] Collateral history from family/friends/providers Request/review prior records coordinator of library services assessment/linkage/care coordination [facility] Supportive psychotherapy/structured supportive care Continue Lamotrigine 100 [...] financial concerns in therapy, potentially involving social work supervisor for additional support, will be important. A [...] 11/22/24. He reports fiance plans to visit [facility]. I did discuss FMLA with patient [...] on maternity leave currently. Noted in AVS. coordinator of library services to follow. Goal Group: Pt shares his [...] 2240: Pt asked about changing visitor to [facility] since other person has not [...] daily and pt states takes BID. Messaged acquisition professional hospitalist and received order to make BID. Pt thankful. Medication given. Pt denies pain and further needs after interaction. 2330: Pt resting quietly in bed with even and unlabored respirations. 0630: Pt continues to rest quietly in bed with even and unlabored respirations. Pt has slept approx 9 hours interrupted. [id number] Recreation Therapy: PT ended call and brought [...] times. Pt interacted more with peer and film writer, displayed appropriate level of patience. PT able to cite benefits of activity, and further ones presented and discussed, along with resources for post DC use. Behavioral Health Therapy Initial Assessment Reason for Admission: Pt states I started drinking yesterday when I should have to cope with stress. Pt reports he was drinking beat boxes. Per chart, he had told his manager transport at work he wanted to kill himself though is denying this. Changes/Stressors: Finances, relationship, kids, work. Daily Routine: Pt lives in the home with his fichandler and her 2 teenage children. 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 States it starts at 9 pm when [...] Soto. Personal Strengths: I am an excellent engineer remote control diesel. Barriers/Limitations: Depression, Alcohol abuse. Pt Goal for [...] Phone Call/Family Meeting: Relationship/Contact with patient: Braeden aCmpos, daily contact Behavior changes/Stressors/Mental Health History: She [...] chart. Safety Plan completed and uploaded to [employer] ([employer]). Patient remains voluntary status at this time [...] immediate discharge needs identified at this time. coordinator of library services to follow. 10:45: Called PCP office in [place], patient has appt scheduled already for: 02/11/25 at 8:20 am with Yandel Hinojosa CNP. Office request that is patient wants PCP to manage his psychiatric medications, that I call hospital discharge appt in closer to discharge time. coordinator of library services to follow. 0730 - at the beginning [...] 5.5 hours uninterrupted. documented in this encounter [facility] 11-22-2024 Plan of care note Problem: Falls, [...] Goal: Participation in care planning Outcome: Completed [facility] 11-22-2024 Miscellaneous Notes Problem: Falls, Risk of [...] current suicidal ideation, collateral reports from his manager transport and juno amato indicate recurrent suicidal statements [...] Collateral history from family/friends/providers Request/review prior records coordinator of library services assessment/linkage/care coordination Group participation/[facility] Supportive psychotherapy/structured supportive [...] Severe recurrent major depression without psychotic features ([facility]) 11/19/2024 Alcohol abuse 11/18/2024 Unspecified mood (affective) disorder ([facility]) 11/18/2024 Diagnosis [place] I: Major Depression, Rec [place] II: Deferred [place] III: Patient Active Problem List Diagnosis Date Noted Severe recurrent major depression without psychotic features ([facility]) 11/19/2024 Alcohol abuse 11/18/2024 Unspecified mood (affective) disorder ([facility]) 11/18/2024 [place] IV: other psychosocial or environmental problems [place] V: 41-50 serious symptoms Reason for Hospitalization [...] plan, Aggressive protocol, Borderline protocol, CIWA (Clinical [place] Withdrawal Assessment), Behavior intervention plan, Alternative to [...] on problems Discharge Needs Anticipated Facility Type: [facility], Substance abuse treatment, [facility], Outpatient clinic, [facility] Criteria For Discharge Criteria For Discharge: Maximum benefit obtained, Goals met Additional Comments: n/a Physician, Registered Nurse, Sommelier, Adjunct Therapist included in treatment team discussion. [...] 11/18/2024 2:29 PM CURRENT HOSPITALIZATION: Current Hospitalization Securities Consultant Needs: Not needed Chief Complaint: SI History [...] reported EMPLOYMENT: Employment Current Employment: Full-time Employer: [employer] Source Of Income: Employed Are There Any Financial Concerns?: No Desire For Vocational or Eduational Training?: No SERVICE: Service Service: No LEGAL HISTORY: Legal History Legal History: None BUDDHIST/SPIRITUAL BELIEFS: Anabaptism/Spiritual Beliefs Anabaptism/Spiritual Beliefs: No ETHNIC/RACE: Ethnic/Race Ethnic/Race: FAMILY HISTORY: [...] Patient (Pt) brought in by coworker and manager transport due to showing up to work intoxicated [...] Prescreener Caller Information: Cassie Hartman Referral Source: [facility] Central Diagnosis: MDD Presenting Problem/Chief Complaint: suicidal Medical Status: Stable Functional Status: Independent Medication Compliant: Yes Insurance Information/Precertification Completed: Yes Case Reveiwed With: Other Other Physician: Dr. Bullock Accepted for Admission: Yes Admitting Physician: Other Other Admitting Physician: Dr. Bullock Number For RN To RN Communication: [phone] Risk Factors Recent Psychological Experiences: Loss (Comment), Divorce, Conflict (Comment) (Pt.'s mother is in a half-way,sister is homeless,stress with fiance) Current Suicidal Ideation: [...] concerns. Past admissions. documented in this encounter [facility] 11-21-2024 Plan of care note Problem: Falls, [...] Participation in care planning Outcome: Partially Met [facility] 11-21-2024 Note Psychiatry Progress Note Patient Name: Corey Morrison Admit Date: 4200904 MR #: [id number] : 1980 Perpetual Assessment Corey Morrison is [...] current suicidal ideation, collateral reports from his manager transport and juno amato indicate recurrent suicidal statements [...] Collateral history from family/friends/providers Request/review prior records coordinator of library services assessment/linkage/care coordination [facility] Supportive psychotherapy/structured supportive care Continue Lamotrigine 100 [...] In a follow-up conversation with the patient's social contact worker, it was noted that his girlfriend observed [...] girlfriend's input. Re (more content not included)... [facility] 11-20-2024 Plan of care note Problem: [...] intake to meet estimated needs Outcome: Completed [facility] 11-20-2024 Plan of care note [...] Participation in care planning Outcome: Partially Met [facility] 11-20-2024 Note Psychiatry Progress Note Patient Name: Corey Morrisno Admit Date: 4200904 MR #: [id number] : 1980 Perpetual Assessment Corey Morrison is [...] Severe recurrent major depression without psychotic features ([facility]) Assessment & Plan Corey Morrison, a 44-year-old [...] current suicidal ideation, collateral reports from his manager transport and juno amato indicate recurrent suicidal statements [...] Collateral history from family/friends/providers Request/review prior records coordinator of library services assessment/linkage/care coordination [facility] Supportive psychotherapy/structured supportive care Continue Lamotrigine 100 [...] financial concerns in therapy, potentially involving social work supervisor for additional support, will be important. A [...] restricted Insight: limi (more content not included)... [facility] 11-20-2024 Plan of care note Problem: [...] Participation in care planning Outcome: Partially Met [facility] 11-19-2024 Evaluation + Plan note Associated Problem(s): [...] current suicidal ideation, collateral reports from his manager transport and juno amato indicate recurrent suicidal statements [...] Collateral history from family/friends/providers Request/review prior records coordinator of library services assessment/linkage/care coordination Group participation/[place] Supportive psychotherapy/structured supportive care Continue Lamotrigine 100 mg by mouth daily for now Start Fluoxetine 20 mg by mouth daily Aftercare planning once stable [facility] 11-19-2024 Plan of care note Behavioral Health Initial Treatment Plan Date: 11/19/2024 Time: 8:18 PM Patient Name: Corey Morrison Date of : 1980 Sex: Male Admit Date/Time: 11/18/2024 2:29 PM Patient Active Problem List Diagnosis Date Noted Severe recurrent major depression without psychotic features ([facility]) 11/19/2024 Alcohol abuse 11/18/2024 Unspecified mood (affective) disorder ([facility]) 11/18/2024 Diagnosis [place] I: Major Depression, Rec [place] II: Deferred [place] III: Patient Active Problem List Diagnosis Date Noted Severe recurrent major depression without psychotic features ([facility]) 11/19/2024 Alcohol abuse 11/18/2024 Unspecified mood (affective) disorder ([facility]) 11/18/2024 [place] IV: other psychosocial or environmental problems [place] V: 41-50 serious symptoms Reason for Hospitalization [...] plan, Aggressive protocol, Borderline protocol, CIWA (Clinical [place] Withdrawal Assessment), Behavior intervention plan, Alternative to [...] information, Substance abuse treatment, Un[facility], Outpatient clinic, [facility] Criteria For Discharge Criteria For Discharge: Maximum benefit obtained, Goals met Additional Comments: n/a Physician, Registered Nurse, Sommelier, Adjunct Therapist included in treatment team discussion. Treatment team members present Marvel Bullock; Angie Hebert Patient Signature Date Patient's Response To Treatment Plan: Physician Signature Date [facility] 11-19-2024 History and physical note Psychiatry History and Physical Patient Name: Corey Morrison MR #: [id number] : 1980 Admit Date: [id number] Primary Care Provider: Yandel Hinojosa PA-C Assessment [...] recurrent major depression without psychotic features (HCC) [place] I: major depressive disorder, severe, recurrent [place] II: Deferred [place] III: Patient Active Problem List Diagnosis Alcohol abuse Unspecified mood (affective) disorder (HCC) Severe recurrent major depression without psychotic features (HCC) [place] IV: Other psychosocial and environmental problems [place] V: 41-50: Serious symptoms OR any serious [...] current suicidal ideation, collateral reports from his manager transport and juno amato indicate recurrent suicidal statements [...] Collateral history from family/friends/providers Request/review prior records coordinator of library services assessment/linkage/care coordination [facility] Supportive psychotherapy/structured supportive care Continue Lamotrigine 100 [...] risk. The patient was brought to the [place] [facility] by his manager transport following reported alcohol intoxication and suicidal ideation. The manager transport described an incident where Mr. Morrison sat in her chair at work and verbalized a desire to kill himself. At the time of admission, Mr. Morrison was uncooperative, withdrawn, and admitted to consuming alcohol, specifically beat boxes, both prior to and during work hours. Mr. Mrorison's presentation includes labile mood, flat affect, and tangential speech, although he occasionally expressed a desire to leave and return home. He reports several stressors contributing to his current condition: his mother's critical health status, his sister's homelessness and substance abuse, and financial strain related to supporting his juno amato and her children. Collateral information from his manager transport and juno amato indicates a history of [...] monthly. However, there are concerns from his manager transport and juno amato about his adherence to [...] that father was verbally abusive History: denied Anabaptism: yes Access to firearms: denied Family counseled [...] 0 Homeless in the Last Year: No [facility] 11-19-2024 Note Psychiatry History a nd Physical Patient Name: Corey Morrison MR #: [id number] : 1980 Admit Date: 4200904 Primary Care [...] recurrent major depression without psychotic features (HCC) [place] I: major depressive disorder, severe, recurrent [place] II: Deferred B[place] III: Patient Active Problem List Diagnosis Alcohol abuse Unspecified mood (affective) disorder (HCC) Severe recurrent major depression without psychotic features (HCC) [place] IV: Other psychosocial and environmental problems [place] V: 41-50: Serious symptoms OR any serious [...] current suicidal ideation, collateral reports from his manager transport and juno amato indicate recurrent suicidal statements [...] Collateral history from family/friends/providers Request/review prior records coordinator of library services assessment/linkage/care coordination Group participation/[place] Supportive psychotherapy/structured supportive [...] risk. The patient was brought to the [place] ER by his manager transport following reported alcohol intoxication and suicidal ideation. The manager transport described an incident where Mr. Morrison sat [...] and her children. Collateral information from his manager transport and [facility] indicates a history of psychiatric hospitalization [...] monthly. However, there are concerns from his manager transport and [facility] about his adherence to medication and the effectiveness of his current therapeutic regimen. Given the combination of alcohol use, recent suicidal statements, and significant psychosocial stressors, Mr. Morrison is being hospitalized to ensure his safety and to provide a stable environment for further evaluation and treatment. Past Psychiatric History Past diagnoses: de (more content not included)... [facility] 11-19-2024 History and physical note Psychiatry History and Physical Patient Name: Corey Morrison MR #: [id number] : 1980 Admit Date: 4200904 Primary Care [...] recurrent major depression without psychotic features (HCC) [place] I: major depressive disorder, severe, recurrent [place]ok[place] II: Deferred B[place]ch[place] III: Patient Active Problem List Diagnosis Alcohol abuse Unspecified mood (affective) disorder (HCC) Severe recurrent major depression without psychotic features (HCC) [place] IV: Other psychosocial and environmental problems [place] V: 41-50: Serious symptoms OR any serious [...] current suicidal ideation, collateral reports from his manager transport and juno amato indicate recurrent suicidal statements [...] Collateral history from family/friends/providers Request/review prior records coordinator of library services assessment/linkage/care coordination Group participation/[place] Supportive psychotherapy/structured supportive [...] risk. The patient was brought to the [place] ER by his manager transport following reported alcohol intoxication and suicidal ideation. The manager transport described an incident where Mr. Morrison sat [...] and her children. Collateral information from his manager transport and juno amato indicates a history of [...] monthly. However, there are concerns from his manager transport and juno amato about his adherence to [...] that father was verbally abusive History: denied Anabaptism: yes Access to firearms: denied Family counseled [...] Last Year: No documented in this encounter [facility] 11-19-2024 Plan of care note Problem: Falls, [...] of care transition plan Outcome: Not Addressed [facility] 11-19-2024 Consult note Associated Order (s): IP CONSULT TO HOSPITALIST [facility] CONSULTATION NOTE Patient Name: Corey Morrison : 1980 MR #: [id number] Admit Date: 11/18/2024 Physicians: Yandel Hinojosa PA-C (Family); No ref. provider found (Referring) Corey Morrison is a 44 y.o. male patient of Yandel Hinojosa PA-C with history of depression, HTN, ETOH abuse, GERD presented on 11/18/2024 with suicidal ideation. [facility] consulted by Marvel Dubose, * for medical [...] Pascual MD at 11/20/2024 9:59 AM EDT [employer] Work Phone: 11-19-2024 Note [facility] CONSULTATION NOT E Patient Name: Corey Morrison : 1980 MR #: [id number] Admit Date: 11/18/2024 Physicians: Yandel Hinojosa PA-C (Family); No ref. provider found (Referring) Corey Morrison is a 44 y.o. male patient of Yandel Hinojosa PA-C with history of depression, HTN, ETOH abuse, GERD presented on 11/18/2024 with suicidal ideation. [facility] consulted by Marvel Dubose, * for medical [...] AUTHENTICATED BY LUPILLO WHITT, ON 11/19/2024 12:10:09 [facility] 11-19-2024 Consult note Associated Order (s): IP CONSULT TO HOSPITALIST [facility] CONSULTATION NOTE Patient Name: Corey Morrison : 1980 MR #: [id number] Admit Date: 11/18/2024 Physicians: Yandel Hinojosa PA-C (Family); No ref. provider found (Referring) Corey Morrison is a 44 y.o. male patient of Yandel Hinojosa PA-C with history of depression, HTN, ETOH abuse, GERD presented on 11/18/2024 with suicidal ideation. [facility] consulted by Marvel Dubose, * for medical [...] me so I drink and things didn't jewel bearing turner as planned. Patient was asked about prior [...] Associated Order(s): ED CONSULT TO PSYCH - [facility] Sommelier Behavioral Health Initial Assessment Date: 11/18/2024 Time: 5:51 PM Patient Name: Corey Morrison Date of : 1980 Sex: Male Admit Date/Time: 11/18/2024 2:29 PM GENERAL INFORMATION General Information Securities Consultant Needs: Not needed Information Provided By: Pt. chart friend ,andrew Patient Support System: family, friends Current Living Arrangements: Pt. lives with his andrew Pa and her two teen age children Type of Residence: Private residence Name and Contact of Collateral Provider: Audrey Carrasquillo, and andrew Jeffrey,[phone] LEGAL STATUS Medical Hold Date Signed 11/18/24 Time Signed 345p Completed By ED Provider DIAGNOSIS/ACTIVE PROBLEM LIST Medical Problems Hospital Problem List Codes Alcohol abuse ICD-10-CM: F10.10 ICD-9-CM: 305.00 Unspecified mood (affective) disorder (HCC) ICD-10-CM: F39 ICD-9-CM: 296.90 CHIEF COMPLAINT/HISTORY OF PRESENT ILLNESS Chief Complaint/History Present Illness Chief [facility] and voicing suicidal thoughts Current Symptoms: Anxiety, Depression, Substance abuse, Suicidal Problems Related to: Economic, Primary support History of Present Illness: Pt. has a history of psychiatric hospitalizations The patient Corey Morrison is a 44 year old employed male presenting to the [place] ER accompanied by his manager transport/ employer for alcohol intoxication and and suicidal [...] could not recall the hospital somewhere near [place]. He reports he does see a therapist [...] pt. has been best friends with the midwife and birth center owner of the company for twenty years. She [...] stress about his mother going into a half-way and his sister being homeless and on [...] come to the hospital. She reports the midwife and birth center owner is his best friend, is concerned for [...] Psychiatric Medications: Anti-depressants, Anti-psychotics Previous Psychiatric Hospitalizations: [facility] Current Psychiatric Medications: see medical chart,per pt. [...] Conflict (Comment) (Pt.'s mother is in a half-way,sister is homeless,stress with fiance) Current Suicidal Ideation: [...] Conflict Resolution (Coping Skills): Yes Cultural and Roman Catholic Beliefs: Yes Access to Weapons: No TREATMENT [...] the available information. documented in this encounter [facility] 11-19-2024 Initial evaluation note Behavioral Health Inpatient Social Work Psychosocial Assessment Date: 11/19/2024 Time: 9:16 AM Patient Name: Corey Morrison Date of : 1980 Sex: Male Admit Date/Time: 11/18/2024 2:29 PM CURRENT HOSPITALIZATION: Current Hospitalization Securities Consultant Needs: Not needed Chief Complaint: SI History [...] reported EMPLOYMENT: Employment Current Employment: Full-time Employer: [employer] Source Of Income: Employed Are There Any Financial Concerns?: No Desire For Vocational or Eduational Training?: No SERVICE: Service Service: No LEGAL HISTORY: Legal History Legal History: None BUDDHIST/SPIRITUAL BELIEFS: Anabaptism/Spiritual Beliefs Anabaptism/Spiritual Beliefs: No ETHNIC/RACE: Ethnic/Race Ethnic/Race: FAMILY HISTORY: [...] Patient (Pt) brought in by coworker and manager transport due to showing up to work intoxicated [...] [facility]. See H&P for further information. [facility] 11-19-2024 Progress note Formatting of t his [...] Nickerson RN at 11/19/2024 11:07 AM EDT [facility] 11-19-2024 Hospital Discharge instructions Anup Angie BERTHA Benavides - 11/19/2024 8:08 AM EDT Images from the original note were not included. CRISIS HOTLINE: [phone] [facility]: [phone] [facility]: [phone] If you would like to obtain records from this hospitalization, please go to the second floor of the hospital in medical records and registration, and request records from your dates of admission. Phone number for medical records is: [phone]. Financial Department for [facility]: [phone] For questions about local resources near you, please dial 2-- If you are wanting to find any local social resources or supports please call and check out the following places: -[facility] -[employer] [facility] -Rotary [facility] -Dial 08-31- and ask about local community events for the day [employer] [facility]: [phone] [employer] [facility]: [phone] National Hotlines: National Suicide Prevention Hotline Call: Rape, Abuse and Incest National Network: 868.816.6645 Veterans Crisis Hotline: 187.545.5966 press 1 Veterans Crisis Text Line: Text 617537 National Domestic Violence Hotline: 164.620.7755 National Domestic Violence Text Line: Text Keyword START to 6065 National AKILA HelpLine can be reached at: , Monday through Monday, 10 a.m. - 10 p.m., ET. National Youth Crisis Hotline: 723.110.5234 Maternal Mental Health Hotline: Addiction Hotline: 882.907.7863 Local/State Hotlines & Helplines: [facility] [employer] Crisis Helpline: 999.761.[address] [facility] [employer] Warmline (Non-Crisis Supportive Talk Line): 404.259.[address] [facility] Domestic Violence Mcfp Hotline: 917.435.[address] [facility] Adult Protective Services Reporting Line: 973.956.[address] [facility] Child Abuse & Neglect Hotline: 208.226.3600 [facility] Suicide Prevention Coalition: 679.714.6186 [facility] NetCare Crisis Link: 297.258.8204 [facility] Youth Psychiatric Crisis Line: 450.592.1609 [facility] Crisis Now Hotline: 367.179.8511 [facility] 20/02 Crisis Hotline: 230.845.9672 [facility] Crisis & Information Hotline for [place]: 757.601.9780 [facility], [place], [place], Dave, & [facility] Crisis Hotline: 905.144.9277 Community Counseling Crisis Hotline of [facility] (Business Hour Line): 924.200.1090 Community Counseling Crisis Hotline of [facility] (After Business Hours, Holidays, & Weekend Line): 734.382.1382 HelpLine Crisis Line of [place], [place], [place], [facility], [place], [facility], [place] & [facility]: Call or text helpline to 779982 [facility], & [facility] Crisis Hotline: 467.771.3588 [facility] Crisis Hotline: [place], [place], & [facility] Crisis Hotline: [facility] Crisis Hotline: [place], [place], [place], [place], [facility], [place] and [facility] Crisis Hotline: [facility] Crisis Hotline: 583.865.1934 Crisis Hotline of [place] [facility]: 732.485.5862 Crisis Hotline of [facility]: 550.596.8184 [place] Crisis Text Line: Text Keyword 4HOPE to 763 016 Sexual Assault Response Network of [facility] 24-Hour Rape Helpline: 801.756.5229 [place] Sexual Violence Helpline: 916.302.2730 [place] CareLine: 573.312.5321 [place] [facility] Helpline/Admissions Line: 635.735.7012 [employer]: [phone] [place] Medicaid Consumer Hotline: 149.709.3337 [place] Department of Disabilities: Behavioral Healthcare Providers [facility]: [address] [place] [address] Offers early crisis intervention services for those [...] PM MONDAY 8:30 AM - 6:00 PM [facility] at [address] [place] [address] Offers intake assessments during the following days [...] PM MONDAY 9:30 AM - 12:30 PM [facility] Open [facility] Youth [place]: [address] [place] [address] / [phone] Adult [place]: [address] [place] [address] / [phone] Offers intake assessments during the following days [...] during specified hours and visit the front sight attacher. 3. During your visit, you'll meet with a retirement specialist and complete your assessment. This may feel [...] - 11:30 AM documented in this encounter [facility] 11-19-2024 Plan of care note Problem: Falls, [...] Participation in care planning Outcome: Partially Met [facility] 11-18-2024 Plan of care note Behavioral Health Pre Admission Screening Tool Date: 11/18/2024 Time: 11:15 PM Patient Name: Corey Morrison Date of : 1980 Sex: Male Involuntary signed by ED provider 11/18/24 Prescreener Caller Information: Cassie Hartman Referral Source: [facility] Diagnosis: MDD Presenting Problem/Chief Complaint: suicidal Medical Status: Stable Functional Status: Independent Medication Compliant: Yes Insurance Information/Precertification Completed: Yes Case Reveiwed With: Other Other Physician: Dr. Bullock Accepted for Admission: Yes Admitting Physician: Other Other Admitting Physician: Dr. Bullock Number For RN To RN Communication: [phone] Risk Factors Recent Psychological Experiences: Loss (Comment), Divorce, Conflict (Comment) (Pt.'s mother is in a half-way,sister is homeless,stress with fiance) Current Suicidal Ideation: [...] and threats. Collateral reports concerns. Past admissions. [facility] 11-18-2024 Emergency department Note Rounding: ABCs intact, no c/o. ACTIVITY: Pt resting quietly on cart; patent airway. Spontaneous breathing w/ regular respirations. NEEDS/CONCERNS- none voiced, SAFETY: cart in low position, call light within reach. Pt remains in blue gown with continuous video/sitter monitoring in place for pt safety. No HI/SI attempts, nonviolent at present. [facility] 11-18-2024 Emergency department Note Rounding: ABCs intact, [...] pt. Pt cooperative. Pt brought in by manager transport for intoxication and SI ideation. Pt admits to drinking beat boxes before work and leaving work to buy more beat boxes. Ditch Digger at bedside states he sat in my chair today and stated he wanted to kill himself. [facility] HEALTH - Emergency Medicine Attending Note: NAME: Corey Morrison 44 y.o. CSN: [id number] PCP: Yandel Hinojosa PA-C History: Chief Complaint: [...] All other components within normal limits Narrative: [facility] Laboratory Services has implemented the eGFR calculation [...] Procedure Abnormality Status --------- ------ CBC Auto Differential[[id number]] Abnormal Final result Please view results for [...] from a psychosocial perspective. Yoli was the social contact worker with whom I discussed this case and [...] available in inpatient encounters. Please contact a music therapist public school system. Vern Garibay M.D. Attending Physician [facility] 11/20/2024 Portions of this note [...] MD 11/20/24 0719 documented in this encounter [facility] 11-18-2024 Emergency department Note Rounding: ABCs intact, no c/o. ACTIVITY: Pt resting quietly on cart; patent airway. Spontaneous breathing w/ regular respirations. NEEDS/CONCERNS- none voiced, SAFETY: cart in low position, call light within reach. Pt remains in blue gown with continuous video/sitter monitoring in place for pt safety. No HI/SI attempts, nonviolent at present. [facility] 11-18-2024 Emergency department Note PSS spoke with pt. Via telehealth Pt. continues to deny suicidal thoughts or plans. He reports he does not recall saying anything and he just wants to go home Pt. Is unable to make a plan to keep himself safe at this time. Case discussed with Dr. Bullock for admission Spoke to RN with update [facility] 11-18-2024 Emergency department Note Rounding: ABCs intact, no c/o. ACTIVITY: Pt resting quietly on cart; patent airway. Spontaneous breathing w/ regular respirations. NEEDS/CONCERNS- none voiced, SAFETY: cart in low position, call light within reach. Pt remains in blue gown with continuous video/sitter monitoring in place for pt safety. No HI/SI attempts, nonviolent at present. [facility] 11-18-2024 Emergency department Note Rounding: ABCs intact, no c/o. ACTIVITY: Pt resting quietly on cart; patent airway. Spontaneous breathing w/ regular respirations. NEEDS/CONCERNS- none voiced, SAFETY: cart in low position, call light within reach. Pt remains in blue gown with continuous video/sitter monitoring in place for pt safety. No HI/SI attempts, nonviolent at present. [facility] 11-18-2024 Emergency department Note PT came out to use the phone, this PSA asked pt to go back to room due to ISABELA Garza on phone about another pt. Pt cooperative. [facility] 11-18-2024 Consult note Associated Order (s): IP [...] me so I drink and things didn't jewel bearing turner as planned. Patient was asked about prior [...] with patient: 42 CFR Part 2 Regulations [facility] 11-18-2024 Consult note Associated Order (s): ED CONSULT TO PSYCH - [facility] ED [facility] Initial Assessment Date: 11/18/2024 Time: 5:51 PM Patient Name: Corey Morrison Date of : 1980 Sex: Male Admit Date/Time: 11/18/2024 2:29 PM GENERAL INFORMATION General Information Securities Consultant Needs: Not needed Information Provided By: Pt. chart friend ,fiance Patient Support System: family, friends Current Living Arrangements: Pt. lives with his andrew Pa and her two teen age children Type of Residence: Private residence Name and Contact of Collateral Provider: Audrey Carrasquillo, and andrew Jeffrey,[phone] LEGAL STATUS Medical Hold Date Signed 11/18/24 Time Signed 345p Completed By ED Provider DIAGNOSIS/ACTIVE PROBLEM LIST Medical Problems Hospital Problem List Codes Alcohol abuse ICD-10-CM: F10.10 ICD-9-CM: 305.00 Unspecified mood (affective) disorder (HCC) ICD-10-CM: F39 ICD-9-CM: 296.90 CHIEF COMPLAINT/HISTORY OF PRESENT ILLNESS Chief Complaint/History Present Illness Chief Complaint: [facility] alcohol intoxication and voicing suicidal thoughts Current Symptoms: Anxiety, Depression, Substance abuse, Suicidal Problems Related to: Economic, Primary support History of Present Illness: Pt. has a history of psychiatric hospitalizations The patient Corey Morrison is a 44 year old employed male presenting to the [place] [facility] accompanied by his manager transport/ employer for alcohol intoxication and and suicidal [...] could not recall the hospital somewhere near [place]. He reports he does see a therapist [...] pt. has been best friends with the midwife and birth center owner of the company for twenty years. She [...] stress about his mother going into a half-way and his sister being homeless and on [...] come to the hospital. She reports the midwife and birth center owner is his best friend, is concerned for [...] Psychiatric Medications: Anti-depressants, Anti-psychotics Previous Psychiatric Hospitalizations: [facility] in [place] Current Psychiatric Medications: see medical chart,per pt. [...] Conflict (Comment) (Pt.'s mother is in a half-way,sister is homeless,stress with fichandler) Current Suicidal Ideation: [...] Conflict Resolution (Coping Skills): Yes Cultural and Roman Catholic Beliefs: Yes Access to Weapons: No TREATMENT [...] into consideration all of the available information. [facility] 11-18-2024 Emergency department Triage note Pt brought in by manager transport for intoxication and SI ideation. Pt admits to drinking beat boxes before work and leaving work to buy more beat boxes. Ditch Digger at bedside states he sat in my chair today and stated he wanted to kill himself. [facility] 11-18-2024 Physician Emergency department Note [facility] BE[facility]AVIORAL [facility] - Emergency Medicine Attending Note: NAME: Corey Morrison 44 y.o. CSN: [id number] PCP: Yandel Hinojosa PA-C History: Chief Complaint: [...] All other components within normal limits Narrative: [facility] Laboratory Services has implemented the eGFR calculation [...] Procedure Abnormality Status --------- ------ CBC Auto Differential[[id number]] Abnormal Final result Please view results for [...] from a psychosocial perspective. Yoli was the social contact worker with whom I discussed this case and [...] available in inpatient encounters. Please contact a music therapist public school system. Vern Garibay M.D. Attending Physician [facility] 11/20/2024 Portions of this note [...] Known Allergies Vern Garibay MD 11/20/24 0719 [facility] [employer] Work Phone: 11-12-2024 History of Present illness [...] or sooner prn. documented in this encounter [facility] Work Phone: 05-30-2024 History of Present illness Narrative Subjective Patient ID: Corey Morrison is a 44 y.o. male who presents for pt here to [facility] (Pt having issues with anxiety and BP [...] get labs then. documented in this encounter [facility] Work Phone: 05-30-2024 Instructions Yandel Hinojosa PA-C - 05/30/2024 3:15 PM EDT Look into Volteran gel (get generic) for MSK pain. documented in this encounter [facility] Work Phone: 12-21-2023 Telephone encounter Note Patient has been given PFA phone number and encouraged to to call and speak with them. [facility] 12-21-2023 Miscellaneous Notes Patient has been given PFA phone number and encouraged to to call and speak with them. See if the patient will consider meeting with financial counselors here Stella Ly APRN.SERVICE CASHIER documented in this encounter [facility] 11-24-2023 Telephone encounter Note See if the patient will consider meeting with financial counselors here Stella Ly APRN.TOMAS [facility] Work Phone: 11-02-2023 Instructions Celsa Bellamy APRN.TOMAS - 11/02/2023 10:33 AM EDT - Contact office or [id number] after-hours promptly should condition worsen or any new symptoms appear. - Counseling Center [facility] and after hours crisis line documented in this encounter [facility] 11-02-2023 History of Present illness Narrative CC: [...] verbal permission from patient to call his psychology lecturer as I let him know my concerns for his wellbeing. - spoke with Patricia Carrera, she is going to continue to contact patient and trying to work out a decreased rate for him. States she will decide on new treatment not requiring lab monitoring once she speaks with him. Patient called with no answer so message sent via [employer] explaining to call Patricia back to set up times for decreased rate - Reviewed concept of neurochemical imbalance wth depression/anxiety, treatment options and benefits of counseling in combination with medication. Also reviewed benefits of sleep hygeine, diet and exercise - Instructed patient to contact office or [id number] after-hours promptly should condition worsen or any new symptoms appear. - [facility] and after hours crisis line 2. [...] Celsa Bellamy APRN.CNP documented in this encounter [facility] 05-18-2023 History of Present illness Narrative Olivier Harvey MD Department of Orthopaedics Orthopaedics [address] [place] [address] Dept: [phone] Dept May 18, 2023 CHIEF COMPLAINT: Follow Up of the Right Hand and 15 weks post visit Dupuytren's contracture right hand HPI Patient here for follow up dupuytrens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
[2025-01-31] MEDS: Lactated Ringers 1,000 ML 1000 ML IV (16:25)
[2025-01-31] MEDS: 0.9% Saline Lock 10 ML Syringe IV ×2 (16:26→20:14)
[2025-01-31 16:44] LABS: Magnesium 1.8 mg/dL (1.5-2.2)
[2025-01-31] MEDS: hydrOXYzine PAM 25 MG Capsule 50 MG PO (18:34)
[2025-02-01] VITALS (9 sets, daily range): BP systolic 129–159; BP diastolic 88–115; PULSE 110–120; RESP 16–20; TEMP 36.7–37.6; O2SAT 95–99
[2025-02-01] MEDS: hydrOXYzine PAM 25 MG Capsule 50 MG PO ×3 (00:55→12:01)
[2025-02-01 05:24] LABS: Hematocrit 43.4 % (40-54); Hemoglobin 15.4 g/dL (13.0-16.5); Mean Corp Hgb Conc 35.5 g/dL (32-36); Mean Corpuscular Volume 90.6 fL (80-94); Mean Platelet Vol. 8.8 fl (6.2-12.0); Platelet Count 174 K/mm3 (150-450); RBC Distribution Width CV 13.3 % (11.6-14.6); RBC Distribution Width SD 43.6 fl (35.1-43.9); Red Blood Count 4.79 M/mm3 (4.6-6.2); White Blood Count 6.1 K/mm3 (4.4-11.0)
[2025-02-01 05:59] LABS: Anion Gap 10 (5-15); BUN 10 mg/dL (4-19); BUN/Creat Ratio 9.9 RATIO (10-20); Calcium,Total 9.2 mg/dL (7.6-11.0); Carbon Dioxide 30.0 mmol/L (21.0-32.0); Chloride 98 mmol/L (98-108); Estimated Creatinine Clearance 111.71 ml/min (50-250); Glucose 111 mg/dL (70-99); Potassium 3.5 mmol/L (3.3-5.1)
--- NOTE | 2025-02-01 07:48 | PCM.PN.HOSP ---
Reason for Visit Reason for Visit: Alcohol detox Subjective Subjective Patient states he is feeling much better than yesterday. No significant withdrawal symptoms. Objective Data Objective Data Vital Signs: Vital Signs Temp Pulse Resp BP Pulse Ox O2 Del Method 98.2 F 110 H 16 154/108 H 95 Room Air 02/01/25 04:57 02/01/25 04:57 02/01/25 04:57 02/01/25 04:57 02/01/25 04:57 02/01/25 07:10 Oxygen Delivery Method Room Air Weight: 100.471 kg Body Mass Index (BMI) 29.2 Intake & Output: Intake and Output for Last 24 Hours 01/30/25 01/31/25 02/01/25 23:59 23:59 23:59 Intake Total 1500 / 1500 600 / 600 Balance 1500 / 1500 600 / 600 Lab / Micro Data 02/01/25 04:44 02/01/25 04:44 Labs: Laboratory Results - last 24 hr 01/31/25 12:53: WBC 13.6 H, RBC 5.74, Hgb 18.7 H*, Hct 50.6, MCV 88.2, MCH 32.6 H, MCHC 37.0 H, RDW Std Deviation 42.3, RDW Coeff of Anson 13.1, Plt Count 319, MPV 8.3, Immature Gran % (Auto) 0.700, Neut % (Auto) 70.7 H, Lymph % (Auto) 18.7 L, [place] % (Auto) 9.3, Eos % (Auto) 0.2, Baso % (Auto) 0.4, Absolute Neuts (auto) 9.6 H, Absolute Lymphs (auto) 2.53, Nucleated RBC % 0, Sodium 136, Potassium 3.4, Chloride 96 L, Carbon Dioxide 21.5, Anion Gap 19 H, BUN 9, Creatinine 1.04, Estim Creat Clear Calc 111.05, Est GFR (MDRD) Non-Af 90, BUN/Creatinine Ratio 8.3 L, Glucose 103 H, Calcium 9.5, Phosphorus 2.6 L, Magnesium 1.8, Ethyl Alcohol 95.1 H 01/31/25 14:02: Urine Opiates Screen NEGATIVE, U Buprenorphine Qual NEGATIVE, Ur Oxycodone Screen NEGATIVE, Urine Methadone Screen NEGATIVE, Urine Fentanyl Screen NEGATIVE, Ur Barbiturates Screen NEGATIVE, Ur Phencyclidine Scrn NEGATIVE, Ur Amphetamines Screen NEGATIVE, U Benzodiazepines Scrn NEGATIVE, Urine Cocaine Screen NEGATIVE, U Cannabinoids Screen PRESUMPTIVE POSITIVE 02/01/25 04:44: WBC 6.1, RBC 4.79, Hgb 15.4, Hct 43.4, MCV 90.6, MCH 32.2 H, MCHC 35.5, RDW Std Deviation 43.6, RDW Coeff of Anson 13.3, Plt Count 174, MPV 8.8, Sodium 139, Potassium 3.5, Chloride 98, Carbon Dioxide 30.0, Anion Gap 10, BUN 10, Creatinine 1.03, Estim Creat Clear Calc 111.71, Est GFR (MDRD) Non-Af 91, BUN/Creatinine Ratio 9.9 L, Glucose 111 H, Calcium 9.2 Physical Exam Const alert, oriented x3, no apparent distress and well nourished Constitutional Narrative: Overweight, middle-aged, white male, lying in bed, appears comfortable, does not look toxic today HEENT head/scalp atraumatic and moist oral mucous membranes Head and Scalp: normocephalic Cardio regular rhythm, S1 normal heart sound, S2 normal heart sound, no murmurs, no rub, no gallops and no clicks; Negative for regular rate Cardio Narrative: mild tachycardia GI normal to inspection, nondistended, normoactive bowel sounds, soft to palpation and non-tender Extremity no clubbing, cyanosis or edema Neuro oriented x3, moves all extremities and no focal motor deficits Speech: speech normal Psych affect normal Psych Narrative: very pleasant Assessment & Plan Assessment/Plan (1) Desire for detoxification: (2) Alcohol abuse: PLAN: Plan Acute alcohol withdrawal - Alcohol level on admission was 95 - Obvious withdrawal symptoms on arrival - Continue phenobarbital taper - Continue supportive medications to treat withdrawal symptoms - Continue thiamine and folate - Will need consultation for assistance with discharge planning Leukocytosis/erythrocytosis - Resolved with IV fluids - Suspect all related to hemoconcentration Essential hypertension - Continue home amlodipine and losartan History of gout - Continue home allopurinol GERD - Continue home PPI Severe anxiety/depression with history of suicidal ideation - Patient had a hospitalization in October for severe depression and suicidal ideation - Discharged home after a 4-day stay - No current suicidal ideation or severe depression concerns - Continue fluoxetine - Continue Lamictal - Continue trazodone DVT prophylaxis - Continue Lovenox CODE STATUS - Full code Charges/Coding Visit Charges Inpatient E&M: 78615 Subs Hosp L1
[2025-02-01] MEDS: Thiamine Hydrochloride 100 MG Tablet PO (08:09)
[2025-02-01] MEDS: 0.9% Saline Lock 10 ML Syringe IV (16:55)
--- NOTE | 2025-02-01 16:59 | ADDICTION ---
Pt was met with to complete the RAMP assessment, AUDIT, DUDIT, ASAM, MSE, and DC Plan. Pt was initially hesitant to agree to going into residential tx but he eventually agreed that it's what he needs. Pt was agreeable to [facility] residential tx facility in [place]. We called to have him screened by [facility], but they were unable to complete the screening d/t their policy of only doing same day or next day admission. They indicated that the pt will need to call [facility] back from the hospital w/a nurse or tx coordinator on Monday or Monday morning, before he is discharged, to arrange the admission to [facility]. He needs to call [phone] and press one for admissions. Tx coordinator will f/u with [facility] to arrange pt's admission and transport to residential.
[2025-02-02] VITALS (8 sets, daily range): BP systolic 128–167; BP diastolic 73–102; PULSE 90–105; RESP 16; TEMP 36.5–36.8; O2SAT 96–99
--- NOTE | 2025-02-02 07:09 | PCM.PN.HOSP ---
Reason for Visit Reason for Visit: Alcohol detox Subjective Subjective Patient states he is feeling well and plans on going to residential treatment at discharge. Objective Data Objective Data Vital Signs: Vital Signs Temp Pulse Resp BP Pulse Ox O2 Del Method 97.8 F 90 16 135/85 H 97 Room Air 02/02/25 05:09 02/02/25 05:09 02/02/25 05:09 02/02/25 05:09 02/02/25 05:09 02/02/25 05:09 Oxygen Delivery Method Room Air Weight: 100.471 kg Body Mass Index (BMI) 29.2 Intake & Output: Intake and Output for Last 24 Hours 01/31/25 02/01/25 02/02/25 23:59 23:59 23:59 Intake Total 1500 / 1500 1410 / 1610 800 / 800 Balance 1500 / 1500 1410 / 1610 800 / 800 Lab / Micro Data 02/01/25 04:44 02/01/25 04:44 Physical Exam Const alert, oriented x3, no apparent distress, average body habitus, healthy appearing and well nourished Constitutional Narrative: Overweight, middle-aged, white male, lying in bed, appears comfortable, nontoxic General Appearance: cooperative HEENT normocephalic, head/scalp atraumatic and moist oral mucous membranes Neuro oriented x3, moves all extremities and no focal motor deficits Speech: speech normal Psych mental status grossly normal and affect normal Psych Narrative: very pleasant Assessment & Plan Assessment/Plan (1) Desire for detoxification: (2) Alcohol abuse: PLAN: Plan Acute alcohol withdrawal - Alcohol level on admission was 95 - Obvious withdrawal symptoms on arrival - Continue phenobarbital taper - Continue supportive medications to treat withdrawal symptoms - Continue thiamine and folate - [facility] ([place])--> indicated that the pt will need to call back from the hospital w/a nurse or tx coordinator on Monday or Monday morning, before he is discharged, to arrange the admission to [facility]. He needs to call [phone] and press one for admissions. Tx coordinator will f/u with to arrange pt's admission and transport to residential. Essential hypertension - Continue home amlodipine and losartan History of gout - Continue home allopurinol GERD - Continue home PPI Severe anxiety/depression with history of suicidal ideation - Patient had a hospitalization in October for severe depression and suicidal ideation - Discharged home after a 4-day stay - No current suicidal ideation or severe depression concerns - Continue fluoxetine - Continue Lamictal - Continue trazodone DVT prophylaxis - Continue Lovenox CODE STATUS - Full code Charges/Coding Visit Charges Inpatient E&M: 06058 Subs Hosp L1
[2025-02-02] MEDS: Thiamine Hydrochloride 100 MG Tablet PO (09:23)
[2025-02-02] MEDS: hydrOXYzine PAM 25 MG Capsule 50 MG PO (13:55)
[2025-02-03 01:12] VITALS: BP 135/87; PULSE 96; RESP 16; TEMP 36.8; O2SAT 96
[2025-02-03 05:12] VITALS: BP 132/85; PULSE 103; RESP 16; TEMP 36.9; O2SAT 99
[2025-02-03 07:55] VITALS: BP 137/66; PULSE 88; RESP 18; TEMP 36.9; O2SAT 98
[2025-02-03] MEDS: Thiamine Hydrochloride 100 MG Tablet PO (07:59)
--- NOTE | 2025-02-03 11:30 | DS.PCM_ITS ---
Providers Date of Admission: 01/31/25 Primary Care Physician: MARIA DE JESUS Cazares Reason For Visit: ALCOHOL DETOX Diagnosis Discharge Diagnosis (1) Desire for detoxification: Status: Acute (2) Alcohol abuse: Status: Acute Code(s): F10.10 - Alcohol abuse, uncomplicated Medications at Discharge Home Medications allopurinol 300 mg tablet 300 mg PO DAILY gout 10/05/22 omeprazole 20 mg capsule,delayed release 20 mg PO BID acid reflux 10/05/22 fluoxetine 20 mg capsule 20 mg PO DAILY anxiety/depression 01/31/25 lamotrigine 100 mg tablet 100 mg PO DAILY seizures/bipolar 01/31/25 losartan 50 mg tablet 50 mg PO DAILY blood pressure 01/31/25 trazodone 50 mg tablet 50 mg PO QHS PRN PRN insomnia 01/31/25 albuterol sulfate 2.5 mg/3 mL (0.083 %) solution for nebulization 2.5 mg (3 mL) inhalation Q6H PRN PRN wheezing #0 mL 02/03/25 amlodipine 5 mg tablet 5 mg PO DAILY #0 tabs 02/03/25 multivitamin 1 tab PO DAILY #30 tabs 02/03/25 Hospital Course Operations None Procedures None Summary of Care Provided Hospital Course: Patient presents with treatment for alcohol withdrawal. Patient's course was uncomplicated while using a phenobarbital taper. Patient be discharged to residential program in stable condition. Physical Exam Const alert and no apparent distress General Appearance: cooperative and comfortable HEENT normocephalic and head/scalp atraumatic Weight / BMI Weight Weight: 100.471 kg Body Mass Index (BMI) 29.2 ABG / Lab / Microbiology Data 02/01/25 04:44 02/01/25 04:44 D/C Instructions Discharge Diet: No restrictions DC O2, CPAP, BIPAP Needs Home O2 Discharge instructions: No Meaningful Use Info Meaningful Use Meaningful Use Diagnoses (Choose all that apply): None applicable Ischemic Stroke Statin Dosing Therapy Reference: STATIN DOSE THERAPY REFERENCE: * Patients > 75 years receive moderate or high dose statin therapy. * Patients 75 years or YOUNGER should receive HIGH intensity statin dose unless contraindicated. You will be required to document reason for non-treatment if statin daily dose does not meet guidelines. HIGH DOSE STATIN THERAPY DAILY Atorvastatin > than or = to 40 mg Rosuvastatin > than or = to 20 mg Amlodipine + Atorvastatin > than or = to 2.5/40 mg Ezetimibe + Simvastatin 10/80 mg Simvastatin 80mg Discharge Plan Admission Admit Date/Time: 01/31/25 14:47 Primary Reason for Your Visit: Alcohol withdrawal Attending Provider: Romario Matute Primary Care Provider: Yandel Figueroa Consulting Providers: Tavon Eric; Evangelina Hyde Discharge Orders/Prescriptions Prescriptions: New albuterol sulfate 2.5 mg /3 mL (0.083 %) Solution For Nebulization 2.5 mg inhalation Q6H PRN PRN (Reason: wheezing) Qty: 0 0RF amlodipine 5 mg Tablet 5 mg PO DAILY Qty: 0 0RF multivitamin Tablet 1 tab PO DAILY Qty: 30 0RF Continued omeprazole 20 mg Capsule,Delayed Release(Dr/Ec) 20 mg PO BID allopurinol 300 mg Tablet 300 mg PO DAILY losartan 50 mg tablet 50 mg PO DAILY fluoxetine 20 mg capsule 20 mg PO DAILY lamotrigine 100 mg tablet 100 mg PO DAILY trazodone 50 mg tablet 50 mg PO QHS PRN PRN (Reason: insomnia) Referrals / Follow Up: Octavia Bolden MD [Med Staff - Knowledge Management Advisor] - Yandel Figueroa PA [Primary Care Provider] - Disposition Disposition (needs filled in before D/C Order can be placed): Home, Self Care Charges/Coding Visit Charges Inpatient E&M: 44676 Disch Hosp
[2025-02-03 13:12] VITALS: BP 133/91; PULSE 105; RESP 18; TEMP 37.1; O2SAT 97
--- NOTE | 2025-02-03 13:16 | CHAPLAIN ---
Type of Pastoral Visit _x__ Initial Visit ___ Follow-up Visit ___ On-call Visit ___ General Patient Visit ___ Spiritual Assessment ___ Family Conference ___ Bereavement ___ Rapid Response ___ Code Blue ___ Other (describe below) Pastoral Care Referral From _x__ Patient ___ Family ___ Nurse ___ Physician ___ Powerhouse Electrician ___ Debt Recovery Officer ___ Other (describe below) Sacrament/Intervention _x__ Active listening ___ Anointing ___ Religion ___ Bereavement ___ Communion _x__ Eunice exploration ___ ___ Life review _x__ Prayer ___ Reconciliation ___ Sacrament of Sick _x__ Supportive presence ___ Wedding ___ Other (describe below) Pastoral Comments patient is waiting to be discharged today; pt is alert and willing to talk about his situation and need; pt shows motivation for change in his life and indicates he has some support; pt acknowledges that he is not jain but very open to spiritual connection and support; more discussion on eunice exploration; pt welcomes prayer and sheds some tears at conclusion; pt states that this was meaningful for him
== END 2025-02-03 14:21 | disposition home or self-care (01) ==
LOC: ED 14:53 → MS3 02-01 07:02
PROVIDERS: Admitting Provider Hospitalist; Emergency Provider Emergency Medicine; PCP Physician Assistant
DX: F10.129 Alcohol abuse with intoxication, unspecified (principal); F10.130 Alcohol abuse with withdrawal, uncomplicated; F32.A Depression, unspecified; I10 Essential (primary) hypertension; F41.9 Anxiety disorder, unspecified; K21.9 Gastro-esophageal reflux disease without esophagitis; M10.9 Gout, unspecified; Y90.4 Blood alcohol level of 80-99 mg/100 ml; Z79.899 Other long term (current) drug therapy
CPT/HCPCS: 36415; 80048; 80307; 82077; 83735; 84100; 85025; 85027; 96360; 96372; 99221; 99284; A4216; G0378